=== PATIENT | female | born 1980 | race Caucasian/White ===

== ENCOUNTER 2024-10-01 11:25 | Emergency (ER) | payer OTHER, SELFPAY ==
[2024-10-01 11:25] VITALS: BP 123/85; PULSE 94; RESP 18; TEMP 37; O2SAT 99; BMI 23.3
--- NOTE | 2024-10-01 11:55 | CT_ITS ---
PROCEDURE: ABDOMEN/PELVIS W IV CONT ONLY 10/01/2024 REASON FOR EXAM: 43-year-old female, abdominal pain, history of Crohn's disease. TECHNIQUE: Abdomen CT without and with intravenous contrast. Coronal and Sagittal reconstruction series were provided. PATIENT PREPARATION: Per protocol ORAL CONTRAST TYPE: None. CONTRAST: Isovue-300 VOLUME: 100mL One or more dose reduction techniques were used (e.g., Automated exposure control, adjustment of the mA and/or kV according to patient size, use of iterative reconstruction technique. RADIATION DOSE SUMMARY: CTDlvol: 19 mGy DLP: 323 mGycm COMPARISON: None. FINDINGS: Lung bases: The heart is normal in size. Lung bases are clear. Liver: The liver is normal in size without focal hepatic mass. The major portal veins are patent. No biliary ductal dilation. Gallbladder: No radiopaque stones within the gallbladder. Spleen: Unremarkable. Pancreas: Unremarkable. Adrenals: Unremarkable. Kidneys: No hydronephrosis or nephrolithiasis. Bladder: Decompressed. Reproductive Organs: Normal uterine size and contour. Ovaries are unremarkable. Physiologic left corpus luteum. Bowel: Prior bowel resection and anastomosis in the right lower quadrant. The bowel loops are normal in caliber. Moderate diffuse mural thickening and enhancement of the distal colon, compatible with reported history of Crohn's disease. Mild mesenteric edema. No ascites or pneumoperitoneum. Probable prior appendectomy. Lymph nodes: Prominent mesenteric and lower abdominopelvic nodes, likely inflammatory. No suspicious lymphadenopathy. Vasculature: Unremarkable. Bones: No aggressive osseous lesions. CT/Abdomen/Pelvis W IV Cont ONLY IMPRESSION: Findings compatible with Crohn's disease. No bowel obstruction or abdominopelv ic abscess identified. Reading Location: [facility]
--- NOTE | 2024-10-01 11:56 | ED.VIS.GI ---
HPI HPI - GI History of Present Illness Chief Complaint: Abd Pain Narrative Narrative: 43-year-old female past medical history of Crohn disease, sees gastroenterology at the [facility] presents with concerns for bowel obstruction which she has had in the past. She has had ileostomy with small bowel resection in the past. She has had reversal of her ileostomy. She states she was seen by her roastmaster in July, approximately 2 months ago, and had colonoscopy where there was partial narrowing from her Crohn disease. She states that today while she was at work, she began feeling nauseated but no vomiting. She also had black stool mixed with bright red blood. She states that she is concerned for bowel obstruction. She is having increasing pain from her Crohn disease. She states that the Entyvio is not working and she supposed to be changed to a drug trial soon. [facility] Medical History Stomach ulcer GERD (gastroesophageal reflux disease) PCOS (polycystic ovarian syndrome) IBS (irritable bowel syndrome) History of frequent headaches Gastrointestinal problem Anemia Home Medications ?Medication ?Instructions ?Recorded ?Last Taken ?Type calcium carbonate-vitamin D3 600 tab PO 09/08/24 Unknown History mg calcium-200 unit chewable tablet ergocalciferol (vitamin D2) 1,250 1,250 mcg PO QWEEK 09/08/24 Unknown History mcg (50,000 unit) capsule ferrous sulfate 325 mg (65 mg 325 mg PO QDAY 09/08/24 Unknown History iron) tablet (Feosol) multivitamin 1 tab PO QDAY 09/08/24 Unknown History sertraline 25 mg tablet (Zoloft) 25 mg PO QDAY 09/08/24 Unknown History upadacitinib 30 mg tablet,extended 30 mg PO QDAY 09/08/24 Unknown History release 24 hr (Rinvoq) Allergy/AdvReac Type Severity Reaction Status Date / Time gluten Allergy Severe bloating Verified 10/01/24 11:25 meperidine (From Demerol) Allergy Severe Vomiting Verified 10/01/24 11:25 ciprofloxacin Allergy Intermediate Swelling Verified 10/01/24 11:25 Family History Mother Alcoholism Anxiety Arthritis Depression Hypertension Father Anxiety Psoriasis Hypertension Grandmother Depression Breast cancer Diabetes Osteoporosis Grandfather Myocardial infarction Aunt Breast cancer Parkinsons Depression Surgical History History of removal of ovarian cyst H/O colostomy Social History Smoking Status: Former smoker alcohol intake: current details: once a week substance use type: does not use and marijuana what type of physical activity do you participate in: walking, yoga and weight training frequency: 3-4 times per week ROS ROS ED ROS Narrative Constitutional: No fever, no chills. Cardiovascular: No chest pain. No palpitations. No pedal edema. Abdominal: Positive abdominal pain. Positive nausea. No vomiting. Reported black and bright red blood in stool. Musculoskeletal: No myalgias. No arthralgias. Neurologic: No headaches. No dizziness. No lightheadedness. EXAM Physical Exam Narrative Exam Narrative: Afebrile. Vital signs noted. Nontoxic-appearing. Cardiovascular examination reveals a regular rate and rhythm. Lungs clear to auscultation bilaterally. The abdomen is soft with diffuse tenderness to palpation, no guarding or rebound. Positive bowel sounds. Neurological examination nonfocal and nonlateralizing. Const Vital Signs: 10/01/24 11:25 10/01/24 13:25 Temperature 98.6 F Temperature Source Oral Pulse Rate 94 79 Respiratory Rate 18 16 Blood Pressure 123/85 H 130/64 H Blood Pressure Mean 97 86 Pulse Ox 99 98 Oxygen Delivery Method Room Air MDM MDM MDM Narrative Medical decision making narrative: Differential diagnosis includes but not limited to Crohn exacerbation versus bowel obstruction versus partial small bowel obstruction versus colitis. Patient was given analgesia in the form of morphine and ondansetron. She will be bolused normal saline [address] will be obtained to rule out obstruction. I will check her basic laboratory work as well for any dehydration or other electrolyte abnormality. I reviewed her laboratory work and she has normal white count of 7.4 with hemoglobin stable at 11.2, hematocrit 33.3, platelet count normal at 372. CMP is significant for an AST of 34 which I think is nonspecific, ALT normal at 27 and alk phos 96. BUN is normal at 6 with creatinine 0.81, no evidence of dehydration. Normal sodium and potassium. Urinalysis is negative for infection. While there are 5-10 WBCs, she is not having dysuria, I do not feel antibiotics are indicated. Her serum test is negative. I reviewed the radiology report of the CT of the abdomen and pelvis and it is consistent with Crohn disease but there is no acute process, no obstruction, no evidence of abscess. At this point in time, repeat examination shows her to feel the same. I do feel that she can be discharged to follow-up with her roastmaster. I discussed with her steroid burst, but as she is awaiting a new drug trial, she will continue her current medications and follow-up with her roastmaster. Return instructions were reviewed. Disposition is discharged home in stable condition. History & Record Review Discussion w/independent historian: Patient Lab Data Attestation: I reviewed the patient's lab results. Labs: Laboratory Results - last 24 hr 10/01/24 10/01/24 12:01 12:07 WBC 7.4 RBC 3.84 L Hgb 11.2 L Hct 33.3 L MCV 86.7 MCH 29.2 MCHC 33.6 RDW Std Deviation 41.2 RDW Coeff of Dominguez 13.2 Plt Count 372 MPV 8.8 Immature Gran % (Auto) 0.400 Neut % (Auto) 68.8 Lymph % (Auto) 20.4 [place] % (Auto) 7.9 Eos % (Auto) 2.2 Baso % (Auto) 0.3 Absolute Neuts (auto) 5.1 Absolute Lymphs (auto) 1.50 Nucleated RBC % 0 Sodium 139 Potassium 3.5 Chloride 104 Carbon Dioxide 23.4 Anion Gap 12 BUN 6 Creatinine 0.81 Estim Creat Clear Calc 68.27 Est GFR (MDRD) Non-Af 92 BUN/Creatinine Ratio 6.8 L Glucose 84 Calcium 8.9 Total Bilirubin 0.31 AST 34 H ALT 27 Alkaline Phosphatase 96 Total Protein 7.0 Albumin 3.6 Globulin 3.4 Albumin/Globulin Ratio 1.1 Lipase 39 Serum , Qual NEGATIVE Urine Color Yellow Urine Clarity Clear Urine pH 7.0 Ur Specific [place] 1.005 Urine Protein 15 H Urine Glucose (UA) Normal Urine Ketones Negative Urine Occult Blood 10 H Urine Nitrite Negative Urine Bilirubin Negative Urine Urobilinogen Normal Ur Leukocyte Esterase 500 H Urine RBC 0-5 SEEN Urine WBC 5-10 SEEN Ur Squamous Epith Cells 0-5 SEEN Urine Bacteria 1+ Urine Mucus 0 SEEN Radiography Diagnostic Testing: Clinical Impression(s) from Imaging Studies Abdomen/Pelvis CT 10/01/24 11:55 IMPRESSION: Findings compatible with Crohn's disease. No bowel obstruction or abdominopelvic abscess identified. Reading Location: [id number] Discharge Plan Triage Chief Complaint: Abd Pain ED Provider: Anthony West Dx/Rx/DC Orders Clinical Impression: Exacerbation of Crohn's disease, Abdominal pain Instructions: ED Crohn's Disease Prescriptions: No Action Rinvoq 30 mg tablet extended release 24 hr 30 mg PO QDAY sertraline [Zoloft] 25 mg tablet 25 mg PO QDAY ergocalciferol (vitamin D2) 1,250 mcg (50,000 unit) capsule 1,250 mcg PO QWEEK multivitamin Tablet 1 tab PO QDAY calcium carbonate-vitamin D3 600 mg calcium- 200 unit tablet,chewable PO ferrous sulfate [Feosol] 325 mg (65 mg iron) tablet 325 mg PO QDAY Patient Comments: Primary Care Provider: Care Physician,No Primary Referrals: Care Physician,No Primary [Primary Care Provider] - Activity Restrictions/Additional Instructions: Follow-up with your roastmaster at the [facility] as 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 Return with new or worsening symptoms. Print Language: Norwegian Disposition Disposition: Home, Self Care
[2024-10-01] MEDS: Ondansetron 4 MG/2 ML Vial IV (12:02)
[2024-10-01] MEDS: Morphine 4 MG/ML Syringe IV (12:02)
[2024-10-01] MEDS: 0.9% Normal Saline (1000mL) 1,000 ML 999 ML IV (12:04)
[2024-10-01 12:07] LABS: Mucous, Urine 0 SEEN /hpf (<or=2+)
[2024-10-01 12:15] LABS: Color, Urine Yellow (Yellow); Glucose, Dipstick Normal (Normal); Ketone-Dipstick Negative (Negative); Leukocyte Esterase-Dipstick 500 /ul (Negative); Nitrite-Dipstick Negative (Negative); Occult Blood-Urine 10 /ul (Negative); Protein-Dipstick 15 mg/dl (Negative); Specific Gravity, Urine 1.005 (1.002-1.030); Urine Bilirubin Dipstick Negative (Negative); Urine Clarity Clear (Clear); Urine Urobilinogen Normal (Normal)
[2024-10-01 12:33] LABS: Absolute Neutrophil Count 5.1 X10^3/uL (2.0-7.7); Basophil# 0.02 X10^3/uL; Basophil% 0.3 % (0-1); Eosinophil# 0.16 X10^3/uL; Eosinophils% 2.2 % (0-5); Hematocrit 33.3 % (37-47); Hemoglobin 11.2 g/dL (12.0-15.0); Lymphocyte % 20.4 % (19-41); Mean Corp Hgb Conc 33.6 g/dL (32-36); Mean Corpuscular Hgb 29.2 pg (27.0-32.0); Mean Corpuscular Volume 86.7 fL (81-99); Mean Platelet Vol. 8.8 fl (6.2-12.0); Monocyte# 0.58 X10^3/uL; Monocyte% 7.9 % (0-10); NRBC Flagged by Analyzer 0 % (0-5); Neutrophil # 5.06 X10^3/uL (2.7-7.7); Neutrophil % 68.8 % (47-70); Platelet Count 372 K/mm3 (150-450); RBC Distribution Width CV 13.2 % (11.6-14.6); RBC Distribution Width SD 41.2 fl (35.1-43.9); Red Blood Count 3.84 M/mm3 (4.2-5.4); White Blood Count 7.4 K/mm3 (4.4-11.0)
[2024-10-01 12:34] LABS: Bacteria 1+ /hpf (None Seen); Red Blood Cells-Urine 0-5 SEEN /hpf (0-5); Squamous Epithelial Cells - UA 0-5 SEEN /hpf (5-10); White Blood Cells 5-10 SEEN /hpf (0-5)
[2024-10-01 12:47] LABS: Internal QC Validated? YES +Cl - CLEAR BKGD; Pregnancy, Serum, hCG Quali. NEGATIVE Negative
[2024-10-01 12:49] LABS: ALB/GLOB Ratio 1.1 RATIO (0.9-2.4); AST(SGOT) 34 U/L (<=31); Alanine Aminotransfer ALT/SGPT 27 U/L (<=34); Albumin, Serum 3.6 g/dL (3.5-5.0); Alkaline Phosphatase 96 U/L (35-104); Anion Gap 12 (5-15); BUN 6 mg/dL (4-19); BUN/Creat Ratio 6.8 RATIO (10-20); Calcium,Total 8.9 mg/dL (7.6-11.0); Carbon Dioxide 23.4 mmol/L (21.0-32.0); Chloride 104 mmol/L (98-108); Creatinine, Serum 0.81 mg/dL (0.70-1.20); EST Glomerular Filtration Rate 92 (>60); Estimated Creatinine Clearance 68.27 ml/min (50-250); Globulin 3.4 g/dL (2.2-4.2); Glucose 84 mg/dL (70-99); Lipase 39 U/L (13-75); Potassium 3.5 mmol/L (3.3-5.1); Sodium Level 139 mmol/L (133-145); Total Bilirubin 0.31 mg/dL (0.00-1.30)
[2024-10-01 13:25] VITALS: BP 130/64; PULSE 79; RESP 16; O2SAT 98
[2024-10-01 14:20] VITALS: BP 123/78; PULSE 77; RESP 18; TEMP 36.8; O2SAT 95
== END 2024-10-01 14:24 | disposition home or self-care (01) ==
PROVIDERS: Emergency Provider Emergency Medicine; Visit Provider Emergency Medicine
DX: K50.90 Crohn's disease, unspecified, without complications (principal); R10.9 Unspecified abdominal pain; Z87.891 Personal history of nicotine dependence; K21.9 Gastro-esophageal reflux disease without esophagitis
CPT/HCPCS: 74177; 80053; 81001; 83690; 84703; 85025; 96361; 96374; 96375; 99283; Q9967; A4216; J2405

== ENCOUNTER → 2024-12-15 | Outpatient (CLI) | payer OTHER, SELFPAY ==
--- NOTE | 2024-12-15 06:21 | CT_ITS ---
PROCEDURE: SINUS/FACIAL BONE REASON FOR EXAM: SINUSITIS TECHNIQUE: CT of the paranasal sinuses without contrast. Coronal and Sagittal reconstruction series were provided. One or more dose reduction techniques were used (e.g., Automated exposure control, adjustment of the mA and/or kV according to patient size, use of iterative reconstruction technique). Dose: CTDIvol 33.06 mGy. DLP 804.92 mGy-cm. COMPARISON: None. FINDINGS: Frontal: Clear. Ethmoid: Clear. Sphenoid: Clear. Maxillary: Clear Turbinates: Appearance. Nasal Septum: Midline. Mastoids/Middle Ears: Clear mastoid air cells bilaterally. No osseous destructive changes seen CT/Sinus/Facial Bone IMPRESSION: Negative examination Reading Location: [id number]
--- OUTSIDE RECORDS SUMMARY | 2024-12-15 06:24 | XMS RPT_ITS | CCD ---
Author Organization [facility] Care Team Providers Care Claim Review Medical Director Name Role Phone YANNA RODRIGUEZ, DR JAMMIE Bullard Primary Care Physician Jammie Raines Primary Care Provider Jammie Raines Unavailable Omar Casas Unavailable Unavailable YANNA RODRIGUEZ, DR JAMMIE Bullard Primary Care Physician Jammie Raines Primary Care Provider Jammie Raines Unavailable Omar Casas Unavailable Unavailable Jammie Raines Primary Care Provider Jmamie Raines Unavailable Omar Casas Unavailable Unavailable Jammie Raines Primary Care Provider Jammie Raines Unavailable Omar Casas Unavailable Unavailable JAMMIE RAINES Primary Care Unavailable NATACHA KLEIN N Attending Unavailable Michelle Garcia Primary Care Provider Nuno Montgomery Attending Unavailable provider (Unknown), Unlisted Primary Care Kat Jammie Otto MD Primary Care Provider Jammie Raines MD Unavailable [phone] Michelle Garcia MD Primary Care Provider Michelle Garcia MD Primary Care Provider Jose CAMACHO Michelle Chapa Primary Care Provider [phone] MICHELLE GARCIA Attending Unavailable MICHELLE GARCIA Referring Unavailable MICHELLE GARCIA Primary Care Unavailable Michelle Garcia MD Primary Care Provider [phone] Jose CAMACHOMichelle Primary Care Provider [phone] Anthony West MD Emergency Provider Care Physician, No Primary Primary Care Provider Unavailable Care Physician, No Primary Primary Care Unava ilable Apple Tang Attending UnavailApple Jarvis Attending UnavailRose Dougherty Attending Unavailable Care Physician, No Primary Primary Care Unava ilable Anthony West Attending Unavailable Jose Michelle Primary Care Provider [phone] GARCIA, MICHELLE L Primary Care Unavailable RIBAKOW, CHALINO Referring Unavailable RIBAKOW, CHALINO Attending Unavailable GARCIA, MICHELLE L Primary Care Unavailable CALVIN VORA Referring Unavailable DIVYA DIEGO Attending Unavailable GARCIA, MICHELLE L Primary Care Unavailable FLOR MAR Referring Unavailable GARCIA, MICHELLE L Primary Care Unavailable FLOR MAR Referring Unavailable GARCIA, MICHELLE L Primary Care Unavailable CALVIN VORA Referring Unavailable DIVYA DIEGO Attending Unavailable GARCIA, MICHELLE L Primary Care Unavailable GARCIA, MICHELLE L Primary Care Unavailable CALVIN VORA Referring Unavailable GARCIA, MICHELLE L Primary Care Unavailable CALVIN VORA Attending Unavailable GARCIA, MICHELLE L Primary Care Unavailable ELBA, MANDEERoselynK Referring Unavailable CALVIN VORA Attending Unavailable GARCIA, MICHELLE L Primary Care Unavailable CALVIN VORA Attending Unavailable GARCIA, MICHELLE L Primary Care Unavailable GARCIA, MICHELLE L Primary Care Unavailable RIBAKOW, CHALINO Referring Unavailable NELY CHETAN Attending Unavailable FLOR MAR Admitting Unavailable FLOR MAR Attending Unavailable GARCIA, MICHELLE L Primary Care Unavailable GARCIA, MICHELLE L Primary Care Unavailable RIBAKOW, CHALINO Referring Unavailable Allergies Allergy Classification Reported Allergen(s) Allergy Type Date of Onset Reaction(s) Facility [facility] (1 source) ciprofibrate Drug Allergy 8 Anaphylaxis [facility] Grains (1 source) Gluten Food Allergy 9 GI Upset [facility] Opioid Agonists (2 sources) Meperidine Drug Allergy 9 Intolerance, Other: See Comments [facility] Quinolones (antibiotic) (1 source) Ciprofloxacin Drug Allergy 7 Swelling, GI Upset, Anaphylaxis [facility] (20 sources) Ciprofloxacin; Translations: [ciprofloxacin] Drug Allergy 7 Nausea (finding), Swelling, GI Upset, Anaphylaxis [facility] (20 sources) Gluten; Translations: [GLUTEN PROTEIN] Drug Allergy 9 GI Upset [facility] (20 sources) Meperidine; Translations: [MEPERIDINE (PF)] Drug Allergy 9 Intolerance, Other: See Comments [facility] (20 sources) ciprofibrate; Translations: [CIPROFIBRATE] Drug Allergy 8 Anaphylaxis [facility] (20 sources) Meperidine; Translations: [MEPERIDINE] Drug Allergy 9 Intolerance [facility] (1 source) Wheat gluten extract Drug Allergy 5 bloating [facility] (1 source) Ciprofloxacin Drug Allergy 5 [facility] (1 source) Gluten Drug allergy (disorder) 5 [facility] (1 source) Meperidine Drug Allergy 5 [facility] Medications Current Medications Medication Drug Class(es) Dates Sig (Normalized) Sig (Original) acetaminophen 325 mg / HYDROcodone bitartrate 5 mg oral tablet (1 source) Opioid Agonist Start: 05-17-2021 End: 05-20-2021 take 1 tablet by mouth every six hours as needed for pain [place] 325- 5 mg oral tablet Dose = 1 tab(s), Oral, q6h, PRN As needed for severe pain, X 3 day(s), # 12 tab(s), 0 Refill(s), Crohn's disease, acute, 44.6 Start Date: 05/17/21 Stop Date: 05/20/21 Status: Ordered ascorbic acid 250 mg oral tablet (20 sources) Vitamin C ascorbic acid, vitamin C, (VITAMIN C) 250 mg tablet Take 250 mg by mouth. Active Comment on above: Take 250 mg by mouth . Calcium (20 sources) Phosphate Binder, Calcium CALCIUM ORAL Take by mouth. Active CALCIUM ORAL Chris e by mouth. 0 Active Comment on above: Take by mouth. calcium carbonate 1250 mg / cholecalciferol 200 unt oral tablet (20 sources) Vitamin D take 1 tablet by mouth once [id number]-[id number] brunson D3 500 mg-5 mcg (200 unit) per tablet Take 1 tablet by mouth. Active Comment on above: Take 1 tablet by nisreen th. Calcium Carbonate-Vitamin D3 600 mg calcium- 200 unit tablet,chewable (1 source) Start: Calcium Carbonate-Vitamin D3 600 mg calcium- 200 unit tablet,chewable Active {tbl} PO September 08, 2024 1:00am enteric contrast (will be provided with radiology test) (1 source) Start: End: enteric contrast (will be provided with radiology test) For MRI ENTEROGRAPHY WO/W Administer, As Directed One Time Only, via Oral, Rectal, both Oral and Rectal, Enteric Tube, Stoma or Indwelling Catheter, Enteric Contrast as designated per enteric contrast guidelines 1 Each 0 12/27/2021 12/28/2021 Active Comment on above: For MRI ENTEROGRAPHY WO/W Administer, As Directed One Time Only, via Oral, Rectal, both Oral and Rectal, Enteric Tube, Stoma or Indwelling Catheter, Enteric Contrast as designated per enteric contrast guidelines ergocalciferol 1.25 mg oral capsule (20 sources) Provitamin D2 Compound Start: End: take 1 capsule by mouth every week ergocalciferol 50,000 unit capsule (VITAMIN D2, DRISDOL) Indications: Vitamin D insufficiency , 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) , Malabsorption due to intolerance, not elsewhere classified Take 1 capsule by mouth one time a week. 12 capsule 1 05/26/2024 Active Comment on above: TAKE 1 CAPSULE BY MO [facility] ONE TIME A WEEK. famotidine 40 mg oral tablet (2 sources) Histamine-2 Receptor Antagonist Start: famotidine 40 mg oral tablet Dose : 40 mg = 1 tab(s), Oral, Daily, 0 Refill(s) Start Date: 11/05/16 Status: Ordered ferrous sulfate 325 mg oral tablet (20 sources) Start: take 1 tablet by mouth once daily Ferrous Sulfate (Feosol) 325 mg (65 mg iron) tablet Active 325 mg PO daily September 08, 2024 1:00am take 1 tablet by nisreen th once daily at breakfast Ferrous Sulfate 142 mg (45 mg iron) TbER Take 1 tablet by mouth daily with breakfast. Active take 1 capsule by mouth once ronan ly ferrous sulfate (IRON ORAL) Take 1 capsule by mouth once daily. Active take 1 capsule by mouth once ornan ly ferrous sulfate (IRON ORAL) Take 1 capsule by mouth once daily. 0 Active Comment on above: Take 1 capsule by mo uth once daily. Take 1 tablet by nisreen th daily with breakfast. hydrocortisone acetate 25 mg rectal suppository (3 sources) Corticosteroid Start: End: hydrocortisone (ANUSOL-HC) 25 mg suppository Indications: 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) , Anal or rectal pain 1 Suppository by RECTAL route every 12 hours. 60 Each 02/04/2024 03/05/2024 Active hydrocortisone 2.5% lidocaine 3% NIFEdipine 0.5% ointment (CPD) (6 sources) Start: End: apply 30 g rectal route three times daily hydrocortisone 2.5% lidocaine 3% NIFEdipine 0.5% ointment (CPD) Indications: 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) , Anal or rectal pain Apply a pea-sized amount by RECTAL route three times a day. 30 g 0 01/07/2024 02/06/2024 Active hydrOXYzine pamoate 25 mg oral capsule (20 sources) Antihistamine hydrOXYzine pamo ate (VISTARIL) 25 mg capsule Take 25 mg by mouth as needed. Patient not sure of dosage Active Comment on above: Take 25 mg by mouth as needed. Patient not sure of dosage inFLIXimab-abda 100 mg injection (20 sources) Tumor Necrosis Factor Jose Manuel Start: inFLIXimab-abda (RENFLEXIS) 100 mg injection Inject 400 mg intravenously every 8 weeks. NURSE TO INSERT IV FOR ADMINISTRATION 400 mg 05/03/2021 Active Comment on above: Inject 400 mg intrav enously every 8 weeks. NURSE TO INSERT IV FOR ADMINISTRATION iv contrast (will be provided with radiology test) (1 source) Start: End: iv contrast (will be provided with radiology test) MRI Enterography Inject, intravenously, once for 1 dose. No IV access, insert saline lock prior to the beginning of sedation, infusion, injection of imaging exam. Discontinue saline lock post exam. If Pt. has a central line or IVAD, may access for administration according to line specific nursing protocol. Once exam is complete flush line and de-access according to line specific nursing protocol in the MR contrast administration guidelines link. 1 Each 0 12/27/2021 12/28/2021 Active Comment on above: MRI Enterography Inj ect, intravenously, once for 1 dose. No IV access, insert saline lock prior to the beginning of sedation, infusion, injection of imaging exam. Discontinue saline lock post exam. If Pt. has a central line or IVAD, may access for administration according to line specific nursing protocol. Once exam is complete flush line and de-access according to line specific nursing protocol in the MR contrast administration guidelines link. lidocaine hydrochloride 0.02 mg/mg topical gel (17 sources) Antiarrhythmic, Amide Local Anesthetic Start: End: lidocaine urojet (GLYDO) 2 % jelp Indications: 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) , Anal or rectal pain Apply 6 mL to affected area three times a day as needed. 126 mL 4 02/04/2024 03/10/2024 Active Start: 01-22-2022 End: 08-29-2022 lidocaine (XYLOCAINE) 2 % je lly Apply as directed. 30 mL 1 01/22/2022 08/29/2022 Discontinued Comment on above: Apply as directed. methylPREDNISolone (1 source) Corticosteroid Start: 03-04-20 End: 03-10-20 methylPREDNISolone (MEDROL, GRIFFIN,) 4 mg Dose-Pack Take as instructed per package. 21 tablet 03/04/2024 03/10/2024 Active multivitamin tablet (20 sources) take 1 tablet by mouth once daily multivitamin tablet Take 1 tablet by mouth once daily. Active take 1 tablet by mouth once leslie y multivitamin tablet Take 1 tablet by mouth once daily. 0 Active Comment on above: Take 1 tablet by nisreen once daily. Multivitamin tablet (1 source) Start: 5 Multivitamin tablet Active 1 {tbl} PO daily September 08, 2024 1:00am ondansetron 8 mg oral tablet (2 sources) Serotonin-3 Receptor Antagonist Start: 5 End: 5 take 1 tablet by mouth every eight hours as needed for nausea ondansetron (ZOFRAN) 8 mg tablet Indications: 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) Take 1 tablet by mouth every 8 hours as needed for nausea/vomiting. 60 tablet 10/18/2024 11/17/2024 Active predniSONE 10 mg oral tablet (2 sources) Start: 2 predniSONE 10 mg oral tablet See Instructions, 4 tabs for 2 days 3 tabs for 2 days 2 tabs for 2 days 1 tabs for 2 days, # 20 tab(s), 0 Refill(s) Start Date: 01/27/22 Status: Ordered Start: 05-17-2021 End: 05-23-2021 take 1 tablet by mouth once daily prednisone 20mg tab (TAPER) Taper 60-40-20 mg x 2 days each dose, Oral, Daily, X 6 day(s), # 12 tab(s), 0 Refill(s), 05/23/21 17:01:00 EST Start Date: 05/17/21 Stop Date: 05/23/21 Status: Ordered Probiotic Formula oral capsule (2 sources) Start: 11-05-2016 take 1 capsule by mouth once daily Probiotic Formula oral capsule Dose = 1 cap(s), Oral, qDay, 0 Refill(s) Start Date: 11/05/16 Status: Ordered sertraline 25 mg oral tablet (20 sources) Serotonin Reuptake Inhibitor Start: 09-08-2024 take 1 tablet by mouth once daily Sertraline (Zoloft) 25 mg tablet Active 25 mg PO daily September 08, 2024 1:00am take 1 tablet by mouth once leslie y sertraline (ZOLOFT) 100 mg tablet Take 100 mg by mouth once daily. Active Comment on above: Take 100 mg by mouth once daily. Upadacitinib (Rinvoq) 30 mg tablet extended release 24 hr (1 source) Start: 09-08-2024 take 1 tablet by mouth once daily Upadacitinib (Rinvoq) 30 mg tablet extended release 24 hr Active 30 mg PO daily September 08, 2024 1:00am upadacitinib tablet ER 24 hr 30 mg (RINVOQ) (20 sources) Start: 05-11-2024 End: 05-11-2025 take 1 tablet by mouth once daily upadacitinib tablet ER 24 hr 30 mg (RINVOQ) Indications: 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) Take 1 tablet (30 mg) by mouth once daily. Swallow whole; DO NOT crush, chew, or open. 90 tablet 3 05/11/2024 05/11/2025 Active Start: 01-01-2024 End: 05-11-2024 take 1 tablet by mouth once daily upadacitinib tablet ER 24 hr 30 mg (RINVOQ) Indications: 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) Take 1 tablet (30 mg) by mouth once daily. Swallow whole; DO NOT crush, chew, or open. 30 tablet 5 01/01/2024 05/11/2024 Discontinued Start: 01-01-2024 End: 10-16-2023 take 1 tablet by mouth once daily upadacitinib tablet ER 24 hr 30 mg (RINVOQ) Take 1 tablet (30 mg) by mouth once daily. Swallow whole; DO NOT crush, chew, or open. 30 tablet 5 01/01/2024 10/16/2023 Discontinued Start: 01-01-2024 End: 06-29-2024 take 1 tablet by mouth once daily upadacitinib tablet ER 24 hr 30 mg (RINVOQ) Indications: 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) Take 1 tablet (30 mg) by mouth once daily. Swallow whole; DO NOT crush, chew, or open. 30 tablet 5 01/01/2024 06/29/2024 Active Start: 01-01-2024 End: 06-29-2024 take 1 tablet by mouth once daily upadacitinib tablet ER 24 hr 30 mg (RINVOQ) Take 1 tablet (30 mg) by mouth once daily. Swallow whole; DO NOT crush, chew, or open. 30 tablet 5 01/01/2024 06/29/2024 Active Comment on above: Take 1 tablet (30 mg ) by mouth once daily. Swallow whole; DO NOT crush, chew, or open. valACYclovir 1000 mg oral tablet (20 sources) Herpesvirus Nucleoside Analog DNA Polymerase Inhibitor, Herpes Simplex Virus Nucleoside Analog DNA Polymerase Inhibitor, Herpes Zoster Virus Nucleoside Analog DNA Polymerase Inhibitor Start: 022 take 1000 mg by mouth once daily as needed valACYclovir (VALTREX) 1 gram Take 1,000 mg by mouth once daily as needed. 06/03/2022 Active Comment on above: Take 1,000 mg by nisreen once daily as needed. vitamin b12 1 mg/ml injectable solution (20 sources) Vitamin B12 Start: 024 End: 025 inject 1000 ug by intramuscular injection every month cyanocobalamin, vitamin B-12, 1,000 mcg/mL kit Indications: Vitamin B 12 deficiency , 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) , Malabsorption due to intolerance, not elsewhere classified Inject 1,000 mcg intramuscularly once every month. 1 Kit 11 05/26/2024 05/26/2025 Active Start: 05-18-2020 End: 05-25-2024 Cyanocobalamin 1,000 mcg sub l Dissolve 1 tablet under the tongue once daily. 100 tablet 05/18/2020 05/25/2024 Discontinued (Course of therapy completed) Comment on above: Dissolve 1 tablet un reza the tongue once daily. Completed/Discontinued Medications Medication Drug Class(es) Dates Sig (Normalized) Sig (Original) acetaminophen 500 mg oral tablet (20 sources) Start: 03-04-2024 End: 03-04-2024 take 1 dose by mouth once as needed for pain 500-1,000 mg, ORAL, ONCE, 1 dose, On Thu03/04/24 at 1430, If ordered PRN for pain, patient/guardian may elect to receive this medication for higher pain levels INSTEAD of the opioid, if preferred: Yes, Recovery or Phase I (only) take 2 tablets by mo ut every six hours as needed acetaminophen (TYLENOL) 325 mg tablet Ta ke 650 mg by mouth every 6 hours as needed. Active Comment on above: Take 650 mg by mouth every 6 hours as needed. 14 actuat budesonide 2 mg/actuat rectal foam (20 sources) Corticosteroid Start : 09-11 End: 02-03 take 66.8 g rectal route once daily at bedtime budesonide 2 mg/actuation foam by RECTAL route daily at bedtime. 66.8 g 3 09/17/2023 02/04/2024 Discontinued (Course of therapy completed) Comment on above: by RECTAL route leslie y at bedtime. calcium chloride 0.0014 meq/ml / potassium chloride 0.004 meq/ml / sodium chloride 0.103 meq/ml / sodium lactate 0.028 meq/ml injectable solution (2 sources) Start : 03-04 End: 03-05 take 100 mL intravenously every hour 100 mL/hr, INTRAVENOUS, CONTINUOUS, Starting on Thu03/04/24 at 1330, Until 03/05/24 at 0302, Recovery or Phase I (only) cholecalciferol 0.025 mg oral tablet (20 sources) Vitamin D End: 05-25 cholecalciferol (VITAMIN D3) 1,000 unit tab tablet Take 1,000 Units by mouth. 05/25/2024 Discontinued (Course of therapy completed) Comment on above: Take 1,000 Units by mouth. dicyclomine hydrochloride 10 mg oral capsule (2 sources) Anticholinergic Start : 11-05 End: 11-08 Bentyl 10 mg oral capsule Dose : 10 mg = 1 cap(s), Oral, QID, # 12 cap(s), 0 Refill(s) Start Date: 11/05/16 Stop Date: 11/08/16 Status: Ordered 1 ml fentaNYL 0.05 mg/ml injection (1 source) Opioid Agonist Start : 03-04 End: 03-05 25-50 mcg, INTRAVENOUS, EVERY 10 MINUTES NEEDED, Starting on Thu03/04/24 at 1323, Until 03/05/24 at 0302, Mild Pain (1-3) - Parenteral, Moderate Pain (4-6) - Parenteral, Severe Pain (>/=7) - Parenteral, May repeat every 10 minutes (MAX: 250 mcg) If pain score remains greater than 4 after maximal dose achieved, contact PACU residential director/LIP/staff for reassessment. Give 25 mcg for mild pain (1-3) Give 50 mcg for moderate pain (4-6) and severe pain (>/=7), Recovery or Phase I (only) glucagon (rdna) 1 mg injection (14 sources) Antihypoglycemic Agent Start : 12-27 End: 08-29 inject 1 mg intravenously once glucagon (GLUCAGEN) 1 mg/mL injection Inject 1 mg intravenously one time only for 1 dose. For MRI Enterography, Inject 1 mg intravenously, as directed. Slow push at the appropriate time during MRI Scan 1 Each 0 12/27/2021 08/29/2022 Discontinued Comment on above: Inject 1 mg intraven ously one time only for 1 dose. For MRI Enterography, Inject 1 mg intravenously, as directed. Slow push at the appropriate time during MRI Scan lidocaine (PF) 10 mg/mL (1 %) 1-2 mg injection (XYLOCAINE) (1 source) Start : 03-04 End: 03-05 lidocaine (PF) 10 mg/mL (1 %) 1-2 mg injection (XYLOCAINE) 1000 ml sodium chloride 9 mg/ml injection (1 source) Start : 03-04 End: 03-05 20 mL, INTRAVENOUS, NEEDED, Starting on Thu03/04/24 at 0842, Until 03/05/24 at 0302, See admin instructions, If no compatible primary is already running, infuse NaCl 0.9% as primary to flush tubing after non-chemotherapy, non-immunotherapy intermittent infusions. Administer at the same rate as intermittent infusion. Select the Flush Bag file on smart pump., Preprocedure upadacitinib tablet ER 24 hr 45 mg (RINVOQ) (13 sources) Start : 10-17 End: 05-11 take 1 tablet by mouth once daily upadacitinib tablet ER 24 hr 45 mg (RINVOQ) Indications: 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) Take 1 tablet (45 mg) by mouth once daily. Swallow whole; DO NOT crush, chew, or open. 28 tablet 2 10/18/2023 05/11/2024 Discontinued Start: 10-18-2023 take 1 tablet by nisreen th once daily upadacitinib tablet ER 24 hr 45 mg (RINVOQ) Indications: 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) Take 1 tablet (45 mg) by mouth once daily. Swallow whole; DO NOT crush, chew, or open. 28 tablet 2 10/18/2023 Active Start: 10-18-2023 End: 01-10-2024 take 1 tablet by mouth once daily upadacitinib tablet ER 24 hr 45 mg (RINVOQ) Indications: 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) Take 1 tablet (45 mg) by mouth once daily. Swallow whole; DO NOT crush, chew, or open. 28 tablet 2 10/18/2023 01/10/2024 Active Start: 10-08-2023 End: 10-16-2023 take 1 tablet by mouth once daily upadacitinib tablet ER 24 hr 45 mg (RINVOQ) Take 1 tablet (45 mg) by mouth once daily. Swallow whole; DO NOT crush, chew, or open. 28 tablet 2 10/08/2023 10/16/2023 Discontinued Start: 10-08-2023 End: 12-31-2023 take 1 tablet by mouth once daily upadacitinib tablet ER 24 hr 45 mg (RINVOQ) Take 1 tablet (45 mg) by mouth once daily. Swallow whole; DO NOT crush, chew, or open. 28 tablet 2 10/08/2023 12/31/2023 Active Comment on above: Take 1 tablet (45 mg ) by mouth once daily. Swallow whole; DO NOT crush, chew, or open. Vit B Comp and C-Vit E-FA-Sabine-Zn 0.4 mg tab (20 sources) End: 05-25-2024 Vit B Comp and C-Vit E-FA-Sabine-Zn 0.4 mg tab 1 tablet. 05/25/2024 Discontinued (Course of therapy completed) Vit B Comp and C -Vit E-FA-Sabine-Zn 0.4 mg tab 1 tablet. Active Vit B Comp and C -Vit E-FA-Sabine-Zn 0.4 mg tab 1 tablet. 0 Active Comment on above: 1 tablet. Problems Active Problems Problem Classification Problem Date Documented Da te Episodic/Chronic Deficiency and other anemia (2 sources) Iron deficiency anemia; Translations: [Iron deficiency anemia, unspecified] 12-06-2024 Episodic Deficiency and other anemia (1 source) Iron deficiency anemia, unspecified; Translations: [Iron deficiency anemia, unspecified iron deficiency anemia type] Onset: 12-06-2024 Episodic Endometriosis (20 sources) Endometriosis (clinical); Translations: [Endometriosis, unspecified] Onset: 05-02-2020 05-02-2020 Chronic Esophageal disorders (20 sources) Gastric reflux; Translations: [Gastro-esophageal reflux disease without esophagitis] Onset: 02-16-2017 02-16-2017 Chronic Gastroduodenal ulcer (except hemorrhage) (2 sources) Gastric ulcer 10-12-2016 Chronic Nutritional deficiencies (20 sources) Malnutrition (calorie); Translations: [Moderate protein-calorie malnutrition] Onset: 02-06-2017 02-16-2017 Chronic Other aftercare (1 source) Encounter for therapeutic drug level monitoring; Translations: [Encounter for therapeutic drug level monitoring] Onset: 12-06-2024 Episodic Other connective tissue disease (1 source) Pain in right foot; Translations: [Pain in right foot] Onset: 01-03-2023 Episodic Other connective tissue disease (1 source) Pain in right toe(s); Translations: [Pain in right toe(s)] Onset: 01-03-2023 Episodic Other gastrointestinal disorders (20 sources) Ileostomy present; Translations: [Encounter for attention to ileostomy] Onset: 05-14-2017 05-27-2017 Chronic Other gastrointestinal disorders (1 source) Malabsorption syndrome; Translations: [Malabsorption due to intolerance, not elsewhere classified] 05-25-2024 Chronic Other screening for suspected conditions (not mental disorders or infectious disease) (9 sources) Patient encounter status; Translations: [Encounter for screening mammogram for malignant neoplasm of breast] Onset: 11-26-2023 Episodic Other skin disorders (1 source) Localized swelling, mass and lump, right lower limb; Translations: [Localized swelling, mass and lump, right lower limb] Onset: 01-03-2023 Episodic Other upper respiratory infections (2 sources) Acute pharyngitis; Translations: [Acute pharyngitis, unspecified] Onset: 08-29-2022 Episodic Regional enteritis and ulcerative colitis (20 sources) Crohn's disease; Translations: [Crohn's disease, unspecified, without complications] Onset: 05-14-2017 Chronic Past or Other Problems Problem Classification Problem Date Documented Date Episodic/Chronic Abdominal pain (20 sources) Abdominal pain; Translations: [Unspecified abdominal pain] Onset: 7 02-16-2017 Episodic Anal and rectal conditions (6 sources) Anal fissure; Translations: [Anal fissure, unspecified] Onset: 4 Episodic Noninfectious gastroenteritis (20 sources) Colitis; Translations: [Noninfective gastroenteritis and colitis, unspecified] Onset: 7 Resolved: 0 05-14-2017 Episodic Nutritional deficiencies (20 sources) Serum iron low; Translations: [Iron deficiency] Onset: 7 02-16-2017 Episodic Other aftercare (20 sources) Long-term current use of immunosuppressive drug; Translations: [Other fci (current) drug therapy] Onset: 0 05-02-2020 Episodic Other nervous system disorders (20 sources) Postoperative pain ; Translations: [Other acute postprocedural pain] Onset: 7 02-16-2017 Episodic Urinary tract infections (20 sources) Infective urethritis; Translations: [Other urethritis] Onset: 7 11-11-2016 Episodic Results Test Name Value Interpretation Reference Range Facility CBC W Auto Differential pane l (Bld)on 12-06-2024 Basophils (Bld) [#/Vol] [facility] Basophils/100 WBC (Bld) 0.3 % [facility] Differential cell count method Nom (Bld) Auto [facility] Eosinophils (Bld) [#/Vol] 0.12 10*3/uL [facility] Eosinophils/100 WBC (Bld) 1.8 % [facility] Erythrocyte distribution width (RBC) [Ratio] 15.1 % High 11.5 - 15.0 % [facility] Hematocrit (d) [Volume fraction] 33.8 % Low 36.0 - 46.0 % [facility] Hemoglobin (Bld) [Mass/Vol] 11 g/dL Low 11.5 - 15.5 g/dL [facility] Immature granulocytes (Bld) [#/Vol] 0.03 10*3/uL [facility] Immature granulocytes/100 WBC (Bld) 0.4 % [facility] Interpretation and review of laboratory results Abnormal [facility] Lymphocytes (Bld) [#/Vol] 1.37 10*3/uL [facility] Lymphocytes/100 WBC (Bld) 20 % [facility] MCH (RBC) [Entitic mass] 28.6 pg 26.0 - 34.0 pg [facility] MCHC (RBC) [Mass/Vol] 32.5 g/dL 30.5 - 36.0 g/dL [facility] MCV (RBC) [Entitic vol] 88 fL 80.0 - 100.0 fL [facility] Monocytes (Bld) [#/Vol] 0.57 10*3/uL [facility] Monocytes/100 WBC (Bld) 8.3 % C [facility] Neutrophils (Bld) [#/Vol] 4.73 10*3/uL [facility] Neutrophils/100 WBC (Bld) 69.2 % [facility] Nucleated RBC (Bld) [#/Vol] NINF [facility] Nucleated RBC/100 WBC (Bld) [Ratio] 0 % /100 WBC [facility] Platelet mean volume (Bld) [Entitic vol] 9.1 fL 9.0 - 12.7 fL [facility] Platelets (Bld) [#/Vol] 362 10*3/uL [facility] RBC (Bld) [#/Vol] 3.84 10*6/uL Low 3.90 - 5.2 0 m/uL [facility] WBC (Bld) [#/Vol] 6.84 10*3/uL [facility] Basophils (Bld) [#/Vol] 10*3/uL Normal <0.11 [facility] Comment on above: Order Comment: Speci men Type: BLOOD SPECIMEN Ordering Facility: [facility] Address: [address] [place] [address] Performed By: #### 5 7021-8 #### [facility] CLIA [id number] [address] [place] [address] [place] [facility] Basophils/100 WBC (Bld) 0.3 % Normal [facility] Comment on above: Order Comment: Speci men Type: BLOOD SPECIMEN Ordering Facility: [facility] Address: [address] [place] [address] Performed By: #### 5 7021-8 #### [facility] CLIA [id number] [address] [place] [address] [place] Differential cell count method Nom (Bld) Auto Normal [facility] Comment on above: Order Comment: Speci men Type: BLOOD SPECIMEN Ordering Facility: [facility] Address: [address] [place] [address] Performed By: #### 5 7021-8 #### [facility] CLIA [id number] [address] [place] [address] [place] Eosinophils (Bld) [#/Vol] 0.12 10*3/uL Normal <0.46 [facility] Comment on above: Order Comment: Speci men Type: BLOOD SPECIMEN Ordering Facility: [facility] Address: [address] [place] [address] Performed By: #### 5 7021-8 #### [facility] CLIA [id number] [address] [place] [address] [place] Eosinophils/100 WBC (Bld) 1.8 % Normal [facility] Comment on above: Order Comment: Speci men Type: BLOOD SPECIMEN Ordering Facility: [facility] Address: [address] [place] [address] Performed By: #### 5 7021-8 #### [facility] CLIA [id number] [address] [place] [address] [place] Erythrocyte distribution width (RBC) [Ratio] 15.1 % High 11.5-15.0 [facility] Comment on above: Order Comment: Speci men Type: BLOOD SPECIMEN Ordering Facility: [facility] Address: [address] [place] [address] Performed By: #### 5 7021-8 #### [facility] CLIA [id number] [address] [place] [address] [place] Hematocrit (Bld) [Volume fraction] 33.8 % Low 36.0-46.0 [facility] Comment on above: Order Comment: Speci men Type: BLOOD SPECIMEN Ordering Facility: [facility] Address: [address] [place] [address] Performed By: #### 5 7021-8 #### [facility] CLIA [id number] [address] [place] [address] [place] Hemoglobin (Bld) [Mass/Vol] 11.0 g/dL Low 11.5-15.5 [facility] Comment on above: Order Comment: Speci men Type: BLOOD SPECIMEN Ordering Facility: [facility] Address: [address] [place] [address] Performed By: #### 5 7021-8 #### [facility] CLIA [id number] [address] [place] [address] [place] Immature granulocytes (Bld) [#/Vol] 0.03 10*3/uL Normal <0.10 [facility] Comment on above: Order Comment: Speci men Type: BLOOD SPECIMEN Ordering Facility: [facility] Address: [address] [place] [address] Performed By: #### 5 7021-8 #### [facility] CLIA [id number] [address] [place] [address] [place] Immature granulocytes/100 WBC (Bld) 0.4 % Normal [facility] Comment on above: Order Comment: Speci men Type: BLOOD SPECIMEN Ordering Facility: [facility] Address: [address] [place] [address] Performed By: #### 5 7021-8 #### [facility] CLIA [id number] [address] [place] [address] [place] Lymphocytes (Bld) [#/Vol] 1.37 10*3/uL Normal 1.00-4.00 [facility] Comment on above: Order Comment: Speci men Type: BLOOD SPECIMEN Ordering Facility: [facility] Address: [address] [place], [place] [address] Performed By: #### 5 7021-8 #### [facility] CLIA [id number] [address] [place] [address] [place] Lymphocytes/100 WBC (Bld) 20.0 % Normal [facility] Comment on above: Order Comment: Speci men Type: BLOOD SPECIMEN Ordering Facility: [facility] Address: [address] [place] [address] Performed By: #### 5 7021-8 #### [facility] CLIA [id number] [address] [place] [address] [place] MCH (RBC) [Entitic mass] 28.6 pg Normal 26.0-34.0 [facility] Comment on above: Order Comment: Speci men Type: BLOOD SPECIMEN Ordering Facility: [facility] Address: [address] [place] [address] Performed By: #### 5 7021-8 #### [facility] CLIA [id number] [address] [place] [address] [place] MCHC (RBC) [Mass/Vol] 32.5 g/dL Normal 30.5-36.0 [facility] Comment on above: Order Comment: Speci men Type: BLOOD SPECIMEN Ordering Facility: [facility] Address: [address] [place] [address] Performed By: #### 5 7021-8 #### [facility] CLIA [id number] [address] [place] [address] [place] MCV (RBC) [Entitic vol] 88.0 fL Normal 80.0-100.0 [facility] Comment on above: Order Comment: Speci men Type: BLOOD SPECIMEN Ordering Facility: [facility] Address: [address] [place] [address] Performed By: #### 5 7021-8 #### [facility] CLIA [id number] [address] [place] [address] [place] Monocytes (Bld) [#/Vol] 0.57 10*3/uL Normal <0.87 [facility] Comment on above: Order Comment: Speci men Type: BLOOD SPECIMEN Ordering Facility: [facility] Address: [address] [place] [address] Performed By: #### 5 7021-8 #### [facility] CLIA [id number] [address] [place] [address] [place] Monocytes/100 WBC (Bld) 8.3 % Normal [facility] Comment on above: Order Comment: Speci men Type: BLOOD SPECIMEN Ordering Facility: [facility] Address: [address] [place] [address] Performed By: #### 5 7021-8 #### [facility] CLIA [id number] [address] [place] [address] [place] Neutrophils (Bld) [#/Vol] 4.73 10*3/uL Normal 1.45-7.50 [facility] Comment on above: Order Comment: Speci men Type: BLOOD SPECIMEN Ordering Facility: [facility] Address: [address] [place] [address] Performed By: #### 5 7021-8 #### [facility] CLIA [id number] [address] [place] [address] [place] Neutrophils/100 WBC (Bld) 69.2 % Normal [facility] Comment on above: Order Comment: Speci men Type: BLOOD SPECIMEN Ordering Facility: [facility] Address: [address] [place] [address] Performed By: #### 5 7021-8 #### [facility] CLIA [id number] [address] [place] [address] [place] Nucleated RBC (Bld) [#/Vol] 10*3/uL Normal <0.01 [facility] Comment on above: Order Comment: Speci men Type: BLOOD SPECIMEN Ordering Facility: [facility] Address: [address] [place] [address] Performed By: #### 5 7021-8 #### [facility] CLIA [id number] [address] [place] [address] [place] Nucleated RBC/100 WBC (Bld) [Ratio] 0.0 /100 WBC Normal [facility] Comment on above: Order Comment: Speci men Type: BLOOD SPECIMEN Ordering Facility: [facility] Address: [address] [place] [address] Performed By: #### 5 7021-8 #### [facility] CLIA [id number] [address] [place] [address] [place] Platelet mean volume (Bld) [Entitic vol] 9.1 fL Normal 9.0-12.7 [facility] Comment on above: Order Comment: Speci men Type: BLOOD SPECIMEN Ordering Facility: [facility] Address: [address] [place] [address] Performed By: #### 5 7021-8 #### [facility] CLIA [id number] [address] [place] [address] [place] Platelets (Bld) [#/Vol] 362 10*3/uL Normal 150-400 [facility] Comment on above: Order Comment: Speci men Type: BLOOD SPECIMEN Ordering Facility: [facility] Address: [address] [place] [address] Performed By: #### 5 7021-8 #### [facility] CLIA [id number] [address] [place] [address] [place] RBC (Bld) [#/Vol] 3.84 10*6/uL Low 3.90-5.20 [facility] Comment on above: Order Comment: Speci men Type: BLOOD SPECIMEN Ordering Facility: [facility] Address: [address] [place] [address] Performed By: #### 5 7021-8 #### [facility] CLIA [id number] [address] [place] [address] [place] WBC (Bld) [#/Vol] 6.84 10*3/uL Normal 3.70-11.00 [facility] Comment on above: Order Comment: Speci men Type: BLOOD SPECIMEN Ordering Facility: [facility] Address: [address] [place] [address] Performed By: #### 5 7021-8 #### [facility] CLIA [id number] [address] [place] [address] [place] Ferritin SerPl-ncon 2024 Ferritin [Mass/Vol] 52.1 ng/mL Normal 14.7-205.1 [facility] Comment on above: Order Comment: Speci men Type: BLOOD SPECIMENOrdering Facility: [facility] Address: [address] [place] [address] Performed By: #### 2 276-4, 37693-8 ####[facility] [id number] [place] [address] [place] Ferritin [Mass/Vol]on 2024 Interpretation and review of laboratory results Normal [facility] Iron and Iron binding capaci ty panelon 12-06-2024 Interpretation and review of laboratory results Normal [facility] Iron [Mass/Vol] 60 ug/dL 41 - 186 ug/dL [facility] Iron binding capacity [Mass/Vol] 376 ug/dL 232 - 386 ug/dL [facility] Iron/TIBC [Molar ratio] 16 % 15.0 - 57.0 % [facility] Iron [Mass/Vol] 60 ug/dL Normal 41-186 [facility] Comment on above: Order Comment: Speci men Type: BLOOD SPECIMENOrdering Facility: [facility] Address: [address] [place] [address] Performed By: #### 2 276-4, 66936-5 ####[facility] [id number] [place] [id number] [place] Iron binding capacity [Mass/Vol] 376 ug/dL Normal 232-386 [facility] Comment on above: Order Comment: Speci men Type: BLOOD SPECIMENOrdering Facility: [facility] Address: [address] [place] [address] Performed By: #### 2 276-4, 48607-3 ####[facility] [id number] [address] [place] Iron/TIBC [Molar ratio] 16.0 % Normal 15.0-57.0 [facility] Comment on above: Order Comment: Speci men Type: BLOOD SPECIMENOrdering Facility: [facility] Address: [address] [place] [address] Performed By: #### 2 276-4, 53726-1 ####[facility] [id number] [address] STATES OF [facility] - Chemistry and C hemistry - challengeon 12-06-2024 Ferritin [Mass/Vol] 52.1 ng/mL 14.7 - 205.1 ng/mL [facility] 25(OH)D3 SerPl-ncon 2024 25-hydroxyvitamin D3 [Mass/Vol] 59.0 ng/mL Normal 31.0-80.0 [facility] Comment on above: Order Comment: Speci men Type: BLOOD SPECIMENOrdering Facility: [facility] Address: [address] [place] [address] Result Comment: Clas sification of 25 OH Vitamin D status: Deficiency/Insufficiency: < or = 30 ng/ml. Sufficiency/Optimal Levels: 31-80 ng/mL Toxicity: > 100 ng/mL. Test performed by chemiluminescent immunoassay. Performed By: #### 1 989-3 ####[facility] [id number] [place] [address] [place] CBC W Auto Differential pane l (Bld)on 11-02-2024 Basophils (Bld) [#/Vol] 0.03 10*3/uL Normal <0.11 [facility] Comment on above: Order Comment: Speci men Type: BLOOD SPECIMEN Ordering Facility: [facility] Address: [address] [place] [address] Performed By: #### 5 7021-8 #### [facility] CLIA [id number] [address] [place] [address] [place] Basophils/100 WBC (Bld) 0.3 % Normal [facility] Comment on above: Order Comment: Speci men Type: BLOOD SPECIMEN Ordering Facility: [facility] Address: [address] [place] [address] Performed By: #### 5 7021-8 #### [facility] CLIA [id number] [address] [place] [address] [place] Differential cell count method Nom (Bld) Auto Normal [facility] Comment on above: Order Comment: Speci men Type: BLOOD SPECIMEN Ordering Facility: [facility] Address: [address] [place] [address] Performed By: #### 5 7021-8 #### [facility] CLIA [id number] [address] [place] [address] [place] Eosinophils (Bld) [#/Vol] 0.26 10*3/uL Normal <0.46 [facility] Comment on above: Order Comment: Speci men Type: BLOOD SPECIMEN Ordering Facility: [facility] Address: [address] [place] [address] Performed By: #### 5 7021-8 #### [facility] CLIA [id number] [address] [place] [address] [place] Eosinophils/100 WBC (Bld) 2.6 % Normal [facility] Comment on above: Order Comment: Speci men Type: BLOOD SPECIMEN Ordering Facility: [facility] Address: [address] [place] [address] Performed By: #### 5 7021-8 #### [facility] CLIA [id number] [address] [place] [address] [place] Erythrocyte distribution width (RBC) [Ratio] 13.6 % Normal 11.5-15.0 [facility] Comment on above: Order Comment: Speci men Type: BLOOD SPECIMEN Ordering Facility: [facility] Address: [address] [place] [address] Performed By: #### 5 7021-8 #### [facility] CLIA [id number] [address] [place] [address] [place] Hematocrit (Bld) [Volume fraction] 34.7 % Low 36.0-46.0 [facility] Comment on above: Order Comment: Speci men Type: BLOOD SPECIMEN Ordering Facility: [facility] Address: [address] [place] [address] Performed By: #### 5 7021-8 #### [facility] CLIA [id number] [address] [place] [address] [place] Hemoglobin (Bld) [Mass/Vol] 11.3 g/dL Low 11.5-15.5 [facility] Comment on above: Order Comment: Speci men Type: BLOOD SPECIMEN Ordering Facility: [facility] Address: [address] [place] [address] Performed By: #### 5 7021-8 #### [facility] CLIA [id number] [address] [place] [address] [place] Immature granulocytes (Bld) [#/Vol] 0.07 10*3/uL Normal <0.10 [facility] Comment on above: Order Comment: Speci men Type: BLOOD SPECIMEN Ordering Facility: [facility] Address: [address] [place] [address] Performed By: #### 5 7021-8 #### [facility] CLIA [id number] [address] [place] [address] [place] Immature granulocytes/100 WBC (Bld) 0.7 % Normal [facility] Comment on above: Order Comment: Speci men Type: BLOOD SPECIMEN Ordering Facility: [facility] Address: [address] [place] [address] Performed By: #### 5 7021-8 #### [facility] CLIA [id number] [address] [place] [address] [place] Lymphocytes (Bld) [#/Vol] 1.48 10*3/uL Normal 1.00-4.00 [facility] Comment on above: Order Comment: Speci men Type: BLOOD SPECIMEN Ordering Facility: [facility] Address: [address] [place] [address] Performed By: #### 5 7021-8 #### [facility] CLIA [id number] [address] [place] [address] [place] Lymphocytes/100 WBC (Bld) 14.9 % Normal [facility] Comment on above: Order Comment: Speci men Type: BLOOD SPECIMEN Ordering Facility: [facility] Address: [address] [place] [address] Performed By: #### 5 7021-8 #### [facility] CLIA [id number] [address] [place] [address] [place] MCH (RBC) [Entitic mass] 28.2 pg Normal 26.0-34.0 [facility] Comment on above: Order Comment: Speci men Type: BLOOD SPECIMEN Ordering Facility: [facility] Address: [address] [place] [address] Performed By: #### 5 7021-8 #### [facility] CLIA [id number] [address] [place] [address] [place] MCHC (RBC) [Mass/Vol] 32.6 g/dL Normal 30.5-36.0 [facility] Comment on above: Order Comment: Speci men Type: BLOOD SPECIMEN Ordering Facility: [facility] Address: [address] [place] [address] Performed By: #### 5 7021-8 #### [facility] CLIA [id number] [address] [place] [address] [place] MCV (RBC) [Entitic vol] 86.5 fL Normal 80.0-100.0 [facility] Comment on above: Order Comment: Speci men Type: BLOOD SPECIMEN Ordering Facility: [facility] Address: [address] [place] [address] Performed By: #### 5 7021-8 #### [facility] CLIA [id number] [address] [place] [address] [place] Monocytes (Bld) [#/Vol] 0.59 10*3/uL Normal <0.87 [facility] Comment on above: Order Comment: Speci men Type: BLOOD SPECIMEN Ordering Facility: [facility] Address: [address] [place] [address] Performed By: #### 5 7021-8 #### [facility] CLIA [id number] [address] [place] [address] [place] Monocytes/100 WBC (Bld) 6.0 % Normal [facility] Comment on above: Order Comment: Speci men Type: BLOOD SPECIMEN Ordering Facility: [facility] Address: [address] [place] [address] Performed By: #### 5 7021-8 #### [facility] CLIA [id number] [address] [place] [address] [place] Neutrophils (Bld) [#/Vol] 7.48 10*3/uL Normal 1.45-7.50 [facility] Comment on above: Order Comment: Speci men Type: BLOOD SPECIMEN Ordering Facility: [facility] Address: [address] [place] [address] Performed By: #### 5 7021-8 #### [facility] CLIA [id number] [address] [place] [address] [place] Neutrophils/100 WBC (Bld) 75.5 % Normal [facility] Comment on above: Order Comment: Speci men Type: BLOOD SPECIMEN Ordering Facility: [facility] Address: [address] [place] [address] Performed By: #### 5 7021-8 #### [facility] CLIA [id number] [address] [place] [address] [place] Nucleated RBC (Bld) [#/Vol] 10*3/uL Normal <0.01 [facility] Comment on above: Order Comment: Speci men Type: BLOOD SPECIMEN Ordering Facility: [facility] Address: [address] [place] [address] Performed By: #### 5 7021-8 #### [facility] CLIA [id number] [address] [place] [address] [place] Nucleated RBC/100 WBC (Bld) [Ratio] 0.0 /100 WBC Normal [facility] Comment on above: Order Comment: Speci men Type: BLOOD SPECIMEN Ordering Facility: [facility] Address: [address] [place] [address] Performed By: #### 5 7021-8 #### [facility] CLIA [id number] [address] [place] [address] [place] Platelet mean volume (Bld) [Entitic vol] 8.9 fL Low 9.0-12.7 [facility] Comment on above: Order Comment: Speci men Type: BLOOD SPECIMEN Ordering Facility: [facility] Address: [address] [place] [address] Performed By: #### 5 7021-8 #### [facility] CLIA [id number] [address] [place] [address] [place] Platelets (Bld) [#/Vol] 521 10*3/uL High 150-400 [facility] Comment on above: Order Comment: Speci men Type: BLOOD SPECIMEN Ordering Facility: [facility] Address: [address] [place] [address] Performed By: #### 5 7021-8 #### [facility] CLIA [id number] [address] [place] [address] [place] RBC (Bld) [#/Vol] 4.01 10*6/uL Normal 3.90-5.20 [facility] Comment on above: Order Comment: Speci men Type: BLOOD SPECIMEN Ordering Facility: [facility] Address: [address] [place] [address] Performed By: #### 5 7021-8 #### [facility] CLIA [id number] [address] [place] [address] [place] WBC (Bld) [#/Vol] 9.91 10*3/uL Normal 3.70-11.00 [facility] Comment on above: Order Comment: Speci men Type: BLOOD SPECIMEN Ordering Facility: [facility] Address: [address] [place] [address] Performed By: #### 5 7021-8 #### [facility] CLIA [id number] [address] [place] [address] [place] CRP SerPl-mCncon 11-02-2024 CRP [Mass/Vol] 0.8 mg/dL Normal <0.9 [facility] Comment on above: Order Comment: Speci men Type: BLOOD SPECIMENOrdering Facility: [facility] Address: [address] [place] [address] Performed By: #### 2 132-9, 72923-1, 1987-5, 14553-8 ####[facility] [id number] [place] [address] [place] Calprotectin (Stl) [Mass/Mas s]on 11-02-2024 CALPROTECTIN, FECAL INTERP Elevated Abnormal Normal [facility] Comment on above: Order Comment: Speci men Type: STOOL SPECIMENOrdering Facility: [facility] Address: [address] [place] [address] Result Comment: Inte rpretation: <50.0 ug/g: Normal 50.0 ug/g - 120.0 ug/g: Borderline elevated. Re-evaluation in 4-6 weeks is recommended if clinically indicated. >120.0 ug/g: Elevated Performed By: #### 3 8445-3 ####[facility] [id number] [address] [place] [address] [place] CALPROTECTIN, FECAL QUANTITATIVE 154 ug/g High <50 [facility] Comment on above: Order Comment: Speci men Type: STOOL SPECIMENOrdering Facility: [facility] Address: [address] [place] [address] Performed By: #### 3 8445-3 ####[facility] [id number] [address] [place] [address] [place] Comprehensive metabolic 2000 panelon 11-02-2024 Albumin [Mass/Vol] 3.6 g/dL Low 3.9-4.9 [facility] Comment on above: Order Comment: Speci men Type: BLOOD SPECIMENOrdering Facility: [facility] Address: [address] [place] [address] Performed By: #### 2 132-9, 98763-0, 1987-11, ####[facility] [id number] [address] [address] [place] ALP [Catalytic activity/Vol] 73 U/L Normal 34-123 [facility] Comment on above: Order Comment: Speci men Type: BLOOD SPECIMENOrdering Facility: [facility] Address: [address] [place] [address] Performed By: #### 2 132-9, 26100-3, 1987-11, ####[facility] [id number] [address] [address] [place] ALT [Catalytic activity/Vol] 15 U/L Normal 7-38 [facility] Comment on above: Order Comment: Speci men Type: BLOOD SPECIMENOrdering Facility: [facility] Address: [address] [place], [place] [address] Performed By: #### 2 132-9, 89204-7, 1987-11, ####[facility] [id number] [place] [id number] [place] Anion gap [Moles/Vol] 12 mmol/L Normal 8-15 [facility] Comment on above: Order Comment: Speci men Type: BLOOD SPECIMENOrdering Facility: [facility] Address: [address] [place] [address] Performed By: #### 2 132-9, 31584-6, 1987-11, ####[facility] [id number] [place] [address] [place] AST [Catalytic activity/Vol] 28 U/L Normal 13-35 [facility] Comment on above: Order Comment: Speci men Type: BLOOD SPECIMENOrdering Facility: [facility] Address: [address] [place] [address] Performed By: #### 2 132-9, 07647-7, 1987-11, ####[facility] [id number] [place] [address] [place] Bilirubin [Mass/Vol] 0.3 mg/dL Normal 0.2-1.3 [facility] Comment on above: Order Comment: Speci men Type: BLOOD SPECIMENOrdering Facility: [facility] Address: [address] [place], [place] [address] Performed By: #### 2 132-9, 91987-7, 1987-11, ####[facility] [id number] [place] [id number] [place] Calcium [Mass/Vol] 8.7 mg/dL Normal 8.5-10.2 [facility] Comment on above: Order Comment: Speci men Type: BLOOD SPECIMENOrdering Facility: [facility] Address: [address] [place] [address] Performed By: #### 2 132-9, 56794-1, 1987-11, ####[facility] [id number] [place] [address] [place] Chloride [Moles/Vol] 105 mmol/L Normal 98-107 [facility] Comment on above: Order Comment: Speci men Type: BLOOD SPECIMENOrdering Facility: [facility] Address: [address] [place] [address] Performed By: #### 2 132-9, 04726-1, 1987-11, ####[facility]IA [id number] [place] [address] [place] CO2 [Moles/Vol] 23 mmol/L Normal 22-30 [facility] Comment on above: Order Comment: Speci men Type: BLOOD SPECIMENOrdering Facility: [facility] Address: [address] [place] [address] Performed By: #### 2 132-9, 50909-8, 1987-11, ####[facility] [id number] [place] [address] [place] Creatinine [Mass/Vol] 0.75 mg/dL Normal 0.58-0.96 [facility] Comment on above: Order Comment: Speci men Type: BLOOD SPECIMENOrdering Facility: [facility] Address: [address] [place] [address] Performed By: #### 2 132-9, 03465-3, 1987-11, ####[facility] [id number] [place] [address] [place] Creatinine and Glomerular filtration rate.predicted panel (S/P/Bld) 102 mL/min/1.73m??? Normal >=60 [facility] Comment on above: Order Comment: Speci men Type: BLOOD SPECIMENOrdering Facility: [facility] Address: [address] [place] [address] Result Comment: Lillian mated Glomerular Filtration Rate (eGFR) is calculated using the 2020 CKD-EPI creatinine equation. This equation utilizes serum creatinine, sex, and age as parameters. The creatinine assay has traceable calibration to isotope dilution-mass spectrometry. Refer to KDIGO guidelines for clinical interpretation. In patients with unstable renal function, e.g. those with acute kidney injury, the eGFR may not accurately reflect actual GFR. Performed By: #### 2 132-9, , ####[facility] [id number] [address] [address] [place] Glucose [Mass/Vol] 80 mg/dL Normal 74-99 [facility] Comment on above: Order Comment: [place] tran Type: BLOOD SPECIMENOrdering Facility: [facility] Address: [address] [place] [address] Result Comment: The [place] Diabetes Association (ADA) provides guidance for cutoff values for fasting glucose and random glucose. The ADA defines fasting as no caloric intake for at least 8 hours. Fasting plasma glucose results between 100 to 125 mg/dL indicate increased risk for diabetes (prediabetes). Fasting plasma glucose results greater than or equal to 126 mg/dL meet the criteria for diagnosis of diabetes. In the absence of unequivocal hyperglycemia, results should be confirmed by repeat testing. In a patient with classic symptoms of hyperglycemia or hyperglycemic crisis, random plasma glucose results greater than or equal to 200 mg/dL meet the criteria for diagnosis of diabetes. Reference: Standards of Medical Care in Diabetes 2016, [place] Diabetes Association. Diabetes Care. 2016.39(Suppl 1). Performed By: #### 2 132-9, 05657-2, ####[facility] [id number] [address] [address] [place] Potassium [Moles/Vol] 3.6 mmol/L Low 3.7-5.1 [facility] Comment on above: Order Comment: Los men Type: BLOOD SPECIMENOrdering Facility: [facility] Address: [address] [place] [id number] Performed By: #### 2 132-9, 40332-2, 1987-11, ####[facility] [id number] [address] [address] [place] Protein [Mass/Vol] 6.9 g/dL Normal 6.3-8.0 [facility] Comment on above: Order Comment: Speci men Type: BLOOD SPECIMENOrdering Facility: [facility] Address: [address] [place] [address] Performed By: #### 2 132-9, 91805-1, 1987-11, ####[facility] [id number] [place] [id number] [place] Sodium [Moles/Vol] 140 mmol/L Normal 136-144 [facility] Comment on above: Order Comment: Speci men Type: BLOOD SPECIMENOrdering Facility: [facility] Address: [address] [place] [address] Performed By: #### 2 132-9, 68271-3, 1987-11, ####[facility] [id number] [place] [id number] [place] Urea nitrogen [Mass/Vol] 5 mg/dL Low 7-21 [facility] Comment on above: Order Comment: Speci men Type: BLOOD SPECIMENOrdering Facility: [facility] Address: [address] [place], [place] [address] Performed By: #### 2 132-9, 74005-9, 1987-11, ####[facility]IA [id number] [address] [address] [place] Lipid 1996 panelon 5 Cholesterol [Mass/Vol] 140 mg/dL Normal <200 [facility] Comment on above: Order Comment: Speci men Type: BLOOD SPECIMENOrdering Facility: [facility] Address: [address] [place] [address] Result Comment: <200 mg/dL, Desirable 200-239 mg/dL, Borderline high >239 mg/dL, High Performed By: #### 2 132-9, , 1987-11, ####[facility] [id number] [address] [address] [place] Cholesterol in HDL [Mass/Vol] 62 mg/dL Normal >39 [facility] Comment on above: Order Comment: Speci men Type: BLOOD SPECIMENOrdering Facility: [facility] Address: [address] [place] [address] Result Comment: 40-5 9 mg/dL, Acceptable >59 mg/dL, High: Negative risk factor for coronary heart disease <40 mg/dL, Low: Positive risk factor for coronary heart disease Performed By: #### 2 132-9, , 1987-11, ####[facility] [id number] [address] [place] [address] [place] Cholesterol in LDL [Mass/Vol] 63 mg/dL Normal <100 [facility] Comment on above: Order Comment: Speci men Type: BLOOD SPECIMENOrdering Facility: [facility] Address: [address] [place] [address] Result Comment: <100 mg/dL, Optimal 100-129 mg/dL, Near optimal/above optimal 130-159 mg/dL, Borderline high 160-189 mg/dL, High >189 mg/dL, Very high Secondary prevention optimal LDL Cholesterol levels are recommended to be <70 mg/dL LDL cholesterol is calculated using the Chandra-NIH equation. Performed By: #### 2 132-9, , 1987-11, ####[facility] [id number] [address] [address] [place] Cholesterol in LDL/Cholesterol in HDL [Mass ratio] 1.02 {ratio} Normal <2.54 [facility] Comment on above: Order Comment: Speci men Type: BLOOD SPECIMENOrdering Facility: [facility] Address: [address] [place], [place] [address] Result Comment: [place] lewis: 1. National Cholesterol Education Program ATP III Guideline At-A-Glance Quick Desk Reference: National Heart, Lung, and Blood [place]. National Institutes of Health. 2001: NIH Publication No. 01-3305. 2. An International Atherosclerosis Society position paper: global recommendations for the management of dyslipidemia: executive summary, Atherosclerosis. 2014: 232(2):410-413. Performed By: #### 2 132-9, , ####[facility] [id number] [place] [address] [place] Cholesterol in VLDL [Mass/Vol] 11 mg/dL Normal <30 [facility] Comment on above: Order Comment: Speci men Type: BLOOD SPECIMENOrdering Facility: [facility] Address: [address] [place] [address] Performed By: #### 2 132-9, , ####[facility] [id number] [place] [address] [place] Cholesterol non HDL [Mass/Vol] 78 mg/dL Normal <130 [facility] Comment on above: Order Comment: Speci men Type: BLOOD SPECIMENOrdering Facility: [facility] Address: [address] [place] [address] Result Comment: <130 mg/dL, Optimal 130-159 mg/dL, Near optimal/above optimal 160-189 mg/dL, Borderline high 190-219 mg/dL, High >219 mg/dL, Very high Secondary prevention optimal non HDL Cholesterol levels are recommended to be <100 mg/dL Performed By: #### 2 132-9, , ####[facility] [id number] [address] [address] [place] Cholesterol.total/Leigha sterol in HDL [Mass ratio] 2.26 {ratio} Normal <5.10 [facility] Comment on above: Order Comment: Speci men Type: BLOOD SPECIMENOrdering Facility: [facility] Address: [address] [place] [address] Performed By: #### 2 132-9, , 1987-11, ####[facility] [id number] [address] [address] [place] FASTING TIME 12 hrs Normal [facility] Comment on above: Order Comment: Speci men Type: BLOOD SPECIMENOrdering Facility: [facility] Address: [address] [place] [address] Performed By: #### 2 132-9, , 1987-11, ####[facility] [id number] [address] [address] [place] Triglyceride [Mass/Vol] 78 mg/dL Normal <150 [facility] Comment on above: Order Comment: Speci men Type: BLOOD SPECIMENOrdering Facility: [facility] Address: [address] [place], [place] [address] Result Comment: <150 mg/dL, Normal 150-199 mg/dL, Borderline high 200-499 mg/dL, High >499 mg/dL, Very high Performed By: #### 2 132-9, , 1987-11, ####[facility] [id number] [address] [address] [place] [facility] Cobal[facility] (Vitamin B12) [Mass/Vol] 407 pg/mL Normal 232-1245 [facility] Comment on above: Order Comment: Speci men Type: BLOOD SPECIMENOrdering Facility: [facility] Address: [address] [place], [place] [address] Performed By: #### 2 132-9, , 1987-11, ####[facility] [id number] [address] [address] [place] CNOVon 10-18-2024 CNOV Office Visit (GASTMN ) WALTER KELLER ([id number]) 1980 F Date Time Provider Department 10/18/24 1:30 PM [facility] During your visit today, we recorded the following information about you: Weight Height 54 kg 1.549 m Calvin Vora MD 10/18/2024 3:18 PM Addendum .Follow Up Visit SUBJECTIVE 43 year old female with Crohn's disease here for follow-up. Last seen 08/2024 Changes and test results since last visit: Patient presents today for a follow up. States that since the last visit, she has lost 10 lbs. Has been having more abdominal pain, nausea, rectal bleeding. Went to the ED in [place]. Reports undergoing CT which was normal. Currently states symptoms are still present but not as severe. Still having intermittent lower abdominal pain and 4-6 soft/loose BM daily with minimal rectal bleeding.Takes imodium as needed. 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 - Patent zian-hi-[id number] ileo-colonic anastomosis, characterized by erythema, inflammation and ulceration. - Crohn's disease with ileitis and colitis. Inflammation was found. This was graded as Rutgeerts Score i3 (diffuse aphthous ileitis). Biopsied. - Active ileocolonic crohn's in the ileum and rectum. Simple Endoscopic Score for Crohn's Disease: 13, mucosal inflammatory changes secondary to Crohn's disease, with ileitis and colitis. Biopsied. Pathology: FINAL DIAGNOSIS A. Ileum, biopsy: - Chronic severely active ileitis with erosion with pyloric gland metaplasia. - Negative for granulomas or dysplasia. B. Right colon, biopsy: - Colonic mucosa with no significant diagnostic alteration. - No evidence of colitis, granulomas or dysplasia. C. Transverse colon, biopsy: - Focal moderately active colitis. - Negative for chronic mucosal injury, granulomas or dysplasia. D. Left colon, biopsy: - Focal mildly active colitis. - Negative for chronic mucosal injury, granulomas or dysplasia. E. Rectum, biopsy: - Chronic severely active colitis with ulceration. - Negative for granulomas or dysplasia. - A CMV immunostain will be performed and reported separately. CBC: WBC (k/uL) Date Value 05/23/2024 8.19 Hematocrit (%) Date Value 05/23/2024 38.9 MCV (fL) Date Value 05/23/2024 94.9 Platelet Count (k/uL) Date Value 05/23/2024 358 Lymphocytes % (%) Date Value 05/23/2024 23.9 Hepatic Function Panel: Albumin (g/dL) Date Value 01/11/2024 3.5 (L) Bilirubin, Total (mg/dL) Date Value 01/11/2024 0.3 Bilirubin, Conjug (mg/dL) Date Value 08/22/2021 <0.2 Alkaline Phosphatase (U/L) Date Value 01/11/2024 91 AST (U/L) Date Value 01/11/2024 26 ALT (U/L) Date Value 01/11/2024 24 Protein, Total (g/dL) Date Value 01/11/2024 6.9 Current Outpatient Medications Medication Sig Dispense Refill ergocalciferol 50,000 unit capsule (VITAMIN D2, DRISDOL) Take 1 capsule by mouth one time a week. 12 capsule 1 cyanocobalamin, vitamin B-12, 1,000 mcg/mL kit Inject 1,000 mcg intramuscularly once every month. 1 Kit 11 upadacitinib tablet ER 24 hr 30 mg (RINVOQ) Take 1 tablet (30 mg) by mouth once daily. Swallow whole; DO NOT crush, chew, or open. 90 tablet 3 ascorbic acid, vitamin C, (VITAMIN C) 250 mg tablet Take 250 mg by mouth. lyhighd-nvfoyshvq-hhbu min D3 500 mg-5 mcg (200 unit) per tablet Take 1 tablet by mouth. Ferrous Sulfate 142 mg (45 mg iron) TbER Take 1 tablet by mouth daily with breakfast. valACYclovir (VALTREX) 1 gram Take 1,000 mg by mouth once daily as needed. CALCIUM ORAL Take by mouth. hydrOXYzine pamoate (VISTARIL) 25 mg capsule Take 25 mg by mouth as needed. Patient not sure of dosage multivitamin tablet Take 1 tablet by mouth once daily. ferrous sulfate (IRON ORAL) Take 1 capsule by mouth once daily. acetaminophen (TYLENOL) 325 mg tablet Take 650 mg by mouth every 6 hours as needed. ondansetron (ZOFRAN) 8 mg tablet Take 1 tablet by mouth every 8 hours as needed for nausea/vomiting. 60 tablet 0 sertraline (ZOLOFT) 100 mg tablet Take 100 mg by mouth once daily. inFLIXimab-abda (RENFLEXIS) 100 mg injection Inject 400 mg intravenously every 8 weeks. NURSE TO INSERT IV FOR ADMINISTRATION (Patient not taking: Reported on 02/04/2024) 400 mg No current facility-administered m (more content not included)... Normal [facility] Abdomen/Pelvis W IV Cont ONL Yon 10-01-2024 Abdomen/Pelvis W IV Cont ONLY [facility] Imaging Services [facility] [place] [address] Abdomen/Pelvis W IV Cont ONLY MR#: [id number] Acct: [id number] Name: WALTER KELLER Rep #: [id number] : 1980 F 43 From: Rosanne Pimentel nd, MD PCP: Care Physician,No Primary Status: REG ER Study: Abdomen/Pelvis W IV Cont ONLY Date of Exam: Exam# [id number] Ordering Dr: Anthony West MD PROCEDURE: ABDOMEN/PELVIS W IV CONT ONLY 10/01/2024 REASON FOR EXAM: 43-year-old female, abdominal pain, history of Crohn's disease. TECHNIQUE: Abdomen CT without and with intravenous contrast. Coronal and Sagittal reconstruction series were provided. PATIENT PREPARATION: Per protocol ORAL CONTRAST TYPE: None. CONTRAST: Isovue-300 VOLUME: 100mL One or more dose reduction techniques were used (e.g., Automated exposure control, adjustment of the mA and/or kV according to patient size, use of iterative reconstruction technique. RADIATION DOSE SUMMARY: CTDlvol: 19 mGy DLP: 323 mGycm COMPARISON: None. FINDINGS: Lung bases: The heart is normal in size. Lung bases are clear. Liver: The liver is normal in size without focal hepatic mass. The major portal veins are patent. No biliary ductal dilation. Gallbladder: No radiopaque stones within the gallbladder. Spleen: Unremarkable. Pancreas: Unremarkable. Adrenals: Unremarkable. Kidneys: No hydronephrosis or nephrolithiasis. Bladder: Decompressed. Reproductive Organs: Normal uterine size and contour. Ovaries are unremarkable. Physiologic left corpus luteum. Bowel: Prior bowel resection and anastomosis in the right lower quadrant. The bowel loops are normal in caliber. Moderate diffuse mural thickening and enhancement of the distal colon, compatible with reported history of Crohn's disease. Mild mesenteric edema. No ascites or pneumoperitoneum. Probable prior appendectomy. Lymph nodes: Prominent mesenteric and lower abdominopelvic nodes, likely inflammatory. No suspicious lymphadenopathy. Vasculature: Unremarkable. Bones: No aggressive osseous lesions. CT/Abdomen/Pelvis W IV Cont ONLY IMPRESSION: Findings compatible with Crohn's disease. No bowel obstruction or abdominopelvic abscess identified. Reading Location: [facility] CC: Dr. 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 Normal [facility] Absolute neutrophil countOrd ered By: Anthony West on 10-01-2024 Neutrophils (Bld) [#/Vol] 5.1 10*3/uL 2.0-7.7 [facility] Anion gap in Serum or Plasma Ordered By: Anthony West on 10-01-2024 Anion gap [Moles/Vol] 12 mmol/L 5-15 [facility] BUN/creatinine ratioOrdered By: Anthony West on 10-01-2024 Urea nitrogen/Creatinine [Mass ratio] 6.8 mg/mg Low 10-20 [facility] Basophil percentageOrdered B y: Anthony West on 10-01-2024 Basophils/100 WBC (Bld) 0.3 % 0-1 [facility] Beta HCG ( test) Ql Ordered By: Anthony West on 10-01-2024 Serum Test, Qualitative Negative [facility] Bilirubin Test strip Ql (U)O rdered By: Anthony West on 10-01-2024 Bilirubin Ql (U) Negative Negative [facility] Bilirubin, totalOrdered By: Anthony West on 10-01-2024 Bilirubin [Mass/Vol] 0.31 mg/dL 0.00-1.30 [facility] CBC W/Diff, Automatedon 09-11 Absolute Lymph 1.50 X10 3/uL Normal 0.83-4.51 [facility] Comment on above: Performed By: #### L 100.0100, L501.2450, L500.4050, L700.6800 #### [facility] [address] [place], [address] Absolute Neut 5.1 X10 3/uL Normal 2.0-7.7 [facility] Comment on above: Performed By: #### L 100.0100, L501.2450, L500.4050, L700.6800 #### [facility] [address] [place], [address] Basophils/100 WBC (Bld) 0.3 % Normal 0-1 [facility] Comment on above: Performed By: #### L 100.0100, L501.2450, L500.4050, L700.6800 #### [facility] [address] [place], [address] Eosinophils/100 WBC (Bld) 2.2 % Normal 0-5 [facility] Comment on above: Performed By: #### L 100.0100, L501.2450, L500.4050, L700.6800 #### [facility] [address] [place], [address] Erythrocyte distribution width (RBC) [Ratio] 13.2 % Normal 11.6-14.6 [facility] Comment on above: Performed By: #### L 100.0100, L501.2450, L500.4050, L700.6800 #### [facility] [address] [place], [address] Hematocrit (Bld) [Volume fraction] 33.3 % Low 37-47 [facility] Comment on above: Performed By: #### L 100.0100, L501.2450, L500.4050, L700.6800 #### [facility] [address] [place], [address] Hemoglobin (Bld) [Mass/Vol] 11.2 g/dL Low 12.0-15.0 [facility] Comment on above: Performed By: #### L 100.0100, L501.2450, L500.4050, L700.6800 #### [facility] [address] [place], [address] IG% 0.400 Normal 0.0-0.9 [facility] Comment on above: Result Comment: IG% - Immature Granulocytes (promyelocytes, myelocytes and metamyelocytes) > 1% indicates that a LEFT SHIFT is Present. Performed By: #### L 100.0100, L501.2450, L500.4050, L700.6800 #### [facility] [address] [place], [address] Lymphocytes/100 WBC (Bld) 20.4 % Normal 19-41 [facility] Comment on above: Performed By: #### L 100.0100, L501.2450, L500.4050, L700.6800 #### [facility] [address] [place], [address] MCH (RBC) [Entitic mass] 29.2 pg Normal 27.0-32.0 [facility] Comment on above: Performed By: #### L 100.0100, L501.2450, L500.4050, L700.6800 #### [facility] [address] [place], [address] MCHC (RBC) [Mass/Vol] 33.6 g/dL Normal 32-36 [facility] Comment on above: Performed By: #### L 100.0100, L501.2450, L500.4050, L700.6800 #### [facility] [address] [place], [address] MCV (RBC) [Entitic vol] 86.7 fL Normal 81-99 [facility] Comment on above: Performed By: #### L 100.0100, L501.2450, L500.4050, L700.6800 #### [facility] [address] [place], [address] Monocytes/100 WBC (Bld) 7.9 % Normal 0-10 [facility] Comment on above: Performed By: #### L 100.0100, L501.2450, L500.4050, L700.6800 #### [facility] [address] [place], [address] Neutrophils/100 WBC (Bld) 68.8 % Normal 47-70 [facility] Comment on above: Performed By: #### L 100.0100, L501.2450, L500.4050, L700.6800 #### [facility] [address] [place], [address] Nucleated RBC (Bld) [#/Vol] 0 10*3/uL Normal 0-5 [facility] Comment on above: Performed By: #### L 100.0100, L501.2450, L500.4050, L700.6800 #### [facility] [address] [place], [address] Platelet mean volume (Bld) [Entitic vol] 8.8 fL Normal 6.2-12.0 [facility] Comment on above: Performed By: #### L 100.0100, L501.2450, L500.4050, L700.6800 #### [facility] [address] [place], [address] Platelets (Bld) [#/Vol] 372 10*3/uL Normal 150-450 [facility] Comment on above: Performed By: #### L 100.0100, L501.2450, L500.4050, L700.6800 #### [facility] [address] [place], [address] RBC (Bld) [#/Vol] 3.84 10*6/uL Low 4.2-5.4 [facility] Comment on above: Performed By: #### L 100.0100, L501.2450, L500.4050, L700.6800 #### [facility] [address] [place], [address] RDW SD 41.2 fl Normal 35.1-43.9 [facility] Comment on above: Performed By: #### L 100.0100, L501.2450, L500.4050, L700.6800 #### [facility] [address] [place], [address] WBC (Bld) [#/Vol] 7.4 10*3/uL Normal 4.4-11.0 [facility] Comment on above: Performed By: #### L 100.0100, L501.2450, L500.4050, L700.6800 #### [facility] [address] [place], [address] Carbon dioxide, total [Moles /volume] in Central venous bloodOrdered By: Anthony West on 10-01-2024 CO2 [Moles/Vol] 23.4 mmol/L 21.0-32.0 [facility] Chloride assayOrdered By: Shyam West on 10-01-2024 Chloride [Moles/Vol] 104 mmol/L 98-108 [facility] Comprehensive Metabolic Prof ilon 10-01-2024 Albumin [Mass/Vol] 3.6 g/dL Normal 3.5-5.0 [facility] Comment on above: Performed By: #### L 100.0100, L501.2450, L500.4050, L700.6800 #### [facility] [address] [place], [address] Albumin/Globulin [Mass ratio] 1.1 {ratio} Normal 0.9-2.4 [facility] Comment on above: Performed By: #### L 100.0100, L501.2450, L500.4050, L700.6800 #### [facility] [address] [place], [address] ALK PHOS 96 U/L Normal 35-104 [facility] Comment on above: Performed By: #### L 100.0100, L501.2450, L500.4050, L700.6800 #### [facility] [address] [place], [address] ALT [Catalytic activity/Vol] 27 U/L Normal <=34 [facility] Comment on above: Performed By: #### L 100.0100, L501.2450, L500.4050, L700.6800 #### [facility] [address] [place], [address] AST [Catalytic activity/Vol] 34 U/L High <=31 [facility] Comment on above: Performed By: #### L 100.0100, L501.2450, L500.4050, L700.6800 #### [facility] [address] [place], [address] Bilirubin [Mass/Vol] 0.31 mg/dL Normal 0.00-1.30 [facility] Comment on above: Performed By: #### L 100.0100, L501.2450, L500.4050, L700.6800 #### [facility] [address] [place], [address] BUN/CRE 6.8 RATIO Low 10-20 [facility] Comment on above: Performed By: #### L 100.0100, L501.2450, L500.4050, L700.6800 #### [facility] [address] [place], [address] Calcium [Mass/Vol] 8.9 mg/dL Normal 7.6-11.0 [facility] Comment on above: Performed By: #### L 100.0100, L501.2450, L500.4050, L700.6800 #### [facility] [address] [place], [address] Chloride [Moles/Vol] 104 mmol/L Normal 98-108 [facility] Comment on above: Performed By: #### L 100.0100, L501.2450, L500.4050, L700.6800 #### [facility] [address] [place], [address] CO2 [Moles/Vol] 23.4 mmol/L Normal 21.0-32.0 [facility] Comment on above: Performed By: #### L 100.0100, L501.2450, L500.4050, L700.6800 #### [facility] [address] [place], [address] Creatinine [Mass/Vol] 0.81 mg/dL Normal 0.70-1.20 [facility] Comment on above: Performed By: #### L 100.0100, L501.2450, L500.4050, L700.6800 #### [facility] [address] [place], [address] ECRCL 68.27 ml/min Normal 50-250 [facility] Comment on above: Performed By: #### L 100.0100, L501.2450, L500.4050, L700.6800 #### [facility] [address] [place], [address] GAP 12 Normal 5-15 [facility] Comment on above: Performed By: #### L 100.0100, L501.2450, L500.4050, L700.6800 #### [facility] [address] [place], [address] GFR/1.73 sq M.predicted among non-blacks MDRD (S/P/Bld) [Vol rate/Area] 92 mL/min/{1.73_m2} Normal >60 [facility] Comment on above: Result Comment: mL/m in/1.73m2 CKD-EPI Creatinine Equation (2020) Performed By: #### L 100.0100, L501.2450, L500.4050, L700.6800 #### [facility] [address] [place], [address] Globulin (S) [Mass/Vol] 3.4 g/dL Normal 2.2-4.2 [facility] Comment on above: Performed By: #### L 100.0100, L501.2450, L500.4050, L700.6800 #### [facility] [address] [place], [address] Glucose [Mass/Vol] 84 mg/dL Normal 70-99 [facility] Comment on above: Performed By: #### L 100.0100, L501.2450, L500.4050, L700.6800 #### [facility] [address] [place], [address] Potassium [Moles/Vol] 3.5 mmol/L Normal 3.3-5.1 [facility] Comment on above: Performed By: #### L 100.0100, L501.2450, L500.4050, L700.6800 #### [facility] [address] [place], [address] Sodium [Moles/Vol] 139 mmol/L Normal 133-145 [facility] Comment on above: Performed By: #### L 100.0100, L501.2450, L500.4050, L700.6800 #### [facility] [address] [place], [address] T PROT 7.0 g/dL Normal 5.9-8.4 [facility] Comment on above: Performed By: #### L 100.0100, L501.2450, L500.4050, L700.6800 #### [facility] [address] [place], [address] Urea nitrogen [Mass/Vol] 6 mg/dL Normal 4-19 [facility] Comment on above: Performed By: #### L 100.0100, L501.2450, L500.4050, L700.6800 #### [facility] [address] [place], [address] Emergency Department Summary on 10-01-2024 Emergency Department Summary [facility] Medical Records Department [address] [place] [address] Emergency Department Summary 10/01/24 MR#: [id number] Acct: [id number] Name: WALTER KELLER Rep #: [id number] : 1980 43 From: Anthony West MD PCP: Care Physician,No Primary Status:REG ER Location: ED HPI HPI - GI History of Present Illness Chief Complaint: Abd Pain Narrative Narrative: 43-year-old female past medical history of Crohn disease, sees gastroenterology at the [facility] presents with concerns for bowel obstruction which she has had in the past. She has had ileostomy with small bowel resection in the past. She has had reversal of her ileostomy. 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 She states that today while she was at work, she began feeling nauseated but no vomiting. She also had black stool mixed with bright red blood. She states that she is concerned for bowel obstruction. She is having increasing pain from her Crohn disease. She states that the Entyvio is not working and she supposed to be changed to a drug trial soon. [facility] Medical History Stomach ulcer GERD (gastroesophageal reflux disease) PCOS (polycystic ovarian syndrome) IBS (irritable bowel syndrome) History of frequent headaches Gastrointestinal problem Anemia Home Medications ???Medication ???Instructions ???Recorded ???Last Taken ???Type calcium carbonate-vitamin D3 600 tab PO 09/08/24 Unknown History mg calcium-200 unit chewable tablet ergocalciferol (vitamin D2) 1,250 1,250 mcg PO QWEEK 09/08/24 Unkno wn History mcg (50,000 unit) capsule ferrous sulfate 325 mg (65 mg 325 mg PO QDAY 09/08/24 Unknown Hi story iron) tablet (Feosol) multivitamin 1 tab PO QDAY 09/08/24 Unknown His tory sertraline 25 mg tablet (Zoloft) 25 mg PO QDAY 09/08/24 Unknown His tory upadacitinib 30 mg tablet,extended 30 mg PO QDAY 09/08/24 Unknown H istory release 24 hr (Rinvoq) Allergy/AdvReac Type Severity Reaction Status Date / Time gluten Allergy Severe bloating Verified 10/01/24 11:25 meperidine (From Demerol) Allergy Severe Vomiting Verified 10/01/24 11:25 ciprofloxacin Allergy Intermediate Swelling Verified 10/01/24 11:25 Family History Mother Alcoholism Anxiety Arthritis Depression Hypertension Father Anxiety Psoriasis Hypertension Grandmother Depression Breast cancer Diabetes Osteoporosis Grandfather Myocardial infarction Aunt Breast cancer Parkinsons Depression Surgical History History of removal of ovarian cyst H/O colostomy Social History Smoking Status: Former smoker alcohol intake: current details: once a week substance use type: does not use and marijuana what type of physical activity do you participate in: walking, yoga and weight training frequency: 3-4 times per week ROS ROS ED ROS Narrative Constitutional: No fever, no chills. Cardiovascular: No chest pain. No palpitations. No pedal edema. Abdominal: Positive abdominal pain. Positive nausea. No vomiting. Reported black and bright red blood in stool. Musculoskeletal: No myalgias. No arthralgias. Neurologic: No headaches. No dizziness. No lightheadedness. EXAM Physical Exam Narrative Exam Narrative: Afebrile. Vital signs noted. Nontoxic-appearing. Cardiovascular examination reveals a regular rate and rhythm. Lungs clear to auscultation bilaterally. The abdomen is soft with diffuse tenderness to palpation, no guarding or rebound. Positive bowel sounds. Neurological examination nonfocal and nonlateralizing. Const Vital Signs: 10/01/24 11:25 10/01/24 13:25 Temperature 98.6 F Temperature Source Oral Pulse Rate 94 79 Respiratory Rate 18 16 Blood Pressure 123/85 H 130/64 H Blood Pressure Mean 97 86 Pulse Ox 99 98 Oxygen Delivery Method Room Air MDM MDM MDM Narrative Medical decision making narrative: Differential diagnosis includes but not limited to Crohn exacerbation versus bowel obstruction versus partial small bowel obstruction versus colitis. Patient was given analgesia in the form of m orphine and ondansetron. She will be bolused normal saline [address] will be obtained to rule out obstruction. I will check her basic laboratory work as well for any dehydration or other electrolyte abnormality. I reviewed her laboratory work and she has normal white count of 7.4 with hemoglobin stable at 11.2, hematocrit 33.3, platelet count normal at 372. CMP is signific (more content not included)... Normal [facility] Eosinophil percentageOrdered By: Anthony West on 10-01-2024 Eosinophils/100 WBC (Bld) 2.2 % 0-5 [facility] Epithelial cells.squamous LM Ql (Urine sed)Ordered By: Atnhony West on 10-01-2024 Epithelial cells.squamous LM.HPF (Urine sed) [#/Area] 0 /[HPF] 5-10 [facility] Erythrocyte distribution wid th ratioOrdered By: Anthony West on 10-01-2024 Erythrocyte distribution width (RBC) [Ratio] 13.2 % 11.6-14.6 [facility] Erythrocyte distribution wid th standard deviationOrdered By: Anthony West on 10-01-2024 Erythrocyte distribution width (RBC) [Entitic vol] 41.2 fL 35.1-43.9 [facility] Estimation of creatinine adeel aranceOrdered By: Anthony West on 10-01-2024 Estimated Creatinine Clearance Calc 68.27 ml/min 50-250 [facility] GFR/1.73 sq M.predicted anthony g non-blacks MDRD (S/P/Bld) [Vol rate/Area]Ordered By: Anthony West on 10-01-2024 Estimated GFR (MDRD) Non-Af Amer 92 >60 [facility] Comment on above: mL/min/1.73m2 CKD-EP I Creatinine Equation (2020) Glucose Ql (U)Ordered By: Shyam West on 10-01-2024 Urine Glucose (UA) Normal mg/dl Normal [facility] Hematocrit Auto (Bld) [Volum e fraction]Ordered By: Anthony West on 10-01-2024 Hematocrit (Bld) [Volume fraction] 33.3 % Low 37-47 [facility] Hemoglobin measurementOrdere d By: Anthony West on 10-01-2024 Hemoglobin (Bld) [Mass/Vol] 11.2 g/dL Low 12.0-15.0 [facility] Immature granulocytes/100 WB C Auto (Bld)Ordered By: Anthony West on 10-01-2024 Immature granulocytes/100 WBC (Bld) 0.400 % 0.0-0.9 [facility] Comment on above: IG% - Immature Granu locytes (promyelocytes, myelocytes and metamyelocytes) > 1% indicates that a LEFT SHIFT is Present. Ketones Test strip Ql (U)Ord ered By: Anthony West on 10-01-2024 Ketones Ql (U) Negative Negative [facility] - Chemistry and C hemistry - challengeOrdered By: Anthony West on 10-01-2024 AST [Catalytic activity/Vol] 34 U/L High <32 [facility] Lipaseon 10-01-2024 Lipase [Catalytic activity/Vol] 39 U/L Normal 13-75 [facility] Comment on above: Result Comment: Kaylee monroe note: LIPASE revised reference range effective 22. New Lipase methodology. Expected to produce lower values than the previous assay method. NEW Reference Range: 13 - 75 U/L Performed By: #### L 100.0100, L501.2450, L500.4050, L700.6800 #### [facility] [address] [place], [address] Lipase measurementOrdered By : Anthony West on 10-01-2024 Lipase [Catalytic activity/Vol] 39 U/L 13-75 [facility] Comment on above: Please note:LIPASE r evised reference range effective 22. New Lipase methodology. Expected to produce lower values than the previous assay method. NEW Reference Range: 13 - 75 U/L Lymphocytes Auto (Unsp spec) [#/Vol]Ordered By: Anthony West on 10-01-2024 Lymphocytes (Bld) [#/Vol] 1.50 10*3/uL 0.83-4.51 [facility] Lymphocytes/100 WBC Auto (Un sp spec)Ordered By: Anthony West on 10-01-2024 Lymphocytes/100 WBC (Bld) 20.4 % 19-41 [facility] MCV (mean corpuscular volume ) determinationOrdered By: Anthony West on 10-01-2024 MCV (RBC) [Entitic vol] 86.7 fL 81-99 [facility] Mean corpuscular hemoglobin (MCH) determinationOrdered By: Anthony West on 10-01-2024 MCH (RBC) [Entitic mass] 29.2 pg 27.0-32.0 [facility] Mean corpuscular hemoglobin concentration (MCHC) determinationOrdered By: Anthony West on 10-01-2024 MCHC (RBC) [Mass/Vol] 33.6 g/dL 32-36 [facility] Mean platelet volume determi nationOrdered By: Anthony West on 10-01-2024 Platelet mean volume (Bld) [Entitic vol] 8.8 fL 6.2-12.0 [facility] Microscopic analysis of urin e for red blood cells (RBC)Ordered By: Anthony West on 10-01-2024 Urine RBC 0-5 SEEN /hpf 0-5 [facility] Monocyte percentageOrdered B y: Anthony West on 10-01-2024 Monocytes/100 WBC (Bld) 7.9 % 0-10 [facility] Mucus LM Ql (Urine sed)Order ed By: Anthony West on 10-01-2024 Mucus Ql (Urine sed) 0 SEEN /hpf [facility] Neutrophil percentageOrdered By: Anthony West on 10-01-2024 Neutrophils/100 WBC (Bld) 68.8 % 47-70 [facility] Nitrite Test strip Ql (U)Ord ered By: Anthony West on 10-01-2024 Nitrite Ql (U) Negative Negative [facility] Nucleated red blood cell per centageOrdered By: Anthony West on 10-01-2024 Nucleated RBC/100 WBC (Bld) [Ratio] 0 % 0-5 [facility] Platelet countOrdered By: Shyam West on 10-01-2024 Platelets (Bld) [#/Vol] 372 10*3/uL 150-450 [facility] Potassium (Unsp spec) [Mass/ Vol]Ordered By: Anthony West on 10-01-2024 Potassium [Moles/Vol] 3.5 mmol/L 3.3-5.1 [facility] ,Serum,hCG Quali.on 10-01-2024 HCG, SERUM QUAL Negative Normal [facility] Comment on above: Performed By: #### L 100.0100, L501.2450, L500.4050, L700.6800 #### [facility] [address] [place] [address], [address] Protein Test strip Ql (U)Ord ered By: Anthony West on 10-01-2024 Protein Ql (U) 15 mg/dl High Negative [facility] RBC Auto (Bld) [#/Vol]Ordere d By: Anthony West on 10-01-2024 RBC (Bld) [#/Vol] 3.84 10*6/uL Low 4.2-5.4 [facility] Serum creatinine measurement (mass/volume)Ordered By: Anthony West on 10-01-2024 Creatinine [Mass/Vol] 0.81 mg/dL 0.70-1.20 [facility] Serum globulin measurementOr dered By: Anthony West on 10-01-2024 Globulin (S) [Mass/Vol] 3.4 g/dL 2.2-4.2 [facility] Serum glucose measurement (m ass/volume)Ordered By: Anthony West on 10-01-2024 Glucose [Mass/Vol] 84 mg/dL 70-99 [facility] Serum or plasma alanine brunson otransferase (ALT) measurementOrdered By: Anthony West on 10-01-2024 ALT [Catalytic activity/Vol] 27 U/L <35 [facility] Serum or plasma albumin dallas urement (mass/volume)Ordered By: Anthony West on 10-01-2024 Albumin [Mass/Vol] 3.6 g/dL 3.5-5.0 [facility] Serum or plasma albumin/glob ulin mass ratioOrdered By: Anthony West on 10-01-2024 Albumin/Globulin [Mass ratio] 1.1 {ratio} 0.9-2.4 [facility] Serum or plasma alkaline russell sphatase measurementOrdered By: Anthony West on 10-01-2024 ALP [Catalytic activity/Vol] 96 U/L 35-104 [facility] Serum or plasma calcium dallas urement (mass/volume)Ordered By: Anthony West on 10-01-2024 Calcium [Mass/Vol] 8.9 mg/dL 7.6-11.0 [facility] Serum or plasma urea nitroge n measurement (mass/volume)Ordered By: Anthony West on 10-01-2024 Urea nitrogen [Mass/Vol] 6 mg/dL 4-19 [facility] Sodium levelOrdered By: Anthony West on 10-01-2024 Sodium [Moles/Vol] 139 mmol/L 133-145 [facility] Total proteinOrdered By: Stormy West on 10-01-2024 Protein [Mass/Vol] 7.0 g/dL 5.9-8.4 [facility] Urinalysis, Completeon 10-01 BACTERIA 1+ /hpf Normal None Seen [facility] Comment on above: Order Comment: CLEAN CATCH Performed By: #### L 400.0001 #### [facility] [address] [place], [address] EPI,SQUAMOUS 0-5 SEEN Normal 5-10 [facility] Comment on above: Order Comment: CLEAN CATCH Performed By: #### L 400.0001 #### [facility] [address] [place], [address] RBC 0-5 SEEN Normal 0-5 [facility] Comment on above: Order Comment: CLEAN CATCH Performed By: #### L 400.0001 #### [facility] [address] [place], [address] WBC 5-10 SEEN Normal 0-5 [facility] Comment on above: Order Comment: CLEAN CATCH Performed By: #### L 400.0001 #### [facility] [address] [place], [address] Mucus Ql (Urine sed) 0 SEEN Normal [facility] Comment on above: Order Comment: CLEAN CATCH Performed By: #### L 400.0001 #### [facility] [address] [place], [address] Urine blood detectionOrdered By: Anthony West on 10-01-2024 Urine Occult Blood 10 /ul High Negative [facility] Urine clarityOrdered By: Stormy West on 10-01-2024 Clarity (U) Clear Clear [facility] Urine color determinationOrd ered By: Anthony West on 10-01-2024 Color (U) Yellow Yellow [facility] Urine leukocyte esterase det ection by dipstickOrdered By: Anthony West on 10-01-2024 Leukocyte esterase Test strip Ql (U) 500 /ul High Negative [facility] Urine pHOrdered By: Anthony castorena on 10-01-2024 pH (U) 7.0 [pH] 5.0 - 8.0 [facility] Urine sediment bacteria coun t by microscopy (number/high power field)Ordered By: Anthony West on 10-01-2024 Bacteria LM.HPF (Urine sed) [#/Area] 1 /[HPF] None Seen [facility] Urine specific gravity measu rementOrdered By: Anthony West on 10-01-2024 Specific gravity (U) [Rel density] 1.005 1.002-1.030 [facility] Urobilinogen Ql (U)Ordered B y: Anthony West on 10-01-2024 Urine Urobilinogen Normal mg/dl Normal [facility] White blood cell (WBC) count Ordered By: Anthony Wendieira on 10-01-2024 WBC (Bld) [#/Vol] 7.4 10*3/uL 4.4-11.0 [facility] White blood cell countOrdere d By: Anthony Wendieira on 10-01-2024 Urine WBC 5-10 SEEN /hpf 0-5 [facility] ANES POSTPROC EVALon 025 ANES POSTPROC EVAL HNO ID: [id number] Author: CHETAN MCKAY MD Service: ? 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 Post Anesthesia Patient Status Patient Evaluation: PACU. PACU/ICU Patient Condition: stable. Neurological Status: aware and responsive. Pulmonary Status: breathing comfortably on room air Airway Control: returned to baseline unsupported. Cardiovascular Status: stable. Pain Management: clinically adequate Postoperative Hydration: acceptable. Intraoperative Events: no significant anesthesia events Post Operative Nausea/Vomiting Status: no significant post operative nausea or vomiting Recommendation: continue current plan of care and further care per PACU/ICU/floor team. Anesthesia Observations No Documentation SIGNATURE: Chetan Mckay MD PATIENT NAME: Walter Keller DATE: August 04, 2024 TIME: 1:30 PM CSN: [id number] Normal [facility] ANES PRE-OPon 08-04-2024 ANES PRE-OP HNO ID: [id number] Author: CHETAN MCKAY MD Service: ? Author Type: Anesthesiologist Type: Anesthesia Preprocedure Evaluation Filed: 08/04/2024 12:37 Note Text: ANESTHESIOLOGY DAY OF SURGERY NOTE : 1980 Procedure Information Date/Time: 08/04/24 1330 Scheduled providers: Calvin Vora MD; Dinora Ott APRN.PULPER OPERATOR; Chetan Mckay MD Procedure: COLONOSCOPY DIAGNOSTIC Location: Gastroenterology Estimated body mass index is 24 kg/m? as calculated from the following: Height as of 05/23/24: 154.9 cm (5' 1). Weight as of 05/23/24: 57.6 kg (127 lb). Most recent hematocrit and potassium results: Hematocrit 38.9 05/23/2024 Potassium 3.7 01/11/2024 Relevant Problems No relevant active problems I - PHYSICAL EVALUATION AIRWAY Patient intubated: No. Tracheostomy tube not present Mallampati: II. TM distance: >3 FB. Neck ROM: full ROM without neurological symptoms. Mouth opening: adequate. Short neck: no. Thick neck: no DENTAL Dental findings: teeth intact. II - ANESTHESIA PLAN ASA Score: 2 Anesthetic Plan: MAC NPO Status: adequate Beta Jose Manuel Monitoring Plan Monitoring plan: standard ASA. Post Procedure Analgesic Plan Postoperative analgesic plan: parenteral or oral opioids. Informed Consent Anesthetic risks, benefits, alternatives, personnel and consent discussed: yes. Patient / Responsible Green Party agrees to proceed: yes Patient / Surrogate agrees to blood products: blood products not planned Significant changes in the patient condition since the History and Physical, not otherwise documented in primary service progress note: no. Potential Anesthesia issues that may suggest increased risk of complications or contraindication to planned procedure: none. Vitals Value Taken Time BP 105/60 08/04/24 1231 Pulse 93 08/04/24 1231 Resp 18 08/04/24 1231 Temp 36.5 ?C (97.7 ?F) 08/04/24 1231 SpO2 98 % 08/04/24 1231 Outpatient Medications as of 08/04/2024 Medication Sig ergocalciferol 50,000 unit capsule (VITAMIN D2, DRISDOL) Take 1 capsule by mouth one time a week. cyanocobalamin, vitamin B-12, 1,000 mcg/mL kit Inject 1,000 mcg intramuscularly once every month. upadacitinib tablet ER 24 hr 30 mg (RINVOQ) Take 1 tablet (30 mg) by mouth once daily. Swallow whole; DO NOT crush, chew, or open. ascorbic acid, vitamin C, (VITAMIN C) 250 mg tablet Take 250 mg by mouth. oxvjoxp-kqqmqrmur-intl min D3 500 mg-5 mcg (200 unit) per tablet Take 1 tablet by mouth. Ferrous Sulfate 142 mg (45 mg iron) TbER Take 1 tablet by mouth daily with breakfast. valACYclovir (VALTREX) 1 gram Take 1,000 mg by mouth once daily as needed. CALCIUM ORAL Take by mouth. sertraline (ZOLOFT) 100 mg tablet Take 100 mg by mouth once daily. hydrOXYzine pamoate (VISTARIL) 25 mg capsule Take 25 mg by mouth as needed. Patient not sure of dosage inFLIXimab-abda (RENFLEXIS) 100 mg injection Inject 400 mg intravenously every 8 weeks. NURSE TO INSERT IV FOR ADMINISTRATION (Patient not taking: Reported on 02/04/2024) multivitamin tablet Take 1 tablet by mouth once daily. ferrous sulfate (IRON ORAL) Take 1 capsule by mouth once daily. acetaminophen (TYLENOL) 325 mg tablet Take 650 mg by mouth every 6 hours as needed. Facility-Administered Medications as of 08/04/2024 Medication Dose Route Frequency lidocaine (PF) 10 mg/mL (1 %) 1-2 mg injection (XYLOCAINE) 0.1-0.2 mL INTRADERMAL PRN NaCl 0.9% iv infusion 30 mL/hr INTRAVENOUS CONTINUOUS I have interviewed and examined the patient. I have reviewed the medical record and/or the pre-anesthesia evaluation, pertinent labs, and test results. This contains updated information obtained within 48 hours of Surgery/Procedure. 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 Refer to note in patient chart for documentation of history and physical. Last Colonoscopy: within the past 3 years. This patient has ileocolonic Crohn's disease with perianal involvement and is taking upadacitinib. Referring Physician: Chalino Zuñiga (pa) (Referring MD) Medicines: Monitored Anesthesia Care Complications: No immediate complications. Requesting Provider: Procedure: Pre-Anesthesia Assessment: - Prior to the procedure, a History and Physical was performed, and patient medications and allergies were reviewed. The patient is competent. The risks and benefits of the procedure and the sedation options and risks were discussed with the patient. All questions were answered and informed consent was obtained. Patient identification and proposed procedure were verified by the physician, the nurse and the anesthesiologist in the pre-procedure area in the procedure room in the endoscopy suite. Mental Status Examination: alert and oriented. Airway Examination: normal oropharyngeal airway and neck mobility. Respiratory Examination: clear to auscultation. CV Examination: normal. Prophylactic Antibiotics: The patient does not require prophylactic antibiotics. Prior Anticoagulants: The patient has taken no anticoagulant or antiplatelet agents. ASA Grade Assessment: II - A patient with mild systemic disease. After reviewing the risks and benefits, the patient was deemed in satisfactory condition to undergo the procedure. The anesthesia plan was to use monitored anesthesia care (MAC). Immediately prior to administration of medications, the patient was re-assessed for adequacy to receive sedatives. The heart rate, respiratory rate, oxygen saturations, blood pressure, adequacy of pulmonary ventilation, and response to care were monitored throughout the procedure. The physical status of the patient was re-assessed after the procedure. After I obtained informed consent, the scope was passed under direct vision. Throughout the procedure, the patient's blood pressure, pulse, and oxygen saturations were monitored continuously. The Colonoscope was introduced through the anus and advanced to the terminal ileum. [facility] Postop Crohn's Colonoscopy. The colonoscopy was performed without difficulty. The patient tolerated the procedure well. The quality of the bowel preparation was good. The ileocolonic anastomosis, the kris-terminal ileum and the rectum were photographed. Moderate Sedation: MAC anesthesia was administered by the anesthesia team. Findings: The digital rectal exam findings include anal stricture. There was evidence of a prior yqbi-ph-hlfh ileo-colonic anastomosis in the ascending colon. This was patent and was characterized by erythema, inflammation and ulceration. The anastomosis was traversed. Diffuse inflammation characterized by congestion (edema), erosions, erythema, serpentine ulcerations and shallow ulcerations was found in the kris-terminal Ileum. The inflammation was graded as Rutgeerts Score i3 (diffuse aphthous ileitis). Biopsies were taken with a cold forceps for histology. Ulceration at the ileocolonic anastomosis with one large ulcer extending into the ileum and many small and medium sized superficial ulcers in the distal ileum with surrounding erythema. There was no narrowing. Colon was normal with the exception of the rectum where there were large superficial ulcerations in the distal rectum and small ulcers with erythema in the proximal rectum. The mid rectum appeared normal.The Simple Endoscopic Score for Crohn's Disease was determined based on the endoscopic appearance of the mucosa in the following segments: - Ileum: Findings include large ulcers 0.5-2 cm in size, 10-30% ulcerated surfaces, greater than 75% of surfaces affected and no narrowings. Segment score: 7. - Right Colon: Findings include no ulcers present, no ulcerated surfaces, no affected surfaces and no narrowings. Segment score: 0. - Transverse Colon: Findings include no ulcers present, no ulcerated surfaces, no affected surfaces and no narrowings. Segment score: 0. - Left Colon: Findings include no ulcers present, no ulcerated surfaces, no affected surfaces and no narrowings. Segment score: 0. - Rectum: Findings include large ulcers 0.5-2 cm in size, 10-30% ulcerated surfaces, 50-75% of surfaces affected and no narrowings. Segment score: 6. (more content not included)... Normal [facility] Flexible sigmoidoscopy study on 08-04-2024 [facility] Radiology Study observation (narrative) [facility] HISTORY PHYSICALon HISTORY PHYSICAL HNO ID: [id number] Author: CALVIN VORA MD Service: Gastroenterology Author Type: Physician Type: H&P Filed: 08/04/2024 12:38 Note Text: PROCEDURAL SEDATION HISTORY AND PHYSICAL EXAM SERVICE DATE: 08/04/2024 SERVICE TIME: 1238 Subjective HPI: This is a 43 year old female who presents with crohn's disease PAST ANESTHESIA HISTORY:No history of adverse event PAST MEDICAL HISTORY Diagnosis Date Adenomyosis Anxiety Crohn's disease (HCC) Distal ileal to upper rectal fistula 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) 05/14/2017 Endometriosis Fistula History of recurrent UTIs HPV in female retirement current use of immunosuppressive drug 05/02/2020 Vitamin D insufficiency 05/02/2020 PAST SURGICAL HISTORY Procedure Laterality Date PAST SURGICAL HISTORY OF 02/10/2017 Exploratory laparotomy. 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 Incision and drainage of interloop small bowel abscess. Takedown of ileorectal fistula. Ileocecectomy. Primary debridement and repair of rectal fistula. Creation of end ileostomy. Placement of seprafilm. Creation of omental pedicle flap. PAST SURGICAL HISTORY OF 05/27/2017 Ex lap, extensive KAREN, ileostomy reversal, right ovarian cystectomy PAST SURGICAL HISTORY OF colposcopy PICC LINE INSERT/CONSULT 06/03/2017 Prior to Admission medications as of 08/04/24 1222 Medication Sig Last Dose Taking ergocalciferol 50,000 unit capsule (VITAMIN D2, DRISDOL) Take 1 capsule by mouth one time a week. cyanocobalamin, vitamin B-12, 1,000 mcg/mL kit Inject 1,000 mcg intramuscularly once every month. upadacitinib tablet ER 24 hr 30 mg (RINVOQ) Take 1 tablet (30 mg) by mouth once daily. Swallow whole; DO NOT crush, chew, or open. ascorbic acid, vitamin C, (VITAMIN C) 250 mg tablet Take 250 mg by mouth. gdxusyv-cwasckzhm-oiih min D3 500 mg-5 mcg (200 unit) per tablet Take 1 tablet by mouth. Ferrous Sulfate 142 mg (45 mg iron) TbER Take 1 tablet by mouth daily with breakfast. valACYclovir (VALTREX) 1 gram Take 1,000 mg by mouth once daily as needed. CALCIUM ORAL Take by mouth. sertraline (ZOLOFT) 100 mg tablet Take 100 mg by mouth once daily. hydrOXYzine pamoate (VISTARIL) 25 mg capsule Take 25 mg by mouth as needed. Patient not sure of dosage inFLIXimab-abda (RENFLEXIS) 100 mg injection Inject 400 mg intravenously every 8 weeks. NURSE TO INSERT IV FOR ADMINISTRATION Patient not taking: Reported on 02/04/2024 multivitamin tablet Take 1 tablet by mouth once daily. ferrous sulfate (IRON ORAL) Take 1 capsule by mouth once daily. acetaminophen (TYLENOL) 325 mg tablet Take 650 mg by mouth every 6 hours as needed. ALLERGIES Allergen Reactions Ciprofibrate Anaphylaxis Ciprofloxacin Swelling, GI Upset, Anaphylaxis swelling at IV site and nausea Other reaction(s): stomach upset Demerol [Meperidine* Intolerance, Other: See Comments Patient reports Vomiting Gluten Protein GI Upset Meperidine Intolerance CARDIOVASCULAR:No chest pain, leg swelling and palpitations PULMONARY:No cough,wheezing and shortness of breath Objective PHYSICAL EXAM:The remainder of the physical exam is noncontributory AIRWAY: Airway Visualization of Uvula: Yes Mouth opening greater than 2 fingerbreadths: Yes Neck Full Range of Motion: Yes LUNGS: Lungs clear to auscultation CARDIAC: Regular rhythm,Regular rate Assessment/Plan ASA Class: II Patient OK for Sedation: Yes Sedation Goal: Deep Provisional Diagnosis/Treatment Plan: crohn's disease/ colonoscopy Sedation Goal: Deep SIGNATURE: Calvin Voar MD PATIENT NAME: Walter Keller DATE: August 04, 2024 TIME: 12:38 PM Created 2023 Normal [facility] NURSING PROGon 08-04-2024 NURSING PROG HNO ID: [id number] Author: EVETTE OLIVARES RN Service: Nursing Author Type: Registered Nurse Type: Nursing Progress Note Filed: 08/04/2024 13:21 Note Text: AMBULATORY PATIENT EDUCATION NOTE TOPIC: GI PROCEDURES: Colonoscopy with or without biopsies based on clinical findings READINESS TO LEARN INSTRUCTION PROVIDED TO: Patient and family member COGNITIVE ABILITY: Alert and oriented PTED MOTIVATION TO LEARN: Eager FAMILY SUPPORT: High - Very involved in pt care IPATIENT LEARNS BEST BY: Individual Instruction Written Instruction - Hand-outs Verbal Instruction FACTORS AFFECTING LEARNING: None PHYSICAL LIMITATIONS AFFECTING LEARNING: None LEARNING RESPONSE METHOD OF INSTRUCTION: Individual instruction PATIENT / FAMILY RESPONSE: Verbalizes understanding of: WORSENING CONDITION-Signs and symptoms of a worsening condition that warrant a call to the physician FOLLOW-UP PLAN: Recommend - Recommend continued instruction and follow up as directed SUPPLEMENTAL MATERIAL: Procedure Discharge Instructions REFERRAL (RECOMMENDATION): None Electronically Signed By: Evette Olivares RN Normal [facility] NURSING PROG HNO ID: [id number] Author: SURY WATSON RN Service: Nursing Author Type: Registered Nurse Type: Nursing Progress Note Filed: 08/04/2024 12:23 Note Text: PRE OP LEARNING ASSESSMENT PROCEDURE/SURGERY: GI PROCEDURES: Colonoscopy READINESS TO LEARN COGNITIVE ABILITY: Alert and oriented MOTIVATION TO LEARN: Eager Interested FAMILY SUPPORT: High - Very involved in pt care PATIENT LEARNS BEST BY: Individual Instruction FACTORS AFFECTING LEARNING: None PHYSICAL LIMITATIONS AFFECTING LEARNING: None Electronically Signed By: Sury Watson RN In Department: GASTROENTEROLOGY Normal [facility] SURGICAL PATHOLOGYon 025 ADDENDUM 1: Normal [facility] Comment on above: Order Comment: Speci men Type: BLOOD SPECIMEN Ordering Facility: [facility] Address: [address] [place] [address] Result Comment: Due to the presence of ulceration, a CMV immunostain was performed on block E1 and is negative for viral inclusions. Laboratory Developed Test (LDT) Disclaimer: Performance characteristics of immunohistochemical, immunofluorescent and chromogenic in-situ hybridization tests have been determined by the performing laboratory within [facility]???s [facility] Pathology and Laboratory Medicine Department ([facility], [facility], [facility], [facility], [facility], [facility], or [facility]) in a manner consistent with CLIA requirements. One or more of these tests have not been cleared or approved by the FDA. [facility] is regulated under CLIA as qualified to perform high-complexity testing. These tests are used for clinical purposes. They should not be regarded as investigational or for research. Positive and negative controls stain appropriately. Addendum electronically signed by Margy Kent MD on 08/09/2024 at 11:25 AM Performed By: #### 5 7021-8 #### [facility] CLIA [id number] [address] [place] [address] [place] CASE REPORT Normal [facility] Comment on above: Order Comment: Speci men Type: BLOOD SPECIMEN Ordering Facility: [facility] Address: [address] [place] [address] Result Comment: Surg [facility] Pathology Report Case: [id number] Authorizing Provider: Calvin Vora MD Collected: 08/04/2024 12:55 PM Ordering Location: Gastroenterology Received: 08/04/2024 04:20 PM Pathologist: Margy Kent MD Specimens: A) - Small Bowel, Ileum, Biopsy, h/x crohn's, r/o active disease B) - Colon, Right, Biopsy, h/x crohn's, r/o active disease C) - Colon, Transverse, Biopsy, h/x crohn's, r/o active disease D) - Colon, Left, Biopsy, h/x crohn's, r/o active disease E) - Rectum, Biopsy, h/x crohn's, r/o active disease Performed By: #### 5 7021-8 #### [facility] CLIA [id number] [address] [place] [address] [place] FINAL DIAGNOSIS Normal [facility] Comment on above: Order Comment: Los tran Type: BLOOD SPECIMEN Ordering Facility: [facility] Address: [address] [place] [address] Result Comment: A. 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 - Negative for granulomas or dysplasia. B. Right colon, biopsy: - Colonic mucosa with no significant diagnostic alteration. - No evidence of colitis, granulomas or dysplasia. C. Transverse colon, biopsy: - Focal moderately active colitis. - Negative for chronic mucosal injury, granulomas or dysplasia. D. Left colon, biopsy: - Focal mildly active colitis. - Negative for chronic mucosal injury, granulomas or dysplasia. E. Rectum, biopsy: - Chronic severely active colitis with ulceration. - Negative for granulomas or dysplasia. - A CMV immunostain will be performed and reported separately. Performed By: #### 5 7021-8 #### [facility] CLIA [id number] [address] [place] [address] [place] FINAL PERFORMING LAB Normal [facility] Comment on above: Order Comment: Speci men Type: BLOOD SPECIMEN Ordering Facility: [facility] Address: [address] [place] [address] Result Comment: Diag nostic interpretation performed at: [facility], [address] [place] [address] CLIA# [id number] Hot Iron Worker: Cole Kirkland MD Performed By: #### 5 7021-8 #### [facility] CLIA [id number] [address] [place] [address] STATES [facility] GROSS DESCRIPTION Normal [facility] Comment on above: Order Comment: Speci men Type: BLOOD SPECIMEN Ordering Facility: [facility] Address: [address] [place] [address] Result Comment: A. S mall Bowel, Ileum, Biopsy Received in formalin are multiple pieces of hodge, soft tissue aggregating to 0.7 x 0.4 x 0.2 cm. Totally submitted in one cassette. B. Colon, Right, Biopsy Received in formalin are multiple pieces of hodge, soft tissue aggregating to 0.6 x 0.4 x 0.1 cm. Totally submitted in one cassette. C. Colon, Transverse, Biopsy Received in formalin are multiple pieces of hodge, soft tissue aggregating to 0.7 x 0.4 x 0.1 cm. Totally submitted in one cassette. D. Colon, Left, Biopsy Received in formalin are multiple pieces of hodge, soft tissue aggregating to 1.0 x 0.7 x 0.1 cm. Totally submitted in one cassette. E. Rectum, Biopsy Received in formalin are multiple pieces of hodge, soft tissue aggregating to 0.6 x 0.5 x 0.1 cm. Totally submitted in one cassette. JCDM August 04, 2024 5:58 PM Gross examination performed at [facility], [address] [place] [address] Performed By: #### 5 7021-8 #### [facility] CLIA [id number] [address] [place] [address] [id number] Zhen 05-27-2024 CNPN Telephone (GASTMN) WALTER KELLER ([id number]) 1980 F Date Time Provider Department 05/27/24 CALVIN VORAKY During your visit today, we recorded the following information about you: Yuni Edmonds 05/27/2024 11:27 AM Signed Received request from Dr. Vora's rn transitional care to initiate a new prior authorization for patients Rinvoq 30 mg ER tablets. Initially attempted to initiate the request via [employer] however the patients insurance card was not scanned clearly. A call was placed to [employer] . Spoke to customer success representative Guillermo who provided the RX BIN: [id number] RX PCN: [id number] as well as the RxGroup: [id number]. Returned to [employer] portal and initiated an electronic request STRANGE:[id number]. Answered the required clinical questions and submitted the most recent OV note dated 05/23/2024 as well as labs dated 05/23/2024. Received immediate response that the request was approved. CM Approval Date: 05/27/2024-05/27/2025. Routing outcome to rn transitional care. Kenzie Edmonds [employer] Navigator Allergies As of Date: 05/27/2024 Noted Allergy Reaction CIPROFIBRATE 02/20/2018 10 - Anaphylaxis CIPROFLOXACIN 03/30/2017 7 - Swelling 8 - GI Upset 10 - Anaphylaxis Comments: swelling at IV site and nausea Other reaction(s): stomach upset DEMEROL (MEPERIDINE (PF)) 07/20/2018 5 - Intolerance 14 - Other: See Comments Comments: Patient reports Vomiting GLUTEN PROTEIN 07/20/2018 8 - GI Upset MEPERIDINE 07/20/2018 5 - Intolerance Date Reviewed: 05/23/2024 Reviewed by: Davey Carvajal MA - Fully Assessed Reason for Visit: Medication Authorization [[id number]] Prescriptions as of 05/27/2024 - ergocalciferol 50,000 unit capsule (VITAMIN D2, DRISDOL) Take 1 capsule by mouth one time a week. - cyanocobalamin, vitamin B-12, 1,000 mcg/mL kit Inject 1,000 mcg intramuscularly once every month. - upadacitinib tablet ER 24 hr 30 mg (RINVOQ) Take 1 tablet (30 mg) by mouth once daily. Swallow whole; DO NOT crush, chew, or open. - ascorbic acid, vitamin C, (VITAMIN C) 250 mg tablet Take 250 mg by mouth. - gdvyqmz-ksriheptj-jboe min D3 500 mg-5 mcg (200 unit) per tablet Take 1 tablet by mouth. - Ferrous Sulfate 142 mg (45 mg iron) TbER Take 1 tablet by mouth daily with breakfast. - valACYclovir (VALTREX) 1 gram Take 1,000 mg by mouth once daily as needed. - CALCIUM ORAL Take by mouth. - sertraline (ZOLOFT) 100 mg tablet Take 100 mg by mouth once daily. - hydrOXYzine pamoate (VISTARIL) 25 mg capsule Take 25 mg by mouth as needed. Patient not sure of dosage - inFLIXimab-abda (RENFLEXIS) 100 mg injection Inject 400 mg intravenously every 8 weeks. NURSE TO INSERT IV FOR ADMINISTRATION - multivitamin tablet Take 1 tablet by mouth once daily. - ferrous sulfate (IRON ORAL) Take 1 capsule by mouth once daily. - acetaminophen (TYLENOL) 325 mg tablet Take 650 mg by mouth every 6 hours as needed. 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 drug*05/02/2020 Vitamin D insufficiency [E55.9] 05/02/2020 Encounter Status:Closed by YUNI EDMONDS on 05/27/24 Normal [facility] Lipid 1996 panelon 4 Cholesterol [Mass/Vol] 214 mg/dL High <200 [facility] Comment on above: Order Comment: Los tran Type: BLOOD SPECIMEN Ordering Facility: [facility] Address: [address] [place] [address] Result Comment: <200 mg/dL, Desirable 200-239 mg/dL, Borderline high >239 mg/dL, High Performed By: #### 5 7021-8 #### [facility] CLIA [id number] [address] [place] [address] [place] Cholesterol in HDL [Mass/Vol] 84 mg/dL Normal >39 [facility] Comment on above: Order Comment: Los tran Type: BLOOD SPECIMEN Ordering Facility: [facility] Address: [address] [place] [address] Result Comment: 40-5 9 mg/dL, Acceptable >59 mg/dL, High: Negative risk factor for coronary heart disease <40 mg/dL, Low: Positive risk factor for coronary heart disease Performed By: #### 5 7021-8 #### [facility] CLIA [id number] [address] [place] [address] [place] Cholesterol in LDL [Mass/Vol] 76 mg/dL Normal <100 [facility] Comment on above: Order Comment: Speci men Type: BLOOD SPECIMEN Ordering Facility: [facility] Address: [address] [place] [address] Result Comment: <100 mg/dL, Optimal 100-129 mg/dL, Near optimal/above optimal 130-159 mg/dL, Borderline high 160-189 mg/dL, High >189 mg/dL, Very high Secondary prevention optimal LDL Cholesterol levels are recommended to be < 70 mg/dL Performed By: #### 5 7021-8 #### [facility] CLIA [id number] [address] [place], [place] [address] [address] [place] Cholesterol in LDL/Cholesterol in HDL [Mass ratio] 0.90 {ratio} Normal <2.54 [facility] Comment on above: Order Comment: [place] tran Type: BLOOD SPECIMEN Ordering Facility: [facility] Address: [address] [place] [address] Result Comment: Refe rence: 1. National Cholesterol Education Program ATP III Guideline At-A-Glance Quick Desk Reference: National Heart, Lung, and Blood [place]. National Institutes of Health. 2001: NIH Publication No. 01-3305. 2. An International Atherosclerosis Society position paper: global recommendations for the management of dyslipidemia: executive summary, Atherosclerosis. 2014: 232(2):410-413. Performed By: #### 5 7021-8 #### [facility] CLIA [id number] [address] [place] [address] [place] Cholesterol in VLDL [Mass/Vol] 54 mg/dL High <30 [facility] Comment on above: Order Comment: Los tran Type: BLOOD SPECIMEN Ordering Facility: [facility] Address: [address] [place] [address] Performed By: #### 5 7021-8 #### [facility] CLIA [id number] [address] [place] [address] [place] Cholesterol non HDL [Mass/Vol] 130 mg/dL High <130 [facility] Comment on above: Order Comment: [place] tran Type: BLOOD SPECIMEN Ordering Facility: [facility] Address: [address] [place] [address] Result Comment: <130 mg/dL, Optimal 130-159 mg/dL, Near optimal/above optimal 160-189 mg/dL, Borderline high 190-219 mg/dL, High >219 mg/dL, Very high Secondary prevention optimal non HDL Cholesterol levels are recommended to be <100 mg/dL Performed By: #### 5 7021-8 #### [facility] CLIA [id number] [address] [place] [address] [place] Cholesterol.total/Leigha sterol in HDL [Mass ratio] 2.55 {ratio} Normal <5.10 [facility] Comment on above: Order Comment: Speci men Type: BLOOD SPECIMEN Ordering Facility: [facility] Address: [address] [place] [address] Performed By: #### 5 7021-8 #### [facility] CLIA [id number] [address] [place] [address] [place] FASTING TIME 12 hrs Normal [facility] Comment on above: Order Comment: Speci men Type: BLOOD SPECIMEN Ordering Facility: [facility] Address: [address] [place] [address] Performed By: #### 5 7021-8 #### [facility] CLIA [id number] [address] [place] [address] [place] Triglyceride [Mass/Vol] 268 mg/dL High <150 [facility] Comment on above: Order Comment: Speci men Type: BLOOD SPECIMEN Ordering Facility: [facility] Address: [address] [place] [address] Result Comment: <150 mg/dL, Normal 150-199 mg/dL, Borderline high 200-499 mg/dL, High >499 mg/dL, Very high Performed By: #### 5 7021-8 #### [facility] CLIA [id number] [address] [place] [address] [place] [facility] 25-hydroxyvitamin D3 [Mass/Vol] 21.2 ng/mL Low 31.0-80.0 [facility] Comment on above: Order Comment: Los tran Type: BLOOD SPECIMEN Ordering Facility: [facility] Address: [address] [place] [address] Result Comment: Clas sification of 25 [place] Vitamin D status: Deficiency/Insufficiency: < or = 30 ng/ml. Sufficiency/Optimal Levels: 31-80 ng/mL Toxicity: > 100 ng/mL. Test performed by chemiluminescent immunoassay. Performed By: #### 5 7021-8 #### [facility] CLIA [id number] [address] [place] [address] OF [facility] 25-hydroxyvitamin D3 [Mass/V ol]on 05-23-2024 Interpretation and review of laboratory results Abnormal [facility] The reference range interval was based on an analysis of samples from healthy adults and may not pertain to children from 0-18 years old. [facility] BLOOD TB SCREENon 05-23-2024 M. tuberculosis tuberculin stim IFN-g Ql (Bld) Negative Normal [facility] Comment on above: Order Comment: Los tran Type: BLOOD SPECIMENOrdering Facility: [facility] Address: [address] [place] [address] Performed By: #### I NFTBP ####[facility] [id number] [place] [address] [place] MITOGEN MINUS NIL >9.94 Normal >=0.50 [facility] Comment on above: Order Comment: Los tran Type: BLOOD SPECIMENOrdering Facility: [facility] Address: [address] [place] [address] Performed By: #### I NFTBP ####[facility] [id number] [place] [address] [place] TB GAMMA INTERPRETATION Infection with M . tuberculosis complex is unlikely. If latent tuberculosis infection is highly suspected, a negative result does not rule out the infection. Specimens from immunocompromised patients and those <5 years of age may show false negative results. In case of a contact investigation, please repeat 8-12 weeks after a known exposure. Normal [facility] Comment on above: Order Comment: Speci men Type: BLOOD SPECIMENOrdering Facility: [facility] Address: [address] [place] [address] Performed By: #### I NFTBP ####[facility] [id number] [place] [address] [place] TB NIL 0.06 IU/mL Normal <=8.00 [facility] Comment on above: Order Comment: Speci men Type: BLOOD SPECIMENOrdering Facility: [facility] Address: [address] [place] [address] Performed By: #### I NFTBP ####[facility] [id number] [place] [address] [place] TB1 AG MINUS NIL 0.00 IU/mL Normal <0.35 [facility] Comment on above: Order Comment: Speci men Type: BLOOD SPECIMENOrdering Facility: [facility] Address: [address] [place] [address] Performed By: #### I NFTBP ####[facility] [id number] [place] [address] [place] TB2 AG MINUS NIL 0.00 IU/mL Normal <0.35 [facility] Comment on above: Order Comment: Speci men Type: BLOOD SPECIMENOrdering Facility: [facility] Address: [address] [place] [address] Performed By: #### I NFTBP ####[facility] [id number] [place] [address] [place] CBC W Auto Differential pane l (Bld)on 05-23-2024 Basophils (Bld) [#/Vol] 0.03 10*3/uL [facility] Basophils/100 WBC (Bld) 0.4 % C [facility] Differential cell count method Nom (Bld) Auto [facility] Eosinophils (Bld) [#/Vol] 0.04 10*3/uL [facility] Eosinophils/100 WBC (Bld) 0.5 % [facility] Erythrocyte distribution width (RBC) [Ratio] 14.7 % 11.5 - 15.0 % [facility] Hematocrit (Bld) [Volume fraction] 38.9 % 36.0 - 46.0 % [facility] Hemoglobin (Bld) [Mass/Vol] 12.6 g/dL 11.5 - 15.5 g/dL [facility] Immature granulocytes (Bld) [#/Vol] 0.06 10*3/uL [facility] Immature granulocytes/100 WBC (Bld) 0.7 % [facility] Interpretation and review of laboratory results Abnormal [facility] Lymphocytes (Bld) [#/Vol] 1.96 10*3/uL [facility] Lymphocytes/100 WBC (Bld) 23.9 % [facility] MCH (RBC) [Entitic mass] 30.7 pg 26.0 - 34.0 pg [facility] MCHC (RBC) [Mass/Vol] 32.4 g/dL 30.5 - 36.0 g/dL [facility] MCV (RBC) [Entitic vol] 94.9 fL 80.0 - 100.0 fL [facility] Monocytes (Bld) [#/Vol] 0.64 10*3/uL [facility] Monocytes/100 WBC (Bld) 7.8 % [facility] Neutrophils (Bld) [#/Vol] 5.46 10*3/uL [facility] Neutrophils/100 WBC (Bld) 66.7 % [facility] Nucleated RBC (Bld) [#/Vol] [facility] Nucleated RBC/100 WBC (Bld) [Ratio] 0.0 % /100 WBC [facility] Platelet mean volume (Bld) [Entitic vol] 8.8 fL Low 9.0 - 12.7 fL [facility] Platelets (Bld) [#/Vol] 358 10*3/uL [facility] RBC (Bld) [#/Vol] 4.10 10*6/uL 3.90 - 5.2 0 m/uL [facility] WBC (Bld) [#/Vol] 8.19 10*3/uL [facility] Basophils (Bld) [#/Vol] 0.03 10*3/uL Normal <0.11 [facility] Comment on above: Order Comment: Speci men Type: BLOOD SPECIMEN Ordering Facility: [facility] Address: [address] [place] [address] Performed By: #### 5 7021-8 #### [facility] CLIA [id number] [address] [place] [address] [place] Basophils/100 WBC (Bld) 0.4 % Normal [facility] Comment on above: Order Comment: Speci men Type: BLOOD SPECIMEN Ordering Facility: [facility] Address: [address] [place] [address] Performed By: #### 5 7021-8 #### [facility] CLIA [id number] [address] [place] [address] [place] Differential cell count method Nom (Bld) Auto Normal [facility] Comment on above: Order Comment: Speci men Type: BLOOD SPECIMEN Ordering Facility: [facility] Address: [address] [place] [address] Performed By: #### 5 7021-8 #### [facility] CLIA [id number] [address] [place] [address] [place] Eosinophils (Bld) [#/Vol] 0.04 10*3/uL Normal <0.46 [facility] Comment on above: Order Comment: Speci men Type: BLOOD SPECIMEN Ordering Facility: [facility] Address: [address] [place] [address] Performed By: #### 5 7021-8 #### [facility] CLIA [id number] [address] [place] [address] [place] Eosinophils/100 WBC (Bld) 0.5 % Normal [facility] Comment on above: Order Comment: Speci men Type: BLOOD SPECIMEN Ordering Facility: [facility] Address: [address] [place] [address] Performed By: #### 5 7021-8 #### [facility] CLIA [id number] [address] [place] [address] [place] Erythrocyte distribution width (RBC) [Ratio] 14.7 % Normal 11.5-15.0 [facility] Comment on above: Order Comment: Speci men Type: BLOOD SPECIMEN Ordering Facility: [facility] Address: [address] [place] [address] Performed By: #### 5 7021-8 #### [facility] CLIA [id number] [address] [place] [address] [place] Hematocrit (Bld) [Volume fraction] 38.9 % Normal 36.0-46.0 [facility] Comment on above: Order Comment: Speci men Type: BLOOD SPECIMEN Ordering Facility: [facility] Address: [address] [place] [address] Performed By: #### 5 7021-8 #### [facility] CLIA [id number] [address] [place] [address] [place] Hemoglobin (Bld) [Mass/Vol] 12.6 g/dL Normal 11.5-15.5 [facility] Comment on above: Order Comment: Speci men Type: BLOOD SPECIMEN Ordering Facility: [facility] Address: [address] [place] [address] Performed By: #### 5 7021-8 #### [facility] CLIA [id number] [address] [place] [address] [place] Immature granulocytes (Bld) [#/Vol] 0.06 10*3/uL Normal <0.10 [facility] Comment on above: Order Comment: Speci men Type: BLOOD SPECIMEN Ordering Facility: [facility] Address: [address] [place] [address] Performed By: #### 5 7021-8 #### [facility] CLIA [id number] [address] [place] [address] [place] Immature granulocytes/100 WBC (Bld) 0.7 % Normal [facility] Comment on above: Order Comment: Speci men Type: BLOOD SPECIMEN Ordering Facility: [facility] Address: [address] [place] [address] Performed By: #### 5 7021-8 #### [facility] CLIA [id number] [address] [place] [address] [place] Lymphocytes (Bld) [#/Vol] 1.96 10*3/uL Normal 1.00-4.00 [facility] Comment on above: Order Comment: Speci men Type: BLOOD SPECIMEN Ordering Facility: [facility] Address: [address] [place] [address] Performed By: #### 5 7021-8 #### [facility] CLIA [id number] [address] [place] [address] [place] Lymphocytes/100 WBC (Bld) 23.9 % Normal [facility] Comment on above: Order Comment: Speci men Type: BLOOD SPECIMEN Ordering Facility: [facility] Address: [address] [place] [address] Performed By: #### 5 7021-8 #### [facility] CLIA [id number] [address] [place] [address] [place] MCH (RBC) [Entitic mass] 30.7 pg Normal 26.0-34.0 [facility] Comment on above: Order Comment: Speci men Type: BLOOD SPECIMEN Ordering Facility: [facility] Address: [address] [place] [address] Performed By: #### 5 7021-8 #### [facility] CLIA [id number] [address] [place] [address] [place] MCHC (RBC) [Mass/Vol] 32.4 g/dL Normal 30.5-36.0 [facility] Comment on above: Order Comment: Speci men Type: BLOOD SPECIMEN Ordering Facility: [facility] Address: [address] [place] [address] Performed By: #### 5 7021-8 #### [facility] CLIA [id number] [address] [place] [address] [place] MCV (RBC) [Entitic vol] 94.9 fL Normal 80.0-100.0 [facility] Comment on above: Order Comment: Speci men Type: BLOOD SPECIMEN Ordering Facility: [facility] Address: [address] [place] [address] Performed By: #### 5 7021-8 #### [facility] CLIA [id number] [address] [place] [address] [place] Monocytes (Bld) [#/Vol] 0.64 10*3/uL Normal <0.87 [facility] Comment on above: Order Comment: Speci men Type: BLOOD SPECIMEN Ordering Facility: [facility] Address: [address] [place] [address] Performed By: #### 5 7021-8 #### [facility] CLIA [id number] [address] [place] [address] [place] Monocytes/100 WBC (Bld) 7.8 % Normal [facility] Comment on above: Order Comment: Speci men Type: BLOOD SPECIMEN Ordering Facility: [facility] Address: [address] [place] [address] Performed By: #### 5 7021-8 #### [facility] CLIA [id number] [address] [place] [address] [place] Neutrophils (Bld) [#/Vol] 5.46 10*3/uL Normal 1.45-7.50 [facility] Comment on above: Order Comment: Speci men Type: BLOOD SPECIMEN Ordering Facility: [facility] Address: [address] [place] [address] Performed By: #### 5 7021-8 #### [facility] CLIA [id number] [address] [id number] [address] [place] Neutrophils/100 WBC (Bld) 66.7 % Normal [facility] Comment on above: Order Comment: Speci men Type: BLOOD SPECIMEN Ordering Facility: [facility] Address: [address] [place] [address] Performed By: #### 5 7021-8 #### [facility] CLIA [id number] [address] [place] [address] [place] Nucleated RBC (Bld) [#/Vol] 10*3/uL Normal <0.01 [facility] Comment on above: Order Comment: Speci men Type: BLOOD SPECIMEN Ordering Facility: [facility] Address: [address] [place] [address] Performed By: #### 5 7021-8 #### [facility] CLIA [id number] [address] [place] [address] [place] Nucleated RBC/100 WBC (Bld) [Ratio] 0.0 /100 WBC Normal [facility] Comment on above: Order Comment: Speci men Type: BLOOD SPECIMEN Ordering Facility: [facility] Address: [address] [place] [address] Performed By: #### 5 7021-8 #### [facility] CLIA [id number] [address] [place] [address] [place] Platelet mean volume (Bld) [Entitic vol] 8.8 fL Low 9.0-12.7 [facility] Comment on above: Order Comment: Speci men Type: BLOOD SPECIMEN Ordering Facility: [facility] Address: [address] [place] [address] Performed By: #### 5 7021-8 #### [facility] CLIA [id number] [address] [place] [address] [place] Platelets (Bld) [#/Vol] 358 10*3/uL Normal 150-400 [facility] Comment on above: Order Comment: Speci men Type: BLOOD SPECIMEN Ordering Facility: [facility] Address: [address] [place] [address] Performed By: #### 5 7021-8 #### [facility] CLIA [id number] [address] [place] [address] [place] RBC (Bld) [#/Vol] 4.10 10*6/uL Normal 3.90-5.20 [facility] Comment on above: Order Comment: Speci men Type: BLOOD SPECIMEN Ordering Facility: [facility] Address: [address] [place] [address] Performed By: #### 5 7021-8 #### [facility] CLIA [id number] [address] [place] [address] [place] WBC (Bld) [#/Vol] 8.19 10*3/uL Normal 3.70-11.00 [facility] Comment on above: Order Comment: Speci men Type: BLOOD SPECIMEN Ordering Facility: [facility] Address: [address] [place] [address] Performed By: #### 5 7021-8 #### [facility] CLIA [id number] [address] [place] [address] [place] CRP SerPl-mCncon 05-23-2024 CRP [Mass/Vol] mg/L Normal <0.9 [facility] Comment on above: Order Comment: Speci men Type: BLOOD SPECIMEN Ordering Facility: [facility] Address: [address] [place] [address] Performed By: #### 5 7021-8 #### [facility] CLIA [id number] [address] [place] [address] [place] Cobalamin (Vitamin B12) [Mas s/Vol]on 05-23-2024 Interpretation and review of laboratory results Abnormal [facility] - Chemistry and C hemistry - challengeon 05-23-2024 25-hydroxyvitamin D3 [Mass/Vol] 21.2 ng/mL Low 31.0 - 80.0 ng/mL [facility] Comment on above: Classification of 25 [place] Vitamin D status: Deficiency/Insufficiency: < or = 30 ng/ml. Sufficiency/Optimal Levels: 31-80 ng/mL Toxicity: > 100 ng/mL. Test performed by chemiluminescent immunoassay. Cobalamin (Vitamin B12) [Mass/Vol] 175 pg/mL Low 232 - 1245 pg/mL [facility] Vit B12 SerPl-mCncon 11- 024 Cobalamin (Vitamin B12) [Mass/Vol] 175 pg/mL Low 232-1245 [facility] Comment on above: Order Comment: Speci men Type: BLOOD SPECIMEN Ordering Facility: [facility] Address: [address] [place] [address] Performed By: #### 5 7021-8 #### [facility] CLIA [id number] [address] [place] [address] [place] [address] [place] ANES POSTPROC EVALon 024 ANES POSTPROC EVAL HNO ID: [id number] Author: COLE VÁZQUEZ MD Service: ? Author Type: Anesthesiologist Type: Anesthesia Postprocedure Evaluation Filed: 03/04/2024 13:24 Note Text: POST ANESTHESIA EVALUATION NOTE : 1980 Procedure Summary Date: 03/04/24 [address] Start: 1218 Anesthesia Stop: 1322 Procedure: EXAM UNDER ANESTHESIA RECTAL (Anus) Diagnosis: Anal fissure (Anal fissure [K60.2]) Surgeons: Flor Mar MD Responsible Provider: Cole Vázquez MD Anesthesia Type: general ASA Status: 3 Anesthesia Type: general Airway Type: LMA Last Vitals Vitals Value Taken Time BP 95/55 03/04/24 1322 Temp 03/04/24 1322 Pulse 70 03/04/24 1321 Resp 12 03/04/24 1321 SpO2 100 % 03/04/24 1321 Vitals shown include unfiled device data. Post Anesthesia Patient Status Patient Evaluation: PACU. PACU/ICU Patient Condition: stable. Anticipated Disposition: phase 2 then home. Neurological Status: aware and responsive. Pulmonary Status: breathing comfortably on room air Airway Control: returned to baseline unsupported. Cardiovascular Status: stable. Pain Management: clinically adequate Postoperative Hydration: acceptable. Intraoperative Events: no significant anesthesia events Post Operative Nausea/Vomiting Status: no significant post operative nausea or vomiting Recommendation: continue current plan of care. Anesthesia Observations No Documentation SIGNATURE: Cole Vázquez MD PATIENT NAME: Walter Keller DATE: March 04, 2024 TIME: 1:22 PM CSN: [id number] Normal [facility] ANES PRE-OPon 03-04-2024 ANES PRE-OP HNO ID: [id number] Author: COLE VÁZQUEZ MD Service: ? Author Type: Anesthesiologist Type: Anesthesia Preprocedure Evaluation Filed: 03/04/2024 11:29 Note Text: ANESTHESIOLOGY DAY OF SURGERY NOTE : 1980 Procedure Information Date/Time: 03/04/24 1056 Procedure: EXAM UNDER ANESTHESIA RECTAL (Anus) Location: [place] [address] [facility] Surgeons: Flor Mar MD Estimated body mass index is 23.62 kg/m? as calculated from the following: Height as of this encounter: 154.9 cm (5' 1). Weight as of this encounter: 56.7 kg (125 lb). Most recent hematocrit and potassium results: Hematocrit 37.2 01/11/2024 Potassium 3.7 01/11/2024 Relevant Problems No relevant active problems I - PHYSICAL EVALUATION AIRWAY Patient intubated: No. Tracheostomy tube not present Mallampati: III. TM distance: >3 FB. Neck ROM: full ROM without neurological symptoms. Mouth opening: adequate. Short neck: no. Thick neck: no Luevano present: no Lip Bite Test: II Microretrognathia/Micr onagthia/Recessed Chin: No DENTAL Normal dental observations. Additional exam findings: no II - ANESTHESIA PLAN ASA Score: 3 Anesthetic Plan: general Airway type: LMA The patient is not a current smoker. NPO Status: adequate Beta Jose Manuel Administration of chronic beta jose manuel medication not planned. Reasons for not administering beta jose manuel perioperatively: other Monitoring Plan Monitoring plan: standard ASA. Post Procedure Analgesic Plan Postoperative analgesic plan: parenteral or oral opioids. Informed Consent Anesthetic risks, benefits, alternatives, personnel and consent discussed: yes. Patient / Responsible [employer] agrees to proceed: yes Patient / Surrogate agrees to blood products: Yes DNR status not reviewed with patient and/or family prior to surgery. Significant changes in the patient condition since the History and Physical, not otherwise documented in primary service progress note: no. Potential Anesthesia issues that may suggest increased risk of complications or contraindication to planned procedure: none. Vitals Value Taken Time BP 106/68 03/04/24899 Pulse 87 03/04/24 0900 Resp 16 03/04/24899 Temp 36.1 ?C (97 ?F) 03/04/24899 SpO2 100 % 03/04/24899 Facility-Administered Medications as of 03/04/2024 Medication Dose Route Frequency lidocaine (PF) 10 mg/mL (1 %) 1-2 mg injection (XYLOCAINE) 0.1-0.2 mL INTRADERMAL PRN Or lidocaine 1% 0.25 mL subcutaneous j-tip syringe (XYLOCAINE) 0.25 mL SUBCUTANEOUS PRN lactated ringers iv infusion 5-30 mL/hr INTRAVENOUS CONTINUOUS NaCl 0.9% iv flush bag 20 mL INTRAVENOUS PRN Outpatient Medications as of 03/04/2024 Medication Sig upadacitinib tablet ER 24 hr 30 mg (RINVOQ) Take 1 tablet (30 mg) by mouth once daily. Swallow whole; DO NOT crush, chew, or open. ergocalciferol 50,000 unit capsule (VITAMIN D2, DRISDOL) Take 1 capsule by mouth one time a week. ascorbic acid, vitamin C, (VITAMIN C) 250 mg tablet Take 250 mg by mouth. fcatfpp-rfdyunipk-odic min D3 500 mg-5 mcg (200 unit) per tablet Take 1 tablet by mouth. cholecalciferol (VITAMIN D3) 1,000 unit tab tablet Take 1,000 Units by mouth. Ferrous Sulfate 142 mg (45 mg iron) TbER Take 1 tablet by mouth daily with breakfast. Vit B Comp and C-Vit E-FA-Sabine-Zn 0.4 mg tab 1 tablet. CALCIUM ORAL Take by mouth. sertraline (ZOLOFT) 100 mg tablet Take 100 mg by mouth once daily. Cyanocobalamin 1,000 mcg subl Dissolve 1 tablet under the tongue once daily. multivitamin tablet Take 1 tablet by mouth once daily. ferrous sulfate (IRON ORAL) Take 1 capsule by mouth once daily. upadacitinib tablet ER 24 hr 45 mg (RINVOQ) Take 1 tablet (45 mg) by mouth once daily. Swallow whole; DO NOT crush, chew, or open. (Patient not taking: Reported on 02/04/2024) valACYclovir (VALTREX) 1 gram Take 1,000 mg by mouth once daily as needed. hydrOXYzine pamoate (VISTARIL) 25 mg capsule Take 25 mg by mouth as needed. Patient not sure of dosage inFLIXimab-abda (RENFLEXIS) 100 mg injection Inject 400 mg intravenously every 8 weeks. NURSE TO INSERT IV FOR ADMINISTRATION (Patient not taking: Reported on 02/04/2024) acetaminophen (TYLENOL) 325 mg tablet Take 650 mg by mouth every 6 hours as needed. I have interviewed and examined the patient. I have reviewed the medical record and/or the pre-anesthesia evaluation, pertinent labs, and test results. This contains updated information obtained within 48 hours of Surgery/Procedure. SIGNATURE: Cole Vázquez MD PATIENT NAME: Walter Keller DATE: March 04, 2024 TIME: 11:28 AM CSN: [id number] Normal [facility] BRIEF OP NOTon 03-04-2024 BRIEF OP NOT HNO ID: [id number] Author: HANH HOUSTON MD Service: Colorectal Author Type: Fellow Type: Brief Op Note Filed: 03/04/2024 12:53 Note Text: COLORECTAL SURGERY BRIEF OP NOTE LOG ID: [id number] Surgery/Procedure Date: 03/04/2024 Incision/Procedure Start Time: 12:35 PM Incision Close/Procedure End Time: 12:50 PM Surgeon(s) and Roper Operator(s): Surgeons and Role: * Flor Mar MD - Primary * Eri Sneed MD - Resident - Assisting * Hanh Houston MD - Resident - Assisting No Additional Staff Procedure(s): Procedure(s): EXAM UNDER ANESTHESIA RECTAL, kenalog injection Anesthesia: General Findings: Stenotic, inflamed anal canal. Superficial fistula posterior. Anterior fissure Tubes/Drains: None Estimated Blood Loss: 5 mls Specimens: None Wound Classification: N/A Pre-Op/Pre-Procedure Diagnosis: Pre-Op Diagnosis Codes: * Anal fissure [K60.2] Post-Op/Post-Procedure Diagnosis: Same SIGNATURE: Hanh Houston MD PATIENT NAME: Walter Keller DATE: March 04, 2024 TIME: 12:52 PM PAGER/CONTACT #: [phone] Normal [facility] HISTORY PHYSICALon HISTORY PHYSICAL HNO ID: [id number] Author: FLOR MAR MD Service: Colorectal Author Type: Fellow Type: H&P Filed: 03/04/2024 12:13 Note Text: Attestation signed by Flor Mar MD at 03/04/2024 12:13 PM Flor Mar MD, MS, FACS, FASCRS Inflammatory Bowel Disease Surgery Section Director of Research, Department of Colorectal Surgery Digestive Disease [facility] [address] [place] [address] COLORECTAL SURGERY CONSULT SERVICE DATE: March 04, 2024 SERVICE TIME: 11:38 AM Chief complaint: Anal pain ASSESSMENT AND PLAN: 43 year old female with history of Crohns disease now with anal pain and possible fissure. Nifedipine/hydrocortis one/lidocaine ointment has not provided relief. Plan for OR today for EUA, possible Botox injection, possible Kenalog injection. _ HPI: Walter Keller is a 43 year old woman with history of Crohns disease and now with anal pain. From most recent clinic visit on 02/03: Walter Keller is a 43 year old female with a history of Crohn's disease. I last saw her on 01/07/24 for anal pain and potentially an anal fissure. On exam there were 2 small ulcerated areas that could potentially be anal fissures. With that I discussed a treatment plan with Dr. Vora and Dr. Mar. We advised to stop Budesonide enemas, start nifedipine/hydrocortis one/lidocaine ointment and to follow up in 4 weeks. If not improved then she would go with the already scheduled EUA for 03/04/24. No changes in her health since her last visit. Continues to have anal pain. No recent illnesses. Recent Labs 01/11/24 1553 06/25/17 1116 06/04/17 0418 ALB 3.5* < > 2.5* PREALB -- -- 13* < > = values in this interval not displayed. 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 Incision and drainage of interloop small bowel abscess. Takedown of ileorectal fistula. Ileocecectomy. Primary debridement and repair of rectal fistula. Creation of end ileostomy. Placement of seprafilm. Creation of omental pedicle flap. 05/27/2017: PAST SURGICAL HISTORY OF Comment: Ex lap, extensive KAREN, ileostomy reversal, right ovarian cystectomy No date: PAST SURGICAL HISTORY OF Comment: colposcopy 06/03/2017: PICC LINE INSERT/CONSULT Comment: FHx: FAMILY HISTORY Problem Relation Age of Onset other (diverticulitis) Paternal Grandmother SocHx: Social History Tobacco Use Smoking status: Former Smokeless tobacco: Never Tobacco comments: 1/2 pack for 4 years 10+ yrs ago Vaping Use Vaping status: Never Used Substance Use Topics Alcohol use: Yes Comment: occ Drug use: No Home Meds: upadacitinib tablet ER 24 hr 30 mg (RINVOQ)Take 1 tablet (30 mg) by mouth once daily. Swallow whole; DO NOT crush, chew, or open.Disp: 30 tabletRfl: 5 ergocalciferol 50,000 unit capsule (VITAMIN D2, DRISDOL)Take 1 capsule by mouth one time a week.Disp: 12 capsuleRfl: 0 ascorbic acid, vitamin C, (VITAMIN C) 250 mg tabletTake 250 mg by mouth.Disp: Rfl: qvycgtr-ttxffwucq-jlsl min D3 500 mg-5 mcg (200 unit) per tabletTake 1 tablet by mouth.Disp: Rfl: cholecalciferol (VITAMIN D3) 1,000 unit tab tabletTake 1,000 Units by mouth.Disp: Rfl: Ferrous Sulfate 142 mg (45 mg iron) TbERTake 1 tablet by mouth daily with breakfast.Disp: Rfl: Vit B Comp and C-Vit E-FA-Sabine-Zn 0.4 mg tab1 tablet.Disp: Rfl: CALCIUM ORALTake by mouth.Disp: Rfl: sertraline (ZOLOFT) 100 mg tabletTake 100 mg by mouth once daily.Disp: Rfl: Cyanocobalamin 1,000 mcg sublDissolve 1 tablet under the tongue once daily.Disp: 100 tabletRfl: 0 multivitamin tabletTake 1 tablet by mouth once daily.Disp: Rfl: ferrous sulfate (IRON ORAL)Take 1 capsule by mouth once daily.Disp: Rfl: hydrocortisone (ANUSOL-HC) 25 mg suppository1 Suppository by RECTAL route every 12 hours.Disp: 60 EachRfl: 0 lidocaine urojet (GLYDO) 2 % jelpApply 6 mL to affected area three times a day as needed.Disp: 126 mLRfl: 4 upadacitinib tablet ER 24 hr 45 mg (RINVOQ)Take 1 tablet (45 mg) by mouth once daily. Swallow whole; DO NOT crush, chew, or open.Disp: 28 tabletRfl: 2 (Patient not taking: Reported on 02/04/2024) valACYclovir (VALTREX) 1 gramTake 1,000 mg by (more content not included)... Normal [facility] OPERATIVE NOon 03-04-2024 OPERATIVE NO HNO ID: [id number] Author: FLOR MAR MD Service: Colorectal Author Type: Physician Type: Operative Report Filed: 03/29/2024 13:17 Note Text: [facility]ED[facility] LOG ID: [id number] Surgery/Procedure Date: 03/04/2024 Incision/Procedure Start Time: 12:35 PM Incision Close/Procedure End Time: 12:50 PM Surgeon(s)/Procedurali st(s) and Roper Operator(s): Surgeons and Role: * Flor Mar MD - Primary * Eri Sneed MD - Resident - Assisting * Hanh Houston MD - Resident - Assisting No Additional Staff Anesthesia: General Procedure(s): EUA, anal canal kenalog injection, pudendal block Indication: 43F with pCD Findings: circumferential anal inflammation, worst anteriorly and posteriorly; right posterior [id number]-zxr Procedure Details: After informed consent was obtained, the patient was transferred to the OR and from the stretcher to the OR table in supine position and general anesthesia administered by Anesthesiology. The patient was then placed in the dorsal lithotomy position with YelloFin stirrups; all pressure point were padded. The patient was prepped and draped in the usual sterile fashion. A time out was performed prior to beginning the incision confirming the patient, planned procedure, and allergies. We first performed perianal pasquale-shaped skin block and a bilateral pudendal nerve block using a mixture of Exparel and 0.5% Marcaine. We then performed an examination under anesthesia of the anorectum first by visual inspection and then using Hill-Michaels retractors. DAMON revealed anal canal inflammation and there was a right posterior close to midline short 5 mm mature/epithelized fistula in ano which was left un-disturbed. We then injected 80 mg of kenalog in 10 cc of saline circumferentially submucosally in the anal canal to decrease inflammation. The operative field was noted to be hemostatic and fluffy 4 x 4's and mesh panties were placed. Prior to and after closing, all needle, instrument, lap and sponge counts were noted to be correct. There were no complications. I was present for the entire procedure. This note was partially generated using Dragon voice recognition system and there may be some incorrect words, spellings, and punctuation. Pre-Op/Pre-Procedure Diagnosis: perianal Crohn's Post-Op/Post-Procedure Diagnosis: * No post-op diagnosis entered * same Estimated Blood Loss: minimal Specimens: None Implantable Devices: None Drains: None Complications: None I/primary surgeon/proceduralist performed the procedure with assistance. SIGNATURE: Flor Mar MD PATIENT NAME: Walter Keller DATE: March 04, 2024 TIME: 1:12 PM PAGER/CONTACT #: [phone] [facility] 02-29-2024 [facility] Telephone (KENDRAChristopher) WALTER KELLER ([id number]) 1980 F Date Time Provider Department 02/29/24 KEEGAN ARRIETA During your visit today, we recorded the following information about you: Milad Girard 02/29/2024 4:19 PM Signed Walter Keller is wondering about her preops. They are scheduled after the procedure. [phone] Allergies As of Date: 02/29/2024 Noted Allergy Reaction CIPROFIBRATE 02/20/2018 10 - Anaphylaxis CIPROFLOXACIN 03/30/2017 7 - Swelling 8 - GI Upset 10 - Anaphylaxis Comments: swelling at IV site and nausea Other reaction(s): stomach upset DEMEROL (MEPERIDINE (PF)) 07/20/2018 5 - Intolerance 14 - Other: See Comments Comments: Patient reports Vomiting GLUTEN PROTEIN 07/20/2018 8 - GI Upset MEPERIDINE 07/20/2018 5 - Intolerance Date Reviewed: 02/04/2024 Reviewed by: Chayo Booker MA - Fully Assessed Reason for Visit: Patient Question [2237] Prescriptions as of 02/29/2024 - hydrocortisone (ANUSOL-HC) 25 mg suppository 1 Suppository by RECTAL route every 12 hours. - lidocaine urojet (GLYDO) 2 % jelp Apply 6 mL to affected area three times a day as needed. - upadacitinib tablet ER 24 hr 30 mg (RINVOQ) Take 1 tablet (30 mg) by mouth once daily. Swallow whole; DO NOT crush, chew, or open. - upadacitinib tablet ER 24 hr 45 mg (RINVOQ) Take 1 tablet (45 mg) by mouth once daily. Swallow whole; DO NOT crush, chew, or open. - ergocalciferol 50,000 unit capsule (VITAMIN D2, DRISDOL) Take 1 capsule by mouth one time a week. - ascorbic acid, vitamin C, (VITAMIN C) 250 mg tablet Take 250 mg by mouth. - wzvectb-cgkoymwjw-cvgi min D3 500 mg-5 mcg (200 unit) per tablet Take 1 tablet by mouth. - cholecalciferol (VITAMIN D3) 1,000 unit tab tablet Take 1,000 Units by mouth. - Ferrous Sulfate 142 mg (45 mg iron) TbER Take 1 tablet by mouth daily with breakfast. - Vit B Comp and C-Vit E-FA-Sabine-Zn 0.4 mg tab 1 tablet. - valACYclovir (VALTREX) 1 gram Take 1,000 mg by mouth once daily as needed. - CALCIUM ORAL Take by mouth. - sertraline (ZOLOFT) 100 mg tablet Take 100 mg by mouth once daily. - hydrOXYzine pamoate (VISTARIL) 25 mg capsule Take 25 mg by mouth as needed. Patient not sure of dosage - inFLIXimab-abda (RENFLEXIS) 100 mg injection Inject 400 mg intravenously every 8 weeks. NURSE TO INSERT IV FOR ADMINISTRATION - Cyanocobalamin 1,000 mcg subl Dissolve 1 tablet under the tongue once daily. - multivitamin tablet Take 1 tablet by mouth once daily. - ferrous sulfate (IRON ORAL) Take 1 capsule by mouth once daily. - acetaminophen (TYLENOL) 325 mg tablet Take 650 mg by mouth every 6 hours as needed. Problem List As Of Date 02/29/2024 Noted Resolved Idiopathic colitis [K52.9] 11/11/2016 05/02/2020 Infective urethritis [N34.2] 11/11/2016 Low iron [E61.1] 01/02/2017 Abdominal pain [R10.9] 02/04/2017 Malnutrition of moderate degree (HCC) [E44.0] 02/06/2017 Post-operative pain [G89.18] 02/16/2017 Gastric reflux [K21.9] 02/16/2017 Crohn'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 intesti*05/14/2017 Attention to ileostomy (HCC) [Z43.2] 05/14/2017 Colitis [K52.9] 05/14/2017 Endometriosis [N80.9] 05/02/2020 retirement current use of immunosuppressive drug*05/02/2020 Vitamin D insufficiency [E55.9] 05/02/2020 Encounter Status:Closed by MILAD GIRARD on 02/29/24 [facility] CNOVon 02-04-2024 CNOV Office Visit (STEPHEN ) WALTER KELLER ([id number]) 1980 F Date Time Provider Department 02/04/24 10:30 AM DIVYA DIEGO During your visit today, we recorded the following information about you: Divya Diego PA-C 02/04/2024 11:21 AM Signed COLORECTAL SURGERY Follow-up February 04, 2024 Chief complaint: follow up anal pain HPI: Waltershayan Keller is a 43 year old female with a history of Crohn's disease. I last saw her on 01/07/24 for anal pain and potentially an anal fissure. On exam there were 2 small ulcerated areas that could potentially be anal fissures. With that I discussed a treatment plan with Dr. Vora and Dr. Mar. We advised to stop Budesonide enemas, start nifedipine/hydrocortis one/lidocaine ointment and to follow up in 4 weeks. If not improved then she would go with the already scheduled EUA for 03/04/24. Today She reports: Overall: -getting worse - stopping the budesonide enema did not have any effect - having a hard time with going to work due to this Bowel movements: -4-6 bms a day -from soft to formed Pain: -pain at a 7 - with bowel movements will last for a couple of hours afterwards Bleeding/Drainage: -some mucus and blood every bm Txs: - nifedipine/hydrocortis one/ lidocaine ointment TID - taking Tylenol daily - feels like her Sonyavoq is not working Surgeries/ Procedures: 02/10/2017 Dr. Casas OPERATION: 1. Exploratory laparotomy. 2. 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 3. Incision and drainage of interloop small bowel abscess. 4. Takedown of ileorectal fistula. 5. Ileocecectomy. 6. Primary debridement and repair of rectal fistula. 7. Creation of end ileostomy. 8. Placement of Seprafilm. 9. Creation of omental pedicle flap. 05/27/2017 Dr. Mar: Procedure(s): Ex lap, extensive KAREN, ileostomy reversal, right ovarian cystectomy 02/18/2022 MRE: IMPRESSION: Active inflammatory bowel disease in the the ileum and mid rectum without luminal narrowing. Neoterminal ileum is patent. No penetrating disease. No acute extra gastrointestinal findings. 03/21/2022 Dr. Mar: Procedure(s): EUA anorectum, bilateral pudendal nerve block, kenalog injection Findings: Anal ulcers - anterior and posterior Kenalog injection - 80 mg 09/17/2023 Colonoscopy: Impression: - Preparation of the colon was fair. - Patent eoae-fo-taup ileo-colonic anastomosis, characterized by ulceration. - Crohn's disease with ileitis and colitis. Inflammation was found. This was graded as Rutgeerts Score i2b (more than five aphthous lesions with normal intervening mucosa or skip areas of larger lesions or lesions confined to the ileocolonic anastomosis). Biopsied. - Simple Endoscopic Score for Crohn's Disease: 8, mucosal inflammatory changes secondary to Crohn's disease, with ileitis and colitis. Biopsied. FINAL DIAGNOSIS A. Terminal ileum, biopsy: -Chronic active ileitis -Negative for granulomas or dysplasia B, C, D. Colon, right, transverse, and left, biopsy: -Colonic mucosa with no significant histologic abnormality -Negative for granulomas or dysplasia E. Rectum, biopsy: -Chronic moderately active colitis -Negative for granulomas or dysplasia Physical Exam: [facility] 12/19/2023 (Approximate) General - awake, alert, no acute distress Anorectal: -Perianal skin is intact. - moist/ mildly macerated skin tissue - small ulcerated area right anterior externally - limited exam Digital Rectal Exam: Deferred due to wanting to avoid trauma to potential ulcerations internally Extrusion Supervisor present: Yes, Chayo Booker Assessment Medical Decision Making: Assessment AND Diagnosis: Walter Keller is a 43 year old female with a history of Crohn's disease. I last saw her on 01/07/24 for anal pain and potentially an anal fissure. On exam there were 2 small ulcerated areas that could potentially be anal fissures. With that I discussed a treatment plan with Dr. Vora and Dr. Mar. We advised to stop Budesonide enemas, start nifedipine/hydrocortis one/lidocaine ointment and to follow up in 4 weeks. She notes things are worse since last visit. She does not think her Rinvoq is working and feels like her Crohn's may be getting worse.Her external exam is improved but I am concerned for ulcerations internally. I avoided DAMON and anoscopy ( per Dr. Mar's recommendations) due to wanting to avoid trauma to her anal canal. We will start HC suppositories as they are stronger than the ointment prescribed and more targets to the anal canal. She was told to stop if she entails discomfort or trouble inserting. I am unsure if any other IBD workup is needed at this time like an MRE as it would not detect an ulceration. Will send message to GI to see thoughts. Patient will most likely be getting EUA as scheduled in February. Data Reviewed: Mel (more content not included)... Normal [facility] TYPE AND SCREEN,30 DAYon ABO A Normal [facility] Comment on above: Order Comment: Speci men Type: BLOOD SPECIMEN Ordering Facility: [facility] Address: [address] [place] [address] Performed By: #### 5 7021-8 #### [facility] CLIA [id number] [address] [place] [address] [place] HISTORICAL AB SCR STATUS Negative Normal [facility] Comment on above: Order Comment: Speci men Type: BLOOD SPECIMEN Ordering Facility: [facility] Address: [address] [place] [address] Performed By: #### 5 7021-8 #### [facility] CLIA [id number] [address] [place] [address] [place] Rh Nom (Bld) Positive Normal [facility] Comment on above: Order Comment: Speci men Type: BLOOD SPECIMEN Ordering Facility: [facility] Address: [address] [place] [address] Performed By: #### 5 7021-8 #### [facility] CLIA [id number] [address] [place] [address] [place] CBC panel Auto (Bld)on 01-10 Erythrocyte distribution width (RBC) [Ratio] 13.3 % Normal 11.5-15.0 [facility] Comment on above: Order Comment: Speci men Type: BLOOD SPECIMEN Ordering Facility: [facility] Address: [address] [place] [address] Performed By: #### 5 8410-2 #### [facility] CLIA [id number] [address] [place] [address] [place] Hematocrit (Bld) [Volume fraction] 37.2 % Normal 36.0-46.0 [facility] Comment on above: Order Comment: Speci men Type: BLOOD SPECIMEN Ordering Facility: [facility] Address: [address] [place] [address] Performed By: #### 5 8410-2 #### [facility] CLIA [id number] [address] [place] [address] [place] Hemoglobin (Bld) [Mass/Vol] 12.3 g/dL Normal 11.5-15.5 [facility] Comment on above: Order Comment: Speci men Type: BLOOD SPECIMEN Ordering Facility: [facility] Address: [address] [place] [address] Performed By: #### 5 8410-2 #### [facility] CLIA [id number] [address] [place] [address] [place] MCH (RBC) [Entitic mass] 30.6 pg Normal 26.0-34.0 [facility] Comment on above: Order Comment: Speci men Type: BLOOD SPECIMEN Ordering Facility: [facility] Address: [address] [place] [address] Performed By: #### 5 8410-2 #### [facility] CLIA [id number] [address] [place] [address] [place] MCHC (RBC) [Mass/Vol] 33.1 g/dL Normal 30.5-36.0 [facility] Comment on above: Order Comment: Speci men Type: BLOOD SPECIMEN Ordering Facility: [facility] Address: [address] [place] [address] Performed By: #### 5 8410-2 #### [facility] CLIA [id number] [address] [place] [address] [place] MCV (RBC) [Entitic vol] 92.5 fL Normal 80.0-100.0 [facility] Comment on above: Order Comment: Speci men Type: BLOOD SPECIMEN Ordering Facility: [facility] Address: [address] [place] [address] Performed By: #### 5 8410-2 #### [facility] CLIA [id number] [address] [place] [address] [place] Nucleated RBC (Bld) [#/Vol] 10*3/uL Normal <0.01 [facility] Comment on above: Order Comment: Speci men Type: BLOOD SPECIMEN Ordering Facility: [facility] Address: [address] [place] [address] Performed By: #### 5 8410-2 #### [facility] CLIA [id number] [address] [place] [address] [place] Platelet mean volume (Bld) [Entitic vol] 9.2 fL Normal 9.0-12.7 [facility] Comment on above: Order Comment: Speci men Type: BLOOD SPECIMEN Ordering Facility: [facility] Address: [address] [place] [address] Performed By: #### 5 8410-2 #### [facility] CLIA [id number] [address] [place] [address] [place] Platelets (Bld) [#/Vol] 327 10*3/uL Normal 150-400 [facility] Comment on above: Order Comment: Speci men Type: BLOOD SPECIMEN Ordering Facility: [facility] Address: [address] [place] [address] Performed By: #### 5 8410-2 #### [facility] CLIA [id number] [address] [place] [address] [place] RBC (Bld) [#/Vol] 4.02 10*6/uL Normal 3.90-5.20 [facility] Comment on above: Order Comment: Speci men Type: BLOOD SPECIMEN Ordering Facility: [facility] Address: [address] [place] [address] Performed By: #### 5 8410-2 #### [facility] CLIA [id number] [address] [place] [address] [place] WBC (Bld) [#/Vol] 6.66 10*3/uL Normal 3.70-11.00 [facility] Comment on above: Order Comment: Speci men Type: BLOOD SPECIMEN [facility] [facility] Address: [address] [place] [address] Performed By: #### 5 8410-2 #### [facility] CLIA [id number] [address] [place] [address] [place] Comprehensive metabolic 2000 panelon 07-01-2024 Albumin [Mass/Vol] 3.5 g/dL Low 3.9-4.9 [facility] Comment on above: Order Comment: Speci men Type: BLOOD SPECIMENOrdering Facility: [facility] Address: [address] [place] [address] Performed By: #### 2 4323-8 ####[facility] [id number] [place] [address] [place] ALP [Catalytic activity/Vol] 91 U/L Normal 34-123 [facility] Comment on above: Order Comment: Speci men Type: BLOOD SPECIMENOrdering Facility: [facility] Address: [address] [place] [address] Performed By: #### 2 4323-8 ####[facility] [id number] [place] [address] [place] ALT [Catalytic activity/Vol] 24 U/L Normal 7-38 [facility] Comment on above: Order Comment: Speci men Type: BLOOD SPECIMENOrdering Facility: [facility] Address: [address] [place] [address] Performed By: #### 2 4323-8 ####[facility] [id number] [place] [address] [place] Anion gap [Moles/Vol] 10 mmol/L Normal 8-15 [facility] Comment on above: Order Comment: Speci men Type: BLOOD SPECIMENOrdering Facility: [facility] Address: [address] [place] [address] Performed By: #### 2 4323-8 ####[facility] [id number] [place] [address] [place] AST [Catalytic activity/Vol] 26 U/L Normal 13-35 [facility] Comment on above: Order Comment: Speci men Type: BLOOD SPECIMENOrdering Facility: [facility] Address: [address] [place] [address] Performed By: #### 2 4323-8 ####[facility] [id number] [facility] [place] [address] [place] Bilirubin [Mass/Vol] 0.3 mg/dL Normal 0.2-1.3 [facility] Comment on above: Order Comment: Speci men Type: BLOOD SPECIMENOrdering Facility: [facility] Address: [address] [place] [address] Performed By: #### 2 4323-8 ####[facility] [id number] [facility] [place] [place] [address] [place] Calcium [Mass/Vol] 8.6 mg/dL Normal 8.5-10.2 [facility] Comment on above: Order Comment: Speci men Type: BLOOD SPECIMENOrdering Facility: [facility] Address: [address] [place] [address] Performed By: #### 2 4323-8 ####[facility] [id number] [place] [address] [place] Chloride [Moles/Vol] 102 mmol/L Normal 98-107 [facility] Comment on above: Order Comment: Speci men Type: BLOOD SPECIMENOrdering Facility: [facility] Address: [address] [place] [address] Performed By: #### 2 4323-8 ####[facility] [id number] [place] [address] [place] CO2 [Moles/Vol] 23 mmol/L Normal 22-30 [facility] Comment on above: Order Comment: Speci men Type: BLOOD SPECIMENOrdering Facility: [facility] Address: [address] [place] [address] Performed By: #### 2 4323-8 ####[facility] [id number] [place] [id number] [place] Creatinine [Mass/Vol] 0.83 mg/dL Normal 0.58-0.96 [facility] Comment on above: Order Comment: [place] Type: BLOOD SPECIMENOrdering Facility: [facility] Address: [address] [place] [address] Performed By: #### 2 4323-8 ####[facility] [id number] [place] [address] [place] Creatinine and Glomerular filtration rate.predicted panel (S/P/Bld) 90 mL/min/1.73m??? Normal >=60 [facility] Comment on above: Order Comment: [place] Type: BLOOD SPECIMENOrdering Facility: [facility] Address: [address] [place] [address] Result Comment: Lillian mated Glomerular Filtration Rate (eGFR) is calculated using the 2020 CKD-EPI creatinine equation. This equation utilizes serum creatinine, sex, and age as parameters. The creatinine assay has traceable calibration to isotope dilution-mass spectrometry. Refer to KDIGO guidelines for clinical interpretation. In patients with unstable renal function, e.g. those with acute kidney injury, the eGFR may not accurately reflect actual GFR. Performed By: #### 2 4323-8 ####[facility] [id number] [place] [address] [place] Glucose [Mass/Vol] 84 mg/dL Normal 74-99 [facility] Comment on above: Order Comment: [place] Type: BLOOD SPECIMENOrdering Facility: [facility] Address: [address] [place] [address] Result Comment: The [place] Diabetes Association (ADA) provides guidance for cutoff values for fasting glucose and random glucose. The ADA defines fasting as no caloric intake for at least 8 hours. Fasting plasma glucose results between 100 to 125 mg/dL indicate increased risk for diabetes (prediabetes). Fasting plasma glucose results greater than or equal to 126 mg/dL meet the criteria for diagnosis of diabetes. In the absence of unequivocal hyperglycemia, results should be confirmed by repeat testing. In a patient with classic symptoms of hyperglycemia or hyperglycemic crisis, random plasma glucose results greater than or equal to 200 mg/dL meet the criteria for diagnosis of diabetes. Reference: Standards of Medical Care in Diabetes 2016, [place] Diabetes Association. Diabetes Care. 2016.39(Suppl 1). Performed By: #### 2 4323-8 ####[facility] [id number] [place] [address] [place] Potassium [Moles/Vol] 3.7 mmol/L Normal 3.7-5.1 [facility] Comment on above: Order Comment: Speci men Type: BLOOD SPECIMENOrdering Facility: [facility] Address: [address] [place] [address] Performed By: #### 2 4323-8 ####[facility] [id number] [place] [address] [place] Protein [Mass/Vol] 6.9 g/dL Normal 6.3-8.0 [facility] Comment on above: Order Comment: Speci men Type: BLOOD SPECIMENOrdering Facility: [facility] Address: [address] [place] [address] Performed By: #### 2 4323-8 ####[facility] [id number] [place] [address] [place] Sodium [Moles/Vol] 135 mmol/L Low 136-144 [facility] Comment on above: Order Comment: Speci men Type: BLOOD SPECIMENOrdering Facility: [facility] Address: [address] [place] [address] Performed By: #### 2 4323-8 ####[facility] [id number] [place] [address] [place] Urea nitrogen [Mass/Vol] 11 mg/dL Normal 7-21 [facility] Comment on above: Order Comment: Speci men Type: BLOOD SPECIMENOrdering Facility: [facility] Address: [address] [place] [address] Performed By: #### 2 4323-8 ####[facility] [id number] [place] [address] [facility] CNOVon 01-07-2024 CNOV Office Visit (STEPHEN ) WALTER KELLER ([id number]) 1980 F Date Time Provider Department 01/07/24 8:00 AM DIVYA DIEGO During your visit today, we recorded the following information about you: Weight Height Last Period 59.4 kg 1.549 m 12/19/23 Divya Diego PA-C 01/07/2024 9:00 AM Signed [facility] Follow-up January 07, 2024 Chief complaint: anal pain HPI: Walter Keller is a 43 year old female with a history of Crohn's disease. She is s/p surgeries below. Patient contacted Dr. Vora on 12/21/23 in regards to a possible fissure. It was recommended she follow up with [facility] for evaluation. Today She reports: Overall: - about a month and a half ago - started up after weaning off of the budesonide foam and is in a flar - interfering with work, sleep Bowel movements: - at least 5 times a day - sometimes can be jama, sometimes can be water, can sometimes be sand - no straining Pain: - Abdominal pain: -sometimes - comes and goes - Anorectal pain: - tenesmus from time to time - pulsating - always there - currently 09/19 - 11/15 radiating up after a BM and lasts for hours Prolapsing tissue:unsure Bleeding/drainage: - every time - sometimes blood in the toilet - can sometimes be interwoven - can sometimes be mucous Lumps/lesions:unsure Txs: - sitz baths - started Rinvoq 2 months ago N/V/F/C: just nausea Crohn's: -Getting sores in her mouth due to her crohn's flare -Just starting to do the rectal budesonide again but hurts to put it in and take it out Surgeries/ Procedures: 02/10/2017 Dr. Casas OPERATION: 1. Exploratory laparotomy. 2. 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 3. Incision and drainage of interloop small bowel abscess. 4. Takedown of ileorectal fistula. 5. Ileocecectomy. 6. Primary debridement and repair of rectal fistula. 7. Creation of end ileostomy. 8. Placement of Seprafilm. 9. Creation of omental pedicle flap. 05/27/2017 Dr. Mar: Procedure(s): Ex lap, extensive KAREN, ileostomy reversal, right ovarian cystectomy 02/18/2022 MRE: IMPRESSION: Active inflammatory bowel disease in the the ileum and mid rectum without luminal narrowing. Neoterminal ileum is patent. No penetrating disease. No acute extra gastrointestinal findings. 03/21/2022 Dr. Mar: Procedure(s): EUA anorectum, bilateral pudendal nerve block, kenalog injection Findings: Anal ulcers - anterior and posterior Kenalog injection - 80 mg 09/17/2023 Colonoscopy: Impression: - Preparation of the colon was fair. - Patent mile-ru-hkkn ileo-colonic anastomosis, characterized by ulceration. - Crohn's disease with ileitis and colitis. Inflammation was found. This was graded as Rutgeerts Score i2b (more than five aphthous lesions with normal intervening mucosa or skip areas of larger lesions or lesions confined to the ileocolonic anastomosis). Biopsied. - Simple Endoscopic Score for Crohn's Disease: 8, mucosal inflammatory changes secondary to Crohn's disease, with ileitis and colitis. Biopsied. FINAL DIAGNOSIS A. Terminal ileum, biopsy: -Chronic active ileitis -Negative for granulomas or dysplasia B, C, D. Colon, right, transverse, and left, biopsy: -Colonic mucosa with no significant histologic abnormality -Negative for granulomas or dysplasia E. Rectum, biopsy: -Chronic moderately active colitis -Negative for granulomas or dysplasia Physical Exam: Ht 154.9 cm (5' 1) Wt 59.4 kg (131 lb) LMP 12/19/2023 (Approximate) BMI 24.75 kg/m? General - awake, alert, no acute distress Anorectal: - perianal skin is intact - perianal skin tag anterior midline - tender to q-tip palpation midline posterior, midline anterior, right lateral - small ulcerated area just left of posterior midline more external - ulcerated/ fissure area posterior midline Digital Rectal Exam: deferred due to pain Extrusion Supervisor present: Yes, Terrie Hoffmann Assessment Medical Decision Making: Assessment AND Diagnosis: Walter Keller is a 43 year old female with a history of Crohn's disease. She is s/p surgeries above. Patient notes about a month and a half ago she started to notice rectal pain and bleeding as she was trying to wean herself off of rectal budesonide. She then started it back up again. She currently notes she is in a Crohn's flare. On exam there is a small ulcerated area as well as another area that could potentially be an ulcer vs fissure. I discussed with Dr. Vora talking about discontinuing the budesonide foam given the trauma with each insertion. He agrees we can stop and can try more topical ointment of HC to see if it helps. Will also treat with nifedipine to help relax things. If things do not improve at follow up she may need kenalog injection to the area again like previously. Data Reviewed: Mel (more content not included)... Normal [facility] CNPNon 01-07-2024 CNPN Telephone (STEPHEN) WALTER KELLER ([id number]) 1980 F Date Time Provider Department 01/07/24 FLOR MAR During your visit today, we recorded the following information about you: Ab MuscogeeShruthi 01/07/2024 12:29 PM Signed Walter Keller [phone], returned nurse call. Allergies As of Date: 01/07/2024 Noted Allergy Reaction CIPROFIBRATE 02/20/2018 10 - Anaphylaxis CIPROFLOXACIN 03/30/2017 7 - Swelling 8 - GI Upset 10 - Anaphylaxis Comments: swelling at IV site and nausea Other reaction(s): stomach upset DEMEROL (MEPERIDINE (PF)) 07/20/2018 5 - Intolerance 14 - Other: See Comments Comments: Patient reports Vomiting GLUTEN PROTEIN 07/20/2018 8 - GI Upset MEPERIDINE 07/20/2018 5 - Intolerance Date Reviewed: 01/07/2024 Reviewed by: Terrie Almendarez LPN - Fully Assessed Reason for Visit: Return Provider Call [[id number]] Prescriptions as of 01/07/2024 - hydrocortisone 2.5% lidocaine 3% NIFEdipine 0.5% ointment (CPD) Apply a pea-sized amount by RECTAL route three times a day. - upadacitinib tablet ER 24 hr 30 mg (RINVOQ) Take 1 tablet (30 mg) by mouth once daily. Swallow whole; DO NOT crush, chew, or open. - upadacitinib tablet ER 24 hr 45 mg (RINVOQ) Take 1 tablet (45 mg) by mouth once daily. Swallow whole; DO NOT crush, chew, or open. - ergocalciferol 50,000 unit capsule (VITAMIN D2, DRISDOL) Take 1 capsule by mouth one time a week. - budesonide 2 mg/actuation foam by RECTAL route daily at bedtime. - budesonide (UCERIS) 2 mg/actuation foam by RECTAL route daily at bedtime. - ascorbic acid, vitamin C, (VITAMIN C) 250 mg tablet Take 250 mg by mouth. - hdboveq-eemorfcsn-kllp min D3 500 mg-5 mcg (200 unit) per tablet Take 1 tablet by mouth. - cholecalciferol (VITAMIN D3) 1,000 unit tab tablet Take 1,000 Units by mouth. - Ferrous Sulfate 142 mg (45 mg iron) TbER Take 1 tablet by mouth daily with breakfast. - Vit B Comp and C-Vit E-FA-Sabine-Zn 0.4 mg tab 1 tablet. - valACYclovir (VALTREX) 1 gram Take 1,000 mg by mouth once daily as needed. - CALCIUM ORAL Take by mouth. - sertraline (ZOLOFT) 100 mg tablet Take 100 mg by mouth once daily. - hydrOXYzine pamoate (VISTARIL) 25 mg capsule Take 25 mg by mouth as needed. Patient not sure of dosage - inFLIXimab-abda (RENFLEXIS) 100 mg injection Inject 400 mg intravenously every 8 weeks. NURSE TO INSERT IV FOR ADMINISTRATION - Cyanocobalamin 1,000 mcg subl Dissolve 1 tablet under the tongue once daily. - multivitamin tablet Take 1 tablet by mouth once daily. - ferrous sulfate (IRON ORAL) Take 1 capsule by mouth once daily. - acetaminophen (TYLENOL) 325 mg tablet Take 650 mg by mouth every 6 hours as needed. 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 Telephone (STEPHEN) WALTER KELLER ([id number]) 1980 F Date Time Provider Department 01/07/24 PRABHU MASTERSON During your visit today, we recorded the following information about you: Prabhu Masterson RN 01/07/2024 12:16 PM Signed SPECIALTY CARE COORDINATION FOLLOW-UP NOTE Called patient. Left detailed vm to call office back to discuss surgery scheduling options. Dr. Mar would like to see her in office on and proceed with surgery on Thursday. Offered surgery date of 03/04 or 03/11. Office number provided for call back Prabhu Masterson RN January 07, 2024 Prabhu Masterson RN 01/07/2024 12:39 PM Signed SPECIALTY CARE COORDINATION FOLLOW-UP NOTE Patient returned call. Patient agreeable to office visit 03/03 and surgery 03/04. Pt education to be sent via [employer]. Prabhu Masterson RN January 07, 2024 Allergies As of Date: 01/07/2024 Noted Allergy Reaction CIPROFIBRATE 02/20/2018 10 - Anaphylaxis CIPROFLOXACIN 03/30/2017 7 - Swelling 8 - GI Upset 10 - Anaphylaxis Comments: swelling at IV site and nausea Other reaction(s): stomach upset DEMEROL (MEPERIDINE (PF)) 07/20/2018 5 - Intolerance 14 - Other: See Comments Comments: Patient reports Vomiting GLUTEN PROTEIN 07/20/2018 8 - GI Upset MEPERIDINE 07/20/2018 5 - Intolerance Date Reviewed: 01/07/2024 Reviewed by: Terrie Almendarez LPN - Fully Assessed Reason for Visit: Care Coordination [3491] Prescriptions as of 01/07/2024 - hydrocortisone 2.5% lidocaine 3% NIFEdipine 0.5% ointment (CPD) Apply a pea-sized amount by RECTAL route three times a day. - upadacitinib tablet ER 24 hr 30 mg (RINVOQ) Take 1 tablet (30 mg) by mouth once daily. Swallow whole; DO NOT crush, chew, or open. - upadacitinib tablet ER 24 hr 45 mg (RINVOQ) Take 1 tablet (45 mg) by mouth once daily. Swallow whole; DO NOT crush, chew, or open. - ergocalciferol 50,000 unit capsule (VITAMIN D2, DRISDOL) Take 1 capsule by mouth one time a week. - budesonide 2 mg/actuation foam by RECTAL route daily at bedtime. - budesonide (UCERIS) 2 mg/actuation foam by RECTAL route daily at bedtime. - ascorbic acid, vitamin C, (VITAMIN C) 250 mg tablet Take 250 mg by mouth. - qhyqttv-jsbsolypx-jdif min D3 500 mg-5 mcg (200 unit) per tablet Take 1 tablet by mouth. - cholecalciferol (VITAMIN D3) 1,000 unit tab tablet Take 1,000 Units by mouth. - Ferrous Sulfate 142 mg (45 mg iron) TbER Take 1 tablet by mouth daily with breakfast. - Vit B Comp and C-Vit E-FA-Sabine-Zn 0.4 mg tab 1 tablet. - valACYclovir (VALTREX) 1 gram Take 1,000 mg by mouth once daily as needed. - CALCIUM ORAL Take by mouth. - sertraline (ZOLOFT) 100 mg tablet Take 100 mg by mouth once daily. - hydrOXYzine pamoate (VISTARIL) 25 mg capsule Take 25 mg by mouth as needed. Patient not sure of dosage - inFLIXimab-abda (RENFLEXIS) 100 mg injection Inject 400 mg intravenously every 8 weeks. NURSE TO INSERT IV FOR ADMINISTRATION - Cyanocobalamin 1,000 mcg subl Dissolve 1 tablet under the tongue once daily. - multivitamin tablet Take 1 tablet by mouth once daily. - ferrous sulfate (IRON ORAL) Take 1 capsule by mouth once daily. - acetaminophen (TYLENOL) 325 mg tablet Take 650 mg by mouth every 6 hours as needed. 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 ASSESSMENT: Category 1 Negative RECOMMENDATION: Routine screening mammogram in 1 year. Bilateral CANCER RISK ASSESSMENT: This risk assessment is based on patient provided information collected in a risk survey taken at the time of this examination. LIFETIME BREAST CANCER RISK: Josephine: 12.11% - If greater than or equal to 20%, consider annual mammogram and annual screening Breast MRI or follow up in high risk clinic. Is the patient at elevated risk based on the HBOC criteria? No (Hereditary Breast and Ovarian Cancer) - If Yes, consider genetic counseling and testing with high risk follow up. Is the patient at elevated risk based on the Jeffery Syndrome criteria? No - If Yes, consider genetic counseling and testing with high risk follow up. Report Dictated on Electronically Signed By: Jolynn Zhang MD Electronically Signed Date/Time: 11/26/2023 11:27 AM EDT [facility] Patient Name: WALTER KELLER : 1980 Exam Date/Time: 11/26/2023 10:53 Procedure: BI MAMMOGRAM SCREENING TOMOSYNTHESIS BILATERAL Ordering Provider: GARCIA SARAH Reason For Exam: Z12.31 Image views: 2D Bilateral CC and MLO views were acquired. 3D Bilateral CC and MLO views were acquired. Images were reviewed with CAD. Markings on images: BB's = Nipples; skin lesions Open [place] = Palpable Line = Scar COMPARISON: 09/18/2022 TISSUE DENSITY: BIRADS B - There are scattered fibroglandular densities. FINDINGS: No suspicious masses, architectural distortions or suspiciously clustered microcalcifications are identified. There is no evidence of skin thickening or nipple retraction. There are no significant changes when compared with prior studies. [facility] Jolynn Zhang MD - 11/26/2023 Patient Name: WALTER KELLER : 1980 Exam Date/Time: 11/26/2023 10:53 Procedure: BI MAMMOGRAM SCREENING TOMOSYNTHESIS BILATERAL Ordering Provider: GARCIA SARAH Reason For Exam: Z12.31 Image views: 2D Bilateral CC and MLO views were acquired. 3D Bilateral CC and MLO views were acquired. Images were reviewed with CAD. Markings on images: BB's = Nipples; skin lesions Open [place] = Palpable Line = Scar COMPARISON: 09/18/2022 TISSUE DENSITY: BIRADS B - There are scattered fibroglandular densities. FINDINGS: No suspicious masses, architectural distortions or suspiciously clustered microcalcifications are identified. There is no evidence of skin thickening or nipple retraction. There are no significant changes when compared with prior studies. IMPRESSION: No mammographic evidence of malignancy. ASSESSMENT: Category 1 Negative RECOMMENDATION: Routine screening mammogram in 1 year. Bilateral CANCER RISK ASSESSMENT: This risk assessment is based on patient provided information collected in a risk survey taken at the time of this examination. LIFETIME BREAST CANCER RISK: Ljer-Carloszick: 12.11% - If greater than or equal to 20%, consider annual mammogram and annual screening Breast MRI or follow up in high risk clinic. Is the patient at elevated risk based on the HBOC criteria? No (Hereditary Breast and Ovarian Cancer) - If Yes, consider genetic counseling and testing with high risk follow up. Is the patient at elevated risk based on the Jeffery Syndrome criteria? No - If Yes, consider genetic counseling and testing with high risk follow up. Report Dictated on Electronically Signed By: Jolynn Zhang MD Electronically Signed Date/Time: 11/26/2023 11:[address] [facility] Radiology Study observation (narrative) [facility]th DBT Breast - bilateral scree ningOrdered By: Jolynn Zhang on 11-26-2023 [facility] Work Phone: Flexible sigmoidoscopy study on 09-17-2023 [facility] ED.PDOCon 01-03-2023 ED.PDOC WALTER KELLER [id number] Attending provider: [facility] ER [id number] Nuno Montgomery 1980 42 DOS: 01/02/23 Hx/Exam - History of Present Illness Chief Complaint: FOOT PAIN Additional Comments: 42-year-old female presents with right foot pain. The patient dropped a pallet on her right foot but specifically on the right first toe. She has pain around the metatarsal joint. The pain is constant and worsens with weightbearing. She took ibuprofen with minimal improvement. She has mild swelling. She denies any ankle pain or toe pain. She denies any numbness or tingling sensation. - Review of Systems All Other Systems: Pertinent Positives in HPI, All Other Systems Negative - Past Medical History ED PMH: Yes Anxiety, Yes Colitis - Past Surgical History Surgical History: Yes Other (12 SMALL BOWEL REMOVED) - Social History Smoking Status: Never Smoker Living Conditions: Family - Physical Exam General Appearance: awake, alert, no apparent distress Eyes: PERRL, EOMI Head, Ears, Nose, and Throat: atraumatic Extremity Location: Right foot Extremity: no pedal edema, no calf tenderness, normal capillary refill, tenderness (Appointment patient at the proximal MTP area.) Neurologic: speech clear/fluent Psychiatric: oriented x3, calm Skin Exam: warm/dry, normal color - Source of History Source of History: Nursing Notes/Vital Signs/Triage Reviewed and Agree Note(s) - Physician Notes Additional Notes, See Orders for Details: 01/03/23 00:32 MEDICAL DECISION MAKING Number and Complexity of Problems Differential Diagnosis but not limited to: Toe contusion, toe fracture, toe sprain MDM Data Radiologist X-ray Interpretation: FINDINGS: No acute fracture or dislocation. No radiopaque foreign body. No joint effusion. No significant soft tissue swelling. IMPRESSION: No acute findings. Treatment and Disposition ED Course: Placed on postop shoe, no acute fracture, pain control and follow-up with PCP and orthopod Shared decision making: Patient This note is completed with assistance of the [employer] dictation program. While every attempt has been made to dictate accurately, the system does make errors in transcribing the precise spoken word intended. 01/03/23 01:31 01/04/23 06:48 EKG - EKG EKG Interpretation: Not Applicable Discharge Screen - Discharge Discharge Problem: Foot contusion Disposition: HOME/SELF CARE Condition: Stable Instructions: DI for Contusion Forms: Out of Work Slip Prescriptions: TraMADol [Ultram] 50 mg PO Q6H PRN PRN 3 Days #10 tab PRN Reason: Transmission Status: [id number] Referrals: provider (Unknown),Unlisted [Primary Care Provider] - Diana Santizo [NON STAFF] - Dictated By: Nuno Montgomery MD Dictated Date/Time:01/03/2331 Electronically Signed Date/Time: 01/04/[address] [facility] FOOT-RIGHT MIN 3 VIEWSon FOOT-RIGHT MIN 3 VIEWS WALTER KELLER [id number] Ordering physician: Nuno Montgomery LOC:ER [id number] Attending physician: 1980 42 DO S: 01/03/23 Acc#: [id number] Exam/Proc: FOOT-RIGHT MIN 3 VIEWS Dept: RADIOLOGY EXAMINATION: THREE XRAY VIEWS OF THE RIGHT FOOT 01/03/2023 1:07 am COMPARISON: None. HISTORY: ORDERING SYSTEM PROVIDED HISTORY: TECHNOLOGIST PROVIDED HISTORY: Reason for Exam: PAIN FINDINGS: No acute fracture or dislocation. No radiopaque foreign body. No joint effusion. No significant soft tissue swelling. IMPRESSION: No acute findings. Electronically signed By Oswaldo Samuel MD 01/03/2023 1:27:27 AM EST Workstation ID : [id number] REPORT SIGNATURE ON FILE Electronically Signed Date/Time: 01/03/23 0127 Dictated Date/time: 01/03/23 0114 CC: [facility] DBT Breast - bilateral cipriano mayberry 09-18-2022 No mammographic evidence of malignancy. ASSESSMENT: Category 1 Negative RECOMMENDATION: Routine screening mammogram in 1 year. Bilateral Report Dictated on Electronically Signed By: Jolynn Zhang Electronically Signed Date/Time: 09/18/2022 2:07 PM [employer] RADIOLOGY SYSTEM Patient Name: WALTER KELLER : 1980 Exam Date/Time: 09/18/2022 12:29 Procedure: BI MAMMOGRAM SCREENING TOMOSYNTHESIS BILATERAL Ordering Provider: GARCIA SARAH Reason For Exam: z12.31 Image views: 2D Bilateral CC and MLO views were acquired. 3D Bilateral CC and MLO views were acquired. Images were reviewed with CAD. Markings on images: BB's = Nipples; skin lesions Open [place] = Palpable Line = Scar COMPARISON: There were no priors available for comparison. TISSUE DENSITY: BIRADS B - There are scattered fibroglandular densities. FINDINGS: No suspicious masses, architectural distortions or suspiciously clustered microcalcifications are identified. There is no evidence of skin thickening or nipple retraction. [facility] Jolynn Zhang MD - 09/18/2022 Patient Name: WALTER KELLER : 1980 Exam Date/Time: 09/18/2022 12:29 Procedure: BI MAMMOGRAM SCREENING TOMOSYNTHESIS BILATERAL Ordering Provider: GARCIA SARAH Reason For Exam: z12.31 Image views: 2D Bilateral CC and MLO views were acquired. 3D Bilateral CC and MLO views were acquired. Images were reviewed with CAD. Markings on images: BB's = Nipples; skin lesions Open [place] = Palpable Line = Scar COMPARISON: There were no priors available for comparison. TISSUE DENSITY: BIRADS B - There are scattered fibroglandular densities. FINDINGS: No suspicious masses, architectural distortions or suspiciously clustered microcalcifications are identified. There is no evidence of skin thickening or nipple retraction. IMPRESSION: No mammographic evidence of malignancy. ASSESSMENT: Category 1 Negative RECOMMENDATION: Routine screening mammogram in 1 year. Bilateral Report Dictated on Electronically Signed By: Jolynn Zhang Electronically Signed Date/Time: 09/18/2022 2:[address] [facility] Radiology Study observation (narrative) [facility] alth DBT Breast - bilateral scree ningOrdered By: Jolynn Zhang on 09-18-2022 [facility] Work Phone: CNOVon 08-29-2022 CNOV Office Visit ([facility] ) WALTER KELLER ([id number]) 1980 F Date Time Provider Department 08/29/22 5:45 PM ERNIE, NATACHA White UCMJAC During your visit today, we recorded the following information about you: Temperature Pulse Respiration Blood pressure 98.8 degrees 92/minute 20/minute 134/85 Weight 54.9 kg Son Christopher Klein MD 08/29/2022 7:22 PM Signed Walter Keller is a 41 year old female who presents with Sore throat, cough, body aches HPI patient is a 41-year-old female who presented to the [facility] this evening with a complaint of sore throat, dry cough and body aches the symptoms started 2 days ago and the patient exposed to's coworker who had strep infection therefore the patient concerning coming for further evaluation treatment. 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) 05/14/2017 Endometriosis Fistula History of recurrent UTIs HPV in female retirement current use of immunosuppressive drug 05/02/2020 Vitamin D insufficiency 05/02/2020 ACTIVE PROBLEM LIST Infective Urethritis Low Iron Abdominal Pain Malnutrition of Moderate Degree (Hcc) Post-Operative Pain Gastric Reflux Crohn's Disease of Both Small and Large Intestine With Fistula (Hcc) Attention to Ileostomy (Hcc) Colitis 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 vserlqf-nyibwnyju-tjht min D3 500 mg-5 mcg (200 unit) per tablet Take 1 tablet by mouth. cholecalciferol (VITAMIN D3) 1,000 unit tab tablet Take 1,000 Units by mouth. Ferrous Sulfate 142 mg (45 mg iron) TbER Take 1 tablet by mouth daily with breakfast. Vit B Comp and C-Vit E-FA-Sabine-Zn 0.4 mg tab 1 tablet. valACYclovir (VALTREX) 1 gram Take 1,000 mg by mouth once daily as needed. CALCIUM ORAL Take by mouth. sertraline (ZOLOFT) 100 mg tablet Take 100 mg by mouth once daily. hydrOXYzine pamoate (VISTARIL) 25 mg capsule Take 25 mg by mouth as needed. Patient not sure of dosage inFLIXimab-abda (RENFLEXIS) 100 mg injection Inject 400 mg intravenously every 8 weeks. NURSE TO INSERT IV FOR ADMINISTRATION 400 mg ergocalciferol 50,000 unit capsule (VITAMIN D2, DRISDOL) TAKE 1 CAPSULE BY MOUTH ONE TIME A WEEK. 12 capsule 0 Cyanocobalamin 1,000 mcg subl Dissolve 1 tablet under the tongue once daily. 100 tablet 0 multivitamin tablet Take 1 tablet by mouth once daily. ferrous sulfate (IRON ORAL) Take 1 capsule by mouth once daily. acetaminophen (TYLENOL) 325 mg tablet Take 650 mg by mouth every 6 hours as needed. No current facility-administered medications for this visit. Social History Tobacco Use Smoking status: Former Smokeless tobacco: Never Tobacco comments: 1/2 pack for 4 years 10+ yrs ago Vaping Use Vaping Use: Never used Substance Use Topics Alcohol use: No Drug use: No Alcohol Use: No Tobacco Use: Quit FAMILY HISTORY Problem Relation Age of Onset other (diverticulitis) Paternal Grandmother Review of Systems Constitutional: Negative for chills, fever and malaise/fatigue. HENT: Positive for sore throat. Negative for congestion, ear pain, nosebleeds and sinus pain. Eyes: Negative for blurred vision and pain. Respiratory: Positive for cough. Negative for shortness of breath and wheezing. Cardiovascular: Negative for chest pain and palpitations. Gastrointestinal: Negative for abdominal pain, diarrhea, nausea and vomiting. Musculoskeletal: Positive for myalgias. Skin: Negative for rash. Neurological: Negative for dizziness and headaches. BP 134/85 Pulse 92 Temp 98.8 Resp 20 Wt 121 lb (54.9kg) SpO2 97% LMP 02/21/2022 Physical Exam Vitals and nursing note reviewed. Constitutional: Appearance: Normal appearance. She is not ill-appearing. HENT: Right Ear: Tympanic membrane and ear canal normal. Left Ear: Tympanic membrane normal. Nose: Nose normal. No congestion or rhinorrhea. Mouth/Throat: Mouth: Mucous membranes are moist. Pharynx: Posterior oropharyngeal erythema present. No oropharyngeal exudate. Eyes: Extraocular Movements: Extraocular movements intact. Conjunctiva/sclera: Conjunctivae normal. Pupils: Pupils are equal, round, and reactive to light. Cardiovascular: Rate and Rhythm: Regular rhythm. Heart sounds: Normal heart sounds. Pulmonary: Breath sounds: Normal breath sounds. Abdominal: Palpations: Abdomen is soft. Tenderness: There is no abdominal tenderness. Musculoskeletal: Cervical back: Normal range of motion and neck supple. Lymphadenopathy: Cervical: No cervical (more content not included)... Normal [facility] GROUP A STREPTOCOCCUS BY PCR on 08-29-2022 S. pyogenes DNA ROBEL+probe Ql (Throat) Not detected Not detected [facility] S. pyogenes DNA ROBEL+probe Ql (Throat) Not detected Normal Not detected [facility] Comment on above: Order Comment: Speci men Type: SPECIMEN FROM THROAT Ordering Facility: [facility] Address: [address] [place] [address] Performed By: #### S TAPCR #### [facility] CLIA [id number] [address] [place] [address] [place] #### GASPCR #### [facility] CLIA [id number] [address] [place] [address] [place] RAPID GROUP A STREP RFLX TO PCRon 08-29-2022 S. pyogenes Ag Ql (Throat) Negative Normal Negative Group A Strep Screen [facility] Comment on above: Order Comment: Speci men Type: SPECIMEN FROM THROAT Ordering Facility: [facility] Address: [address] [place] [address] Performed By: #### S TAPCR #### [facility] CLIA [id number] [address] [place] [address] [place] #### GASPCR #### [facility] CLIA [id number] [address] [place] [address] [place] S. pyogenes Ag Ql (Throat) Negative Negative Group A Strep Screen [facility] MRI ABD ENTEROG WO/W IVCONon 02-18-2022 MRI ABD ENTEROG WO/W IVCON * * *Final Report* * * DATE OF EXAM: Feb 18 2022 10:17AM [place] 0684 - MRI ABD ENTEROG WO/W IVCON / PROCEDURE REASON: Crohn's disease of small intestine with complication (HCC) * * * * Physician Interpretation * * * * MRI OF THE ABDOMEN AND PELVIS WITHOUT AND WITH CONTRAST (ENTEROGRAPHY): CLINICAL HISTORY:Crohn's disease of small intestine with complication (HCC) COMPARISON: CT enterography 06/06/2019 and prior TECHNIQUE: Study was performed on scanner using an extended body phased array coil. Axial and coronal HASTE images were obtained through the abdomen and pelvis. Subsequently, pre-contrast coronal and axial T1-weighted and 3-D GRE (Vibe) sequences were performed. Then, post contrast coronal images were repeated at multiple time points, during and after intravenous contrast administration. A single post contrast axial Vibe was also obtained. Contrast: IV: 10 ml of Dotarem Oral: 1000mLml of Breeza RESULT: Stomach and duodenum: Unremarkable Small Bowel: Proximal small bowel is unremarkable. Mildly decreased wall thickening and enhancement of the small bowel in the pelvis but no segmental wall thickening with enhancement and under distention in the mid abdomen slightly more proximal. The neoterminal ileum is maintained. Colon: Ileocecostomy with intact anastomosis. Proximal colon is unremarkable. Mild segmental wall thickening in the superior-mid rectum, possibly accentuated due to underdistention, unchanged. Strictures: None. Fistulae/Sinus Tracts: None. Abscess: None. Mesentery: Prominence of the vasa recta predominantly in the mid abdomen. Lymph nodes: No lymphadenopathy. Liver: Normal background parenchymal signal and smooth capsular contours. No focal lesions. Biliary: No ductal dilation or filling defect. Normal gallbladder. Spleen: No splenomegaly. No focal splenic masses. Pancreas: Normal parenchymal signal and enhancement. No cystic or solid mass. No ductal dilatation. Adrenals: No nodules. Kidneys: Symmetric enhancement. No hydronephrosis. No mass. Peritoneum/ Retroperitoneum: No ascites or mass. Lymph nodes: No enlarged lymph node. Aorta: No aortic or iliac artery aneurysm. Reproductive organs: Normal uterus. No adnexal masses. Urinary bladder: Normal. Abdominal wall and bones: Sacroiliac joints are patent. No suspicious lytic or sclerotic osseous lesions. Ventral laparotomy scar without evidence of acute complication. Visualized lower thorax: Normal [employer] (topogram) images: No additional findings. IMPRESSION: Active inflammatory bowel disease in the the ileum and mid rectum without luminal narrowing. Neoterminal ileum is patent. No penetrating disease. No acute extra gastrointestinal findings. Interior Plant Caretaker: MERNA Transcribe Date/Time: Feb 20 2022 11:48A Dictated by : EVAN ANTONIO MD This examination was interpreted and the report reviewed and electronically signed by: EVAN ANTONIO MD on Feb 20 2022 12:15PM EST [id number] Normal [facility] MRI PEL ENTEROG WO/W IVCONon 02-18-2022 MRI PEL ENTEROG WO/W IVCON * * *Final Report* * * DATE OF EXAM: Feb 18 2022 10:17AM [facility] 0736 - MRI PEL ENTEROG WO/W IVCON / PROCEDURE REASON: Crohn's disease of small intestine with complication (HCC) * * * * Physician Interpretation * * * * MRI OF THE ABDOMEN AND PELVIS WITHOUT AND WITH CONTRAST (ENTEROGRAPHY): CLINICAL HISTORY:Crohn's disease of small intestine with complication (HCC) COMPARISON: CT enterography 06/06/2019 and prior TECHNIQUE: Study was performed on scanner using an extended body phased array coil. Axial and coronal HASTE images were obtained through the abdomen and pelvis. Subsequently, pre-contrast coronal and axial T1-weighted and 3-D GRE (Vibe) sequences were performed. Then, post contrast coronal images were repeated at multiple time points, during and after intravenous contrast administration. A single post contrast axial Vibe was also obtained. Contrast: IV: 10 ml of Dotarem Oral: 1000mLml of Breeza RESULT: Stomach and duodenum: Unremarkable Small Bowel: Proximal small bowel is unremarkable. Mildly decreased wall thickening and enhancement of the small bowel in the pelvis but no segmental wall thickening with enhancement and under distention in the mid abdomen slightly more proximal. The neoterminal ileum is maintained. Colon: Ileocecostomy with intact anastomosis. Proximal colon is unremarkable. Mild segmental wall thickening in the superior-mid rectum, possibly accentuated due to underdistention, unchanged. Strictures: None. Fistulae/Sinus Tracts: None. Abscess: None. Mesentery: Prominence of the vasa recta predominantly in the mid abdomen. Lymph nodes: No lymphadenopathy. Liver: Normal background parenchymal signal and smooth capsular contours. No focal lesions. Biliary: No ductal dilation or filling defect. Normal gallbladder. Spleen: No splenomegaly. No focal splenic masses. Pancreas: Normal parenchymal signal and enhancement. No cystic or solid mass. No ductal dilatation. Adrenals: No nodules. Kidneys: Symmetric enhancement. No hydronephrosis. No mass. Peritoneum/ Retroperitoneum: No ascites or mass. Lymph nodes: No enlarged lymph node. Aorta: No aortic or iliac artery aneurysm. Reproductive organs: Normal uterus. No adnexal masses. Urinary bladder: Normal. Abdominal wall and bones: Sacroiliac joints are patent. No suspicious lytic or sclerotic osseous lesions. Ventral laparotomy scar without evidence of acute complication. Visualized lower thorax: Normal [employer] (topogram) images: No additional findings. IMPRESSION: Active inflammatory bowel disease in the the ileum and mid rectum without luminal narrowing. Neoterminal ileum is patent. No penetrating disease. No acute extra gastrointestinal findings. Interior Plant Caretaker: PSCB Transcribe Date/Time: Feb 20 2022 11:48A Dictated by : EVAN ANTONIO MD This examination was interpreted and the report reviewed and electronically signed by: EVAN ANTONIO MD on Feb 20 2022 12:15PM EST [id number] Normal [facility] .Auto Diffon 01-27-2022 Basophil, Absolute 0.0 10 3/mcL Normal 0.0-0.2 [facility] ([place]) Comment on above: Performed By: #### G FR, CMP, LIP ####[address] [place], [place] [address] Basophils/100 WBC (Bld) 0.3 % Normal 0.0-2.5 [facility] ([place]) Comment on above: Performed By: #### G FR, CMP, LIP ####[address] [place], [place] [address] Eosinophil, Absolute 0.1 10 3/mcL Normal 0.0-0.4 [facility] ([place]) Comment on above: Performed By: #### G FR, CMP, LIP ####[address] [place], [place] [address] Eosinophils/100 WBC (Bld) 1.0 % Normal 0.0-7.0 [facility] ([place]) Comment on above: Performed By: #### G FR, CMP, LIP ####[address] [place], [place] [address] Lymphocyte, Absolute 2.0 10 3/mcL Normal 0.8-3.9 [facility] ([place]) Comment on above: Performed By: #### G FR, CMP, LIP ####[address] [place], [place] [address] Lymphocytes/100 WBC (Bld) 24.8 % Normal 10.0-50.0 [facility] ([place]) Comment on above: Performed By: #### G FR, CMP, LIP ####[address] [place], [place] [address] Monocyte, Absolute 0.5 10 3/mcL Normal 0.2-1.0 [facility] ([place]) Comment on above: Performed By: #### G FR, CMP, LIP ####[address] [place], [place] [address] Monocytes/100 WBC (Bld) 6.6 % Normal 1.7-13.0 [facility] ([place]) Comment on above: Performed By: #### G , CMP, LIP ####[address] [place], [place] [address] Neutrophils/100 WBC (Bld) 67.3 % Normal 37.0-80.0 [facility] ([place]) Comment on above: Performed By: #### G FR CMP, LIP ####[address] [place], [place] [address] .GFRon 01-27-2022 GFR 67 ml/min/1.73sqm Normal [facility] ([place]) Comment on above: Result Comment: GFR Population mean for , Non- Americans Ages 20-29 = 116 mL/min/1.73 sq.m. Ages 30-39 = 107 mL/min/1.73 sq.m. Ages 40-49 = 99 mL/min/1.73 sq.m. Ages 50-59 = 93 mL/min/1.73 sq.m. Ages 60-69 = 85 mL/min/1.73 sq.m. Ages 70+ = 75 mL/min/1.73 sq.m. Chronic Kidney Disease: Less than 60 mL/min/1.73 square meters End Stage Renal Disease: Less than 15 mL/min/1.73 square meters Performed By: #### G FR, CMP, LIP ####[address] [place], [place] [address] GFR Non- 55 ml/min/1.73sqm Normal [facility] ([place]) Comment on above: Result Comment: GFR Population mean for , Non- Americans Ages 20-29 = 116 mL/min/1.73 sq.m. Ages 30-39 = 107 mL/min/1.73 sq.m. Ages 40-49 = 99 mL/min/1.73 sq.m. Ages 50-59 = 93 mL/min/1.73 sq.m. Ages 60-69 = 85 mL/min/1.73 sq.m. Ages 70+ = 75 mL/min/1.73 sq.m. Chronic Kidney Disease: Less than 60 mL/min/1.73 square meters End Stage Renal Disease: Less than 15 mL/min/1.73 square meters Performed By: #### G FR, CMP, LIP ####[address] [place], [place] [address] .MDWon 01-27-2022 Monocyte Distribution Width 16.81 Normal 0.00-20.00 [facility] ([place]) Comment on above: Result Comment: For ED adult patients suspected of sepsis, MDW<=20.0 does not rule out sepsis or risk of sepsis Performed By: #### G FR, CMP, LIP ####[address] [place], [place] [address] .NEUABSon 01-27-2022 Neutrophil, Absolute 5.4 10 3/mcL Normal 2.9-6.2 [facility] ([place]) Comment on above: Performed By: #### G FR, CMP, LIP ####[address] [place], [place] [address] CBCon 01-27-2022 Erythrocyte distribution width (RBC) [Ratio] 12.8 % Normal 11.5-14.5 [facility] ([place] Comment on above: Performed By: #### G FR, CMP, LIP ####[address] [place], [place] [address] Hematocrit (Bld) [Volume fraction] 36.9 % Low 37.0-47.0 [facility] ([place] Comment on above: Performed By: #### G FR, CMP, LIP ####[address] [place], [place] [address] Hgb 12.7 G/dL Normal 12.0-16.0 [facility] ([place] Comment on above: Performed By: #### G FR, CMP, LIP ####[address] [place], [place] [address] MCH (RBC) [Entitic mass] 30.4 pg Normal 27.0-31.2 [facility] ([place] Comment on above: Performed By: #### G FR, CMP, LIP ####[address] [place], [place] [address] MCHC 34.4 G/dL Normal 33.0-37.0 [facility] ([place] Comment on above: Performed By: #### G FR, CMP, LIP ####[address] [place], [place] [address] MCV (RBC) [Entitic vol] 88.5 fL Normal 80.0-94.0 [facility] ([place]) Comment on above: Performed By: #### Moses FR, CMP, LIP ####[address] [place], [place] [address] Platelet 222 10 3/mcL Normal 130-400 [facility] ([place]) Comment on above: Performed By: #### G FR, CMP, LIP ####[address] [place], [place] [address] Platelet mean volume (Bld) [Entitic vol] 7.2 fL Low 7.4-10.4 [facility] ([place] Comment on above: Performed By: #### G FR, CMP, LIP ####[address] [place], [place] [address] RBC 4.17 10 6/mcL Low 4.20-5.40 [facility] ([place] Comment on above: Performed By: #### G FR, CMP, LIP ####[address] [place], [place] [address] WBC 8.1 10 3/mcL Normal 4.6-10.8 [facility] ([place] Comment on above: Performed By: #### Moses STACY, CMP, LIP ####[address] [place], [place] [address] CMPon 01-27-2022 Albumin Level 3.5 G/dL Normal 3.5-5.0 [facility] ([place] Comment on above: Performed By: #### Moses STACY, CMP, LIP ####[address] [place], [place] [address] Albumin/Globulin [Mass ratio] 1.0 {ratio} Low 1.1-2.5 [facility] ([place] Comment on above: Performed By: #### Moses STACY, CMP, LIP ####[address] [place], [place] [address] ALP [Catalytic activity/Vol] 62 U/L Normal 40-135 [facility] ([place]) Comment on above: Performed By: #### G , CMP, LIP ####[address] [place], [place] [address] ALT [Catalytic activity/Vol] 25 U/L Normal 14-59 [facility] ([place] Comment on above: Performed By: #### G , CMP, LIP ####[address] [place], [place] [address] AST [Catalytic activity/Vol] 26 U/L Normal 10-40 [facility] ([place] Comment on above: Performed By: #### Moses STACY, CMP, LIP ####[address] [place], [place] [address] Bili Total 0.3 mg/dL Normal 0.2-1.0 [facility] ([place] Comment on above: Result Comment: Use of this assay is not recommended for patients undergoing treatment with eltrombopag due to the potential for falsely elevated results. Performed By: #### Moses FR, CMP, LIP ####[address] [place], [place] [address] BUN/Creatinine Ratio 12 ratio Normal 7-27 [facility] ([place]) Comment on above: Performed By: #### G FR, CMP, LIP ####[address] [place], [place] [address] Calcium [Mass/Vol] 8.9 mg/dL Normal 8.4-10.2 [facility] ([place]) Comment on above: Performed By: #### G FR, CMP, LIP ####[address] [place], [place] [address] Chloride [Moles/Vol] 105 mmol/L Normal 98-107 [facility] ([place]) Comment on above: Performed By: #### G FR, CMP, LIP ####[address] [place], [place] [address] CO2 [Moles/Vol] 28 mmol/L Normal 22-29 [facility] ([place]) Comment on above: Performed By: #### G FR, CMP, LIP ####[address] [place], [place] [address] Creatinine [Mass/Vol] 1.10 mg/dL High 0.55-1.02 [facility] ([place]) Comment on above: Performed By: #### G FR, CMP, LIP ####[address] [place], [place] [address] Electrolyte Balance 7.0 mEq/L Normal 4.0-15.0 [facility] ([place]) Comment on above: Performed By: #### G FR, CMP, LIP ####[address] [place], [place] [address] Globulin 3.4 G/dL Normal [facility] ([place]) Comment on above: Performed By: #### G FR, CMP, LIP ####[address] [place], [place] [address] Glucose [Mass/Vol] 87 mg/dL Normal 70-105 [facility] ([place]) Comment on above: Performed By: #### G FR, CMP, LIP ####[address] [place], [place] [address] Potassium [Moles/Vol] 3.8 mmol/L Normal 3.5-5.1 [facility] ([place]) Comment on above: Performed By: #### G FR, CMP, LIP ####[address] [place], [place] [address] Sodium [Moles/Vol] 140 mmol/L Normal 136-145 [facility] ([place]) Comment on above: Performed By: #### G FR, CMP, LIP ####[address] [place], [place] [address] Total Protein 6.9 G/dL Normal 6.4-8.2 [facility] ([place]) Comment on above: Performed By: #### G FR, CMP, LIP ####Jenn[address] [place], [place] [address] Urea nitrogen [Mass/Vol] 13 mg/dL Normal 7-18 [facility] ([place]) Comment on above: Performed By: #### G FR, CMP, LIP ####[address] [place], [place] [address] CT ABDOMEN/PELVIS W/CONTRAST on 01-27-2022 CT ABDOMEN/PELVIS W/CONTRAST ORIGINAL EXAMINATION: CT OF THE ABDOMEN AND PELVIS WITH CONTRAST01/27/2022 1:31 pm TECHNIQUE: CT of the abdomen and pelvis was performed with the administration of intravenous contrast. Multiplanar reformatted images are provided for review. Automated exposure control, iterative reconstruction, and/or weight based adjustment of the mA/kV was utilized to reduce the radiation dose to as low as reasonably achievable. COMPARISON: CT abdomen/pelvis May 17, 2021 HISTORY: ORDERING SYSTEM PROVIDED HISTORY: Reason for Exam: Nausea and diarrhea for 2 weeks. Rectal and upper abdominal pain with history of Crohn's. FINDINGS: Lower Thorax: The included lung bases are clear. There is no visible pleural or pericardial effusion. The heart is normal in size. GI Tract: The stomach and small bowel are normal. Evidence of prior ileocecal anastomosis. The colon is unremarkable. The appendix is not visualized and likely surgically absent. Solid Organs: The liver, gallbladder, pancreas, spleen, and adrenal glands are normal. Collecting System: The kidneys enhance symmetrically without evidence of obstructive uropathy. Tiny left nonobstructing nephrolithiasis. Pelvis: The solid pelvic organs demonstrate no acute osseous process. There are bilateral dominant ovarian follicles. Vasculature: The abdominal aorta is nonaneurysmal. Lymph Nodes, Mesentery, and Peritoneum: No lymphadenopathy is identified. No free intraperitoneal fluid or gas is identified. Bones: No acute osseous abnormality. Superficial Soft Tissues: Normal abdominal wall. IMPRESSION: No acute process within abdomen/pelvis. Specifically, there is no areas of bowel wall mucosal enhancement suggestive of active Crohn's disease. Left punctate nonobstructing nephrolithiasis. I have personally reviewed the images of this examination and agree with the resident's findings and interpretations. Interpreted by: Bharat Gandhi MD Preliminary Report By: Danisha Tucker Electronically signed By Bharat Gandhi MD Dictated Date: 01/27/2022 1:33:41 PM Prelim Date: 01/27/2022 1:53:37 PM Sign Date: 01/27/2022 2:03:04 PM Ordering Provider: MEGHA OLGUIN [facility] ([place]) LABORATORYOrdered By: Marie Rodriguez on 01-27-2022 Albumin BCP dye [Mass/Vol] 3.5 G/dL Invalid Interpretation Code 3.5 - 5.0 G/dL AO ADM SS Albumin/Globulin [Mass ratio] 1.0 {ratio} Invalid Interpretation Code 1.1 - 2.5 ratio AO ADM SS ALP [Catalytic activity/Vol] 62 U/L Invalid Interpretation Code 40 - 135 U/L AO ADM SS ALT With P-5'-P [Catalytic activity/Vol] 25 U/L Invalid Interpretation Code 14 - 59 U/L AO ADM SS Appearance (U) Clear (01/27/22 11:13 AM) Invalid Interpretation Code Clear AO Auto Urine SS AST With P-5'-P [Catalytic activity/Vol] 26 U/L Invalid Interpretation Code 10 - 40 U/L AO ADM SS Bilirubin [Mass/Vol] 0.3 mg/dL Invalid Interpretation Code 0.2 - 1.0 mg/dL AO ADM SS Bilirubin Ql (U) Negative (01/27/22 11:13 AM) Invalid Interpretation Code Negative AO Auto Urine SS Calcium [Mass/Vol] 8.9 mg/dL Invalid Interpretation Code 8.4 - 10.2 mg/dL AO ADM SS Chloride [Moles/Vol] 105 mmol/L Invalid Interpretation Code 98 - 107 mmol/L AO ADM SS CO2 [Moles/Vol] 28 mmol/L Invalid Interpretation Code 22 - 29 mmol/L AO ADM SS Color (U) Yellow (01/27/22 11:13 AM) Invalid Interpretation Code AO Auto Urine SS Creatinine [Mass/Vol] 1.10 mg/dL Invalid Interpretation Code 0.55 - 1.02 mg/dL AO ADM SS Electrolyte Balance 7.0 mEq/L Invalid Interpretation Code 4.0 - 15.0 mEq/L AO ADM SS Globulin 3.4 G/dL Invalid Interpretation Code AO ADM SS Glucose [Mass/Vol] 87 mg/dL Invalid Interpretation Code 70 - 105 mg/dL AO ADM SS Glucose Test strip (U) [Mass/Vol] Negative Invalid Interpretation Code Negativemg/ dL AO Auto Urine SS HCG ( test) Ql Negative (01/27/22 11:13 AM) Invalid Interpretation Code AO Manual Urine SS Hemoglobin Auto test strip (U) [Mass/Vol] Negative (01/27/22 11:13 AM) Invalid Interpretation Code Negative AO Auto Urine SS Ketones Ql (U) Negative Invalid Interpretation Code Negativemg/ dL AO Auto Urine SS Lipase [Catalytic activity/Vol] 197 U/L Invalid Interpretation Code 73 - 393 U/L AO ADM SS Potassium [Moles/Vol] 3.8 mmol/L Invalid Interpretation Code 3.5 - 5.1 mmol/L AO ADM SS test (u) int Not detected Invalid Interpretation Code AO Manual Urine SS Protein [Mass/Vol] 6.9 G/dL Invalid Interpretation Code 6.4 - 8.2 G/dL AO ADM SS Sodium [Moles/Vol] 140 mmol/L Invalid Interpretation Code 136 - 145 mmol/L AO ADM SS UA Leuk Est Negative (01/27/22 11:13 AM) Invalid Interpretation Code Negative AO Auto Urine SS UA Nitrite Negative (01/27/22 11:13 AM) Invalid Interpretation Code Negative AO Auto Urine SS UA pH 5.5 (01/27/22 11:13 AM) Invalid Interpretation Code 5.0 - 8.0 AO Auto Urine SS UA Protein Negative Invalid Interpretation Code Negativemg/ dL AO Auto Urine SS UA Spec Grav 1.010 *ABN* (01/27/22 11:13 AM) Invalid Interpretation Code 1.015-1.025 AO Auto Urine SS UA Specimen Type Clean Catch (01/27/22 11:13 AM) Invalid Interpretation Code AO Auto Urine SS UA Urobilinogen 0.2 E.U./dL Invalid Interpretation Code 0.2-1.0E.U. /dL AO Auto Urine SS Urea nitrogen [Mass/Vol] 13 mg/dL Invalid Interpretation Code 7 - 18 mg/dL AO ADM SS Urea nitrogen/Creatinine [Mass ratio] 12 ratio Invalid Interpretation Code 7 - 27 ratio AO ADM SS LABORATORYOrdered By: Imer Alva on 01-27-2022 Basophil, Absolute 0.0 103/mcL Invalid Interpretation Code 0.0 - 0.2 10^3/mcL AO Workflow SS Basophils/100 WBC (Bld) 0.3 % Invalid Interpretation Code 0.0 - 2.5 % AO Workflow SS Eosinophil, Absolute 0.1 103/mcL Invalid Interpretation Code 0.0 - 0.4 10^3/mcL AO Workflow SS Eosinophils/100 WBC (Bld) 1.0 % Invalid Interpretation Code 0.0 - 7.0 % AO Workflow SS Erythrocyte distribution width (RBC) [Ratio] 12.8 % Invalid Interpretation Code 11.5 - 14.5 % AO Workflow SS Hematocrit (Bld) [Volume fraction] 36.9 % Invalid Interpretation Code 37.0 - 47.0 % AO Workflow SS Hemoglobin (Bld) [Mass/Vol] 12.7 G/dL Invalid Interpretation Code 12.0 - 16.0 G/dL AO Workflow SS Lymphocyte, Absolute 2.0 103/mcL Invalid Interpretation Code 0.8 - 3.9 10^3/mcL AO Workflow SS Lymphocytes/100 WBC (Bld) 24.8 % Invalid Interpretation Code 10.0 - 50.0 % AO Workflow SS MCH (RBC) [Entitic mass] 30.4 pg Invalid Interpretation Code 27.0 - 31.2 pg AO Workflow SS MCHC 34.4 G/dL Invalid Interpretation Code 33.0 - 37.0 G/dL AO Workflow SS MCV (RBC) [Entitic vol] 88.5 fL Invalid Interpretation Code 80.0 - 94.0 fL AO Workflow SS Monocyte distribution width Auto (Bld) [Entitic vol] 16.81 Invalid Interpretation Code 0.00 - 20.00 AO Workflow SS Comment on above: Result Comment: For ED adult patients suspected of sepsis, MDW<=20.0 does not rule out sepsis or risk of sepsis Monocyte, Absolute 0.5 103/mcL Invalid Interpretation Code 0.2 - 1.0 10^3/mcL AO Workflow SS Monocytes/100 WBC (Bld) 6.6 % Invalid Interpretation Code 1.7 - 13.0 % AO Workflow SS Neutrophil, Absolute 5.4 103/mcL Invalid Interpretation Code 2.9 - 6.2 10^3/mcL AO Workflow SS Neutrophils/100 WBC (Bld) 67.3 % Invalid Interpretation Code 37.0 - 80.0 % AO Workflow SS Platelet mean volume (Bld) [Entitic vol] 7.2 fL Invalid Interpretation Code 7.4 - 10.4 fL AO Workflow SS Platelets (Bld) [#/Vol] 222 103/mcL Invalid Interpretation Code 130 - 400 10^3/mcL AO Workflow SS RBC (Bld) [#/Vol] 4.17 106/mcL Invalid Interpretation Code 4.20 - 5.40 10^6/mcL AO Workflow SS WBC 8.1 103/mcL Invalid Interpretation Code 4.6 - 10.8 10^3/mcL AO Workflow SS LABORATORYOrdered By: SYSTEM SYSTEM on 01-27-2022 GFR 67 ml/min/1.73sqm Invalid Interpretation Code AO Chemistry S GFR Non- 55 ml/min/1.73sqm Invalid Interpretation Code AO Chemistry S LIPon 01-27-2022 Lipase Level 197 U/L Normal 73-393 [facility] ([place]) Comment on above: Performed By: #### G FR, CMP, LIP ####[id number] [address] PREGUon 01-27-2022 HCG ( test) Ql (U) Negative Normal [facility] ([place]) Comment on above: Performed By: #### U A, PREGU #### Jennie [address] [address] test (u) int Not detected Invalid Interpretation Code [facility] ([place]) Comment on above: Performed By: #### U A, PREGU #### Jennie [address] [address] UAon 01-27-2022 Color (U) Yellow Normal [facility] ([place]) Comment on above: Performed By: #### U A, PREGU #### [id number] [place], [place] [address] Glucose (U) [Mass/Vol] Negative Normal Negative [facility] ([place]) Comment on above: Performed By: #### U A, PREGU #### [address] [address] Ketones Ql (U) Negative Normal Negative [facility] ([place]) Comment on above: Performed By: #### U A, PREGU #### [address] [address] UA Appear Clear Normal Clear [facility] ([place]) Comment on above: Performed By: #### U A, PREGU #### [place] [id number] UA Blood Negative Normal Negative [facility] ([place]) Comment on above: Performed By: #### U A, PREGU #### [place] [address] UA Leuk Est Negative Normal Negative [facility] ([place] Comment on above: Performed By: #### U A, PREGU #### [place] [address] UA Nitrite Negative Normal Negative [facility] ([place] Comment on above: Performed By: #### U A, PREGU #### [place] [address] UA pH 5.5 Normal 5.0 - 8.0 [facility] ([place] Comment on above: Performed By: #### U A, PREGU #### [place] [address] UA Protein Negative Normal Negative [facility] ([place]) Comment on above: Performed By: #### U A, PREGU #### [address] [address] UA Spec Grav 1.010 Abnormal 1.015-1.025 [facility] ([place]) Comment on above: Performed By: #### U A, PREGU #### [place] [address] UA Specimen Type Clean Catch Normal [facility] ([place]) Comment on above: Performed By: #### U A, PREGU #### [address] [address] UA Urobilinogen 0.2 E.U./dL Normal 0.2-1.0 [facility] ([place]) Comment on above: Performed By: #### U A, PREGU #### [address] [place], [place] [address] Urobilinogen (U) [Mass/Vol] Negative Normal Negative [facility] ([place]) Comment on above: Performed By: #### U A, PREGU #### [address] [address] CNOVon 05-30-2021 CNOV Office Visit (CAITLIN N) WALTER KELLER ([id number]) 1980 F Date Time Provider Department 05/30/21 9:30 AM HORTENSIA FERMIN During your visit today, we recorded the following information about you: Blood pressure Weight Height Last Period 111/66 53.5 kg 1.549 m 05/17/21 Hortensia Fermin MD 05/30/2021 9:49 AM Signed Walter Keller is an 40 year old woman who presents for annual exam. LMP: Patient's last menstrual period was 05/17/2021 (approximate). Periods are regular q 28-30 days, lasting 5 days. Dysmenorrhea:severe Cyclic symptoms include none. Sexually active? 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 Incision and drainage of interloop small bowel abscess. Takedown of ileorectal fistula. Ileocecectomy. Primary debridement and repair of rectal fistula. Creation of end ileostomy. Placement of seprafilm. Creation of omental pedicle flap. - PAST SURGICAL HISTORY OF 05/27/2017 Ex lap, extensive KAREN, ileostomy reversal, right ovarian cystectomy - PAST SURGICAL HISTORY OF colposcopy - PICC LINE INSERT/CONSULT 06/03/2017 FAMILY HISTORY Problem Relation Age of Onset - other (diverticulitis) Paternal Grandmother Social History Tobacco Use - Smoking status: Former Smoker - Smokeless tobacco: Never Used - Tobacco comment: 1/2 pack for 4 years 10+ yrs ago Vaping Use - Vaping Use: Never used Substance Use Topics - Alcohol use: No - Drug use: No MEDICATIONS: sertraline (ZOLOFT) 100 mg tablet Take 100 mg by mouth once daily. hydrOXYzine pamoate (VISTARIL) 25 mg capsule Take 25 mg by mouth as needed. Patient not sure of dosage hydrocortisone 2.5 % cream Apply to affected area twice daily. inFLIXimab-abda (RENFLEXIS) 100 mg injection Inject 400 mg intravenously every 8 weeks. NURSE TO INSERT IV FOR ADMINISTRATION ergocalciferol 50,000 unit capsule (VITAMIN D2, DRISDOL) TAKE 1 CAPSULE BY MOUTH ONE TIME A WEEK. multivitamin tablet Take 1 tablet by mouth once daily. ferrous sulfate (IRON ORAL) Take 1 capsule by mouth once daily. acetaminophen (TYLENOL) 325 mg tablet Take 650 mg by mouth every 6 hours as needed. Cyanocobalamin 1,000 mcg subl Dissolve 1 tablet under the tongue once daily. ALLERGIES:Ciprofloxaci n, Demerol [Meperidine (Pf)], and Gluten Protein Hx of abnormal pap? No Regular self-breast exam? Yes History of abnormal mammogram? Not Applicable REVIEW OF SYSTEMS: GENERAL:Denies fever, chills, night sweats, or changes in weight. DERMATOLOGIC: Denies any new skin conditions, rashes or changing moles. EYES: Denies recent visual changes. ENT: Denies hearing loss or tinnitus. RESPIRATORY: Denies any cough, dyspnea, or wheezing. CARDIOVASCULAR:Denies any chest pain with exertion or at rest, palpitations, syncope, shortness of breath or edema. BREASTS: Denies any breast lumps, tenderness, dimpling, skin changes, or nipple discharge. GASTROINTESTINAL: Denies any nausea, vomiting, or abdominal pain. , Denies heartburn., Denies any change in bowel habits. GENITOURINARY:Denies urinary frequency, dysuria, hematuria, nocturia, incontinence. and Reports menstrual problem FLUX MIXER: Denies any abnormal vaginal discharge, irregular bleeding, vaginal dryness, dypareunia, or change in libido MUSCULOSKELETAL: Denies any joint swelling, crepitus, or loss of range of motion., Denies back pain., Denies joint pain. NEURO:Denies any headaches, tremors, dizziness, vertigo, memory loss, confusion., Denies weakness, numbness or tingling. PSYCHIATRIC: Denies any anxiety or depression. HEMATOLOGIC/LYMPHATIC/ IMMUNOLOGIC: Denies anemia, bruising, bleeding abnormalities. ENDOCRINE: Denies any heat or cold intolerance, polyuria, polyphasia or polydipsia. OBJECTIVE: GENERAL APPEARANCE: cooperative, in no acute distress, alert. SKIN:Color normal, Vascularity normal, No evidence of bleeding or bruising, No lesions noted, No edema, Temperature normal, Texture normal, Mobility and turgor normal, Nails normal without clubbing NECK: Supple, no adenopathy; thyroid symmetric, normal size, no bruits BREASTS: breasts symmetric, no dominant or suspicious mass, no skin or nipple changes, no axillary adenopathy HEART:Normal PMI, Regular rate and rhythm, Normal heart sounds, S1 and S2 and No murm (more content not included)... Normal [facility] .Auto Diffon 05-17-2021 Basophil, Absolute 0.00 10 3/mcL Normal 0.00-0.19 [facility] ([place]) Comment on above: Performed By: #### L IP, ADIFF, CMP, GFR, ANEU, CBC #### Jennie [address] [address] Basophils/100 WBC (Bld) 0.5 % Normal 0.0-2.5 [facility] ([place]) Comment on above: Performed By: #### L IP, ADIFF, CMP, GFR, ANEU, CBC #### [address] [address] Eosinophil, Absolute 0.10 10 3/mcL Normal 0.00-0.40 [facility] ([place]) Comment on above: Performed By: #### L IP, ADIFF, CMP, GFR, ANEU, CBC #### [address] [address] Eosinophils/100 WBC (Bld) 1.2 % Normal 0.0-7.0 [facility] ([place]) Comment on above: Performed By: #### L IP, ADIFF, CMP, GFR, ANEU, CBC #### [address] [address] Lymphocyte, Absolute 1.80 10 3/mcL Normal 0.77-3.85 [facility] ([place]) Comment on above: Performed By: #### L IP, ADIFF, CMP, GFR, ANEU, CBC #### [address] [address] Lymphocytes/100 WBC (Bld) 25.0 % Normal 10.0-50.0 [facility] ([place]) Comment on above: Performed By: #### L IP, ADIFF, CMP, GFR, ANEU, CBC #### [address] [address] Monocyte, Absolute 0.60 10 3/mcL Normal 0.15-1.00 [facility] ([place]) Comment on above: Performed By: #### L IP, ADIFF, CMP, GFR, ANEU, CBC #### [address] [address] Monocytes/100 WBC (Bld) 8.9 % Normal 1.7-13.0 [facility] ([place]) Comment on above: Performed By: #### L IP, ADIFF, CMP, GFR, ANEU, CBC #### [address] [address] Neutrophils/100 WBC (Bld) 64.4 % Normal 37.0-80.0 [facility] ([place]) Comment on above: Performed By: #### L IP, ADIFF, CMP, GFR, ANEU, CBC #### [address] [address] .GFRon 05-17-2021 GFR Non- 61 ml/min/1.73sqm Normal [facility] ([place]) Comment on above: Result Comment: GFR Population mean for , Non- Americans Ages 20-29 = 116 mL/min/1.73 sq.m. Ages 30-39 = 107 mL/min/1.73 sq.m. Ages 40-49 = 99 mL/min/1.73 sq.m. Ages 50-59 = 93 mL/min/1.73 sq.m. Ages 60-69 = 85 mL/min/1.73 sq.m. Ages 70+ = 75 mL/min/1.73 sq.m. Chronic Kidney Disease: Less than 60 mL/min/1.73 square meters End Stage Renal Disease: Less than 15 mL/min/1.73 square meters Performed By: #### L IP, ADIFF, CMP, GFR, ANEU, CBC #### [address] [address] GFR 74 ml/min/1.73sqm Normal [facility] ([place]) Comment on above: Result Comment: GFR Population mean for , Non- Americans Ages 20-29 = 116 mL/min/1.73 sq.m. Ages 30-39 = 107 mL/min/1.73 sq.m. Ages 40-49 = 99 mL/min/1.73 sq.m. Ages 50-59 = 93 mL/min/1.73 sq.m. Ages 60-69 = 85 mL/min/1.73 sq.m. Ages 70+ = 75 mL/min/1.73 sq.m. Chronic Kidney Disease: Less than 60 mL/min/1.73 square meters End Stage Renal Disease: Less than 15 mL/min/1.73 square meters Performed By: #### L IP, ADIFF, CMP, GFR, ANEU, CBC #### [address] [address] .NEUABSon 05-17-2021 Neutrophil, Absolute 4.50 10 3/mcL Normal 2.85-6.16 [facility] ([place]) Comment on above: Performed By: #### L IP, ADIFF, CMP, GFR, ANEU, CBC #### [address]ie [place] [address] .Urinalysis Microscopic (AO) on 05-17-2021 UA Bacteria 2+ /hpf Abnormal [facility] ([place]) Comment on above: Performed By: #### P REGU, UAMICAO, UA ####Jennie [id number] [address] UA RBC 0-5 Abnormal None Seen [facility] ([place]) Comment on above: Performed By: #### P REGU, UAMICAO, UA ####Jennie [id number] [address] UA Squam Epithelial 0-5 Abnormal None Seen [facility] ([place]) Comment on above: Performed By: #### P REGU, UAMICAO, UA ####Jennie [id number] [address] UA WBC 0-5 Abnormal None Seen [facility] ([place] Comment on above: Performed By: #### P REGU, UAMICAO, UA ####Jennie [place] [address] CBCon 05-17-2021 Erythrocyte distribution width (RBC) [Ratio] 13.9 % Normal 11.5-14.5 [facility] ([place]) Comment on above: Performed By: #### L IP, ADIFF, CMP, GFR, ANEU, CBC #### [place] [address] Hematocrit (Bld) [Volume fraction] 35.9 % Low 37.0-47.0 [facility] ([place] Comment on above: Performed By: #### L IP, ADIFF, CMP, GFR, ANEU, CBC #### [place] [address] Hgb 12.2 G/dL Normal 12.0-16.0 [facility] ([place]) Comment on above: Performed By: #### L IP, ADIFF, CMP, GFR, ANEU, CBC #### [address] [address] MCH (RBC) [Entitic mass] 29.6 pg Normal 27.0-31.2 [facility] ([place] Comment on above: Performed By: #### L IP, ADIFF, CMP, GFR, ANEU, CBC #### [address] [address] MCHC 33.9 G/dL Normal 33.0-37.0 [facility] ([place] Comment on above: Performed By: #### L IP, ADIFF, CMP, GFR, ANEU, CBC #### [address] [address] MCV (RBC) [Entitic vol] 87.2 fL Normal 80.0-94.0 [facility] ([place] Comment on above: Performed By: #### L IP, ADIFF, CMP, GFR, ANEU, CBC #### [address] [address] Platelet 234 10 3/mcL Normal 130-400 [facility] ([place]) Comment on above: Performed By: #### L IP, ADIFF, CMP, GFR, ANEU, CBC #### [address] [address] Platelet mean volume (Bld) [Entitic vol] 7.4 fL Normal 7.4-10.4 [facility] ([place] Comment on above: Performed By: #### L IP, ADIFF, CMP, GFR, ANEU, CBC #### [address] [address] RBC 4.11 10 6/mcL Low 4.20-5.40 [facility] ([place] Comment on above: Performed By: #### L IP, ADIFF, CMP, GFR, ANEU, CBC #### [address] [address] WBC 7.00 10 3/mcL Normal 4.60-10.80 [facility] ([place] Comment on above: Performed By: #### L IP, ADIFF, CMP, GFR, ANEU, CBC #### [address] [address] CMPon 05-17-2021 Albumin Level 3.3 G/dL Low 3.5-5.0 [facility] ([place] Comment on above: Performed By: #### L IP, ADIFF, CMP, GFR, ANEU, CBC #### [address] [address] Albumin/Globulin [Mass ratio] 1.0 {ratio} Low 1.1-2.5 [facility] ([place] Comment on above: Performed By: #### L IP, ADIFF, CMP, GFR, ANEU, CBC #### [address] [address] ALP [Catalytic activity/Vol] 58 U/L Normal 40-135 [facility] ([place] Comment on above: Performed By: #### L IP, ADIFF, CMP, GFR, ANEU, CBC #### [place] [id number] ALT [Catalytic activity/Vol] 34 U/L Normal 14-59 [facility] ([place] Comment on above: Performed By: #### L IP, ADIFF, CMP, GFR, ANEU, CBC #### [address] [address] AST [Catalytic activity/Vol] 24 U/L Normal 10-40 [facility] ([place] Comment on above: Performed By: #### L IP, ADIFF, CMP, GFR, ANEU, CBC #### [address] [address] Bili Total 0.3 mg/dL Normal 0.2-1.0 [facility] ([place]) Comment on above: Result Comment: Use of this assay is not recommended for patients undergoing treatment with eltrombopag due to the potential for falsely elevated results. Performed By: #### L IP, ADIFF, CMP, GFR, ANEU, CBC #### [address] [address] BUN/Creatinine Ratio 13 ratio Normal 7-27 [facility] ([place]) Comment on above: Performed By: #### L IP, ADIFF, CMP, GFR, ANEU, CBC #### [address] [address] Calcium [Mass/Vol] 8.4 mg/dL Normal 8.4-10.2 [facility] ([place]) Comment on above: Performed By: #### L IP, ADIFF, CMP, GFR, ANEU, CBC #### [place] [address] Chloride [Moles/Vol] 105 mmol/L Normal 98-107 [facility] [facility] ([place]) Comment on above: Performed By: #### L IP, ADIFF, CMP, GFR, ANEU, CBC #### [place] [address] CO2 [Moles/Vol] 28 mmol/L Normal 22-29 [facility] ([place]) Comment on above: Performed By: #### L IP, ADIFF, CMP, GFR, ANEU, CBC #### [place] [address] Creatinine [Mass/Vol] 1.01 mg/dL Normal 0.55-1.02 [facility] ([place]) Comment on above: Performed By: #### L IP, ADIFF, CMP, GFR, ANEU, CBC #### [address] [address] Electrolyte Balance 7.0 mEq/L Normal [facility] ([place]) Comment on above: Performed By: #### L IP, ADIFF, CMP, GFR, ANEU, CBC #### [address] [address] Globulin 3.3 G/dL Normal [facility] ([place]) Comment on above: Performed By: #### L IP, ADIFF, CMP, GFR, ANEU, CBC #### [place] [address] Glucose [Mass/Vol] 82 mg/dL Normal 70-105 [facility] ([place]) Comment on above: Performed By: #### L IP, ADIFF, CMP, GFR, ANEU, CBC #### [address] [address] Potassium [Moles/Vol] 3.6 mmol/L Normal 3.5-5.1 [facility] ([place]) Comment on above: Performed By: #### L IP, ADIFF, CMP, GFR, ANEU, CBC #### [place] [id number] [place], [place] [address] Sodium [Moles/Vol] 140 mmol/L Normal 136-145 [facility] ([place]) Comment on above: Performed By: #### L IP, ADIFF, CMP, GFR, ANEU, CBC #### [place] [address] [place], [place] [address] Total Protein 6.6 G/dL Normal 6.4-8.2 [facility] ([place] Comment on above: Performed By: #### L IP, ADIFF, CMP, GFR, ANEU, CBC #### [address] [address] Urea nitrogen [Mass/Vol] 13 mg/dL Normal 7-18 [facility] ([place] Comment on above: Performed By: #### L IP, ADIFF, CMP, GFR, ANEU, CBC #### [address] [address] [address] ABD/PELVIS W/ IV CONTRAST ONLYon 05-17-2021 CT ABD/PELVIS W/ IV CONTRAST ONLY ORIGINAL EXAMINATION: CT OF THE ABDOMEN AND PELVIS WITH CONTRAST 05/17/2021 4:19 pm TECHNIQUE: CT of the abdomen and pelvis was performed with the administration of intravenous contrast. Multiplanar reformatted images are provided for review. Dose modulation, iterative reconstruction, and/or weight based adjustment of the mA/kV was utilized to reduce the radiation dose to as low as reasonably achievable. COMPARISON: CT abdomen pelvis 02/03/2017 HISTORY: ORDERING SYSTEM PROVIDED HISTORY: Reason for Exam: pain; h/o Crohn's with SBO s/p partial small bowel resection FINDINGS: The included lung bases are clear. The included heart chambers are normal in size. There is no pleural or pericardial fluid. The liver, spleen, gallbladder, adrenal glands, and pancreas are normal in appearance. The kidneys enhance symmetrically. There is no pelvocaliectasis. The urinary bladder demonstrates no filling defects. The uterus and adnexa are age appropriate in appearance. Follicles and collapsing cyst are noted in the left ovary. Follicles also noted in the right ovary. No adnexal masses are evident. There is a trace physiologic amount of free pelvic fluid. Postsurgical changes are noted at the ileocecal junction. There is some prominent mucosal enhancement at this location. Otherwise the large and small bowel are within normal limits in appearance. There are no dilated loops of bowel, intra-abdominal free air or fluid. Abdominal aorta is normal in caliber. No adenopathy. No acute osseous abnormality. IMPRESSION: There is some prominent mucosal enhancement surrounding the postsurgical changes at the ileocecal anastomosis. Could be related to active inflammatory disease given the patient's history of Crohn's. No dilated or abnormally thickened loops of bowel are evident. I have personally reviewed the images of this examination and agree with the resident's findings and interpretation. Interpreted by: Gerber Jones DO Preliminary Report By: Manoj Kelly Electronically signed By Gerber Jones DO Dictated Date: 05/17/2021 4:28:17 PM Prelim Date: 05/17/2021 4:36:12 PM Sign Date: 05/17/2021 5:10:39 PM Ordering Provider: SCOTT CARDENAS [facility] ([place]) LABORATORYOrdered By: Anny Phelan on 05-17-2021 Albumin BCP dye [Mass/Vol] 3.3 G/dL Invalid Interpretation Code 3.5 - 5.0 G/dL AO ADM SS Albumin/Globulin [Mass ratio] 1.0 {ratio} Invalid Interpretation Code 1.1 - 2.5 ratio AO ADM SS ALP [Catalytic activity/Vol] 58 U/L Invalid Interpretation Code 40 - 135 U/L AO ADM SS ALT With P-5'-P [Catalytic activity/Vol] 34 U/L Invalid Interpretation Code 14 - 59 U/L AO ADM SS AST With P-5'-P [Catalytic activity/Vol] 24 U/L Invalid Interpretation Code 10 - 40 U/L AO ADM SS Bilirubin [Mass/Vol] 0.3 mg/dL Invalid Interpretation Code 0.2 - 1.0 mg/dL AO ADM SS Calcium [Mass/Vol] 8.4 mg/dL Invalid Interpretation Code 8.4 - 10.2 mg/dL AO ADM SS Chloride [Moles/Vol] 105 mmol/L Invalid Interpretation Code 98 - 107 mmol/L AO ADM SS CO2 [Moles/Vol] 28 mmol/L Invalid Interpretation Code 22 - 29 mmol/L AO ADM SS Creatinine [Mass/Vol] 1.01 mg/dL Invalid Interpretation Code 0.55 - 1.02 mg/dL AO ADM SS Electrolyte Balance 7.0 mEq/L Invalid Interpretation Code AO ADM SS Globulin 3.3 G/dL Invalid Interpretation Code AO ADM SS Glucose [Mass/Vol] 82 mg/dL Invalid Interpretation Code 70 - 105 mg/dL AO ADM SS Lipase [Catalytic activity/Vol] 235 U/L Invalid Interpretation Code 73 - 393 U/L AO ADM SS Potassium [Moles/Vol] 3.6 mmol/L Invalid Interpretation Code 3.5 - 5.1 mmol/L AO ADM SS Protein [Mass/Vol] 6.6 G/dL Invalid Interpretation Code 6.4 - 8.2 G/dL AO ADM SS Sodium [Moles/Vol] 140 mmol/L Invalid Interpretation Code 136 - 145 mmol/L AO ADM SS Urea nitrogen [Mass/Vol] 13 mg/dL Invalid Interpretation Code 7 - 18 mg/dL AO ADM SS Urea nitrogen/Creatinine [Mass ratio] 13 ratio Invalid Interpretation Code 7 - 27 ratio AO ADM SS LABORATORYOrdered By: Marie Rodriguez on 05-17-2021 Appearance (U) Slightly Cloudy *ABN* (05/17/21 3:07 PM) Invalid Interpretation Code Clear AO Auto Urine SS Bacteria LM.HPF (Urine sed) [#/Area] 2 /[HPF] Invalid Interpretation Code AO Auto Urine SS Basophil, Absolute 0.00 103/mcL Invalid Interpretation Code 0.00 - 0.19 10^3/mcL AO Auto Heme SS Basophils/100 WBC (Bld) 0.5 % Invalid Interpretation Code 0.0 - 2.5 % AO Auto Heme SS Bilirubin Ql (U) Negative (05/17/21 3:07 PM) Invalid Interpretation Code Negative AO Auto Urine SS Color (U) Yellow (05/17/21 3:07 PM) Invalid Interpretation Code AO Auto Urine SS Eosinophil, Absolute 0.10 103/mcL Invalid Interpretation Code 0.00 - 0.40 10^3/mcL AO Auto Heme SS Eosinophils/100 WBC (Bld) 1.2 % Invalid Interpretation Code 0.0 - 7.0 % AO Auto Heme SS Erythrocyte distribution width (RBC) [Ratio] 13.9 % Invalid Interpretation Code 11.5 - 14.5 % AO Auto Heme SS Glucose Test strip (U) [Mass/Vol] Negative Invalid Interpretation Code Negativemg/ dL AO Auto Urine SS HCG ( test) Ql Negative (05/17/21 3:07 PM) Invalid Interpretation Code AO Manual Urine SS Hematocrit (Bld) [Volume fraction] 35.9 % Invalid Interpretation Code 37.0 - 47.0 % AO Auto Heme SS Hemoglobin (Bld) [Mass/Vol] 12.2 G/dL Invalid Interpretation Code 12.0 - 16.0 G/dL AO Auto Heme SS Hemoglobin Auto test strip (U) [Mass/Vol] Moderate *ABN* (05/17/21 3:07 PM) Invalid Interpretation Code Negative AO Auto Urine SS Ketones Ql (U) Negative Invalid Interpretation Code Negativemg/ dL AO Auto Urine SS Lymphocyte, Absolute 1.80 103/mcL Invalid Interpretation Code 0.77 - 3.85 10^3/mcL AO Auto Heme SS Lymphocytes/100 WBC (Bld) 25.0 % Invalid Interpretation Code 10.0 - 50.0 % AO Auto Heme SS MCH (RBC) [Entitic mass] 29.6 pg Invalid Interpretation Code 27.0 - 31.2 pg AO Auto Heme SS MCHC (RBC) [Mass/Vol] 33.9 G/dL Invalid Interpretation Code 33.0 - 37.0 G/dL AO Auto Heme SS MCV (RBC) [Entitic vol] 87.2 fL Invalid Interpretation Code 80.0 - 94.0 fL AO Auto Heme SS Monocyte, Absolute 0.60 103/mcL Invalid Interpretation Code 0.15 - 1.00 10^3/mcL AO Auto Heme SS Monocytes/100 WBC (Bld) 8.9 % Invalid Interpretation Code 1.7 - 13.0 % AO Auto Heme SS Neutrophil, Absolute 4.50 103/mcL Invalid Interpretation Code 2.85 - 6.16 10^3/mcL AO Auto Heme SS Neutrophils/100 WBC (Bld) 64.4 % Invalid Interpretation Code 37.0 - 80.0 % AO Auto Heme SS Platelet mean volume (Bld) [Entitic vol] 7.4 fL Invalid Interpretation Code 7.4 - 10.4 fL AO Auto Heme SS Platelets (Bld) [#/Vol] 234 103/mcL Invalid Interpretation Code 130 - 400 10^3/mcL AO Auto Heme SS test (u) int Not detected Invalid Interpretation Code AO Manual Urine SS RBC (Bld) [#/Vol] 4.11 106/mcL Invalid Interpretation Code 4.20 - 5.40 10^6/mcL AO Auto Heme SS UA Leuk Est Negative (05/17/21 3:07 PM) Invalid Interpretation Code Negative AO Auto Urine SS UA Nitrite Negative (05/17/21 3:07 PM) Invalid Interpretation Code Negative AO Auto Urine SS UA pH 5.5 (05/17/21 3:07 PM) Invalid Interpretation Code 5.0 - 8.0 AO Auto Urine SS UA Protein Negative Invalid Interpretation Code Negativemg/ dL AO Auto Urine SS UA RBC 0-5 /HPF Invalid Interpretation Code None Seen/HPF AO Auto Urine SS UA Spec Grav >=1.030 *ABN* (05/17/21 3:07 PM) Invalid Interpretation Code 1.015-1.025 AO Auto Urine SS UA Specimen Type Void (05/17/21 3:07 PM) Invalid Interpretation Code AO Auto Urine SS UA Squam Epithelial 0-5 /HPF Invalid Interpretation Code None Seen/HPF AO Auto Urine SS UA Urobilinogen 0.2 E.U./dL Invalid Interpretation Code 0.2-1.0E.U. /dL AO Auto Urine SS WBC (Bld) [#/Vol] 7.00 103/mcL Invalid Interpretation Code 4.60 - 10.80 10^3/mcL AO Auto Heme SS WBC LM.HPF (Urine sed) [#/Area] 0-5 /HPF Invalid Interpretation Code None Seen/HPF AO Auto Urine SS LABORATORYOrdered By: SYSTEM SYSTEM on 05-17-2021 GFR 74 ml/min/1.73sqm Invalid Interpretation Code AO Chemistry S GFR Non- 61 ml/min/1.73sqm Invalid Interpretation Code AO Chemistry S LIPon 05-17-2021 Lipase Level 235 U/L Normal 73-393 [facility] ([place]) Comment on above: Performed By: #### L IP, ADIFF, CMP, GFR, ANEU, CBC #### [address] [address] PREGUon 05-17-2021 HCG ( test) Ql (U) Negative Normal [facility] ([place]) Comment on above: Performed By: #### P REGU, UAMICAO, UA ####[address] [place], [place] [address] test (u) int Not detected Invalid Interpretation Code [facility] ([place]) Comment on above: Performed By: #### P REGU, UAMICAO, UA ####[address] [place], [place] [address] UAon 05-17-2021 Color (U) Yellow Normal [facility] ([place]) Comment on above: Performed By: #### P REGU, UAMICAO, UA ####[address] [place] [id number] Glucose (U) [Mass/Vol] Negative Normal Negative [facility] ([place]) Comment on above: Performed By: #### P REGU, UAMICAO, UA ####[address] [place] [id number] Ketones Ql (U) Negative Normal Negative [facility] ([place]) Comment on above: Performed By: #### P REGU, UAMICAO, UA ####[address] [place], [place] [address] UA Appear Slightly Cloudy Abnormal Clear [facility] ([place] Comment on above: Performed By: #### P REGU, UAMICAO, UA ####[address] [place], [place] [address] UA Blood Moderate Abnormal Negative [facility] ([place] Comment on above: Performed By: #### P REGU, UAMICAO, UA ####[address] [place], [place] [address] UA Leuk Est Negative Normal Negative [facility] ([place] Comment on above: Performed By: #### P REGU, UAMICAO, UA ####[address] [place] [id number] UA Nitrite Negative Normal Negative [facility] ([place] Comment on above: Performed By: #### P REGU, UAMICAO, UA ####[address] [place] [id number] UA pH 5.5 Normal 5.0 - 8.0 [facility]) Comment on above: Performed By: #### P REGU, UAMICAO, UA ####[address] [place], [place] [address] UA Protein Negative Normal Negative [facility]) Comment on above: Performed By: #### P REGU, UAMICAO, UA ####[address] [place], [place] [address] UA Spec Grav >=1.030 Abnormal 1.015-1.025 [facility] ([place] Comment on above: Performed By: #### P REGU, UAMICAO, UA ####[address] [place], [place] [address] UA Specimen Type Void Normal [facility]) Comment on above: Performed By: #### P REGU, UAMICAO, UA ####[address] [place], [place] [address] UA Urobilinogen 0.2 E.U./dL Normal 0.2-1.0 [facility] ([place] Comment on above: Performed By: #### P REGU, UAMICAO, UA ####[address] [place], [place] [address] Urobilinogen (U) [Mass/Vol] Negative Normal Negative [facility]) Comment on above: Performed By: #### P REGU, UAMICAO, UA ####[address] [place], [place] [address] Vital Signs Date Time Vital Sign Value Performing Clinician [facility] 12-06-2024 10:36-0400 Body height 154.9 cm Calvin Vora MD Work Phone: [facility] 12-06-2024 10:36-0400 Body mass index (BMI) [Ratio] 22.86 kg/m2 Calvin Vora MD Work Phone: [facility] 12-06-2024 10:36-0400 Body temperature 97.9 [degF] Calvin Vora MD Work Phone: [facility] 12-06-2024 10:36-0400 Body weight 54.88 kg Calvin Vora MD Work Phone: [facility] 12-06-2024 10:36-0400 Diastolic blood pressure 76 mm[Hg] Calvin Vora MD Work Phone: [facility] 12-06-2024 10:36-0400 Heart rate 75 /min Calvin Vora MD Work Phone: [facility] 12-06-2024 10:36-0400 SaO2% (BldA) [Mass fraction] 98 % Calvin Vora MD Work Phone: [facility] 12-06-2024 10:36-0400 Systolic blood pressure 118 mm[Hg] Calvin Vora MD Work Phone: [facility] 10-18-2024 13:51-0400 Body height 154.9 cm Calvin Vora MD Work Phone: [facility] 10-18-2024 13:51-0400 Body mass index (BMI) [Ratio] 22.48 kg/m2 Calvin Vora MD Work Phone: [facility] 10-18-2024 13:51-0400 Body weight 53.98 kg Calvin Vora MD Work Phone: [facility] 10-01-2024 14:20-0400 Body temperature 98.3 [degF] Anthony West MD Work Phone: [facility] 10-01-2024 14:20-0400 Diastolic blood pressure 78 mm[Hg] Anthony West MD Work Phone: [facility] 10-01-2024 14:20-0400 Heart rate 77 /min Anthony West MD Work Phone: [facility] 10-01-2024 14:20-0400 Respiratory rate 18 /min Anthony West MD Work Phone: [facility] 10-01-2024 14:20-0400 SaO2% (BldA) [Mass fraction] 95 % Anthony West MD Work Phone: [facility] 10-01-2024 14:20-0400 Systolic blood pressure 123 mm[Hg] Anthony West MD Work Phone: [facility] 10-01-2024 11:25-0400 Body height 154.94 cm Anthony West MD Work Phone: [facility] 10-01-2024 11:25-0400 Body mass index (BMI) [Ratio] 23.3 kg/m2 Anthony West MD Work Phone: [facility] 10-01-2024 11:25-0400 Body weight 55.97 kg Anthony West MD Work Phone: [facility] 08-23-2024 10:31-0500 Body height 154.9 cm Calvin Vora MD Work Phone: [facility] 08-23-2024 10:31-0500 Body mass index (BMI) [Ratio] 24.19 kg/m2 Calvin Vora MD Work Phone: [facility] 08-23-2024 10:31-0500 Body temperature 97.3 [degF] Calvin Vora MD Work Phone: [facility] 08-23-2024 10:31-0500 Body weight 58.06 kg Calvin Vora MD Work Phone: [facility] 08-23-2024 10:31-0500 Diastolic blood pressure 70 mm[Hg] Calvin Vora MD Work Phone: [facility] 08-23-2024 10:31-0500 Heart rate 83 /min Calvin Vora MD Work Phone: [facility] 08-23-2024 10:31-0500 SaO2% (BldA) [Mass fraction] 99 % Calvin Vora MD Work Phone: [facility] 08-23-2024 10:31-0500 Systolic blood pressure 104 mm[Hg] Calvin Vora MD Work Phone: [facility] 08-04-2024 13:40-0500 Diastolic blood pressure 50 mm[Hg] Calvin Vora MD Work Phone: [facility] 08-04-2024 13:40-0500 Heart rate 79 /min Calvin Vora MD Work Phone: [facility] 08-04-2024 13:40-0500 Respiratory rate 18 /min Calvin Vora MD Work Phone: [facility] 08-04-2024 13:40-0500 SaO2% (BldA) [Mass fraction] 99 % Calvin Vora MD Work Phone: [facility] 08-04-2024 13:40-0500 Systolic blood pressure 88 mm[Hg] Calvin Vora MD Work Phone: [facility] 08-04-2024 13:12-0500 Body temperature 97.2 [degF] Calvin Vora MD Work Phone: [facility] 05-23-2024 09:31-0500 Body height 154.9 cm Chalino Ribakow PA-C Work Phone: [facility] 05-23-2024 09:31-0500 Body mass index (BMI) [Ratio] 24 kg/m2 Chalino Ribakow PA-C Work Phone: [facility] 05-23-2024 09:31-0500 Body weight 57.61 kg Chalino Ribakow PA-C Work Phone: [facility] 05-23-2024 09:31-0500 Diastolic blood pressure 80 mm[Hg] Chalino Ribakow PA-C Work Phone: [facility] 05-23-2024 09:31-0500 Heart rate 71 /min Chalino Ribakow PA-C Work Phone: [facility] 05-23-2024 09:31-0500 SaO2% (BldA) [Mass fraction] 98 % Chalino Ribakow PA-C Work Phone: [facility] 05-23-2024 09:31-0500 Systolic blood pressure 125 mm[Hg] Chalino Ribakow PA-C Work Phone: [facility] 03-04-2024 14:58-0400 Body temperature 97.5 [degF] Flor Mar MD Work Phone: [facility] 03-04-2024 14:58-0400 Diastolic blood pressure 66 mm[Hg] Flor Mar MD Work Phone: [facility] 03-04-2024 14:58-0400 Heart rate 70 /min Flor Mar MD Work Phone: [facility] 03-04-2024 14:58-0400 Respiratory rate 14 /min Flor Mar MD Work Phone: [facility] 03-04-2024 14:58-0400 SaO2% (BldA) [Mass fraction] 100 % Flor Mar MD Work Phone: [facility] 03-04-2024 14:58-0400 Systolic blood pressure 99 mm[Hg] Flor Mar MD Work Phone: [facility] 03-04-2024 09:00-0400 Body height 154.9 cm Flor Mar MD Work Phone: [facility] 03-04-2024 09:00-0400 Body mass index (BMI) [Ratio] 23.62 kg/m2 Flor Mar MD Work Phone: [facility] 03-04-2024 09:00-0400 Body weight 56.7 kg Flor Mar MD Work Phone: [facility] 01-07-2024 08:14-0400 Body height 154.9 cm Divya Diego PA-C Work Phone: [facility] 01-07-2024 08:14-0400 Body mass index (BMI) [Ratio] 24.75 kg/m2 Divya Diego PA-C Work Phone: [facility] 01-07-2024 08:14-0400 Body weight 59.42 kg Divya Diego PA-C Work Phone: [facility] 11-26-2023 10:38-0400 Body height 154.9 cm Michelle Garcia DO Work Phone: [facility] 11-26-2023 10:38-0400 Body mass index (BMI) [Ratio] 24.19 kg/m2 Michelle Garcia DO Work Phone: [facility] 11-26-2023 10:38-0400 Body weight 58.06 kg Michelle Garcia DO Work Phone: [facility] 09-17-2023 14:10-0500 Diastolic blood pressure 58 mm[Hg] Calvin Vora MD Work Phone: [facility] 09-17-2023 14:10-0500 Heart rate 80 /min Calvin Vora MD Work Phone: [facility] 09-17-2023 14:10-0500 SaO2% (BldA) [Mass fraction] 100 % Calvin Vora MD Work Phone: [facility] 09-17-2023 14:10-0500 Systolic blood pressure 94 mm[Hg] Calvin Vora MD Work Phone: [facility] 09-17-2023 13:46-0500 Body temperature 97.9 [degF] Calvin Vora MD Work Phone: [facility] 09-17-2023 13:46-0500 Respiratory rate 16 /min Calvin Vora MD Work Phone: [facility] 09-17-2023 12:53-0500 Body height 152.4 cm Calvin Vora MD Work Phone: [facility] 09-17-2023 12:53-0500 Body weight 56.7 kg Calvin Vora MD Work Phone: [facility] 09-10-2023 14:40-0500 Diastolic blood pressure 56 mm[Hg] Nurse 3 Work Phone: [facility] 09-10-2023 14:40-0500 Heart rate 84 /min Nurse 3 Work Phone: [facility] 09-10-2023 14:40-0500 Respiratory rate 16 /min Nurse 3 Work Phone: [facility] 09-10-2023 14:40-0500 SaO2% (BldA) [Mass fraction] 98 % Nurse 3 Work Phone: [facility] 09-10-2023 14:40-0500 Systolic blood pressure 96 mm[Hg] Nurse 3 Work Phone: [facility] 09-10-2023 12:48-0500 Body temperature 97.3 [degF] Nurse 3 Work Phone: [facility] 09-10-2023 12:48-0500 Body weight 56.7 kg Nurse 3 Work Phone: [facility] 05-07-2023 14:10-0400 Diastolic blood pressure 63 mm[Hg] Nurse 3 Work Phone: [facility] 05-07-2023 14:10-0400 Heart rate 86 /min Nurse 3 Work Phone: [facility] 05-07-2023 14:10-0400 Respiratory rate 16 /min Nurse 3 Work Phone: [facility] 05-07-2023 14:10-0400 SaO2% (BldA) [Mass fraction] 98 % Nurse 3 Work Phone: [facility] 05-07-2023 14:10-0400 Systolic blood pressure 113 mm[Hg] Nurse 3 Work Phone: [facility] 05-07-2023 12:45-0400 Body temperature 97.5 [degF] Nurse 3 Work Phone: [facility] 02-26-2023 14:40-0400 Diastolic blood pressure 62 mm[Hg] Nurse 4 Work Phone: [facility] 02-26-2023 14:40-0400 Heart rate 76 /min Nurse 4 Work Phone: [facility] 02-26-2023 14:40-0400 Respiratory rate 18 /min Nurse 4 Work Phone: [facility] 02-26-2023 14:40-0400 SaO2% (BldA) [Mass fraction] 97 % Nurse 4 Work Phone: [facility] 02-26-2023 14:40-0400 Systolic blood pressure 88 mm[Hg] Nurse 4 Work Phone: [facility] 02-26-2023 12:50-0400 Body temperature 97.5 [degF] Nurse 4 Work Phone: [facility] 01-01-2023 14:45-0400 Heart rate 87 /min Nurse 2 Work Phone: [facility] 01-01-2023 14:45-0400 SaO2% (BldA) [Mass fraction] 98 % Nurse 2 Work Phone: [facility] 01-01-2023 14:30-0400 Diastolic blood pressure 57 mm[Hg] Nurse 2 Work Phone: [facility] 01-01-2023 14:30-0400 Respiratory rate 18 /min Nurse 2 Work Phone: [facility] 01-01-2023 14:30-0400 Systolic blood pressure 94 mm[Hg] Nurse 2 Work Phone: [facility] 01-01-2023 12:45-0400 Body temperature 97.3 [degF] Nurse 2 Work Phone: [facility] 09-18-2022 12:13-0500 Body height 154.9 cm Michelle Weldonham Work Phone: [facility] 09-18-2022 12:13-0500 Body mass index (BMI) [Ratio] 22.67 kg/m2 Michelle CartagenaGarcia Work Phone: [facility] 09-18-2022 12:13-0500 Body weight 54.43 kg Michelle CartageanGarcia Work Phone: [facility] 08-29-2022 17:54-0500 Body temperature 98.8 [degF] Natacha Klein MD Work Phone: [facility] 08-29-2022 17:54-0500 Body weight 54.88 kg Natacha Klein MD Work Phone: [facility] 08-29-2022 17:54-0500 Diastolic blood pressure 85 mm[Hg] Natacha Klein MD Work Phone: [facility] 08-29-2022 17:54-0500 Heart rate 92 /min Natacha Klein MD Work Phone: [facility] 08-29-2022 17:54-0500 Respiratory rate 20 /min Natacha Klein MD Work Phone: [facility] 08-29-2022 17:54-0500 SaO2% (BldA) [Mass fraction] 97 % Natacha Klein MD Work Phone: [facility] 08-29-2022 17:54-0500 Systolic blood pressure 134 mm[Hg] Natacha Klein MD Work Phone: [facility] 08-14-2022 10:50-0500 Diastolic blood pressure 55 mm[Hg] Nurse 2 Work Phone: [facility] 08-14-2022 10:50-0500 Heart rate 79 /min Nurse 2 Work Phone: [facility] 08-14-2022 10:50-0500 Respiratory rate 16 /min Nurse 2 Work Phone: [facility] 08-14-2022 10:50-0500 SaO2% (BldA) [Mass fraction] 98 % Nurse 2 Work Phone: [facility] 08-14-2022 10:50-0500 Systolic blood pressure 85 mm[Hg] Nurse 2 Work Phone: [facility] 08-14-2022 09:10-0500 Body temperature 98.1 [degF] Nurse 2 Work Phone: [facility] 06-02-2022 09:00-0500 Heart rate 80 /min Nurse 2 Work Phone: [facility] 06-02-2022 09:00-0500 SaO2% (BldA) [Mass fraction] 97 % Nurse 2 Work Phone: [facility] 06-02-2022 08:50-0500 Diastolic blood pressure 59 mm[Hg] Nurse 2 Work Phone: [facility] 06-02-2022 08:50-0500 Respiratory rate 16 /min Nurse 2 Work Phone: [facility] 06-02-2022 08:50-0500 Systolic blood pressure 99 mm[Hg] Nurse 2 Work Phone: [facility] 06-02-2022 07:10-0500 Body temperature 97.9 [degF] Nurse 2 Work Phone: [facility] 03-20-2022 13:03-0400 Body height 154.9 cm Flor Mar MD Work Phone: [facility] 03-20-2022 13:03-0400 Body weight 54.88 kg Flor Mar MD Work Phone: [facility] 03-20-2022 09:50-0400 Diastolic blood pressure 63 mm[Hg] Nurse 2 Work Phone: [facility] 03-20-2022 09:50-0400 Heart rate 87 /min Nurse 2 Work Phone: [facility] 03-20-2022 09:50-0400 Respiratory rate 18 /min Nurse 2 Work Phone: [facility] 03-20-2022 09:50-0400 SaO2% (BldA) [Mass fraction] 97 % Nurse 2 Work Phone: [facility] 03-20-2022 09:50-0400 Systolic blood pressure 99 mm[Hg] Nurse 2 Work Phone: [facility] 03-20-2022 08:30-0400 Body temperature 97.9 [degF] Nurse 2 Work Phone: [facility] 01-27-2022 14:27-0400 Diastolic blood pressure 64 mm[Hg] DR ZACH KILGORE MD [facility] 01-27-2022 14:27-0400 Heart rate 70 /min DR ZACH KILGORE MD [facility] 01-27-2022 14:27-0400 Mean blood pressure 82 mm[Hg] DR ZACH KILGORE MD [facility] 01-27-2022 14:27-0400 Respiratory rate 18 /min DR ZACH KILGORE MD [facility] 01-27-2022 14:27-0400 Systolic blood pressure 118 mm[Hg] DR ZACH KILGORE MD [facility] 01-27-2022 12:29-0400 Diastolic blood pressure 74 mm[Hg] DR ZACH KILGORE MD [facility] 01-27-2022 12:29-0400 Heart rate 76 /min DR ZACH KILGORE MD [facility] 01-27-2022 12:29-0400 Mean blood pressure 89 mm[Hg] DR ZACH KILGORE MD [facility] 01-27-2022 12:29-0400 Respiratory rate 18 /min DR ZACH KILGORE MD [facility] 01-27-2022 12:29-0400 Systolic blood pressure 120 mm[Hg] DR ZACH KILGORE MD [facility] 01-27-2022 10:47-0400 Body temperature 98.6 [degF] DR ZACH KILGORE MD [facility] 01-27-2022 10:47-0400 Body weight 55.[address] ZACH KILGORE MD [facility] 01-27-2022 10:47-0400 Diastolic blood pressure 76 mm[Hg] DR ZACH KILGORE MD [facility] 01-27-2022 10:47-0400 Heart rate 80 /min DR ZACH KILGORE MD [facility] 01-27-2022 10:47-0400 Respiratory rate 18 /min DR ZACH KILGORE MD [facility] 01-27-2022 10:47-0400 Systolic blood pressure 114 mm[Hg] DR ZACH KILGORE MD [facility] 12-23-2021 09:45-0400 Diastolic blood pressure 61 mm[Hg] Nurse 3 Work Phone: [facility] 12-23-2021 09:45-0400 Heart rate 77 /min Nurse 3 Work Phone: [facility] 12-23-2021 09:45-0400 Respiratory rate 16 /min Nurse 3 Work Phone: [facility] 12-23-2021 09:45-0400 SaO2% (BldA) [Mass fraction] 96 % Nurse 3 Work Phone: [facility] 12-23-2021 09:45-0400 Systolic blood pressure 100 mm[Hg] Nurse 3 Work Phone: [facility] 05-17-2021 17:24-0400 Diastolic blood pressure 68 mm[Hg] SCOTT CARDENAS MD [facility] 05-17-2021 17:24-0400 Heart rate 84 /min SCOTT CARDENAS MD [facility] 05-17-2021 17:24-0400 Respiratory rate 18 /min SCOTT CARDENAS MD [facility] 05-17-2021 17:24-0400 Systolic blood pressure 108 mm[Hg] SCOTT CARDENAS MD [facility] 05-17-2021 16:31-0400 Diastolic blood pressure 61 mm[Hg] SCOTT CARDENAS MD [facility] 05-17-2021 16:31-0400 Heart rate 88 /min SCOTT CARDENAS MD [facility] 05-17-2021 16:31-0400 Respiratory rate 18 /min SCOTT CARDENAS MD [facility] 05-17-2021 16:31-0400 Systolic blood pressure 112 mm[Hg] SCOTT CARDENAS MD [facility] 05-17-2021 14:37-0400 Body temperature 98.6 [degF] SCOTT CARDENAS MD [facility] 05-17-2021 14:37-0400 Diastolic blood pressure 71 mm[Hg] SCOTT CARDENAS MD [facility] 05-17-2021 14:37-0400 Heart rate 100 /min SCOTT CARDENAS MD [facility] 05-17-2021 14:37-0400 Respiratory rate 18 /min SCOTT CARDENAS MD [facility] 05-17-2021 14:37-0400 Systolic blood pressure 107 mm[Hg] SCOTT CARDENAS MD [facility] Encounters Encounter Date Encounter Type Care Provider Facility Start: 04-03-2025 ambulatory No Primary Car e Physician Facility:[facility] Start: 12-06-2024 End: 12-06-2024 ambulatory [facility] Facility:[facility] Start: 12-06-2024 End: 12-06-2024 Patient encounter procedure Calvin Vora MD Work Phone: Gastroenterology Comment on above: Iron deficiency anem ia, unspecified iron deficiency anemia type (Primary Dx); Crohn's disease, unspecified, with other complication (HCC); Encounter for therapeutic drug level monitoring Start: 12-06-2024 End: 12-06-2024 ambulatory [facility] Facility:[facility] Start: 11-02-2024 End: 11-02-2024 ambulatory [facility] Facility:[facility] Start: 10-18-2024 End: 10-18-2024 Patient encounter procedure Calvin Vora MD Work Phone: Gastroenterology Comment on above: Crohn's disease of b oth small and large intestine with fistula (HCC) (Primary Dx) Start: 10-18-2024 End: 10-18-2024 ambulatory CALVIN VORA Facility:[facility] Start: 10-01-2024 End: 10-01-2024 Emergency department patient visit Anthony West MD Work Phone: -Emergency Department Work Phone: Start: 09-15-2024 ambulatory Apple Padilla cility:[facility] Start: 08-23-2024 End: 08-23-2024 Patient encounter procedure Calvin Vora MD Work Phone: Gastroenterology Comment on above: Crohn's disease of b oth small and large intestine with fistula (HCC) (Primary Dx) Start: 08-23-2024 End: 08-23-2024 ambulatory CALVIN VORA Facility:[facility] Start: 08-04-2024 End: 08-04-2024 ambulatory MICHELLE Eduard GARCIA Facility:[facility] Start: 08-04-2024 End: 08-04-2024 Subsequent hospital visit by physician Calvin Vora MD Work Phone: Gastroenterology Comment on above: Crohn's disease of b oth small and large intestine with fistula (HCC) [K50.813] Start: 06-02-2024 End: 06-02-2024 Orders Only Chalino Ribakow PA-C Work Phone: Gastroenterology Comment on above: Crohn's disease of b oth small and large intestine with fistula (HCC) (Primary Dx) Start: 05-27-2024 End: 05-27-2024 Telephone encounter Calvin Vora MD Work Phone: Gastroenterology Comment on above: Medication Authoriza tion Start: 05-27-2024 End: 05-27-2024 ambulatory MICHELLE GARCIA Facility:[facility] Start: 05-24-2024 End: 05-26-2024 ambulatory Chalino Ribakow PA-C Work Phone: Gastroenterology Comment on above: Vit D and B12 Start: 05-23-2024 End: 05-23-2024 Chart abstracting Dimitry Cody [facility] Comment on above: Research (NICOLAS REDDY) Start: 05-23-2024 End: 05-23-2024 ambulatory BROOKLYN Eduard GARCIA Facility:[facility] Start: 05-23-2024 End: 05-23-2024 ambulatory CHALINO RIBAKOW Facility:[facility] Start: 05-23-2024 End: 05-23-2024 Patient encounter procedure Chalino Ribakow PA-C Work Phone: Gastroenterology Comment on above: Crohn's disease of b oth small and large intestine with fistula (HCC) (Primary Dx) Start: 05-11-2024 End: 05-11-2024 ambulatory Calvin Vora MD Work Phone: Gastroenterology Comment on above: change in insurance, need prior auth for Rinvoq Start: 03-04-2024 ambulatory [facility] Facility :[facility] Start: 03-04-2024 End: 03-04-2024 Subsequent hospital visit by physician Flor Mar MD Work Phone: Admitting Comment on above: Anal fissure [K60.2] Start: 02-29-2024 End: 02-29-2024 Telephone encounter Keegan Arrieta MD Work Phone: Colorectal Surgery Comment on above: Patient Question Start: 02-10-2024 Admission to [facility] Divya Diego PA-C Work Phone: Colorectal Surgery Comment on above: Pain increasing Start: 02-10-2024 ambulatory Divya burroughs PA-C Work Phone: Colorectal Surgery Start: 02-04-2024 End: 02-04-2024 ambulatory CALVIN VORA Facility:[facility] Start: 02-04-2024 End: 02-04-2024 Patient encounter procedure Divya Diego PA-C Work Phone: Colorectal Surgery Comment on above: Anal or rectal pain (Primary Dx); 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) Start: 01-22-2024 End: 01-22-2024 ambulatory [facility] Facility:[facility] Start: 01-11-2024 End: 01-11-2024 [facility] Facility:[facility] Start: 01-07-2024 Admission to [facility] Flor Mar MD Work Phone: Colorectal Surgery Start: 01-07-2024 End: 01-07-2024 ambulatory Flor Mar MD Work Phone: Colorectal Surgery Start: 01-07-2024 E-mail encounter fro m caregiver Divya Diego PA-C Work Phone: Colorectal Surgery Start: 01-07-2024 Follow-up encounter Divya jane PA-C Work Phone: Colorectal Surgery Comment on above: Follow up from visit 01/07/24 Start: 01-07-2024 Telephone encounter Prabhu Masterson RN C olorectal Surgery Comment on above: Care Coordination Return Provider Call Start: 01-07-2024 End: 01-07-2024 Patient encounter procedure Divya PABON-C Work Phone: Colorectal Surgery Comment on above: Crohn's disease of b oth small and large intestine with fistula (HCC) (Primary Dx); Anal or rectal pain Start: 11-26-2023 End: 11-27-2023 ambulatory MICHELLE JOSE [facility] Start: 11-26-2023 End: 11-26-2023 Subsequent hospital visit by physician Michelle Garcia DO Work Phone: Leann Shankar [facility] Comment on above: Encounter for screen ing mammogram for malignant neoplasm of breast Start: 10-16-2023 ambulatory Tano Moctezumaignacio [facility] Comment on above: Rinvoq Approved - Ac tion Required! Refill Request Start: 10-16-2023 E-mail encounter fro m caregiver Tano Moctezumaignacio [facility] Start: 10-15-2023 End: 01-14-2024 Transcribe Orders Michelle Chapa Jose CAMACHO Work Phone: [facility] Clinical Communication Comment on above: Encounter for screen ing mammogram for malignant neoplasm of breast (Primary Dx) Start: 10-02-2023 ambulatory Chalino Ribakow PA-C Work Phone: Gastroenterology Comment on above: Vitamin D Start: 09-23-2023 End: 09-23-2023 ambulatory Chalino Ribakow PA-C Work Phone: Gastroenterology Comment on above: Crohn's disease of b oth small and large intestine with fistula (HCC) (Primary Dx) Start: 09-23-2023 End: 09-23-2023 Telemedicine consultation with patient Chalino Ribakow PA-C Work Phone: [facility] Start: 09-17-2023 Telephone encounter Calvin ramirez MD Work Phone: Gastroenterology Comment on above: 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 Start: 09-17-2023 End: 09-17-2023 Subsequent hospital visit by physician Calvin Vora MD Work Phone: Gastroenterology Comment on above: Crohn's disease of b oth small and large intestine with fistula (HCC) [K50.813] Start: 09-10-2023 Telephone encounter Debbie White Gastroenterology Comment on above: Appointment Start: 09-10-2023 End: 09-10-2023 Subsequent hospital visit by physician Nurse Gi Proc 3 Work Phone: Gastroenterology Start: 05-07-2023 End: 05-07-2023 Subsequent hospital visit by physician Nurse Gi Proc 3 Work Phone: Gastroenterology Start: 04-23-2023 End: 04-23-2023 ambulatory Chalino Ribakow PA-C Work Phone: Gastroenterology Comment on above: Crohn's disease of b oth small and large intestine with fistula (HCC) (Primary Dx) Start: 04-23-2023 End: 04-23-2023 Telemedicine consultation with patient Chalino Ribakow PA-C Work Phone: [facility] Start: 04-20-2023 ambulatory Calvin Vora MD Work Phone: Gastroenterology Comment on above: scheduling infusions Start: 04-03-2023 ambulatory Calvin Vora MD Work Phone: Gastroenterology Comment on above: Prior Auth for Renfl exis Start: 02-26-2023 End: 02-26-2023 Subsequent hospital visit by physician Nurse Gi Proc 4 Work Phone: Gastroenterology Start: 01-03-2023 End: 01-03-2023 Emergency department patient visit [facility] Facility:[facility] Start: 01-01-2023 End: 01-01-2023 Subsequent hospital visit by physician Nurse Gi Proc 2 Work Phone: Gastroenterology Start: 10-30-2022 End: 10-30-2022 Subsequent hospital visit by physician Nurse Gi Proc 4 Work Phone: Gastroenterology Start: 09-18-2022 End: 09-18-2022 Subsequent hospital visit by physician Michelle Garcia Work Phone: [facility] Comment on above: Encounter for screen ing mammogram for malignant neoplasm of breast Start: 09-11-2022 Telephone encounter Calvin ramirez MD Work Phone: Gastroenterology Comment on above: Results Start: 09-04-2022 Telephone encounter Eva Lynn RN G astroenterology Comment on above: Appointment Confirma tion Start: 08-29-2022 End: 08-29-2022 ambulatory JAMMIE RAINES Facility:[id number] Start: 08-29-2022 End: 08-29-2022 Patient encounter procedure Natacha Klein MD Work Phone: [facility] Comment on above: Acute pharyngitis, u nspecified etiology (Primary Dx) Start: 08-14-2022 End: 08-14-2022 Subsequent hospital visit by physician Nurse Gi Proc 2 Work Phone: Gastroenterology Start: 06-02-2022 End: 06-02-2022 Subsequent hospital visit by physician Nurse Gi Proc 2 Work Phone: Gastroenterology Start: 05-23-2022 Telephone encounter Calvin ramirez MD Work Phone: Gastroenterology Comment on above: Medication Assistanc e Program Start: 05-22-2022 Telephone encounter Haley Broussard RN Gastroenterology Comment on above: Orders (IFX increase 10mg/kg (600 mg) New Therapy plan) Start: 03-20-2022 ambulatory Flor Mar MD Work Phone: Colorectal Surgery Start: 03-20-2022 End: 03-20-2022 Patient encounter procedure Flor Mar MD Work Phone: Colorectal Surgery Comment on above: Fissure in ano (Prim teresa Dx) Start: 03-20-2022 End: 03-20-2022 Subsequent hospital visit by physician Nurse Gi Proc 2 Work Phone: Gastroenterology Start: 03-19-2022 Chart abstracting Brittany Nixon RN Colorectal Surgery Start: 03-13-2022 Orders Only Chalino Zuñiga PA-C Work Phone: Gastroenterology Start: 02-18-2022 End: 02-18-2022 Subsequent hospital visit by physician Mri [facility] (I-Stat/1.5t) [facility] Comment on above: Crohn's disease of s mall intestine with complication (HCC) [K50.019] Start: 01-27-2022 Telephone encounter Calvin ramirez MD Work Phone: Gastroenterology Comment on above: Medication Problem ( backordered medication) Start: 01-27-2022 End: 01-27-2022 Emergency department patient visit DR ZACH KILGORE MD [facility] Start: 12-27-2021 ambulatory Calvin Vora MD Work Phone: Gastroenterology Comment on above: renflexis levels Start: 12-27-2021 E-mail encounter fro m caregiver Calvin Vora MD Work Phone: [facility] Start: 12-23-2021 Telephone encounter Elena Griffin RN G astroenterology Comment on above: Appointment Start: 12-23-2021 End: 12-23-2021 Subsequent hospital visit by physician Nurse Gi Proc 3 Work Phone: Gastroenterology Start: 11-18-2021 Telephone encounter Haley Broussard RN Gastroenterology Comment on above: Lab Orders (Sent via my chart) Start: 11-14-2021 End: 11-14-2021 ambulatory Calvin Vora MD Work Phone: Gastroenterology Comment on above: Crohn's disease of b oth small and large intestine with fistula (HCC) (Primary Dx) Start: 11-14-2021 End: 11-14-2021 Telemedicine consultation with patient Calvin Vora MD Work Phone: [facility] Start: 05-17-2021 End: 05-17-2021 Emergency department patient visit SCOTT CARDENAS MD [facility] Procedures Date Procedure Procedure Detail Performing Clinician Start: 10-01-2024 Computed tomography of abdomen and pelvis with intravenous contrast Anthony West MD Work Phone: Start: 08-04-2024 Colonoscopy flx dx w /collj spec when pfrmd Chalino Ribakow PA-C Work Phone: Start: 01-22-2024 Antibody screen MICHELLE C DIETER Comment on above: Order Comment: Speci men Type: BLOOD SPECIMEN Ordering Facility: [facility] Address: [address] [place] [address] Performed By: #### 5 [id number] #### [facility] CLIA [id number] [address] [place] [address] [place] Start: 11-26-2023 End: 11-26-2023 Screening digital breast tomosynthesis bi Michelle Garcia DO Work Phone: Start: 09-17-2023 Colonoscopy flx dx w /collj spec when pfrmd Chalino Ribakow PA-C Work Phone: Start: 09-18-2022 End: 09-18-2022 Screening digital breast tomosynthesis bi Michelle Eduard Garcia Work Phone: Start: 08-29-2022 Iadna streptococcus group a amplified probe tq Son N Ernie RODRIGUEZ Work Phone: Benign lipomatous tu mor (disorder) SCOTT CARDENAS MD Simple extraction of tooth A LUIS CARDENAS MD Plan of Treatment Date Care Activity Detail Author Start: 2041 RSV Immunization aged 60 or older (1 - 1-dose 60+ series) RSV Immunization aged 60 or older (1 - 1-dose 60+ series) [facility] Start: 11-05-2031 Zoster Vaccines (1 of 2) Zoster Vaccines (1 of 2) [facility] Start: 10-15-2028 DTaP/Tdap/Td Vaccines (3 - Td or Tdap) DTaP/Tdap/Td Vaccines (3 - Td or Tdap) [facility] Start: 10-15-2028 Urine microalbumin profile DTaP,Tdap,Td Vaccine (3 - Td or Tdap) [facility] Start: 10-11-2028 Urine microalbumin profile [facility] Start: 05-30-2026 PAP TESTING PAP TESTING [facility] Start: 05-30-2026 Screening for malignant neoplasm of cervix Pap Testing [facility] Start: 01-03-2025 End: 01-03-2025 Patient encounter procedure 01/03/2025 10:30 AM EDT Office Visit Gastroenterology [address] [place], [place] [id number] Calvin Vora MD [address] [place] [address] f/u Gastroenterology Comment on above: f/u Start: 12-06-2024 End: 12-06-2024 Patient encounter procedure 12/06/2024 10:30 AM EDT Office Visit Gastroenterology [address] [place] [id number] Calvin Vora MD [address] [place], [place] [id number] f/u Gastroenterology Comment on above: f/u Start: 11-25-2024 Screening for malignant neoplasm of breast [facility] Start: 10-18-2024 End: 01-17-2025 25-hydroxyvitamin D3 [Mass/volume] in Serum or Plasma VITAMIN D 25 HYDROXY Lab Routine 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) Expected: 10/18/2024, Expires: 01/17/2025 [facility] Comment on above: Expected: 10/18/2024, Expires: Start: 10-18-2024 End: 01-17-2025 C reactive protein [Mass/volume] in Serum or Plasma C-REACTIVE PROTEIN Lab Routine 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) Expected: 10/18/2024, Expires: 01/17/2025 [facility] Comment on above: Expected: 10/18/2024, Expires: Start: 10-18-2024 End: 01-17-2025 CBC W Auto Differential panel - Blood COMPLETE BLOOD COUNT AND DIFFERENTIAL Lab Routine 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) Expected: 10/18/2024, Expires: 01/17/2025 [facility] Comment on above: Expected: 10/18/2024, Expires: Start: 10-18-2024 End: 01-17-2025 Cobalamin (Vitamin B12) [Mass/volume] in Serum or Plasma VITAMIN B12 Lab Routine 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) Expected: 10/18/2024, Expires: 01/17/2025 [facility] Comment on above: Expected: 10/18/2024, Expires: Start: 10-18-2024 End: 01-17-2025 Comprehensive metabolic 2000 panel - Serum or Plasma COMPREHENSIVE METABOLIC PANEL Lab Routine 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) Expected: 10/18/2024, Expires: 01/17/2025 [facility] Work Phone: Comment on above: Expected: 10/18/2024, Expires: Start: 10-18-2024 End: 01-17-2025 Lipid 1996 panel - Serum or Plasma LIPID PANEL, FASTING Lab Routine 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) Expected: 10/18/2024, Expires: 01/17/2025 [facility] Comment on above: Expected: 10/18/2024, Expires: Start: 10-18-2024 End: 10-18-2024 Patient encounter procedure 10/18/2024 1:30 PM EDT Office Visit Gastroenterology [address] [address] Calvin Vora MD [address] [place] [address] 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) [K50.813] Gastroenterology Comment on above: 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) [K50.813] Start: 10-01-2024 [facility] Start: 08-26-2024 End: 08-26-2024 ambulatory 08/26/2024 10:00 AM EST Results Only [facility] [address] [place] [address] [facility] Start: 08-04-2024 End: 08-04-2024 Patient encounter procedure 08/04/2024 1:30 PM EST Appointment Gastroenterology [address] [address] Calvin Vora MD [address] [place] [address] 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) [K50.813] Gastroenterology Comment on above: 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) [K50.813] Start: 06-02-2024 End: 09-01-2024 Lipid 1996 panel - Serum or Plasma LIPID PANEL BASIC Lab Routine 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) Expected: 06/02/2024, Expires: 09/01/2024 [facility] Work Phone: Comment on above: Expected: 06/02/2024, Expires: Start: 05-27-2024 End: 05-27-2024 ambulatory 05/27/2024 10:30 AM EST Results Only [facility] [address] [facility] [place] [address] [facility] Start: 05-23-2024 End: 08-22-2024 BLOOD TB SCREEN [facility] Comment on above: Expected: 05/23/2024, Expires: Start: 05-23-2024 End: 08-22-2024 C reactive protein [Mass/volume] in Serum or Plasma [facility] Work Phone: Comment on above: Expected: 05/23/2024, Expires: Start: 05-23-2024 End: 08-22-2024 Lipid 1996 panel - Serum or Plasma LIPID PANEL BASIC Lab Routine 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) Expected: 05/23/2024, Expires: 08/22/2024 [facility] Comment on above: Expected: 05/23/2024, Expires: Start: 05-23-2024 End: 05-23-2024 Patient encounter procedure 05/23/2024 9:30 AM EST Office Visit Gastroenterology [address] [address] Chalino Zuñiga PA-C [address] [address] Follow up Gastroenterology Comment on above: Follow up Start: 03-13-2024 Covid-19 Vaccine ( season) Covid-19 Vaccine () [facility] Start: 03-13-2024 Influenza vaccination Influenza Vaccine (#1) [facility] Start: 03-07-2024 End: 03-07-2024 Anesthesia consultation 03/07/2024 9:00 AM EDT PAT Pre Anesthesia [address] [address] pre op Pre Anesthesia Comment on above: pre op Start: 03-07-2024 End: 03-07-2024 Patient encounter procedure 03/07/2024 8:00 AM EDT Office Visit Financial Clearance Phone Screening [facility] pre op Financial Clearance Phone Screening Comment on above: pre op Start: 03-04-2024 End: 03-04-2024 Admission to same day surgery center 03/04/2024 1:54 PM EDT - 03/04/2024 3:15 PM EDT Surgery Admitting [address] [place] [address] Flor Mar MD [address] [place] [address] EXAM UNDER ANESTHESIA RECTAL Admitting Comment on above: EXAM UNDER ANESTHESIA RECTAL Start: 03-04-2024 End: 03-04-2024 Anesthesia consultation 03/04/2024 1:54 PM EDT Anesthesia Event Admitting [address] [place] [address] Elizabeth Martin APRN.PULPER OPERATOR [address] [place] [address] Admitting Start: 03-04-2024 End: 03-04-2024 Anrct xm surg req anes general spi/edrl dx EXAM UNDER ANESTHESIA RECTAL Anal fissure 03/04/2024 1:54 PM EDT [facility] Start: 03-04-2024 End: 03-04-2024 Admission to same day surgery center 03/04/2024 7:30 AM EDT - 03/04/2024 8:36 AM EDT Surgery Admitting [address] [place] [address] Flor Mar MD [address] [place] [id number] EXAM UNDER ANESTHESIA RECTAL Admitting Comment on above: EXAM UNDER ANESTHESIA RECTAL Start: 03-04-2024 End: 03-04-2024 Anrct xm surg req anes general spi/edrl dx EXAM UNDER ANESTHESIA RECTAL Anal fissure 03/04/2024 7:30 AM EDT [facility] Start: 03-04-2024 Subsequent hospital visit by physician Admitting Comment on above: Anal fissure [K60.2] Start: 03-03-2024 End: 03-03-2024 Patient encounter procedure 03/03/2024 10:40 AM EDT Office Visit Colorectal Surgery [address] [address] Flor Mar MD [address] [place] [address] pre op Colorectal Surgery Comment on above: pre op Start: 02-12-2024 End: 02-12-2024 Admission to same day surgery center 02/12/2024 12:48 PM EDT - 02/12/2024 1:54 PM EDT Surgery Admitting [address] [place] [address] Flor Mar MD [address] [place] [address] EXAM UNDER ANESTHESIA RECTAL Admitting Comment on above: EXAM UNDER ANESTHESIA RECTAL Start: 02-12-2024 End: 02-12-2024 Anrct xm surg req anes general spi/edrl dx EXAM UNDER ANESTHESIA RECTAL Anal fissure 02/12/2024 12:48 PM EDT [facility] Start: 02-12-2024 Subsequent hospital visit by physician 02/12/2024 12:48 PM EDT Hospital Encounter Admitting [address] [place] [address] Flor Mar MD [address] [place] [address] Anal fissure [K60.2] Admitting Comment on above: Anal fissure [K60.2] Start: 02-04-2024 End: 02-04-2024 Patient encounter procedure 02/04/2024 10:30 AM EDT Office Visit Colorectal Surgery [address] [address] Divya Diego PA-C [address] [place] [address] anal fissures follow up Colorectal Surgery Comment on above: anal fissures follow up Start: 01-07-2024 End: 04-07-2024 CBC panel - Blood by Automated count COMPLETE BLOOD COUNT Lab Routine Anal fissure Expected: 01/07/2024 (Approximate), Expires: 04/07/2024 [facility] Work Phone: Comment on above: Expected: 01/07/2024 (Approximate), Expi res: 04/07/2024 Start: 01-07-2024 End: 04-07-2024 Comprehensive metabolic 2000 panel - Serum or Plasma COMPREHENSIVE METABOLIC PANEL Lab Routine Anal fissure Expected: 01/07/2024 (Approximate), Expires: 04/07/2024 [facility] Comment on above: Expected: 01/07/2024 (Approximate), Expi res: 04/07/2024 Start: 01-07-2024 End: 04-07-2024 TYPE AND SCREEN,30 DAY TYPE AND SCREEN,30 DAY Blood Bank Routine Anal fissure Expected: 01/07/2024 (Approximate), Expires: 04/07/2024 [facility] Comment on above: Expected: 01/07/2024 (Approximate), Expi res: 04/07/2024 Start: 12-16-2023 PNEUMOCOCCAL (3 - PPSV23 if available, else PCV20) PNEUMOCOCCAL (3 - PPSV23 if available, else PCV20) [facility] Start: 12-16-2023 PNEUMOCOCCAL (3 - PPSV23 or PCV20) PNEUMOCOCCAL (3 - PPSV23 or PCV20) [facility] Start: 12-16-2023 Pneumococcal vaccination [facility] Start: 09-23-2023 End: 12-23-2023 25-hydroxyvitamin D3 [Mass/volume] in Serum or Plasma VITAMIN D 25 HYDROXY Lab Routine 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) Expected: 09/23/2023, Expires: 12/23/2023 [facility] Work Phone: Comment on above: Expected: 09/23/2023, Expires: Start: 09-23-2023 End: 12-23-2023 C reactive protein [Mass/volume] in Serum or Plasma C-REACTIVE PROTEIN (CRP) Lab Routine 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) Expected: 09/23/2023, Expires: 12/23/2023 [facility] Work Phone: Comment on above: Expected: 09/23/2023, Expires: Start: 09-23-2023 End: 12-23-2023 CBC W Auto Differential panel - Blood CBC + DIFF Lab Routine 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) Expected: 09/23/2023, Expires: 12/23/2023 [facility] Work Phone: Comment on above: Expected: 09/23/2023, Expires: Start: 09-23-2023 End: 12-23-2023 Cobalamin (Vitamin B12) [Mass/volume] in Serum or Plasma VITAMIN B12 BLOOD Lab Routine 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) Expected: 09/23/2023, Expires: 12/23/2023 [facility] Work Phone: Comment on above: Expected: 09/23/2023, Expires: 4 Start: 09-23-2023 End: 12-23-2023 Comprehensive metabolic 2000 panel - Serum or Plasma COMP METABOLIC PANEL Lab Routine 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) Expected: 09/23/2023, Expires: 12/23/2023 [facility] Work Phone: Comment on above: Expected: 09/23/2023, Expires: 4 Start: 09-23-2023 End: 12-23-2023 INFLIXIMAB, SERUM INFLIXIMAB, SERUM Lab Routine 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) Expected: 09/23/2023, Expires: 12/23/2023 [facility] Work Phone: Comment on above: Expected: 09/23/2023, Expires: 4 Start: 09-23-2023 End: 12-23-2023 Lipid 1996 panel - Serum or Plasma LIPID PANEL BASIC Lab Routine 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) Expected: 09/23/2023, Expires: 12/23/2023 [facility] Work Phone: Comment on above: Expected: 09/23/2023, Expires: 4 Start: 09-19-2023 Mammography [facility] Start: 09-19-2023 Screening for malignant neoplasm of breast [facility] Start: 07-22-2023 Covid-19 Vaccine () Covid-19 Vaccine () [facility] Start: 07-13-2023 Behavioral Health Screening Behavioral Health Screening [facility] Start: 07-13-2023 Depression Assessment Depression Assessment [facility] Start: 04-03-2023 End: 06-03-2023 25-hydroxyvitamin D3 [Mass/volume] in Serum or Plasma VITAMIN D 25 HYDROXY Lab Routine 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) Expected: 04/03/2023, Expires: 06/03/2023 [facility] Work Phone: Comment on above: Expected: 04/03/2023, Expires: 3 Start: 04-03-2023 End: 06-03-2023 BLOOD TB SCREEN BLOOD TB SCREEN Lab Routine 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) Expected: 04/03/2023, Expires: 06/03/2023 [facility] Work Phone: Comment on above: Expected: 04/03/2023, Expires: Start: 04-03-2023 End: 06-03-2023 C reactive protein [Mass/volume] in Serum or Plasma C-REACTIVE PROTEIN (CRP) Lab Routine 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) Expected: 04/03/2023, Expires: 06/03/2023 [facility] Work Phone: Comment on above: Expected: 04/03/2023, Expires: 3 Start: 04-03-2023 End: 06-03-2023 CBC W Auto Differential panel - Blood CBC + DIFF Lab Routine 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) Expected: 04/03/2023, Expires: 06/03/2023 [facility] Work Phone: Comment on above: Expected: 04/03/2023, Expires: Start: 04-03-2023 End: 06-03-2023 Cobalamin (Vitamin B12) [Mass/volume] in Serum or Plasma VITAMIN B12 BLOOD Lab Routine 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) Expected: 04/03/2023, Expires: 06/03/2023 [facility] Work Phone: Comment on above: Expected: 04/03/2023, Expires: 3 Start: 04-03-2023 End: 06-03-2023 Comprehensive metabolic 2000 panel - Serum or Plasma COMP METABOLIC PANEL Lab Routine 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) Expected: 04/03/2023, Expires: 06/03/2023 [facility] Work Phone: Comment on above: Expected: 04/03/2023, Expires: 3 Start: 04-03-2023 End: 06-03-2023 Ferritin [Mass/volume] in Serum or Plasma FERRITIN BLD Lab Routine 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) Expected: 04/03/2023, Expires: 06/03/2023 [facility] Work Phone: Comment on above: Expected: 04/03/2023, Expires: 3 Start: 04-03-2023 End: 06-03-2023 Iron and Iron binding capacity panel - Serum or Plasma IRON + TIBC Lab Routine 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) Expected: 04/03/2023, Expires: 06/03/2023 [facility] Work Phone: Comment on above: Expected: 04/03/2023, Expires: 3 Start: 03-13-2023 Covid-19 Vaccine (2022- season) Covid-19 Vaccine ( season) [facility] Start: 03-13-2023 Influenza vaccination [facility] Start: 08-09-2022 COVID-19 VACCINE (6 - Moderna risk series) COVID-19 VACCINE (6 - Moderna risk series) [facility] Start: 07-13-2022 DEPRESSION ASSESSMENT DEPRESSION ASSESSMENT [facility] Start: 06-02-2022 COVID-19 VACCINE (5 - Booster for Moderna series) COVID-19 VACCINE (5 - Booster for Moderna series) [facility] Start: 05-30-2022 Screening for malignant neoplasm of cervix Cervical Cancer Screening [facility] Start: 03-27-2022 COVID-19 VACCINE (5 - Booster for Moderna series) COVID-19 VACCINE (5 - Booster for Moderna series) [facility] Start: 03-13-2022 Influenza vaccination INFLUENZA (#1) [facility] Start: 11-14-2021 End: 01-14-2022 BLOOD TB SCREEN BLOOD TB SCREEN Lab Routine 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) Expected: 11/14/2021, Expires: 01/14/2022 [facility] Work Phone: Comment on above: Expected: 11/14/2021, Expires: 2 Start: 11-14-2021 End: 01-14-2022 C reactive protein [Mass/volume] in Serum or Plasma C-REACTIVE PROTEIN (CRP) Lab Routine 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) Expected: 11/14/2021, Expires: 01/14/2022 [facility] Work Phone: Comment on above: Expected: 11/14/2021, Expires: 2 Start: 11-14-2021 End: 01-14-2022 CBC panel - Blood by Automated count CBC Lab Routine 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) Expected: 11/14/2021, Expires: 01/14/2022 [facility] Work Phone: Comment on above: Expected: 11/14/2021, Expires: 2 Start: 11-14-2021 End: 01-14-2022 Chronic hepatitis differentiation between hepatitis B and C virus panel - Serum or Plasma HEP REMOTE PANEL BL Lab Routine 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) Expected: 11/14/2021, Expires: 01/14/2022 [facility] Work Phone: Comment on above: Expected: 11/14/2021, Expires: 2 Start: 11-14-2021 End: 01-14-2022 Comprehensive metabolic 2000 panel - Serum or Plasma COMP METABOLIC PANEL Lab Routine 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) Expected: 11/14/2021, Expires: 01/14/2022 [facility] Work Phone: Comment on above: Expected: 11/14/2021, Expires: 2 Start: 11-14-2021 End: 01-14-2022 FERRITIN BLD FERRITIN BLD Lab Routine 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) Expected: 11/14/2021, Expires: 01/14/2022 [facility] Work Phone: Comment on above: Expected: 11/14/2021, Expires: 2 Start: 11-14-2021 End: 01-14-2022 HEPATITIS A ANTIBODY, IGG HEPATITIS A ANTIBODY, IGG Lab Routine 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) Expected: 11/14/2021, Expires: 01/14/2022 [facility] Work Phone: Comment on above: Expected: 11/14/2021, Expires: 2 Start: 11-14-2021 End: 01-14-2022 Hepatitis B virus surface Ab [Units/volume] in Serum HEP B SURF AB QUANT Lab Routine 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) Expected: 11/14/2021, Expires: 01/14/2022 [facility] Work Phone: Comment on above: Expected: 11/14/2021, Expires: 2 Start: 11-14-2021 End: 01-14-2022 INFLIXIMAB ACTIVITY AND NEUTRALIZING AB INFLIXIMAB ACTIVITY AND NEUTRALIZING AB Lab Routine 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) Expected: 11/14/2021, Expires: 01/14/2022 [facility] Work Phone: Comment on above: Expected: 11/14/2021, Expires: 2 Start: 11-14-2021 End: 01-14-2022 IRON + TIBC IRON + TIBC Lab Routine 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) Expected: 11/14/2021, Expires: 01/14/2022 [facility] Work Phone: Comment on above: Expected: 11/14/2021, Expires: 2 Start: 11-14-2021 End: 01-14-2022 VITAMIN B12 BLOOD VITAMIN B12 BLOOD Lab Routine 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) Expected: 11/14/2021, Expires: 01/14/2022 [facility] Work Phone: Comment on above: Expected: 11/14/2021, Expires: 2 Start: 11-14-2021 End: 01-14-2022 VITAMIN D 25 HYDROXY VITAMIN D 25 HYDROXY Lab Routine 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) Expected: 11/14/2021, Expires: 01/14/2022 [facility] Work Phone: Comment on above: Expected: 11/14/2021, Expires: 2 Start: 2021 Mammography MAMMOGRAM [facility] Start: 09-24-2021 COVID-19 VACCINE (4 - Booster for Moderna series) COVID-19 VACCINE (4 - Booster for Moderna series) [facility] Start: 09-18-2021 COVID-19 VACCINE (4 - Booster for Moderna series) COVID-19 VACCINE (4 - Booster for Moderna series) [facility] Start: 07-13-2021 DEPRESSION ASSESSMENT DEPRESSION ASSESSMENT [facility] Start: 08-11-2020 HEPATITIS B (3 of 3 - Risk 3-dose series) HEPATITIS B (3 of 3 - Risk 3-dose series) [facility] Start: 06-06-2020 HEPATITIS B (3 of 3 - Risk 3-dose series) HEPATITIS B (3 of 3 - Risk 3-dose series) [facility] Start: 06-06-2020 Hepatitis B Vaccine (3 of 3 - 19+ 3-dose series) Hepatitis B Vaccine (3 of 3 - 19+ 3-dose series) [facility] Start: 06-06-2020 Hepatitis B Vaccine (3 of 3 - Risk 3-dose series) Hepatitis B Vaccine (3 of 3 - Risk 3-dose series) [facility] Start: 06-06-2020 Hepatitis B Vaccines (3 of 3 - 19+ 3-dose series) Hepatitis B Vaccines (3 of 3 - 19+ 3-dose series) [facility] Start: 06-06-2020 Hepatitis B Vaccines (3 of 3 - 3-dose series) Hepatitis B Vaccines (3 of 3 - 3-dose series) [facility] Start: 11-05-2011 HPV TESTING HPV TESTING [facility] Start: 11-05-2011 Screening for malignant neoplasm of cervix [facility] Start: 2002 Screening for malignant neoplasm of cervix Pap Smear [facility] Start: 2000 SHINGRIX VACCINE (1 of 2) SHINGRIX VACCINE (1 of 2) [facility] Start: 11-05-1999 Anxiety Screening Anxiety Screening [facility] Start: 11-05-1999 Depression Screening Depression Screening [facility] Start: 11-05-1999 Hepatitis C screening Hepatitis C Screening [facility] Start: 11-05-1999 HIV SCREENING HIV SCREENING [facility] Start: 11-05-1999 HIV screening HIV Screening [facility] Start: 11-05-1999 MMR (1 of 2 - Risk 2-dose series) MMR (1 of 2 - Risk 2-dose series) [facility] Start: 11-05-1999 MMR Vaccine (1 of 2 - Risk 2-dose series) MMR Vaccine (1 of 2 - Risk 2-dose series) [facility] Start: 1994 Varicella vaccination Varicella Vaccines (1 of 2 - 13+ 2-dose series) [facility] Start: 1993 Adult depression screening assessment DEPRESSION SCREENING [facility] Start: 11-05-1991 Meningococcal B Vaccine: Consider Based On Risk (1 of 4 - Increased Risk) Meningococcal B Vaccine: Consider Based On Risk (1 of 4 - Increased Risk) [facility] Start: 11-05-1991 MENINGOCOCCAL B: Consider based on risk (1 of 4 - Increased Risk Bexsero 2-dose series) MENINGOCOCCAL B: Consider based on risk (1 of 4 - Increased Risk Bexsero 2-dose series) [facility] Start: 11-05-1991 MENINGOCOCCAL B: Consider based on risk (1 of 4 - Increased Risk) MENINGOCOCCAL B: Consider based on risk (1 of 4 - Increased Risk) [facility] Start: 1982 MMR Vaccines (1 of 1 - Standard series) MMR Vaccines (1 of 1 - Standard series) [facility] Start: 1982 Varicella vaccination Varicella Vaccines (1 of 2 - 2-dose childhood series) [facility] Start: 1981 HIV screening HIV Screening [facility] Anrct xm surg req an es general spi/edrl dx EXAM UNDER ANESTHESIA RECTAL Anal fissure [facility] Anrct xm surg req an es general spi/edrl dx EXAM UNDER ANESTHESIA RECTAL Anal fissure [facility] Calprotectin [Mass/mass] in Stool CALPROTECTIN,FECAL Lab Routine 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) Ordered: 04/03/2023 [facility] Work Phone: Comment on above: Ordered: 04/03/2023 Calprotectin [Mass/mass] in Stool CALPROTECTIN,FECAL Lab Routine 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) Ordered: 09/23/2023 [facility] Work Phone: Comment on above: Ordered: 09/23/2023 Calprotectin [Mass/mass] in Stool CALPROTECTIN,FECAL Lab Routine 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) Ordered: 10/18/2024 [facility] Comment on above: Ordered: 10/18/2024 End: 04-23-2024 COLONOSCOPY DIAGNOSTIC COLONOSCOPY DIAGNOSTIC Endoscopy Routine 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) 1 Occurrences starting 04/23/2023 until 04/23/2024 [facility] Work Phone: Comment on above: 1 Occurrences starting 04/23/2023 until 04/23/2024 End: 05-23-2025 Flexible sigmoidoscopy study COLONOSCOPY DIAGNOSTIC Endoscopy Routine 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) 1 Occurrences starting 05/23/2024 until 05/23/2025 [facility] Comment on above: 1 Occurrences starting 05/23/2024 until 05/23/2025 H&P for surgery H&P FOR SURGERY Procedures Routine Anal fissure Ordered: 01/07/2024 [facility] Comment on above: Ordered: 01/07/2024 End: 01-26-2023 MRI ABD ENTEROG WO/W IVCON MRI ABD ENTEROG WO/W IVCON Radiology Routine Crohn's disease of small intestine with complication (HCC) 1 Occurrences starting 12/27/2021 until 01/26/2023 [facility] Work Phone: Comment on above: 1 Occurrences starting 12/27/2021 until 01/26/2023 End: 02-18-2022 MRI ABD ENTEROG WO/W IVCON [facility] Work Phone: Comment on above: 1 Occurrences starting 02/18/2022 until 02/18/2022 End: 01-26-2023 Mri pelvis w/o & w/contrast material MRI PEL ENTEROG WO/W IVCON Radiology Routine Crohn's disease of small intestine with complication (HCC) 1 Occurrences starting 12/27/2021 until 01/26/2023 [facility] Work Phone: Comment on above: 1 Occurrences starting 12/27/2021 until 01/26/2023 End: 02-18-2022 Mri pelvis w/o & w/contrast material [facility] Work Phone: Comment on above: 1 Occurrences starting 02/18/2022 until 02/18/2022 Patient Education ED Crohn's Disease [facility] Work Phone: Patient referral [facility] Work Phone: REFER FOR ADMIT INTERVIEW REFER FOR ADMIT INTERVIEW Procedures Routine Anal fissure Ordered: 01/07/2024 [facility] Comment on above: Ordered: 01/07/2024 SURGICAL PATHOLOGY [facility] Work Phone: Comment on above: Release Upon Ordering for 1 Occurrences starting 09/17/2023, 1 completed SURGICAL PATHOLOGY [facility] Work Phone: Comment on above: Release Upon Ordering for 1 Occurrences starting 08/04/2024, 1 completed [facility] Immunizations Immunization Date Immunization Notes Care Provider Fa zak 05-27-2023 Influenza, injectabl e, Madin Montgomery Canine Kidney, preservative free, quadrivalent Debbie Clark RN [facility] 05-27-2023 influenza virus vacc ine, unspecified formulation Divya Diego PA-C Work Phone: [facility] 05-25-2022 Influenza, injectabl e, Madin Montgomery Canine Kidney, preservative free, quadrivalent Debbie Clark RN [facility] 05-25-2022 influenza virus vacc ine, unspecified formulation Calvin Vora MD Work Phone: [facility] 06-26-2021 Influenza, injectabl e, Madin Montgomery Canine Kidney, preservative free, quadrivalent Debbie Clark RN [facility] 11-30-2020 COVID-19 vaccine, fu ll dose (MODERNA) Calvin Vora MD Work Phone: [facility] Work Phone: 11-02-2020 COVID-19 vaccine, fu ll dose (MODERNA) Calvin Vora MD Work Phone: [facility] Work Phone: 04-11-2020 hepatitis A vaccine, adult dosage Calvin Vora MD Work Phone: [facility] Work Phone: 04-11-2020 hepatitis B vaccine, adult dosage Calvin Vora MD Work Phone: [facility] Work Phone: 04-11-2020 influenza, injectabl e, quadrivalent, contains preservative Calvin Vora MD Work Phone: [facility] Work Phone: 04-11-2020 influenza, injectabl e, quadrivalent, preservative free Debbie Clark RN [facility] 04-11-2020 hepatitis B vaccine, unspecified formulation Elena Griffin RN [facility] 03-25-2019 hepatitis B vaccine, pediatric or pediatric/adolescent dosage Calvin Vora MD Work Phone: [facility] Work Phone: 03-25-2019 hepatitis B vaccine, unspecified formulation Debbie Clark RN [facility] 03-25-2019 influenza, injectabl e, quadrivalent, contains preservative Calvin Vora MD Work Phone: [facility] Work Phone: 03-25-2019 influenza, injectabl e, quadrivalent, preservative free Debbie Clark RN [facility] 12-15-2018 pneumococcal polysaccharide vaccine, 23 valent Calvin Vora MD Work Phone: [facility] Work Phone: 10-15-2018 hepatitis A vaccine, adult dosage Calvin Vora MD Work Phone: [facility] Work Phone: 10-15-2018 hepatitis B vaccine, adult dosage Debbie Clark RN [facility] 10-15-2018 pneumococcal conjuga te vaccine, 13 valent Calvin Vora MD Work Phone: [facility] Work Phone: 10-15-2018 tetanus toxoid, redu jovan diphtheria toxoid, and acellular pertussis vaccine, adsorbed Debbie Clark RN [facility] 10-11-2018 hepatitis A and hepatitis B vaccine Calvin Vora MD Work Phone: [facility] 10-11-2018 tetanus toxoid, redu jovan diphtheria toxoid, and acellular pertussis vaccine, adsorbed Calvin Vora MD Work Phone: [facility] 05-14-2018 influenza, injectabl e, quadrivalent, preservative free Debbie Clark RN [facility] 05-13-2018 influenza virus vacc ine, unspecified formulation Debbie Clark RN [facility] 06-06-2017 influenza, injectabl e, quadrivalent, contains preservative Calvin Vora MD Work Phone: [facility] Work Phone: 06-06-2017 influenza, injectabl e, quadrivalent, preservative free Calvin Vora MD Work Phone: [facility] 06-14-2010 tetanus toxoid, adsorbed Debbie Opd malcolm CARSON [facility] Payers Date Payer Category Payer Private Health Insurance [id number] 2023 Private Health Insurance [id number] 2023 Private Health Insurance [id number] 2023 Self-pay 2021 Unknown MMO MMO [employer] [id number] 2021-Present [phone] [address] [place] [address] PPO [id number] 2021 Unknown [id number] 2021 Unknown [id number] Unknown [id number] Unknown [id number] Unknown [id number] Unknown [id number] 62 Unknown [id number] Social History Date Type Detail Facility Start: 01-27-2022 End: 09-18-2022 Never smoked tobacco (finding) [facility] Assigned At [facility] Start: 03-30-2017 End: 05-23-2024 Tobacco smoking status NHIS Ex-smoker [facility] Start: 03-30-2017 End: 05-23-2024 Tobacco use and exposure Smokeless tobacco non-user [facility] Start: 09-13-2021 End: 09-11-2022 Alcohol intake Current non-drinker of alcohol (finding) [facility] Start: 03-30-2017 End: 03-20-2022 Tobacco Comment 1/2 pack for 4 years 10+ yrs ago [facility] Start: 1980 Sex Assigned At Female C [facility] Start: 10-15-2021 End: 09-18-2022 Exposure to SARS-CoV-2 (event) Not sure [facility] History of tobacco use Current smoker [facility] Start: 1980 Sex Assigned At Not on file S [facility] Start: 09-11-2022 End: 07-09-2023 History of Social function [facility] Start: 09-11-2022 End: 07-09-2023 Tobacco use panel [facility] Adult Depression Screening Assessment 0 [facility] Start: 04-29-2020 Gender identity Identifies as female gender (finding) [facility] Start: 04-29-2020 Sexual orientation Heterosexual (fin ding) [facility] Start: 09-17-2023 End: 12-06-2024 Alcohol intake Current drinker of alcohol (finding) [facility] Start: 09-17-2023 Alcohol Comment occ [facility] Start: 10-01-2024 Sex Female (finding) [facility] NEGATED: Highlighted rowStart: NINF History of tobacco use Passive smoker [facility] Functional Status Date Assessment Result Facility 01-27-2022 [facility] 01-27-2022 Functional Status ID band on, Call device within reach, Bed in low position, Wheels locked, Upper/Half-Length side-rails up, Phone within reach, personal items within reach, Safety level maintained [facility] 01-27-[address] [facility] Are you deaf, or do you have serious difficulty hearing No 06/06/2017 5:54 PM Jeannette Angel No [facility] 06-06-2017 Are you blind, or do you have serious difficulty seeing, even when wearing glasses No 06/06/2017 5:54 PM Jeannette Angel No [facility] 06-06-2017 Do you have serious difficulty walking or climbing stairs No 06/06/2017 5:54 PM Jeannette Angel [facility] 06-06-2017 Do you have difficul ty dressing or bathing No 06/06/2017 5:54 PM Jeannette Angel [facility] 06-06-2017 Because of a physica l, mental, or emotional condition, do you have difficulty doing errands alone such as visiting a physician's office or shopping No 06/06/2017 5:54 PM Jeannette Angel [facility] Mental Status Date Assessment Result Facility 01-27-2022 Mental Status Orientation Oriented x 4 [facility] 01-27-2022 Mental Status [facility] 01-27-2022 Mental Status [facility] 06-06-2017 Because of a physica l, mental, or emotional condition, do you have serious difficulty concentrating, remembering, or making decisions No 06/06/2017 5:54 PM Jeannette Angel [facility] Clinical Notes 11-11-2016 to 12-06-2024 Patient InstructionsCalvin Vora MD - 12/06/2024 10:36 AM EDTPatient Calvin Patel MD - 10/18/2024 1:30 PM EDT Note Date & Type Note Facility 12-06-2024 Instructions Calvin Vora MD - 12/06/2024 11:09 AM EDT We discussed your Crohn's disease: - You reported going to the bathroom approximately 10 times a day, with formed stools, occasional urgency, and gas. You also noted mild abdominal pain, stabilized weight, and no nausea, vomiting, or joint pain in the past two months. - Your recent lab results showed: - A mildly elevated platelet count, which is a marker of inflammation. - A fecal calprotectin level of 154, which is slightly improved compared to 204 from the previous year. - Albumin at 3.6 (normal is 3.9), which is slightly low and likely related to inflammation. - Mild anemia. Your iron levels have not been checked recently, so we will recheck your blood count and perform an iron panel to assess whether IV iron replacement is needed. - Normal vitamin B12 and vitamin D levels. - Your July colonoscopy showed moderate to severe inflammation with endoscopic scores of Rutgeerts I3 and SES-CD 13. - We discussed stopping Rinvoq to assess its impact on your symptoms. If your symptoms worsen significantly, we can restart it without concern for resistance. We discussed the clinical trial for Crohn's disease: - The clinical trial is expected to be ready by the end of December. Once the study is active, you will need to complete a screening process, including a colonoscopy and blood tests, to confirm eligibility. The colonoscopy will be part of the study and does not need to be done beforehand. - The catering coordinator will contact you once the trial is ready. You can also check with me a few days before your next visit to confirm the trial's status. Next steps: - Stop taking Rinvoq for now. Monitor your symptoms and let us know if they worsen significantly. - Complete your blood count and iron panel today before leaving the office. No fasting is required. - Schedule a follow-up appointment for January 03. You can check in with me a few days before the visit to confirm the trial's status and decide whether to proceed with the appointment based on your symptoms and the study's readiness. Please let us know if you have any questions or concerns. documented in this encounter [facility] 12-06-2024 Note HNO ID: [id number] Author: CALVIN VORA MD Service: ? Author Type: Physician Type: Progress Notes Filed: 12/06/2024 15:44 Note Text: Follow Up Visit Recording using [employer] software for draft documentation of the visit was discussed with the patient/authorized containers sales representative; all questions welcomed and answered. Patient/authorized containers sales representative agreed to proceed SUBJECTIVE 44 year old female with Crohn's disease here for follow-up. Last seen 10/18/24. Changes and test results since last visit: HPI: The patient is a 44-year-old female with Crohn?s disease, presenting for follow-up of her gastrointestinal symptoms. She reports that her symptoms are largely unchanged since her last visit. She notes an increased stool frequency, describing up to 10 bowel movements per day, which she characterizes as ?normal for the most part? and generally formed, though she sometimes experiences softer stools. She endorses occasional urgency and reports episodes of loud, painful, and embarrassing gas, though this typically occurs at home. She describes mild abdominal pain, which she states is less severe than in the past. She denies vomiting and states that her nausea has improved since her last visit. She reports that her weight loss, previously up to 10 pounds, has stabilized with no further loss. She denies current joint pain, swelling, or tenderness, and has not experienced joint symptoms in the past two months. She notes that when her Crohn?s symptoms flare severely, she experiences pain in both knees, but this has not occurred recently. She denies morning stiffness and states that she remains physically active, practicing yoga and working out regularly, which she believes is beneficial. She denies new skin rashes or mouth sores. She references a recent blood test in which her platelet count was elevated, which she found unusual, but she has not received any concerning follow-up from the office. She also notes that her vitamin D, previously low in May, and her vitamin B12 are now normal. She reports mild anemia, and her albumin has consistently been slightly low, with a most recent value of 3.6. She has been taking Rinvoq for almost a year. She underwent a colonoscopy in July, which showed moderate to severe inflammation. (July) Colonoscopy: Moderate to severe inflammation with Rutge?rt?s I3 and SCS CD of 13 (May) Vitamin D: Low Platelet count: Elevated Fecal calprotectin: 154 (previously 204 one year prior) Albumin: 3.6 (mildly decreased) Anemia: Mild Vitamin B12: Normal Vitamin D: Normal Active luminal IBD (physician global impression): Yes Patient report of joint pain: No Patient report of morning stiffness: No # of swollen or tender joints (numeral): 0 Location of tender or swollen joints (select all that apply): L knee and R knee Type of IBD Therapy before / at visit: Upadacitinib Type of IBD Therapy after visit: Unchanged Non-IBD related peripheral arthritis therapy: Other none Current Clinical Symptoms # of bowel movements daily: 10 # of liquid stools daily: 0 Consistency: soft, formed Bloody bowel movements: no Urgency: no Abdominal pain: yes Abdominal distention: no Nausea/vomiting: no Weight loss over last 3 months: no General well-being: slightly below average Patient-Entered Data 04/23/2023 05/22/2024 12/06/2024 SIBDQ Scores Bowel Score 5.67 6 2.67 Emotional Score 5.33 6 5 Systemic Score 5.5 5.5 6 Social Score 6.5 7 5 Total Score 5.7 6.1 4.5 05/22/2024 08/22/2024 12/06/2024 PRO-2 Crohn's Score Crohn's Disease Score 11 110 20 05/22/2024 08/22/2024 12/06/2024 PROMIS Global Health - (T-Scores - the mean of general population = 50. Five points is a clinically meaningful difference.) Physical T-Score 50.8 39.8 47.7 Mental T-Score 56 50.8 48.3 05/22/2024 08/22/2024 12/06/2024 PROMIS Global Health Scale Physical Health Percentile 53 15 41 Mental Health Percentile 73 53 43 Patient-reported Current Outpatient Medications Medication Sig Dispense Refill cyanocobalamin, vitamin B-12, 1,000 mcg/mL kit Inject 1,000 mcg intramuscularly once every month. 1 Kit 11 upadacitinib tablet ER 24 hr 30 mg (RINVOQ) Take 1 tablet (30 mg) by mouth once daily. Swallow whole; DO NOT crush, chew, or open. 90 tablet 3 ascorbic acid, vitamin C, (VITAMIN C) 250 mg tablet Take 250 mg by mouth. iceozxz-pgadobilc-xiivpnl D3 500 mg-5 mcg (200 unit) per tablet Take 1 tablet by mouth. valACYclovir (VALTREX) 1 gram Take 1,000 mg by mouth once daily as needed. CALCIUM ORAL Take by mouth. hydrOXYzine pamoate (VISTARIL) 25 mg capsule Take 25 mg by mouth as needed. Patient not sure of dosage multivitamin tablet Take 1 tablet by mouth once daily. ferrous sulfate (IRON ORAL) Take 1 capsule by mouth once daily. acetaminophen (TYLENOL) 325 mg tablet Take 650 mg by mouth every 6 hours as needed. ergocalciferol 50,000 unit capsule (VIT (more content not included)... [facility] 12-06-2024 History of Present illness Narrative Images from the original note were not included. Follow Up Visit Recording using [employer] software for draft documentation of the visit was discussed with the patient/authorized containers sales representative; all questions welcomed and answered. Patient/authorized containers sales representative agreed to proceed SUBJECTIVE 44 year old female with Crohn's disease here for follow-up. Last seen 10/18/24. Changes and test results since last visit: HPI: The patient is a 44-year-old female with Crohn s disease, presenting for follow-up of her gastrointestinal symptoms. She reports that her symptoms are largely unchanged since her last visit. She notes an increased stool frequency, describing up to 10 bowel movements per day, which she characterizes as normal for the most part and generally formed, though she sometimes experiences softer stools. She endorses occasional urgency and reports episodes of loud, painful, and embarrassing gas, though this typically occurs at home. She describes mild abdominal pain, which she states is less severe than in the past. She denies vomiting and states that her nausea has improved since her last visit. She reports that her weight loss, previously up to 10 pounds, has stabilized with no further loss. She denies current joint pain, swelling, or tenderness, and has not experienced joint symptoms in the past two months. She notes that when her Crohn s symptoms flare severely, she experiences pain in both knees, but this has not occurred recently. She denies morning stiffness and states that she remains physically active, practicing yoga and working out regularly, which she believes is beneficial. She denies new skin rashes or mouth sores. She references a recent blood test in which her platelet count was elevated, which she found unusual, but she has not received any concerning follow-up from the office. She also notes that her vitamin D, previously low in May, and her vitamin B12 are now normal. She reports mild anemia, and her albumin has consistently been slightly low, with a most recent value of 3.6. She has been taking Rinvoq for almost a year. She underwent a colonoscopy in July, which showed moderate to severe inflammation. (July) Colonoscopy: Moderate to severe inflammation with Rutge rt s I3 and SCS CD of 13 (May) Vitamin D: Low Platelet count: Elevated Fecal calprotectin: 154 (previously 204 one year prior) Albumin: 3.6 (mildly decreased) Anemia: Mild Vitamin B12: Normal Vitamin D: Normal Active luminal IBD (physician global impression): Yes Patient report of joint pain: No Patient report of morning stiffness: No # of swollen or tender joints (numeral): 0 Location of tender or swollen joints (select all that apply): L knee and R knee Type of IBD Therapy before / at visit: Upadacitinib Type of IBD Therapy after visit: Unchanged Non-IBD related peripheral arthritis therapy: Other none Current Clinical Symptoms # of bowel movements daily: 10 # of liquid stools daily: 0 Consistency: soft, formed Bloody bowel movements: no Urgency: no Abdominal pain: yes Abdominal distention: no Nausea/vomiting: no Weight loss over last 3 months: no General well-being: slightly below average Patient-Entered Data 04/23/2023 05/22/2024 12/06/2024 SIBDQ Scores Bowel Score 5.67 6 2.67 Emotional Score 5.33 6 5 Systemic Score 5.5 5.5 6 Social Score 6.5 7 5 Total Score 5.7 6.1 4.5 05/22/2024 08/22/2024 12/06/2024 PRO-2 Crohn's Score Crohn's Disease Score 11 110 20 05/22/2024 08/22/2024 12/06/2024 PROMIS Global Health - (T-Scores - the mean of general population = 50. Five points is a clinically meaningful difference.) Physical T-Score 50.8 39.8 47.7 Mental T-Score 56 50.8 48.3 05/22/2024 08/22/2024 12/06/2024 PROMIS Global Health Scale Physical Health Percentile 53 15 41 Mental Health Percentile 73 53 43 Patient-reported Current Outpatient Medications Medication Sig Dispense Refill cyanocobalamin, vitamin B-12, 1,000 mcg/mL kit Inject 1,000 mcg intramuscularly once every month. 1 Kit 11 upadacitinib tablet ER 24 hr 30 mg (RINVOQ) Take 1 tablet (30 mg) by mouth once daily. Swallow whole; DO NOT crush, chew, or open. 90 tablet 3 ascorbic acid, vitamin C, (VITAMIN C) 250 mg tablet Take 250 mg by mouth. pitqrqk-wbwcssjgk-xkuocxo D3 500 mg-5 mcg (200 unit) per tablet Take 1 tablet by mouth. valACYclovir (VALTREX) 1 gram Take 1,000 mg by mouth once daily as needed. CALCIUM ORAL Take by mouth. hydrOXYzine pamoate (VISTARIL) 25 mg capsule Take 25 mg by mouth as needed. Patient not sure of dosage multivitamin tablet Take 1 tablet by mouth once daily. ferrous sulfate (IRON ORAL) Take 1 capsule by mouth once daily. acetaminophen (TYLENOL) 325 mg tablet Take 650 mg by mouth every 6 hours as needed. ergocalciferol 50,000 unit capsule (VITAMIN D2, DRISDOL) Take 1 capsule by mouth one time a week. 12 capsule 1 Ferrous Sulfate 142 mg (45 mg iron) TbER Take 1 tablet by mouth daily with breakfast. sertraline (ZOLOFT) 100 mg tablet Take 100 mg by mouth once daily. inFLIXimab-abda (RENFLEXIS) 100 mg injection Inject 400 mg intravenously every 8 weeks. NURSE TO INSERT IV FOR ADMINISTRATION (Patient not taking: Reported on 02/04/2024) 400 mg No current facility-administered medications for this visit. ALLERGIES Allergen Reactions Ciprofibrate Anaphylaxis Ciprofloxacin Swelling, GI Upset, Anaphylaxis swelling at IV site and nausea Other reaction(s): stomach upset Demerol [Meperidine* Intolerance, Other: See Comments Patient reports Vomiting Gluten Protein GI Upset Meperidine Intolerance PHYSICAL EXAMINATION BP 118/76 Pulse 75 Temp 97.9 Ht 5' 1 (1.55m) Wt 121 lb (54.9kg) SpO2 98% LMP 11/29/2024 BMI 22.87 kg/(m^2). General Appearance: alert, oriented x 3, pleasant and in no acute distress Heart:regular rate and rhythm, no murmurs or gallops Abdomen: Not distended. Normal bowel sounds. Soft and non-tender. No masses or organomegaly. Skin: no rashes or lesions Lymph:No cervical, axillary, supraclavicular, or inguinal adenopathy. REVIEWED ITEMS CBC: WBC (k/uL) Date Value 12/06/2024 6.84 Hematocrit (%) Date Value 12/06/2024 33.8 (L) MCV (fL) Date Value 12/06/2024 88.0 Platelet Count (k/uL) Date Value 12/06/2024 362 Lymphocytes % (%) Date Value 12/06/2024 20.0 Hepatic Function Panel: Albumin (g/dL) Date Value 11/02/2024 3.6 (L) Bilirubin, Total (mg/dL) Date Value 11/02/2024 0.3 Bilirubin, Conjug (mg/dL) Date Value 08/22/2021 <0.2 Alkaline Phosphatase (U/L) Date Value 11/02/2024 73 AST (U/L) Date Value 11/02/2024 28 ALT (U/L) Date Value 11/02/2024 15 Protein, Total (g/dL) Date Value 11/02/2024 6.9 Imaging MRE 02/18/22: Active inflammatory bowel disease in the the ileum and mid rectum without luminal narrowing. Neoterminal ileum is patent. No penetrating disease. No acute extra gastrointestinal findings. Endoscopy Colonoscopy 07/2024: Impression: - Anal stricture found on digital rectal exam. - Patent [id number] ileo-colonic anastomosis, characterized by erythema, inflammation and ulceration. - Crohn's disease with ileitis and colitis. Inflammation was found. This was graded as Rutgeerts Score i3 (diffuse aphthous ileitis). Biopsied. - Active ileocolonic crohn's in the ileum and rectum. Simple Endoscopic Score for Crohn's Disease: 13, mucosal inflammatory changes secondary to Crohn's disease, with ileitis and colitis. Biopsied. Pathology: FINAL DIAGNOSIS A. Ileum, biopsy: - Chronic severely active ileitis with erosion with pyloric gland metaplasia. - Negative for granulomas or dysplasia. B. Right colon, biopsy: - Colonic mucosa with no significant diagnostic alteration. - No evidence of colitis, granulomas or dysplasia. C. Transverse colon, biopsy: - Focal moderately active colitis. - Negative for chronic mucosal injury, granulomas or dysplasia. D. Left colon, biopsy: - Focal mildly active colitis. - Negative for chronic mucosal injury, granulomas or dysplasia. E. Rectum, biopsy: - Chronic severely active colitis with ulceration. - Negative for granulomas or dysplasia. - A CMV immunostain will be performed and reported separately. Assessment IMPRESSION Physician Global Assessment of Disease Activity: severe disease 43 yo woman history of ileocolonic Crohn's disease initially diagnosed as indeterminate colitis. S/p ICR [place] [address] Casas with diverting loop ileostomy at the time. Treated with Vedo x 5 doses in 2018 when stopped for active disease and switched to Renflexis since 2019 to which she has had excellent response. IFX level in May 2020 was 5. She had acneiform rash which was treated with topical meds . Continued dose escalations up to 10 mg/kg q8w, but continued to have active disease and symptoms and switched to upa in 2023. Recent colonoscopy 08/04/24 shows Rutgeerts i3 disease and SES-CD 13 with ongoing active symptoms. Given these findings will need to switch therapy. Discussed switch to IL-23 such as skyrizi or tremfya vs. Clinical trial for TL1A inhibitor which is due to open soon. She actually prefers to do clinical trial. Symptoms remain stable. Plan to hold rinvoq for now in anticipation of therapy switch as patient does not want to do a refill due to cost. Will monitor how she does off therapy and have followup in December. 1. Iron deficiency anemia, unspecified iron deficiency anemia type (D50.9) Mild anemia noted on recent labs. Iron levels have not been checked recently. - Ordered CBC and iron panel to assess current status of anemia and determine need for IV iron replacement. 2. Crohn's disease, unspecified, with other complication (HCC) (K50.918) Symptoms include increased bowel movements (up to 10 times daily), occasional urgency, and mild abdominal pain. No current joint pain, but previous episodes in knees during flares. Recent labs show mildly elevated fecal calprotectin (154), elevated platelet count, and low albumin (3.6). Previous endoscopy in July showed moderate to severe inflammation with Ruchert's I3 and SCS CD of 13. Currently on Rinvoq for almost a year. - Discontinue Rinvoq; can be restarted if symptoms worsen. - Discussed potential enrollment in a clinical trial of TL1A vs start IL-23 inhibitors (Nelyyrkeni, Tremfya, Omvah); trial expected to start end of December. - Scheduled follow-up appointment on January 03 to assess symptoms and trial status. - Coordinator will reach out once the study is IRB approved. 3. Encounter for therapeutic drug level monitoring (Z51.81) Currently on Rinvoq for Crohn's disease management. - Monitor response to discontinuation of Rinvoq. Medical Decision Making: Problems: Low: Stable chronic illness Data: Unique test(s) ordered: 3+ Risk: High: Drug therapy requiring intensive monitoring Medical Decision Making Level: 4 - Moderate PATIENT IS OK TO BE CONTACTED BY IBD GI RESEARCH TEAM TO EXPLORE PARTICIPATION IN RESEARCH STUDIES Calvin Vora MD December 06, 2024 10:36 AM documented in this encounter [facility] 10-18-2024 Instructions Billy Barrera PA-C - 10/18/2024 2:21 PM EDT - check labs. Make sure to fast prior to labs - check stool studies - can take Zofran as needed for nausea - follow up in 8 weeks unless needed sooner documented in this encounter [facility] 10-18-2024 History of Present illness Narrative .Follow Up Visit SUBJECTIVE 43 year old female with Crohn's disease here for follow-up. Last seen 08/2024 Changes and test results since last visit: Patient presents today for a follow up. States that since the last visit, she has lost 10 lbs. Has been having more abdominal pain, nausea, rectal bleeding. Went to the ED in [place]. Reports undergoing CT which was normal. Currently states symptoms are still present but not as severe. Still having intermittent lower abdominal pain and 4-6 soft/loose BM daily with minimal rectal bleeding.Takes imodium as needed. 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 - Patent [id number] ileo-colonic anastomosis, characterized by erythema, inflammation and ulceration. - Crohn's disease with ileitis and colitis. Inflammation was found. This was graded as Rutgeerts Score i3 (diffuse aphthous ileitis). Biopsied. - Active ileocolonic crohn's in the ileum and rectum. Simple Endoscopic Score for Crohn's Disease: 13, mucosal inflammatory changes secondary to Crohn's disease, with ileitis and colitis. Biopsied. Pathology: FINAL DIAGNOSIS A. Ileum, biopsy: - Chronic severely active ileitis with erosion with pyloric gland metaplasia. - Negative for granulomas or dysplasia. B. Right colon, biopsy: - Colonic mucosa with no significant diagnostic alteration. - No evidence of colitis, granulomas or dysplasia. C. Transverse colon, biopsy: - Focal moderately active colitis. - Negative for chronic mucosal injury, granulomas or dysplasia. D. Left colon, biopsy: - Focal mildly active colitis. - Negative for chronic mucosal injury, granulomas or dysplasia. E. Rectum, biopsy: - Chronic severely active colitis with ulceration. - Negative for granulomas or dysplasia. - A CMV immunostain will be performed and reported separately. CBC: WBC (k/uL) Date Value 05/23/2024 8.19 Hematocrit (%) Date Value 05/23/2024 38.9 MCV (fL) Date Value 05/23/2024 94.9 Platelet Count (k/uL) Date Value 05/23/2024 358 Lymphocytes % (%) Date Value 05/23/2024 23.9 Hepatic Function Panel: Albumin (g/dL) Date Value 01/11/2024 3.5 (L) Bilirubin, Total (mg/dL) Date Value 01/11/2024 0.3 Bilirubin, Conjug (mg/dL) Date Value 08/22/2021 <0.2 Alkaline Phosphatase (U/L) Date Value 01/11/2024 91 AST (U/L) Date Value 01/11/2024 26 ALT (U/L) Date Value 01/11/2024 24 Protein, Total (g/dL) Date Value 01/11/2024 6.9 Current Outpatient Medications Medication Sig Dispense Refill ergocalciferol 50,000 unit capsule (VITAMIN D2, DRISDOL) Take 1 capsule by mouth one time a week. 12 capsule 1 cyanocobalamin, vitamin B-12, 1,000 mcg/mL kit Inject 1,000 mcg intramuscularly once every month. 1 Kit 11 upadacitinib tablet ER 24 hr 30 mg (RINVOQ) Take 1 tablet (30 mg) by mouth once daily. Swallow whole; DO NOT crush, chew, or open. 90 tablet 3 ascorbic acid, vitamin C, (VITAMIN C) 250 mg tablet Take 250 mg by mouth. vvovbxr-nanwltvcy-imvinny D3 500 mg-5 mcg (200 unit) per tablet Take 1 tablet by mouth. Ferrous Sulfate 142 mg (45 mg iron) TbER Take 1 tablet by mouth daily with breakfast. valACYclovir (VALTREX) 1 gram Take 1,000 mg by mouth once daily as needed. CALCIUM ORAL Take by mouth. hydrOXYzine pamoate (VISTARIL) 25 mg capsule Take 25 mg by mouth as needed. Patient not sure of dosage multivitamin tablet Take 1 tablet by mouth once daily. ferrous sulfate (IRON ORAL) Take 1 capsule by mouth once daily. acetaminophen (TYLENOL) 325 mg tablet Take 650 mg by mouth every 6 hours as needed. ondansetron (ZOFRAN) 8 mg tablet Take 1 tablet by mouth every 8 hours as needed for nausea/vomiting. 60 tablet 0 sertraline (ZOLOFT) 100 mg tablet Take 100 mg by mouth once daily. inFLIXimab-abda (RENFLEXIS) 100 mg injection Inject 400 mg intravenously every 8 weeks. NURSE TO INSERT IV FOR ADMINISTRATION (Patient not taking: Reported on 02/04/2024) 400 mg No current facility-administered medications for this visit. ALLERGIES Allergen Reactions Ciprofibrate Anaphylaxis Ciprofloxacin Swelling, GI Upset, Anaphylaxis swelling at IV site and nausea Other reaction(s): stomach upset Demerol [Meperidine* Intolerance, Other: See Comments Patient reports Vomiting Gluten Protein GI Upset Meperidine Intolerance PHYSICAL EXAMINATION Ht 5' 1 (1.55m) Wt 119 lb (54.0kg) LMP 07/13/2024 BMI 22.50 kg/(m^2). General appearance: alert, oriented x 3, pleasant and in no acute distress Heart:regular rate and rhythm, no murmurs or gallops Lungs: clear & equal BL Abdomen: Not distended. Normal bowel sounds. Soft and non-tender. No masses or organomegaly. Skin: no rashes or lesions Assessment IMPRESSION (portions of this note have been copied from ... prior note and updated to reflect medical decision making today) Patient is a 43 year old female with PMHx of ileocolic Crohn's disease s/p ileocolonic resection in 2017 w/ diverting loop ileostomy + takedown. Was then treated with Entvyio (five doses) in 2018 but still had active disease. Therefore, was started on Renflexis. Since she has mild reoccurrence of disease (Rutgeerts i2b), she was dose optimized to 7.5 mg/kg every 8 weeks and then dose optimized to 10 mg/kg every 8 weeks in 2021. She had ongoing disease and was started on upadacitinib. Most recent colonoscopy was which showed progression of disease to Rutgeerts i3a and SES-CD 13. Recommended to switch to TL1A clinical trial vs Skyrizi given her current scope findings. After careful consideration, patient chose to proceed with TL1A clinical trial Patient presents today for a follow up. Has been having more abdominal pain, nausea, rectal bleeding. Went to the ED in [place]. Reports undergoing CT which was normal. Currently states symptoms are still present but not as severe. Still having intermittent lower abdominal pain and 4-6 soft/loose BM daily with minimal rectal bleeding. At this time, we will continue with the study that is planned to begin in November. Recommended that we can start her on a course of prednisone in the meantime. Patient is willing to wait for the study but will let us know if symptoms worsen. In the meantime, will check labs and fecal lillian. PLAN - Continue Rinvoq 30 mg - Can take zofran as needed for nausea - Check labs including fasting lipid panel - Check fecal lillian - Study is planned to begin in November 2024 - Follow up in 8 weeks unless needed sooner Billy Barrera PA-C I reviewed and agree with the assessment as documented above. Patient care delivered with direct supervision in accordance with treatment plan. 43 yo woman history of ileocolonic Crohn's disease initially diagnosed as indeterminate colitis. [place]CR [place] [address] Casas with diverting loop ileostomy at the time. Treated with Vedo x 5 doses in 2018 when stopped for active disease and switched to Renflexis since 2019 to which she has had excellent response. IFX level in May 2020 was 5. She had acneiform rash which was treated with topical meds . Continued dose escalations up to 10 mg/kg q8w, but continued to have active disease and symptoms and switched to upa in 2023. Recent colonoscopy 08/04/24 shows Rutgeerts i3 disease and SES-CD 13 with ongoing active symptoms. Given these findings will need to switch therapy. Discussed switch to IL-23 such as skyrizi or tremfya vs. Clinical trial for TL1A inhibitor which is due to open soon. She actually prefers to do clinical trial. Symptoms are stable though has been losing weight. Will continue to monitor and add prednisone if worsens. Plan to follow-up in November. Will have more clarity on response and potential for study at that time. Medical Decision Making: Problems: Low: Stable chronic illness Data: Unique test(s) ordered: 3+ Risk: High: Drug therapy requiring intensive monitoring Medical Decision Making Level: 4 - Moderate Calvin Vora MD, MAS (Signed electronically to expedite mailing) Calvin Vora MD October 18, 2024 10:33 AM documented in this encounter [facility] 10-18-2024 Note HNO ID: [id number] Author: BILLY BARRERA PA-C Service: ? Author Type: Physician Type: Progress Notes Filed: 10/18/2024 15:21 Note Text: .Follow Up Visit SUBJECTIVE 43 year old female with Crohn's disease here for follow-up. Last seen 08/2024 Changes and test results since last visit: Patient presents today for a follow up. States that since the last visit, she has lost 10 lbs. Has been having more abdominal pain, nausea, rectal bleeding. Went to the ED in [place]. Reports undergoing CT which was normal. Currently states symptoms are still present but not as severe. Still having intermittent lower abdominal pain and 4-6 soft/loose BM daily with minimal rectal bleeding.Takes imodium as needed. 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 - Patent [id number] ileo-colonic anastomosis, characterized by erythema, inflammation and ulceration. - Crohn's disease with ileitis and colitis. Inflammation was found. This was graded as Rutgeerts Score i3 (diffuse aphthous ileitis). Biopsied. - Active ileocolonic crohn's in the ileum and rectum. Simple Endoscopic Score for Crohn's Disease: 13, mucosal inflammatory changes secondary to Crohn's disease, with ileitis and colitis. Biopsied. Pathology: FINAL DIAGNOSIS A. Ileum, biopsy: - Chronic severely active ileitis with erosion with pyloric gland metaplasia. - Negative for granulomas or dysplasia. B. Right colon, biopsy: - Colonic mucosa with no significant diagnostic alteration. - No evidence of colitis, granulomas or dysplasia. C. Transverse colon, biopsy: - Focal moderately active colitis. - Negative for chronic mucosal injury, granulomas or dysplasia. D. Left colon, biopsy: - Focal mildly active colitis. - Negative for chronic mucosal injury, granulomas or dysplasia. E. Rectum, biopsy: - Chronic severely active colitis with ulceration. - Negative for granulomas or dysplasia. - A CMV immunostain will be performed and reported separately. CBC: WBC (k/uL) Date Value 05/23/2024 8.19 Hematocrit (%) Date Value 05/23/2024 38.9 MCV (fL) Date Value 05/23/2024 94.9 Platelet Count (k/uL) Date Value 05/23/2024 358 Lymphocytes % (%) Date Value 05/23/2024 23.9 Hepatic Function Panel: Albumin (g/dL) Date Value 01/11/2024 3.5 (L) Bilirubin, Total (mg/dL) Date Value 01/11/2024 0.3 Bilirubin, Conjug (mg/dL) Date Value 08/22/2021 <0.2 Alkaline Phosphatase (U/L) Date Value 01/11/2024 91 AST (U/L) Date Value 01/11/2024 26 ALT (U/L) Date Value 01/11/2024 24 Protein, Total (g/dL) Date Value 01/11/2024 6.9 Current Outpatient Medications Medication Sig Dispense Refill ergocalciferol 50,000 unit capsule (VITAMIN D2, DRISDOL) Take 1 capsule by mouth one time a week. 12 capsule 1 cyanocobalamin, vitamin B-12, 1,000 mcg/mL kit Inject 1,000 mcg intramuscularly once every month. 1 Kit 11 upadacitinib tablet ER 24 hr 30 mg (RINVOQ) Take 1 tablet (30 mg) by mouth once daily. Swallow whole; DO NOT crush, chew, or open. 90 tablet 3 ascorbic acid, vitamin C, (VITAMIN C) 250 mg tablet Take 250 mg by mouth. tblplok-mrxrhakdl-cagzlgm D3 500 mg-5 mcg (200 unit) per tablet Take 1 tablet by mouth. Ferrous Sulfate 142 mg (45 mg iron) TbER Take 1 tablet by mouth daily with breakfast. valACYclovir (VALTREX) 1 gram Take 1,000 mg by mouth once daily as needed. CALCIUM ORAL Take by mouth. hydrOXYzine pamoate (VISTARIL) 25 mg capsule Take 25 mg by mouth as needed. Patient not sure of dosage multivitamin tablet Take 1 tablet by mouth once daily. ferrous sulfate (IRON ORAL) Take 1 capsule by mouth once daily. acetaminophen (TYLENOL) 325 mg tablet Take 650 mg by mouth every 6 hours as needed. ondansetron (ZOFRAN) 8 mg tablet Take 1 tablet by mouth every 8 hours as needed for nausea/vomiting. 60 tablet 0 sertraline (ZOLOFT) 100 mg tablet Take 100 mg by mouth once daily. inFLIXimab-abda (RENFLEXIS) 100 mg injection Inject 400 mg intravenously every 8 weeks. NURSE TO INSERT IV FOR ADMINISTRATION (Patient not taking: Reported on 02/04/2024) 400 mg No current facility-administered medications for this visit. ALLERGIES Allergen Reactions Ciprofibrate Anaphylaxis Ciprofloxacin Swelling, GI Upset, Anaphylaxis swelling at IV site and nausea Other reaction(s): stomach upset Demerol [Meperidin (more content not included)... [facility] 10-01-2024 Discharge summary [facility] 10-01-2024 Radiology Diagnostic study note [facility] Imaging Services [address] [place], [place] [id number] Abdomen/Pelvis W IV Cont ONLY MR#: [id number] Acct: [id number] Name: WALTER KELLER Rep #: [id number] 1 : 1980 F 43 From: Kamryn Sarah MD PCP: Care Physician,No Primary Status: REG ER Study:Abdomen/Pelvis W IV Cont ONLY Date of E xam: 10/01/24 Exam# [id number] Ordering Dr: Anthony West MD PROCEDURE: ABDOMEN/PELVIS W IV CONT ONLY 10/01/2024 REASON FOR EXAM: 43-year-old female, abdominal pain, history of Crohn's disease. TECHNIQUE: Abdomen CT without and with intravenous contrast. Coronal and Sagittal reconstruction series were provided. PATIENT PREPARATION: Per protocol ORAL CONTRAST TYPE: None. CONTRAST: Isovue-300 VOLUME: 100mL One or more dose reduction techniques were used (e.g., Automated exposure control, adjustment of the mA and/or kV according to patient size, use of iterative reconstruction technique. RADIATION DOSE SUMMARY: CTDlvol: 19 mGy DLP: 323 mGycm COMPARISON: None. FINDINGS: Lung bases: The heart is normal in size. Lung bases are clear. Liver: The liver is normal in size without focal hepatic mass. The major portalveins are patent. No biliary ductal dilation. Gallbladder: No radiopaque stones within the gallbladder. Spleen: Unremarkable. Pancreas: Unremarkable. Adrenals: Unremarkable. Kidneys: No hydronephrosis or nephrolithiasis. Bladder: Decompressed. Reproductive Organs: Normal uterine size and contour. Ovaries are unremarkable. Physiologic left corpus luteum. Bowel: Prior bowel resection and anastomosis in the right lower quadrant. The bowel loops are normal in caliber. Moderate diffuse mural thickening and enhancement of the distal colon, compatible with reported history of Crohn's disease. Mild mesenteric edema. No ascites or pneumoperitoneum. Probable prior appendectomy. Lymph nodes: Prominent mesenteric and lower abdominopelvic nodes, likely inflammatory. No suspicious lymphadenopathy. Vasculature: Unremarkable. Bones: No aggressive osseous lesions. CT/Abdomen/Pelvis W IV Cont ONLY IMPRESSION: Findings compatible with Crohn's disease. No bowel obstruction or abdominopelvic abscess identified. Reading Location: [facility] CC: Dr. 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 Medical Records Department [address] [place] [address] Emergency Department Summary 10/01/24 MR#: [id number] Acct: [id number] Name: WALTER KELLER Rep #:[id number] 1 : 1980 43 From: Anthony West MD PCP: Care Physician,No Primary Status :REG ER Location: ED HPI HPI - GI History of Present Illness Chief Complaint: Abd Pain Narrative Narrative: 43-year-old female past medical history of Crohn disease, sees gastroenterology at the [facility] presents with concerns for bowel obstructionwhich she has had in the past. She has had ileostomy with small bowel resectionin the past. She has had reversal of her ileostomy. 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 She states that today while she was at work, she began feeling nauseated but no vomiting. She also had black stool mixed with bright red blood. She states that she is concerned for bowel obstruction. She is having increasing pain fromher Crohn disease. She states that the Entyvio is not working and she supposed to be changed to a drug trial soon. [facility] Medical History Stomach ulcer GERD (gastroesophageal reflux disease) PCOS (polycystic ovarian syndrome) IBS (irritable bowel syndrome) History of frequent headaches Gastrointestinal problem Anemia Home Medications ?Medication ?Instructions ?Recorded ?Last Taken ?Type calcium carbonate-vitamin D3 600 tab PO 09/08/24 Unkno wn History mg calcium-200 unit chewable tablet ergocalciferol (vitamin D2) 1,250 1,250 mcg PO QWEEK 0 09/08/24 Unknown History mcg (50,000 unit) capsule ferrous sulfate 325 mg (65 mg 325 mg PO QDAY 09/08/24 Unknown History iron) tablet (Feosol) multivitamin 1 tab PO QDAY 09/08/24 Unkno wn History sertraline 25 mg tablet (Zoloft) 25 mg PO QDAY 5 Unknown History upadacitinib 30 mg tablet,extended 30 mg PO QDAY 09/08 Unknown History release 24 hr (Rinvoq) Allergy/AdvReac Type Severity Reaction Status Date / Time gluten Allergy Severe bloating Verified 10/01/24 11:25 meperidine (From Demerol) Allergy Severe Vomiting Verified 10/01/24 11:25 ciprofloxacin Allergy Intermediate Swelling Verified 10/01/24 11:25 Family History Mother Alcoholism Anxiety Arthritis Depression Hypertension Father Anxiety Psoriasis Hypertension Grandmother Depression Breast cancer Diabetes Osteoporosis Grandfather Myocardial infarction Aunt Breast cancer Parkinsons Depression Surgical History History of removal of ovarian cyst H/O colostomy Social History Smoking Status: Former smoker alcohol intake: current details: once a week substance use type: does not use and marijuana what type of physical activity do you participate in: walking, yoga and weight training frequency: 3-4 times per week ROS ROS ED ROS Narrative Constitutional: No fever, no chills. Cardiovascular: No chest pain. No palpitations. No pedal edema. Abdominal: Positive abdominal pain. Positive nausea. No vomiting. Reported black and bright red blood in stool. Musculoskeletal: No myalgias. No arthralgias. Neurologic: No headaches. No dizziness. No lightheadedness. EXAM Physical Exam Narrative Exam Narrative: Afebrile. Vital signs noted. Nontoxic-appearing. Cardiovascular examination reveals a regular rate and rhythm. Lungs clear to auscultation bilaterally. The abdomen is soft with diffuse tenderness to palpation, no guarding or rebound. Positive bowel sounds. Neurological examination nonfocal and nonlateralizing. Const Vital Signs: 10/01/24 11:25 10/01/24 13:25 Temperature 98.6 F Temperature Source Oral Pulse Rate 94 79 Respiratory Rate 18 16 Blood Pressure 123/85 H 130/64 H Blood Pressure Mean 97 86 Pulse Ox 99 98 Oxygen Delivery Method Room Air MDM MDM MDM Narrative Medical decision making narrative: Differential diagnosis includes but not limited to Crohn exacerbation versus bowel obstruction versus partial small bowel obstruction versus colitis. Patient was given analgesia in the form of morphine and ondansetron. She will be bolused normal saline [address] will be obtained to rule out obstruction. I will check her basic laboratory work as well for any dehydrationor other electrolyte abnormality. I reviewed her laboratory work and she has normal white count of 7.4 with hemoglobin stable at 11.2, hematocrit 33.3, platelet count normal at 372. CMP is significant for an AST of 34 which I think is nonspecific, ALT normal at 27 and alk phos 96. BUN is normal at 6 with creatinine 0.81, no evidence of dehydration. Normal sodium and potassium. Urinalysis is negative for infection. While there are 5-10 WBCs, she is not having dysuria, I do not feel antibiotics are indicated. Her serum test is negative. I reviewed the radiology report of the CT of the abdomen and pelvis and it is consistent with Crohn disease but there is no acute process, no obstruction, no evidence of abscess. At this point in time, repeat examination shows her to feel the same. 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 Return instructions were reviewed. Disposition is discharged home in stable condition. History & Record Review Discussion w/independent historian: Patient Lab Data Attestation: I reviewed the patient's lab results. Labs: Laboratory Results - last 24 hr 10/01/24 10/01/24 12:01 12:07 WBC 7.4 RBC 3.84 L Hgb 11.2 L Hct 33.3 L MCV 86.7 MCH 29.2 MCHC 33.6 RDW Std Deviation 41.2 RDW Coeff of Dominguez 13.2 Plt Count 372 MPV 8.8 Immature Gran % (Auto) 0.400 Neut % (Auto) 68.8 Lymph % (Auto) 20.4 Lipscomb % (Auto) 7.9 Eos % (Auto) 2.2 Baso % (Auto) 0.3 Absolute Neuts (auto) 5.1 Absolute Lymphs (auto) 1.50 Nucleated RBC % 0 Sodium 139 Potassium 3.5 Chloride 104 Carbon Dioxide 23.4 Anion Gap 12 BUN 6 Creatinine 0.81 Estim Creat Clear Calc 68.27 Est GFR (MDRD) Non-Af 92 BUN/Creatinine Ratio 6.8 L Glucose 84 Calcium 8.9 Total Bilirubin 0.31 AST 34 H ALT 27 Alkaline Phosphatase 96 Total Protein 7.0 Albumin 3.6 Globulin 3.4 Albumin/Globulin Ratio 1.1 Lipase 39 Serum , Qual NEGATIVE Urine Color Yellow Urine Clarity Clear Urine pH 7.0 Ur Specific Baxter 1.005 Urine Protein 15 H Urine Glucose (UA) Normal Urine Ketones Negative Urine Occult Blood 10 H Urine Nitrite Negative Urine Bilirubin Negative Urine Urobilinogen Normal Ur Leukocyte Esterase 500 H Urine RBC 0-5 SEEN Urine WBC 5-10 SEEN Ur Squamous Epith Cells 0-5 SEEN Urine Bacteria 1+ Urine Mucus 0 SEEN Radiography Diagnostic Testing: Clinical Impression(s) from Imaging Studies Abdomen/Pelvis CT 10/01/24 11:55 IMPRESSION: Findings compatible with Crohn's disease. No bowel obstruction or abdominopelvic abscess identified. Reading Location: [facility] Discharge Plan Triage Chief Complaint: Abd Pain ED Provider: Anthony West Dx/Rx/DC Orders Clinical Impression: Exacerbation of Crohn's disease, Abdominal pain Instructions: ED Crohn's Disease Prescriptions: No Action Rinvoq 30 mg tablet extended release 24 hr 30 mg PO QDAY sertraline [Zoloft] 25 mg tablet 25 mg PO QDAY ergocalciferol (vitamin D2) 1,250 mcg (50,000 unit) capsule 1,250 mcg PO QWEEK multivitamin Tablet 1 tab PO QDAY calcium carbonate-vitamin D3 600 mg calcium- 200 unit tablet,chewable PO ferrous sulfate [Feosol] 325 mg (65 mg iron) tablet 325 mg PO QDAY Patient Comments: Primary Care Provider: Care Physician,No Primary Referrals: Care Physician,No Primary [Primary Care Provider] - Activity Restrictions/Additional Instructions: 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 Return with new or worsening symptoms. Print Language: Dominican Disposition Disposition: Home, Self Care What to do if you have Problems For any increased pain, shortness of breath, bleeding, nausea or vomiting, chestpain, or any unexpected problems, contact your Primary Care Provider. Call [facility] ([phone]) or report to the closest Emergency Room. Call 911 if necessary. 10/01/24 [id number] <Electronically signed by Anthony West MD> Cosigner Signature (if applicable): CC: No Primary Care Physician ~ Signed [facility] Work Phone: [phone] 528-944202-11-2025 History of Present illness Narrative* Calvin Vora MD - 08/23/2024 10:30 AM EST Images from the original note were not included. Follow Up Visit SUBJECTIVE 43 year old female with Crohn's disease here for follow-up. Last seen 05/23/2024. Changes and test results since last visit: Decreased appetite. Past couple weeks gets urgency after eating, as well as nausea but no vomiting.Have some cramping abdominal pain unsure if it is related to crohn's or her endometriosis. Bowel movements ranges from watery to formed, occasionally with blood. 3-5 bm/day, no nocturnal urgency, no incontinence. Having oral ulcers but no other EIM. 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 CBC: WBC (k/uL) Date Value 05/23/2024 8.19 Hematocrit (%) Date Value 05/23/2024 38.9 MCV (fL) Date Value 05/23/2024 94.9 Platelet Count (k/uL) Date Value 05/23/2024 358 Lymphocytes % (%) Date Value 05/23/2024 23.9 Hepatic Function Panel: Albumin (g/dL) Date Value 01/11/2024 3.5 (L) Bilirubin, Total (mg/dL) Date Value 01/11/2024 0.3 Bilirubin, Conjug (mg/dL) Date Value 08/22/2021 <0.2 Alkaline Phosphatase (U/L) Date Value 01/11/2024 91 AST (U/L) Date Value 01/11/2024 26 ALT (U/L) Date Value 01/11/2024 24 Protein, Total (g/dL) Date Value 01/11/2024 6.9 Current Clinical Symptoms # of bowel movements daily: 3-5 # of liquid stools daily: 3 Consistency: Any where from watery to formed Bloody bowel movements: yes Urgency: yes Abdominal pain: yes Abdominal distention: no Nausea/vomiting: yes, but no vomiting Weight loss over last 3 months: no General well-being: slightly below average Patient-Entered Data 05/22/2022 04/23/2023 05/22/2024 SIBDQ Scores Bowel Score 5.33 5.67 6 Emotional Score 5 5.33 6 Systemic Score 6 5.5 5.5 Social Score 6.5 6.5 7 Total Score 5.6 5.7 6.1 09/23/2023 05/22/2024 08/22/2024 PRO-2 Crohn's Score Crohn's Disease Score 15 11 110 09/23/2023 05/22/2024 08/22/2024 PROMIS Global Health - (T-Scores - the mean of general population = 50. Five points is a clinicallymeaningful difference.) Physical T-Score 50.8 50.8 39.8 Mental T-Score 48.3 56 50.8 09/23/2023 05/22/2024 08/22/2024 PROMIS Global Health Scale Physical Health Percentile 53 53 15 Mental Health Percentile 43 73 53 Patient-reported Current Outpatient Medications Medication Sig Dispense Refill ergocalciferol 50,000 unit capsule (VITAMIN D2, DRISDOL) Take 1 capsule by mouth one time a week. 12 capsule 1 cyanocobalamin, vitamin B-12, 1,000 mcg/mL kit Inject 1,000 mcg intramuscularly once every month. 1Kit 11 upadacitinib tablet ER 24 hr 30 mg (RINVOQ) Take 1 tablet (30 mg) by mouth once daily. Swallow whole; DO NOT crush, chew, or open. 90 tablet 3 ascorbic acid, vitamin C, (VITAMIN C) 250 mg tablet Take 250 mg by mouth. zbemtkl-kcqpezejs-sacvnhu D3 500 mg-5 mcg (200 unit) per tablet Take 1 tablet by mouth. Ferrous Sulfate 142 mg (45 mg iron) TbER Take 1 tablet by mouth daily with breakfast. valACYclovir (VALTREX) 1 gram Take 1,000 mg by mouth once daily as needed. CALCIUM ORAL Take by mouth. sertraline (ZOLOFT) 100 mg tablet Take 100 mg by mouth once daily. hydrOXYzine pamoate (VISTARIL) 25 mg capsule Take 25 mg by mouth as needed. Patient not sure of dosage inFLIXimab-abda (RENFLEXIS) 100 mg injection Inject 400 mg intravenously every 8 weeks. NURSE TO INSERT IV FOR ADMINISTRATION (Patient not taking: Reported on 02/04/2024) 400 mg multivitamin tablet Take 1 tablet by mouth once daily. ferrous sulfate (IRON ORAL) Take 1 capsule by mouth once daily. acetaminophen (TYLENOL) 325 mg tablet Take 650 mg by mouth every 6 hours as needed. No current facility-administered medications for this visit. ALLERGIES Allergen Reactions Ciprofibrate Anaphylaxis Ciprofloxacin Swelling, GI Upset, Anaphylaxis swelling at IV site and nausea Other reaction(s): stomach upset Demerol [Meperidine* Intolerance, Other: See Comments Patient reports Vomiting Gluten Protein GI Upset Meperidine Intolerance PHYSICAL EXAMINATION LMP 07/13/2024 General Appearance: alert, oriented x 3, pleasant and in no acute distress Heart:regular rate and rhythm, no murmurs or gallops Abdomen: Not distended. Normal bowel sounds. Soft and non-tender. No masses or organomegaly. Skin: no rashes or lesions Lymph:No cervical, axillary, supraclavicular, or inguinal adenopathy. Colonoscopy 08/04/2024: Impression: - Anal stricture found on digital rectal exam. - Patent jrnn-ed-[id number] ileo-colonic anastomosis, characterized by erythema, inflammation and ulceration. - Crohn's disease with ileitis and colitis. Inflammation was found. This was graded as Rutgeerts Score i3 (diffuse aphthous ileitis). Biopsied. - Active ileocolonic crohn's in the ileum and rectum. Simple Endoscopic Score for Crohn's Disease: 13, mucosal inflammatory changes secondary to Crohn's disease, with ileitis and colitis. Biopsied FINAL DIAGNOSIS A. Ileum, biopsy: - Chronic severely active ileitis with erosion with pyloric gland metaplasia. - Negative for granulomas or dysplasia. B. Right colon, biopsy: - Colonic mucosa with no significant diagnostic alteration. - No evidence of colitis, granulomas or dysplasia. C. Transverse colon, biopsy: - Focal moderately active colitis. - Negative for chronic mucosal injury, granulomas or dysplasia. D. Left colon, biopsy: - Focal mildly active colitis. - Negative for chronic mucosal injury, granulomas or dysplasia. E. Rectum, biopsy: - Chronic severely active colitis with ulceration. - Negative for granulomas or dysplasia. - A CMV immunostain will be performed and reported separately. Assessment IMPRESSION Ms. Keller, is a 43-year-old female with history of ileocolic Crohn's disease and underwent an ileocolic resection in 2017 with diverting loop ileostomy and subsequent takedown. Treated with vedolizumab in 2018 and then switched to Renflexis due to active disease. Due to mild recurrence (i2b) she was dose optimized to 7.5 mg/kg every 8 weeks and then in 2021 due to ongoing symptoms dose optimizedto 10 mg/kg every 8 weeks.Despite that she had ongoing disease for which she was switched over to upadacitinib. Colonoscopy 08/04/2024 showing disease progression Rutgeerts 3 and SES-CD=13. She reports decreased appetite. Past couple weeks gets urgency after eating, as well as nausea but no vomiting. Have some cramping abdominal pain unsure if it is related to crohn's or her endometriosis. Bowel movements ranges from watery to formed, occasionally with blood. 3-5 bm/day, no nocturnal urgency, noincontinence. Having oral ulcers but no other EIM. Discussed in depth treatment options including TL1A clinical trial vs Skyrizi. Patient leaning more towards being enrolled in the trial. Physician Global Assessment of Disease Activity: severe disease PLAN Patient wishes to be enrolled in the TL1A clinical trial Continue with rinvoq for now Will need another colonoscopy for the study. She requests NOT using Miralax prep Follow up in 2 month Arnoldo Manzano MD I reviewed and agree with the assessment as documented above. Patient care delivered with direct supervision in accordance with treatment plan. 43 yo woman history of ileocolonic Crohn's disease initially diagnosed as indeterminate colitis. S/p ICR [place] [address] Casas with diverting loop ileostomy at the time. Treated with Vedo x 5 doses in 2018 when stopped for active disease and switched to Renflexis since 2019 to which she has had excellent response. IFX level in May 2020 was 5. She had acneiform rash which was treated with topical meds . Continued dose escalations up to 10 mg/kg q8w, but continued to have active disease and symptoms and switched to upa in 2023. Recent colonoscopy 08/04 shows Rutgeerts i3 disease and SES-CD 13 with ongoing active symptoms. Given these findings will need to switch therapy. Discussed switch to IL-23 such as skyrizi vs. Clinical trial for TL1A inhibitor which is due to open soon. She actually prefers to do clinical trial. Will plan to screen whenstudy active. Continue upa for now until that time. Medical Decision Making: Problems: Moderate: 1+ chronic illnesses with change Risk: High: Drug therapy requiring intensive monitoring Medical Decision Making Level: 4 - Moderate Calvin Vora MD, MAS (Signed electronically to expedite mailing) Calvin Vora MD August 22, 2024 4:18 PM documented in this encounterSum[facility] NoteHNO ID: [id number] Author: CALVIN VORA MD Service: ? Author Type: Physician Type: Progress Notes Filed: 08/23/2024 22:24 Note Text: Follow Up Visit SUBJECTIVE 43 year old female with Crohn's disease here for follow-up. Last seen 05/23/2024. Changes and test results since last visit: Decreased appetite. Past couple weeks gets urgency after eating, as well as nausea but no vomiting. Have some cramping abdominal pain unsure if it is related to crohn's or her endometriosis. Bowel movements ranges from watery to formed, occasionally with blood. 3-5 bm/day, no nocturnal urgency, no incontinence. Having oral ulcers but no other EIM. 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 CBC: WBC (k/uL) Date Value 05/23/2024 8.19 Hematocrit (%) Date Value 05/23/2024 38.9 MCV (fL) Date Value 05/23/2024 94.9 Platelet Count (k/uL) Date Value 05/23/2024 358 Lymphocytes % (%) Date Value 05/23/2024 23.9 Hepatic Function Panel: Albumin (g/dL) Date Value 01/11/2024 3.5 (L) Bilirubin, Total (mg/dL) Date Value 01/11/2024 0.3 Bilirubin, Conjug (mg/dL) Date Value 08/22/2021 <0.2 Alkaline Phosphatase (U/L) Date Value 01/11/2024 91 AST (U/L) Date Value 01/11/2024 26 ALT (U/L) Date Value 01/11/2024 24 Protein, Total (g/dL) Date Value 01/11/2024 6.9 Current Clinical Symptoms # of bowel movements daily: 3-5 # of liquid stools daily: 3 Consistency: Any where from watery to formed Bloody bowel movements: yes Urgency: yes Abdominal pain: yes Abdominal distention: no Nausea/vomiting: yes, but no vomiting Weight loss over last 3 months: no General well-being: slightly below average Patient-Entered Data 05/22/2022 04/23/2023 05/22/2024 SIBDQ Scores Bowel Score 5.33 5.67 6 Emotional Score 5 5.33 6 Systemic Score 6 5.5 5.5 Social Score 6.5 6.5 7 Total Score 5.6 5.7 6.1 09/23/2023 05/22/2024 08/22/2024 PRO-2 Crohn's Score Crohn's Disease Score 15 11 110 09/23/2023 05/22/2024 08/22/2024 PROMIS Global Health - (T-Scores - the mean of general population = 50. Five points is a clinically meaningful difference.) Physical T-Score 50.8 50.8 39.8 Mental T-Score 48.3 56 50.8 09/23/2023 05/22/2024 08/22/2024 PROMIS Global Health Scale Physical Health Percentile 53 53 15 Mental Health Percentile 43 73 53 Patient-reported Current Outpatient Medications Medication Sig Dispense Refill ergocalciferol 50,000 unit capsule (VITAMIN D2, DRISDOL) Take 1 capsule by mouth one time a week. 12 capsule 1 cyanocobalamin, vitamin B-12, 1,000 mcg/mL kit Inject 1,000 mcg intramuscularly once every month. 1 Kit 11 upadacitinib tablet ER 24 hr 30 mg (RINVOQ) Take 1 tablet (30 mg) by mouth once daily. Swallow whole; DO NOT crush, chew, or open. 90 tablet 3 ascorbic acid, vitamin C, (VITAMIN C) 250 mg tablet Take 250 mg by mouth. hwjmmyy-tpprgasaj-spjkfib D3 500 mg-5 mcg (200 unit) per tablet Take 1 tablet by mouth. Ferrous Sulfate 142 mg (45 mg iron) TbER Take 1 tablet by mouth daily with breakfast. valACYclovir (VALTREX) 1 gram Take 1,000 mg by mouth once daily as needed. CALCIUM ORAL Take by mouth. sertraline (ZOLOFT) 100 mg tablet Take 100 mg by mouth once daily. hydrOXYzine pamoate (VISTARIL) 25 mg capsule Take 25 mg by mouth as needed. Patient not sure of dosage inFLIXimab-abda (RENFLEXIS) 100 mg injection Inject 400 mg intravenously every 8 weeks. NURSE TO INSERT IV FOR ADMINISTRATION (Patient not taking: Reported on 02/04/2024) 400 mg multivitamin tablet Take 1 tablet by mouth once daily. ferrous sulfate (IRON ORAL) Take 1 capsule by mouth once daily. acetaminophen (TYLENOL) 325 mg tablet Take 650 mg by mouth every 6 hours as needed. No current facility-administered medications for this visit. ALLERGIES Allergen Reactions Ciprofibrate Anaphylaxis Ciprofloxacin Swelling, GI Upset, Anaphylaxis swelling at IV site and nausea Other reaction(s): stomach upset Demerol [Meperidine* Intolerance, Other: See Comments Patient reports Vomiting Gluten Protein GI Upset Meperidine Intolerance PHYSICAL EXAMINATION [facility] 07/13/2024 General Appearance: alert, oriented x 3, pleasant and in no acute distress Heart:regular rate and rhythm, no murmurs or gallops Abdomen: Not distended. Normal bowel sounds. Soft and non-tender. No masses or organomegaly. Skin: no rashes or lesions Lymph:No cervical, axillary, supraclavicular, or inguinal adenopathy. Colonoscopy 08/04/2024: Impression: - Anal stricture found on digital rectal exam. - Patent ckso-zf-wdib ileo-colonic anastomosis, characterized by erythema, inflammation and ulceration. - Crohn's disease with ileitis and colitis. Inflammation was found. This was graded as Rutgeerts Score i3 (diffuse aphthous ileitis). Biopsied. - Active ileocolonic crohn's in the ileum and rectum. Simple Endoscopic Score for Crohn's Disease: 13, muc (more content not included)...[facility] 08-04-2024 History and physical note* Calvin Vora MD - 08/04/2024 1:30 PM EST PROCEDURAL SEDATION HISTORY AND PHYSICAL EXAM SERVICE DATE: 08/04/2024 SERVICE TIME: 1238 Subjective HPI: This is a 43 year old female who presents with crohn's disease PAST ANESTHESIA HISTORY:No history of adverse event PAST MEDICAL HISTORY Diagnosis Date Adenomyosis Anxiety Crohn's disease (HCC) Distal ileal to upper rectal fistula 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) 05/14/2017 Endometriosis Fistula History of recurrent UTIs HPV in female retirement current use of immunosuppressive drug 05/02/2020 Vitamin D insufficiency 05/02/2020 PAST SURGICAL HISTORY Procedure Laterality Date PAST SURGICAL HISTORY OF 02/10/2017 Exploratory laparotomy. 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 Incision and drainage of interloop small bowel abscess. Takedown of ileorectal fistula. Ileocecectomy. Primary debridement and repair of rectal fistula. Creation of end ileostomy. Placement of seprafilm. Creation of omental pedicle flap. PAST SURGICAL HISTORY OF 05/27/2017 Ex lap, extensive KAREN, ileostomy reversal, right ovarian cystectomy PAST SURGICAL HISTORY OF colposcopy PICC LINE INSERT/CONSULT 06/03/2017 Prior to Admission medications as of 08/04/24 1222 Medication Sig Last Dose Taking ergocalciferol 50,000 unit capsule (VITAMIN D2, DRISDOL) Take 1 capsule by mouth one time a week. cyanocobalamin, vitamin B-12, 1,000 mcg/mL kit Inject 1,000 mcg intramuscularly once every month. upadacitinib tablet ER 24 hr 30 mg (RINVOQ) Take 1 tablet (30 mg) by mouth once daily. Swallow whole; DO NOT crush, chew, or open. ascorbic acid, vitamin C, (VITAMIN C) 250 mg tablet Take 250 mg by mouth. uufoozc-cncztsikw-zvfpxaw D3 500 mg-5 mcg (200 unit) per tablet Take 1 tablet by mouth. Ferrous Sulfate 142 mg (45 mg iron) TbER Take 1 tablet by mouth daily with breakfast. valACYclovir (VALTREX) 1 gram Take 1,000 mg by mouth once daily as needed. CALCIUM ORAL Take by mouth. sertraline (ZOLOFT) 100 mg tablet Take 100 mg by mouth once daily. hydrOXYzine pamoate (VISTARIL) 25 mg capsule Take 25 mg by mouth as needed. Patient not sure of dosage inFLIXimab-abda (RENFLEXIS) 100 mg injection Inject 400 mg intravenously every 8 weeks. NURSE TO INSERT IV FOR ADMINISTRATION Patient not taking: Reported on 02/04/2024 multivitamin tablet Take 1 tablet by mouth once daily. ferrous sulfate (IRON ORAL) Take 1 capsule by mouth once daily. acetaminophen (TYLENOL) 325 mg tablet Take 650 mg by mouth every 6 hours as needed. ALLERGIES Allergen Reactions Ciprofibrate Anaphylaxis Ciprofloxacin Swelling, GI Upset, Anaphylaxis swelling at IV site and nausea Other reaction(s): stomach upset Demerol [Meperidine* Intolerance, Other: See Comments Patient reports Vomiting Gluten Protein GI Upset Meperidine Intolerance CARDIOVASCULAR:No chest pain, leg swelling and palpitations PULMONARY:No cough,wheezing and shortness of breath Objective PHYSICAL EXAM:The remainder of the physical exam is noncontributory AIRWAY: Airway Visualization of Uvula: Yes Mouth opening greater than 2 fingerbreadths: Yes Neck Full Range of Motion: Yes LUNGS: Lungs clear to auscultation CARDIAC: Regular rhythm,Regular rate Assessment/Plan ASA Class: II Patient OK for Sedation: Yes Sedation Goal: Deep Provisional Diagnosis/Treatment Plan: crohn's disease/ colonoscopy Sedation Goal: Deep SIGNATURE: Calvin Vora MD PATIENT NAME: Walter Keller DATE: August 04, 2024 TIME: 12:38 PM Created 2023 [facility] History and physical note* Calvin Vora MD - 08/04/2024 1:30 PM EST PROCEDURAL SEDATION HISTORY AND PHYSICAL EXAM SERVICE DATE: 08/04/2024 SERVICE TIME: 1238 Subjective HPI: This is a 43 year old female who presents with crohn's disease PAST ANESTHESIA HISTORY:No history of adverse event PAST MEDICAL HISTORY Diagnosis Date Adenomyosis Anxiety Crohn's disease (HCC) Distal ileal to upper rectal fistula 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) 05/14/2017 Endometriosis Fistula History of recurrent UTIs HPV in female retirement current use of immunosuppressive drug 05/02/2020 Vitamin D insufficiency 05/02/2020 PAST SURGICAL HISTORY Procedure Laterality Date PAST SURGICAL HISTORY OF 02/10/2017 Exploratory laparotomy. 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 Incision and drainage of interloop small bowel abscess. Takedown of ileorectal fistula. Ileocecectomy. Primary debridement and repair of rectal fistula. Creation of end ileostomy. Placement of seprafilm. Creation of omental pedicle flap. PAST SURGICAL HISTORY OF 05/27/2017 Ex lap, extensive KAREN, ileostomy reversal, right ovarian cystectomy PAST SURGICAL HISTORY OF colposcopy PICC LINE INSERT/CONSULT 06/03/2017 Prior to Admission medications as of 08/04/24 1222 Medication Sig Last Dose Taking ergocalciferol 50,000 unit capsule (VITAMIN D2, DRISDOL) Take 1 capsule by mouth one time a week. cyanocobalamin, vitamin B-12, 1,000 mcg/mL kit Inject 1,000 mcg intramuscularly once every month. upadacitinib tablet ER 24 hr 30 mg (RINVOQ) Take 1 tablet (30 mg) by mouth once daily. Swallow whole; DO NOT crush, chew, or open. ascorbic acid, vitamin C, (VITAMIN C) 250 mg tablet Take 250 mg by mouth. wqaznxf-whdlwalzt-cgrkxez D3 500 mg-5 mcg (200 unit) per tablet Take 1 tablet by mouth. Ferrous Sulfate 142 mg (45 mg iron) TbER Take 1 tablet by mouth daily with breakfast. valACYclovir (VALTREX) 1 gram Take 1,000 mg by mouth once daily as needed. CALCIUM ORAL Take by mouth. sertraline (ZOLOFT) 100 mg tablet Take 100 mg by mouth once daily. hydrOXYzine pamoate (VISTARIL) 25 mg capsule Take 25 mg by mouth as needed. Patient not sure of dosage inFLIXimab-abda (RENFLEXIS) 100 mg injection Inject 400 mg intravenously every 8 weeks. NURSE TO INSERT IV FOR ADMINISTRATION Patient not taking: Reported on 02/04/2024 multivitamin tablet Take 1 tablet by mouth once daily. ferrous sulfate (IRON ORAL) Take 1 capsule by mouth once daily. acetaminophen (TYLENOL) 325 mg tablet Take 650 mg by mouth every 6 hours as needed. ALLERGIES Allergen Reactions Ciprofibrate Anaphylaxis Ciprofloxacin Swelling, GI Upset, Anaphylaxis swelling at IV site and nausea Other reaction(s): stomach upset Demerol [Meperidine* Intolerance, Other: See Comments Patient reports Vomiting Gluten Protein GI Upset Meperidine Intolerance CARDIOVASCULAR:No chest pain, leg swelling and palpitations PULMONARY:No cough,wheezing and shortness of breath Objective PHYSICAL EXAM:The remainder of the physical exam is noncontributory AIRWAY: Airway Visualization of Uvula: Yes Mouth opening greater than 2 fingerbreadths: Yes Neck Full Range of Motion: Yes LUNGS: Lungs clear to auscultation CARDIAC: Regular rhythm,Regular rate Assessment/Plan ASA Class: II Patient OK for Sedation: Yes Sedation Goal: Deep Provisional Diagnosis/Treatment Plan: crohn's disease/ colonoscopy Sedation Goal: Deep SIGNATURE: Calvin Vora MD PATIENT NAME: Walter Keller DATE: August 04, 2024 TIME: 12:38 PM 2023 documented in this encounter[facility] NoteQ3 Patient Name: Walter Keller Procedure Date: 08/04/2024 12:34 PM Date of : 1980 Admit Type: Outpatient Age: 43 Gender: Female Note Status: [employer] Attending MD: Calvin Vora MD, [id number] Procedure: Colonoscopy Indications: Disease activity assessment of Crohn's disease of the small bowel and colon, Assess therapeutic response to therapy of Crohn's disease of the small bowel and colon Providers: Calvin Vora MD Patient Profile: This is a 43 year old female. Refer to note in patient chart for documentation of history and physical. Last Colonoscopy: within the past 3 years. This patient has ileocolonic Crohn's disease with perianal involvement and is taking upadacitinib. Referring Physician: Chalino Zuñiga (pa) (Referring MD) Medicines: Monitored Anesthesia Care Complications: No immediate complications. Requesting Provider: Procedure: Pre-Anesthesia Assessment: - Prior to the procedure, a History and Physical was performed, and patient medications and allergies were reviewed. The patient is competent. The risks and benefits of the procedure and the sedation options and risks were discussed with the patient. All questions were answered and informed consent was obtained. Patient identification and proposed procedure were verified by the physician, the nurse and the anesthesiologist in the pre-procedure area in the procedure room in the endoscopy suite. Mental Status Examination: alert and oriented. Airway Examination: normal oropharyngeal airway and neck mobility. Respiratory Examination: clear to auscultation. CV Examination: normal. Prophylactic Antibiotics: The patient does not require prophylactic antibiotics. Prior Anticoagulants: The patient has taken no anticoagulant or antiplatelet agents. ASA Grade Assessment: II - A patient with mild systemic disease. After reviewing the risks and benefits, the patient was deemed in satisfactory condition to undergo the procedure. The anesthesia plan was to use monitored anesthesia care (MAC). Immediately prior to administration of medications, the patient was re-assessed for adequacy to receive sedatives. The heart rate, respiratory rate, oxygen saturations, blood pressure, adequacy of pulmonary ventilation, and response to care were monitored throughout the procedure. The physical status of the patient was re-assessed after the procedure. After I obtained informed consent, the scope was passed under direct vision. Throughout the procedure, the patient's blood pressure, pulse, and oxygen saturations were monitored continuously. The Colonoscope was introduced through the anus and advanced to the terminal ileum. [facility] Postop Crohn's Colonoscopy. The colonoscopy was performed without difficulty. The patient tolerated the procedure well. The quality of the bowel preparation was good. The ileocolonic anastomosis, the kris-terminal ileum and the rectum were photographed. Moderate Sedation: MAC anesthesia was administered by the anesthesia team. Findings: The digital rectal exam findings include anal stricture. There was evidence of a prior jpml-be-gbew ileo-colonic anastomosis in the ascending colon. This was patent and was characterized by erythema, inflammation and ulceration. The anastomosis was traversed. Diffuse inflammation characterized by congestion (edema), erosions, erythema, serpentine ulcerations and shallow ulcerations was found in the kris-terminal Ileum. The inflammation was graded as Rutgeerts Score i3 (diffuse aphthous ileitis). Biopsies were taken with a cold forceps for histology. Ulceration at the ileocolonic anastomosis with one large ulcer extending into the ileum and many (more content not included)...[facility] 08-04-2024 Nurse Note* Evette Olivares RN - 08/04/2024 1:20 PM EST AMBULATORY PATIENT EDUCATION NOTE TOPIC: GI PROCEDURES: Colonoscopy with or without biopsies based on clinical findings READINESS TO LEARN INSTRUCTION PROVIDED TO: Patient and family member COGNITIVE ABILITY: Alert and oriented PTED MOTIVATION TO LEARN: Eager FAMILY SUPPORT: High - Very involved in pt care IPATIENT LEARNS BEST BY: Individual Instruction Written Instruction - Hand-outs Verbal Instruction FACTORS AFFECTING LEARNING: None PHYSICAL LIMITATIONS AFFECTING LEARNING: None LEARNING RESPONSE METHOD OF INSTRUCTION: Individual instruction PATIENT / FAMILY RESPONSE: Verbalizes understanding of: WORSENING CONDITION- Signs and symptoms of aworsening condition that warrant a call to the physician FOLLOW-UP PLAN: Recommend - Recommend continued instruction and follow up as directed SUPPLEMENTAL MATERIAL: Procedure Discharge Instructions REFERRAL (RECOMMENDATION): None Electronically Signed By: Evette Olivares RN [facility]01-23-2025 Nurse Note* Evette Olivares RN - 08/04/2024 1:20 PM EST AMBULATORY PATIENT EDUCATION NOTE TOPIC: GI PROCEDURES: Colonoscopy with or without biopsies based on clinical findings READINESS TO LEARN INSTRUCTION PROVIDED TO: Patient and family member COGNITIVE ABILITY: Alert and oriented PTED MOTIVATION TO LEARN: Eager FAMILY SUPPORT: High - Very involved in pt care IPATIENT LEARNS BEST BY: Individual Instruction Written Instruction - Hand-outs Verbal Instruction FACTORS AFFECTING LEARNING: None PHYSICAL LIMITATIONS AFFECTING LEARNING: None LEARNING RESPONSE METHOD OF INSTRUCTION: Individual instruction PATIENT / FAMILY RESPONSE: Verbalizes understanding of: WORSENING CONDITION- Signs and symptoms of aworsening condition that warrant a call to the physician FOLLOW-UP PLAN: Recommend - Recommend continued instruction and follow up as directed SUPPLEMENTAL MATERIAL: Procedure Discharge Instructions REFERRAL (RECOMMENDATION): None Electronically Signed By: Evette Olivares RN * Sury Watson RN - 08/04/2024 12:23 PM EST PRE OP LEARNING ASSESSMENT PROCEDURE/SURGERY: GI PROCEDURES: Colonoscopy READINESS TO LEARN COGNITIVE ABILITY: Alert and oriented MOTIVATION TO LEARN: Eager Interested FAMILY SUPPORT: High - Very involved in pt care PATIENT LEARNS BEST BY: Individual Instruction FACTORS AFFECTING LEARNING: None PHYSICAL LIMITATIONS AFFECTING LEARNING: None Electronically Signed By: Sury Watson RN In Department: GASTROENTEROLOGY documented in this encounterSum[facility]01-23-2025 Nurse Note* Sury Watson RN - 08/04/2024 12:23 PM EST PRE OP LEARNING ASSESSMENT PROCEDURE/SURGERY: GI PROCEDURES: Colonoscopy READINESS TO LEARN COGNITIVE ABILITY: Alert and oriented MOTIVATION TO LEARN: Eager Interested FAMILY SUPPORT: High - Very involved in pt care PATIENT LEARNS BEST BY: Individual Instruction FACTORS AFFECTING LEARNING: None PHYSICAL LIMITATIONS AFFECTING LEARNING: None Electronically Signed By: Sury Watson RN In Department: GASTROENTEROLOGY [facility]11-15-2024 Telephone encounter Note* Telephone Encounter - Yuni Edmonds - 05/27/2024 11:19 AM EST Images from the original note were not included. Received request from Dr. Vora's rn transitional care to initiate a new prior authorization for patients Rinvoq 30 mg ER tablets. Initially attempted to initiate the request via covermymeds however the patients insurance card was not scanned clearly. A call was placed to [employer] . Spoke [employer] service professional Guillermo who provided the RX BIN: [id number] RX PCN: [id number] as well as the RxGroup: [id number]. Returned to [employer] portal and initiated an electronic request STRANGE:[id number]. Answered the required clinical questions and submitted the most recent OV note dated 05/23/2024 as well as labs dated 05/23/2024. Received immediate response that the request was approved. CM Approval Date: 05/27/2024-05/27/2025. Routing outcome to rn transitional care. Kenzie Edmonds Biologics Navigator [facility]11-15-2024 Miscellaneous Notes* Telephone Encounter - Yuni Edmonds - 05/27/2024 11:19 AM EST Images from the original note were not included. Received request from Dr. Vora's rn transitional care to initiate a new prior authorization for patients Rinvoq 30 mg ER tablets. Initially attempted to initiate the request via covermymeds however the patients insurance card was not scanned clearly. A call was placed to [employer] . Spoke [employer] automotive service professional Guillermo who provided the RX BIN: [id number] RX PCN: [id number] as well as the RxGroup: [id number]. Returned to [employer] portal and initiated an electronic request STRANGE:[id number]. Answered the required clinical questions and submitted the most recent OV note dated 05/23/2024 as well as labs dated 05/23/2024. Received immediate response that the request was approved. PA Approval Date: 05/27/2024-05/27/2025. Routing outcome to rn transitional care. Kenzie Edmonds Biologics Navigator documented in [facility] encounter[facility] Telephone encounter Note * Telephone Encounter - Haley Broussard RN - 05/25/2024 1:14 PM EST Requested Prescriptions Pending Prescriptions Disp Refills ergocalciferol 50,000 unit capsule (VITAMIN D2, DRISDOL) 12 capsule 1 Sig: Take 1 capsule by mouth one time a week. cyanocobalamin, vitamin B-12, 1,000 mcg/mL kit 1 Kit 11 Sig: Inject 1,000 mcg intramuscularly once every month. Orders pended & routed to Chalino Zuñiga PA-C for review / approval. Haley Broussard RN May 25, 2024 1:19 PM [facility]11-13-2024 Miscellaneous Notes* Telephone Encounter - Haley Broussard RN - 05/25/2024 1:14 PM EST Requested Prescriptions Pending Prescriptions Disp Refills ergocalciferol 50,000 unit capsule (VITAMIN D2, DRISDOL) 12 capsule 1 Sig: Take 1 capsule by mouth one time a week. cyanocobalamin, vitamin B-12, 1,000 mcg/mL kit 1 Kit 11 Sig: Inject 1,000 mcg intramuscularly once every month. Orders pended & routed to Chalino Zuñiga PA-C for review / approval. Haley Broussard RN May 25, 2024 1:19 PM documented in this encounterSumma Health [facility]11-11-2024 Instructions* Patient Instructions* Chalino Zuñiga PA-C - 05/23/2024 10:16 AM EST Labs Colonoscopy with TI intubation and biopsies to evaluate disease and response to treatment Continue Rinvoq Follow up in 6 months unless needed sooner COLONOSCOPY BOWEL PREPARATION INSTRUCTIONS MiraLAX Your doctor has scheduled you for a colonoscopy. To have a successful colonoscopy, you must have a clean colon, that is empty. A clean colon allows your doctor to see the entire colon & diagnose issues like polyps or cancer. For doctors, a clean colon is like driving on a bulmaro day; a dirty colon like driving in a storm. It is very important that you follow these instructions exactly, or your colonoscopy may not be as effective, could be canceled, and you may need to do the bowel prep and colonoscopy again. TRANSPORTATION REQUIREMENTS You are receiving IV sedation. For your safety, a responsible adult escort must accompany you to and from your procedure: Your adult escort MUST be present with you at check-in for your colonoscopy. Your adult escort MUST remain in the endoscopy area until you are discharged. Your adult escort MUST transport you home once you are discharged. You are NOT allowed to operate any form of transportation (i.e. drive a car, bicycle, etc) or leavethe [facility]oscopy Center ALONE. It is not safe to do so. If you cannot meet these requirements, your procedure will be canceled. MEDICATION REQUIREMENTS For your safety, certain medications will need to be stopped or adjusted before you can have your procedure: BLOOD THINNERS: If you take blood thinners, such as Coumadin (warfarin), Plavix (clopidogrel), Ticlid (ticlopidine hydrochloride), Agrylin (anagrelide), Xarelto (Rivaroxaban), Pradaxa (Dabigatran), Eliquis (Apixaban), or Effient (Prasugrel), contact the physician who is prescribing these medications at least 2 weeks prior to your procedure to discuss any necessary adjustments. DIABETES: If you take medications for diabetes, your dosage may need to be adjusted. If you are being treated for diabetes with insulin, diabetic pills, or other injectable medicationsdo not take your REGULAR dose after midnight on the day of your procedure. If you are taking any other types of insulin such as Lantus, Humalog, NPH (long- acting insulin), or70/30 insulin, take half your normal dose the day before your procedure. DIABETES/WEIGHT MANAGEMENT: If you take medications for weight-loss, your dosage may need to be adjusted Contact the doctor who prescribes this medication for further instructions. If you take medications for weight-loss like semaglutide (Ozempic, Wegovy, Rybelsus), dulaglutide (Trulicity), liraglutide (Victoza, Saxenda), exenatide (Byetta, Bydureon), or lixisenatide (Adylyxin), stop your medication 1 week prior to your procedure. If you take medications like canagliflozin (Invokana), dapagliflozin (Farxiga, Forxiga), empagliflozin (Jardiance), stop your medication 3 days prior to your procedure. If you take ertugliflozin (Steglatro) stop your medication 4 days prior to your procedure. IRON: If you take iron pills, STOP them 1 week BEFORE your procedure, may resume after. OTHER MEDS: May take all other medications (including aspirin, antibiotics, water pills / diureticslike Lasix or Metolozone, blood pressure meds, etc.) at their usual scheduled time with water. DIET REQUIREMENTS The day before your colonoscopy, you may have a clear liquid diet (see below). The day of your colonoscopy, you may continue a clear liquid diet until 3 hours before your colonoscopy. Within 3 hours of your colonoscopy, take only any medications (as above) with a sip of water. Clear Liquid Diet Broth (chicken, beef or vegetable broth or bullion. Just the broth, no solids). Water Coffee or Tea (NO milk or creamer), but sugar and sugar substitutes are allowed. Clear liquids including clear, yellow, green, blue (NO red, NO orange, NO purple) Sodas / soft drinks; Gatorade or other sports drinks Fruit juice (strained; no-pulp); Ronnie-Aid or flavored drinks Plain Jell-O or other gelatins Popsicles or hard candy Bowel prep can work differently from person to person. Some people's bowels move slowly and they may need different instructions. Please see your doctor in office or virtually for personalized bowel prep instructions if you have: BOWEL PREPARATION (MIRALAX/GATORADE) Split Dosing Bowel Prep: This means drinking your bowel prep in two doses. Split dosing helps cleanyour colon better and makes it less likely that your procedure will be canceled. You will need to purchase the following (no prescriptions are needed): 64 ounces Gatorade, Propel, Crystal Lite or other noncarbonated clear liquid sports drink (NOT red,orange, or purple). Diabetic patients buy sugar-free, e.g. Gatorade G2 4 Dulcolax laxative tablets containing 5mg bisacodyl each (do not buy the stool softener) 8.3 oz MiraLAX (238g) powder or generic polyethylene glycol 3350 (find in laxative aisle) The day before your colonoscopy mix 64 oz of the sports drink with 8.3 oz MiraLAX (238 g) in a pitcher. Stir or shake until MiraLAX completely dissolved. Chill if desired. On the evening before your colonoscopy: 5 PM take 4 Dulcolax laxative tablets with water by mouth. 6 PM drink the first half of the Gatorade/MiraLAX solution Drink one 8-ounce glass every 15 minutes. Six hours before your colonoscopy, drink the second half of the solution. Drink one 8-ounce glass every 15 minutes. You may continue a clear liquid diet until 3 hours before your colonoscopy. Bowel prep can work differently from person to person. Some people's bowels move slowly and they may need different instructions. Please see your doctor in office or virtually for personalized bowel prep instructions if you have: Medical condition that needs special accommodations Had a poor bowel prep results or failed bowel prep attempts in the past. Had difficulty with anesthesia during the procedure. FREQUENTLY ASKED QUESTIONS Q: What if I suffer from constipation? A: Recommend taking extra laxatives to resolve your constipation days prior to entering the bowel prep day. Q: What if have had prior poor preps results in past? A: Contact your physician as you will likely need additional bowel prep instructions. Q: What if I have motility issues like Parkinson's, MS (multiple sclerosis), wheelchair dependent, etc.? or on medications that slow colonic transit times (narcotics, gabapentin, anticholinergic medications etc.) A: Contact your physician as you will likely need extra time and additional laxatives to complete your bowel prep. Q: What if I cannot drink large volume of liquid? A: Start your prep 2-3 hours earlier to allow yourself more time to complete the entire prep. Q: What if I had bariatric surgery? Do I still have to complete the entire prep? A: Yes, gastric bypass surgery involves the stomach & small bowel. You may need to drink smaller amounts, slower (may need more time to complete your bowel prep). Gastric bypass does not alter the length of your colon so you will need to complete the entire bowel prep, it may just take longer time to complete it. Q: What if I am on dialysis? A: Please consult your java software architect prior to scheduling to get instructions pertinent to you. In general, dialysis patients take the Golytely bowel prep and have the procedure same day of their dialysis (colonoscopy in AM, dialysis in PM). Q: How do I know if something is considered as clear liquid diet? A: If you can pour it in a glass and you can see through it, it is considered clear liquid Q: Can I eat nuts, seeds, beans, popcorn, dried fruits, vegetables & fruits that have skin peel? A: No, you will need to not eat these items starting 3 days prior to procedure. Q: Can I take Uber/Lyft/taxi/bus home? A: An adult MUST be present with you at check-in for your colonoscopy and remain in the endoscopy area until you are discharged. You can take Uber home only if this adult escort is with you at check in, remain in the endoscopy area until you are discharged, and takes the Uber with you to home. Q: Can I sleep it off here and drive myself home? A: No, you must have an adult with you at time of procedure check in, remain in the endoscopy center during your procedure, and drive you home. You cannot drive a vehicle after your procedure the rest of the day. Q: What if I can't finish my bowel prep? A: If you cannot complete your entire bowel prep, there is high likelihood that your colonoscopy will need to be rescheduled due to inadequate prep quality. documented in this encounterSum[facility]11-11-2024 NoteHNO ID: [id number] Author: CHALINO ZUÑIGA PA-C Service: ? Author Type: Physician Roper Operator Type: Progress Notes Filed: 05/23/2024 12:57 Note Text: .Follow Up Visit SUBJECTIVE 43 year old female with Crohn's disease here for follow-up. Last seen 09/23/2023. Changes and test results since last visit: Overall doing ok. Less stress at work. 2-4 BMs daily no blood. No pain. Tolerating diet weight is stable. No urgency no incontinence. No nocturnal defecation. Rinvoq 30 mg daily Changed insurance No EIMs. Did have some acne does note some nasal bleeding. Overall health is good. Overall energy is good. CBC: WBC (k/uL) Date Value 01/11/2024 6.66 Hematocrit (%) Date Value 01/11/2024 37.2 MCV (fL) Date Value 01/11/2024 92.5 Platelet Count (k/uL) Date Value 01/11/2024 327 Lymphocytes % (%) Date Value 09/29/2023 25.6 Hepatic Function Panel: Albumin (g/dL) Date Value 01/11/2024 3.5 (L) Bilirubin, Total (mg/dL) Date Value 01/11/2024 0.3 Bilirubin, Conjug (mg/dL) Date Value 08/22/2021 <0.2 Alkaline Phosphatase (U/L) Date Value 01/11/2024 91 AST (U/L) Date Value 01/11/2024 26 ALT (U/L) Date Value 01/11/2024 24 Protein, Total (g/dL) Date Value 01/11/2024 6.9 Current Clinical Symptoms # of bowel movements daily: 2-4 Consistency: soft Bloody bowel movements: no Urgency: no Abdominal pain: no Abdominal distention: no Nausea/vomiting: no Weight loss over last 3 months: no General well-being: very well Current Outpatient Medications Medication Sig Dispense Refill upadacitinib tablet ER 24 hr 30 mg (RINVOQ) Take 1 tablet (30 mg) by mouth once daily. Swallow whole; DO NOT crush, chew, or open. 90 tablet 3 ergocalciferol 50,000 unit capsule (VITAMIN D2, DRISDOL) Take 1 capsule by mouth one time a week. 12 capsule 0 ascorbic acid, vitamin C, (VITAMIN C) 250 mg tablet Take 250 mg by mouth. kagnrsw-ytmmjnnrq-olhixgy D3 500 mg-5 mcg (200 unit) per tablet Take 1 tablet by mouth. cholecalciferol (VITAMIN D3) 1,000 unit tab tablet Take 1,000 Units by mouth. Ferrous Sulfate 142 mg (45 mg iron) TbER Take 1 tablet by mouth daily with breakfast. Vit B Comp and C-Vit E-FA-Sabine-Zn 0.4 mg tab 1 tablet. valACYclovir (VALTREX) 1 gram Take 1,000 mg by mouth once daily as needed. CALCIUM ORAL Take by mouth. sertraline (ZOLOFT) 100 mg tablet Take 100 mg by mouth once daily. hydrOXYzine pamoate (VISTARIL) 25 mg capsule Take 25 mg by mouth as needed. Patient not sure of dosage Cyanocobalamin 1,000 mcg subl Dissolve 1 tablet under the tongue once daily. 100 tablet 0 multivitamin tablet Take 1 tablet by mouth once daily. ferrous sulfate (IRON ORAL) Take 1 capsule by mouth once daily. acetaminophen (TYLENOL) 325 mg tablet Take 650 mg by mouth every 6 hours as needed. inFLIXimab-abda (RENFLEXIS) 100 mg injection Inject 400 mg intravenously every 8 weeks. NURSE TO INSERT IV FOR ADMINISTRATION (Patient not taking: Reported on 02/04/2024) 400 mg No current facility-administered medications for this visit. ALLERGIES Allergen Reactions Ciprofibrate Anaphylaxis Ciprofloxacin Swelling, GI Upset, Anaphylaxis swelling at IV site and nausea Other reaction(s): stomach upset Demerol [Meperidine* Intolerance, Other: See Comments Patient reports Vomiting Gluten Protein GI Upset Meperidine Intolerance PHYSICAL EXAMINATION BP 125/80 Pulse 71 Ht 5' 1 (1.55m) Wt 127 lb (57.6kg) SpO2 98% LMP 05/22/2024 BMI 24.01 kg/(m2). General Appearance: alert, oriented x 3, pleasant and in no acute distress Heart:regular rate and rhythm, no murmurs or gallops Abdomen: Not distended. Normal bowel sounds. Soft and non-tender. No masses or organomegaly. Skin: no rashes or lesions Lymph:No cervical, axillary, supraclavicular, or inguinal adenopathy. Assessment IMPRESSION Ms. Keller, is a 43-year-old female with history of ileocolic Crohn's disease and underwent an ileocolic resection in 2017 with diverting loop ileostomy and subsequent takedown. Treated with vedolizumab in 2019 and then switched to Renflexis due to active disease. Due to mild recurrence (i2b) she was dose optimized to 7.5 mg/kg every 8 weeks and then in 2021 due to ongoing symptoms dose optimized to 10 mg/kg every 8 weeks to ongoing disease she was switched over to upadacitinib He has his routine office follow-up. Overall doing really well but stressed at work 2-4 bowel movements daily no blood no pain. Tolerating diet weight stable. Denies urgency or incontinence. Nocturnal defecation. No extraintestinal infestations of did have a little bit of acne and now with some new nasal bleeding but overall health is been good overall energy has been good and doing well. Will plan for blood work as well as repeat colonoscopy with TI intubation and biopsies to evaluate disease and response to treatment. Will plan to continue upadacitinib as this appears to be keeping (more content not included)...[facility]11-11-2024 History of Present illness Narrative* Chalino Zuñiga PA-C - 05/23/2024 10:11 AM EST .Follow Up Visit SUBJECTIVE 43 year old female with Crohn's disease here for follow-up. Last seen 09/23/2023. Changes and test results since last visit: Overall doing ok. Less stress at work. 2-4 BMs daily no blood. No pain. Tolerating diet weight is stable. No urgency no incontinence. No nocturnal defecation. Rinvoq 30 mg daily Changed insurance No EIMs. Did have some acne does note some nasal bleeding. Overall health is good. Overall energy is good. CBC: WBC (k/uL) Date Value 01/11/2024 6.66 Hematocrit (%) Date Value 01/11/2024 37.2 MCV (fL) Date Value 01/11/2024 92.5 Platelet Count (k/uL) Date Value 01/11/2024 327 Lymphocytes % (%) Date Value 09/29/2023 25.6 Hepatic Function Panel: Albumin (g/dL) Date Value 01/11/2024 3.5 (L) Bilirubin, Total (mg/dL) Date Value 01/11/2024 0.3 Bilirubin, Conjug (mg/dL) Date Value 08/22/2021 <0.2 Alkaline Phosphatase (U/L) Date Value 01/11/2024 91 AST (U/L) Date Value 01/11/2024 26 ALT (U/L) Date Value 01/11/2024 24 Protein, Total (g/dL) Date Value 01/11/2024 6.9 Current Clinical Symptoms # of bowel movements daily: 2-4 Consistency: soft Bloody bowel movements: no Urgency: no Abdominal pain: no Abdominal distention: no Nausea/vomiting: no Weight loss over last 3 months: no General well-being: very well Current Outpatient Medications Medication Sig Dispense Refill upadacitinib tablet ER 24 hr 30 mg (RINVOQ) Take 1 tablet (30 mg) by mouth once daily. Swallow whole; DO NOT crush, chew, or open. 90 tablet 3 ergocalciferol 50,000 unit capsule (VITAMIN D2, DRISDOL) Take 1 capsule by mouth one time a week. 12 capsule 0 ascorbic acid, vitamin C, (VITAMIN C) 250 mg tablet Take 250 mg by mouth. wgimzfu-ppjqnilau-wxcuprv D3 500 mg-5 mcg (200 unit) per tablet Take 1 tablet by mouth. cholecalciferol (VITAMIN D3) 1,000 unit tab tablet Take 1,000 Units by mouth. Ferrous Sulfate 142 mg (45 mg iron) TbER Take 1 tablet by mouth daily with breakfast. Vit B Comp and C-Vit E-FA-Sabine-Zn 0.4 mg tab 1 tablet. valACYclovir (VALTREX) 1 gram Take 1,000 mg by mouth once daily as needed. CALCIUM ORAL Take by mouth. sertraline (ZOLOFT) 100 mg tablet Take 100 mg by mouth once daily. hydrOXYzine pamoate (VISTARIL) 25 mg capsule Take 25 mg by mouth as needed. Patient not sure of dosage Cyanocobalamin 1,000 mcg subl Dissolve 1 tablet under the tongue once daily. 100 tablet 0 multivitamin tablet Take 1 tablet by mouth once daily. ferrous sulfate (IRON ORAL) Take 1 capsule by mouth once daily. acetaminophen (TYLENOL) 325 mg tablet Take 650 mg by mouth every 6 hours as needed. inFLIXimab-abda (RENFLEXIS) 100 mg injection Inject 400 mg intravenously every 8 weeks. NURSE TO INSERT IV FOR ADMINISTRATION (Patient not taking: Reported on 02/04/2024) 400 mg No current facility-administered medications for this visit. ALLERGIES Allergen Reactions Ciprofibrate Anaphylaxis Ciprofloxacin Swelling, GI Upset, Anaphylaxis swelling at IV site and nausea Other reaction(s): stomach upset Demerol [Meperidine* Intolerance, Other: See Comments Patient reports Vomiting Gluten Protein GI Upset Meperidine Intolerance PHYSICAL EXAMINATION BP 125/80 Pulse 71 Ht 5' 1 (1.55m) Wt 127 lb (57.6kg) SpO2 98% LMP 05/22/2024 BMI 24.01 kg/(m^2). General Appearance: alert, oriented x 3, pleasant and in no acute distress Heart:regular rate and rhythm, no murmurs or gallops Abdomen: Not distended. Normal bowel sounds. Soft and non-tender. No masses or organomegaly. Skin: no rashes or lesions Lymph:No cervical, axillary, supraclavicular, or inguinal adenopathy. Assessment IMPRESSION Ms. Keller, is a 43-year-old female with history of ileocolic Crohn's disease and underwent an ileocolic resection in 2016 with diverting loop ileostomy and subsequent takedown. Treated with vedolizumab in 2018 and then switched to Renflexis due to active disease. Due to mild recurrence (i2b) she was dose optimized to 7.5 mg/kg every 8 weeks and then in 2021 due to ongoing symptoms dose optimizedto 10 mg/kg every 8 weeks to ongoing disease she was switched over to upadacitinib He has his routine office follow-up. Overall doing really well but stressed at work 2-4 bowel movements daily no blood no pain. Tolerating diet weight stable. Denies urgency or incontinence. Nocturnal defecation. No extraintestinal infestations of did have a little bit of acne and now with some newnasal bleeding but overall health is been good overall energy has been good and doing well. Will plan for blood work as well as repeat colonoscopy with TI intubation and biopsies to evaluate disease and response to treatment. Will plan to continue upadacitinib as this appears to be keeping an excellent remission. Will plan follow-up in 6 months unless needed sooner Physician Global Assessment of Disease Activity: normal PLAN Labs Colonoscopy with TI intubation and biopsies to evaluate disease and response to treatment Continue Rinvoq Follow up in 6 months unless needed sooner I spent a total of 30 minutes on the date of the service which included preparing to see the patient, [id number] patient care, completing clinical documentation, obtaining and/or reviewing separately obtained history, performing a medically appropriate examination, counseling and educating the pat ient/family/caregiver, and ordering medications, tests, or procedures. Medical Decision Making: Problems: Low: Stable chronic illness Data: Unique test result(s) reviewed: 2 Unique test(s) ordered: 2 Risk: Moderate: Moderate risk from testing/treatment Medical Decision Making Level: 4 - Moderate Chalino Zuñiga PA-C May 23, 2024 10:11 AM documented in this encounterSumma Health [facility]11-11-2024 NoteHNO ID: [id number] Author: DIMITRY CODY Research Coordinator Service: ? Author Type: Research Type: Progress Notes Filed: 05/23/2024 09:27 Note Text: INFORMED CONSENT STUDY TITLE: CHACHAEIGarry: Cohort for Healing Arthritis, Skin, and Eye Extra-Intesetinal Manifestations IRB NO.: [id number] FIELD GAUGER: Chencho Larsen MD STUDY COORDINATORS: Dimitry Cody / [email or web address] Meng Shipman / [email or web address] Prior to consent discussion, Walter Keller's medical record was reviewed for pre-screening activities, including participation in other research studies. The study was verbally discussed with the patient, including the risks, benefits and alternatives. Patient expressed full understanding of study protocol. Patient was approached as a control for this study but reported history of joint pain correlating with IBD flares. Patient was not enrolled at this time and seemed agreeable to being approached about study again in the future if joint pain were to become active again.[facility]11-11-[facility] History of Present illness Narrative* Dimitry Cody Research Coordinator - 05/23/2024 9:25 AM EST INFORMED CONSENT STUDY TITLE: CHACHAEIGarry: Cohort for Healing Arthritis, Skin, and Eye Extra- Intesetinal Manifestations IRB NO.: [id number] FIELD GAUGER: Chencho Larsen MD STUDY COORDINATORS: Dimitry Cody / Megn Shipman / [email or web address] Prior to consent discussion, Walter Eduard Krishna's medical record was reviewed for pre-screening activities, including participation in other research studies. The study was verbally discussed with the patient, including the risks, benefits and alternatives. Patient expressed full understanding of study protocol. Patient was approached as a control for thisstudy but reported history of joint pain correlating with IBD flares. Patient was not enrolled at this time and seemed agreeable to being approached about study again in the future if joint pain wereto become active again. documented in this encounterSumma Health [facility]10-30-2024 Telephone encounter Note * Telephone Encounter - Haley Broussard RN - 05/11/2024 2:19 PM EDT Requested Prescriptions Pending Prescriptions Disp Refills upadacitinib tablet ER 24 hr 30 mg (RINVOQ) 90 tablet 3 Sig: Take 1 tablet (30 mg) by mouth once daily. Swallow whole; DO NOT crush, chew, or open. Order pended & routed to Dr. Vora to review / approve. Haley Broussard RN May 11, 2024 2:20 PM [facility]10-30-[facility]24 Miscellaneous Notes* Telephone Encounter - Haley Broussard RN - 05/11/2024 2:19 PM EDT Requested Prescriptions Pending Prescriptions Disp Refills upadacitinib tablet ER 24 hr 30 mg (RINVOQ) 90 tablet 3 Sig: Take 1 tablet (30 mg) by mouth once daily. Swallow whole; DO NOT crush, chew, or open. Order pended & routed to Dr. Vora to review / approve. Haley Broussard RN May 11, 2024 2:20 PM documented in this encounterSum[facility]24 NoteHNO ID: [id number] Author: PEREZ HOUSTON RN Service: ? Author Type: Registered Nurse Type: Nursing Progress Note Filed: 03/04/2024 13:42 Note Text: Other: assumed care of patient, received report from prior nurse AND agree with admission charting.[facility]08-23-2024 Nurse Note* Perez Houston RN - 03/04/2024 1:41 PM EDT Other: assumed care of patient, received report from prior nurse & agree with admission charting. [facility]08-23-[facility] Nurse Note* Perez Houston RN - 03/04/2024 1:41 PM EDT Other: assumed care of patient, received report from prior nurse & agree with admission charting. documented in this encounterSum[facility]08-23-2024 Surgery Surgical operation note* Brief Op Note - Hanh Houston MD - 03/04/2024 12:52 PM EDT [facility]OR[facility]GERY BRIEF OP NOTE LOG ID: [id number] Surgery/Procedure Date: 03/04/2024 Incision/Procedure Start Time: 12:35 PM Incision Close/Procedure End Time: 12:50 PM Surgeon(s) and Roper Operator(s): Surgeons and Role: * Flor Mar MD - Primary * Eri Sneed MD - Resident - Assisting * Hanh Houston MD - Resident - Assisting No Additional Staff Procedure(s): Procedure(s): EXAM UNDER ANESTHESIA RECTAL, kenalog injection Anesthesia: General Findings: Stenotic, inflamed anal canal. Superficial fistula posterior. Anterior fissure Tubes/Drains: None Estimated Blood Loss: 5 mls Specimens: None Wound Classification: N/A Pre-Op/Pre-Procedure Diagnosis: Pre-Op Diagnosis Codes: * Anal fissure [K60.2] Post-Op/Post-Procedure Diagnosis: Same SIGNATURE: Hanh Houston MD PATIENT NAME: Walter Keller DATE: March 04, 2024 TIME: 12:52 PM PAGER/CONTACT #: [phone] [facility]08-23-[facility] Surgical operation note* Brief Op Note - Hanh Houston MD - 03/04/2024 12:52 PM EDT COLORECT[facility] SURGERY BRIEF OP NOTE LOG ID: [id number] Surgery/Procedure Date: 03/04/2024 Incision/Procedure Start Time: 12:35 PM Incision Close/Procedure End Time: 12:50 PM Surgeon(s) and Roper Operator(s): Surgeons and Role: * Flor Mar MD - Primary * Eri Sneed MD - Resident - Assisting * Hanh Houston MD - Resident - Assisting No Additional Staff Procedure(s): Procedure(s): EXAM UNDER ANESTHESIA RECTAL, kenalog injection Anesthesia: General Findings: Stenotic, inflamed anal canal. Superficial fistula posterior. Anterior fissure Tubes/Drains: None Estimated Blood Loss: 5 mls Specimens: None Wound Classification: N/A Pre-Op/Pre-Procedure Diagnosis: Pre-Op Diagnosis Codes: * Anal fissure [K60.2] Post-Op/Post-Procedure Diagnosis: Same SIGNATURE: Hanh Houston MD PATIENT NAME: Walter Keller DATE: March 04, 2024 TIME: 12:52 PM PAGER/CONTACT #: [phone] * Operative Report - Flor Mar MD - 03/04/2024 12:18 PM EDT [facility] OPERATIVE/PROCEDURE REPORT LOG ID: [id number] Surgery/Procedure Date: 03/04/2024 Incision/Procedure Start Time: 12:35 PM Incision Close/Procedure End Time: 12:50 PM Surgeon(s)/Proceduralist(s) and Roper Operator(s): Surgeons and Role: * Flor Mar MD - Primary * Eri Sneed MD - Resident - Assisting * Hanh Houston MD - Resident - Assisting No Additional Staff Anesthesia: General Procedure(s): EUA, kenalog injection Indication: 43F with pCD Findings: circumferential anal inflammation, worst anteriorly and posteriorly Procedure Details: After informed consent was obtained, the patient was transferred to the OR and from the stretcher to the OR table in supine position and general anesthesia administered by Anesthesiology. The patient was then placed in the dorsal lithotomy position with YelloFin stirrups; all pressure point were padded. The patient was prepped and draped in the usual sterile fashion. A time outwas performed prior to beginning the incision confirming the patient, planned procedure, and allergies. We first performed perianal pasquale-shaped skin block and a bilateral pudendal nerve block using a mixture of Exparel and 0.5% Marcaine. We then performed an examination under anesthesia of the anorectum first by visual inspection and then using Hill-Michaels retractors. DAMON revealed anal canal inflammation and there was a right posterior close to midline short 5 mm mature/epithelized fistula in ano which was left un- disturbed. We then injected 80 mg of kenalog in 10cc of saline circumferentially submucosally. The operative field was noted to be hemostatic and fluffy 4 x 4's and mesh panties were placed. Prior to and after closing, all needle, instrument, lap and sponge counts were noted to be correct. There were no complications. I was present for the entire procedure. This note was partially generated using [employer] voice recognition system and there may be some incorrect words, spellings, and punctuation. Pre-Op/Pre-Procedure Diagnosis: perianal Crohn's Post-Op/Post-Procedure Diagnosis: * No post-op diagnosis entered * same Estimated Blood Loss: minimal Specimens: None Implantable Devices: None Drains: None Complications: None I/primary surgeon/proceduralist performed the procedure with assistance. SIGNATURE: Flor Mar MD PATIENT NAME: Walter Keller DATE: March 04, 2024 TIME: 1:12 PM PAGER/CONTACT #: [phone] documented in this encounterSumma [facility]08-23-2024 NoteHNO ID: [id number] Author: MARY MUSA SRNA Service: ? Author Type: Student Type: Anesthesia Procedure Notes Filed: 03/04/2024 12:41 Note Text: ANESTHESIOLOGY PROCEDURE NOTE Airway General Information Procedure Start Time/Medication Administration: 03/04/2024 12:25 PM Procedure End Time: 03/04/2024 12:25 PM Patient location during procedure: OR Timeout Performed Pre-procedure: timeout performed Consent Obtained: Yes Patient identity confirmed: arm band and patient Staffing Anesthesiologist: Cole Vázquez MD SRNA: Mary Musa SRNA Performed by: CHIQUIS Indications and Patient Condition Indications for airway management: anesthesia Preoxygenated: yes anesthesia circuit Patient position: sniffing Method: asleep Cricoid Pressure: No Manual In-Line Stabilization: No Difficult Mask: No Final Airway Details Final airway type: supraglottic airway Number of attempts at approach: 1 Final Supraglottic Airway: i-gel Size 3 Seal Adequate: yes Failed airway: no Unrecognized esophageal intubation: no Airway not difficult SIGNATURE: CHIQUIS Waite PATIENT NAME: Walter Keller DATE: March 04, 2024 TIME: 12:39 PM CSN: [id number] [facility]08-23-2024 Surgery Surgical operation note* Operative Report - Flor Mar MD - 03/04/2024 12:18 PM EDT [facility] OPERATIVE/PROCEDURE REPORT LOG ID: [id number] Surgery/Procedure Date: 03/04/2024 Incision/Procedure Start Time: 12:35 PM Incision Close/Procedure End Time: 12:50 PM Surgeon(s)/Proceduralist(s) and Roper Operator(s): Surgeons and Role: * Flor Mar MD - Primary * Eri Sneed MD - Resident - Assisting * Hanh Houston MD - Resident - Assisting No Additional Staff Anesthesia: General Procedure(s): EUA, kenalog injection Indication: 43F with pCD Findings: circumferential anal inflammation, worst anteriorly and posteriorly Procedure Details: After informed consent was obtained, the patient was transferred to the OR and from the stretcher to the OR table in supine position and general anesthesia administered by Anesthesiology. The patient was then placed in the dorsal lithotomy position with YelloFin stirrups; all pressure point were padded. The patient was prepped and draped in the usual sterile fashion. A time outwas performed prior to beginning the incision confirming the patient, planned procedure, and allergies. We first performed perianal pasquale-shaped skin block and a bilateral pudendal nerve block using a mixture of Exparel and 0.5% Marcaine. We then performed an examination under anesthesia of the anorectum first by visual inspection and then using Hill-Michaels retractors. DAMON revealed anal canal inflammation and there was a right posterior close to midline short 5 mm mature/epithelized fistula in ano which was left un- disturbed. We then injected 80 mg of kenalog in 10cc of saline circumferentially submucosally. The operative field was noted to be hemostatic and fluffy 4 x 4's and mesh panties were placed. Prior to and after closing, all needle, instrument, lap and sponge counts were noted to be correct. There were no complications. I was present for the entire procedure. This note was partially generated using [employer] voice recognition system and there may be some incorrect words, spellings, and punctuation. Pre-Op/Pre-Procedure Diagnosis: perianal Crohn's Post-Op/Post-Procedure Diagnosis: * No post-op diagnosis entered * same Estimated Blood Loss: minimal Specimens: None Implantable Devices: None Drains: None Complications: None I/primary surgeon/proceduralist performed the procedure with assistance. SIGNATURE: Flor Mar MD PATIENT NAME: Walter Keller DATE: March 04, 2024 TIME: 1:12 PM PAGER/CONTACT #: [phone] [facility]08-23-[facility] History and physical note* Hanh Houston MD - 03/04/2024 11:38 AM EDT Images from the original note were not included. COLORECTAL SURGERY CONSULT SERVICE DATE: March 04, 2024 SERVICE TIME: 11:38 AM Chief complaint: Anal pain ASSESSMENT & PLAN: 43 year old female with history of Crohns disease now with anal pain and possible fissure. Nifedipine/hydrocortisone/lidocaine ointment has not provided relief. Plan for OR today for EUA, possible Botox injection, possible Kenalog injection. HPI: Walter Keller is a 43 year old woman with history of Crohns disease and now with anal pain. From most recent clinic visit on 02/03: Walter Keller is a 43 year old female with a history of Crohn's disease. I last saw her on 01/07/24 for anal pain and potentially an anal fissure. On exam there were 2 small ulcerated areas that could potentially be anal fissures. With that I discussed a treatment plan with Dr. Vora and Dr. Mar. We advised to stop Budesonide enemas, start nifedipine/hydrocortisone/lidocaine ointment and tofollow up in 4 weeks. If not improved then she would go with the already scheduled EUA for 03/04/24. No changes in her health since her last visit. Continues to have anal pain. No recent illnesses. Recent Labs 01/11/24 1553 06/25/17 1116 06/04/17 0418 ALB 3.5* < > 2.5* PREALB -- -- 13* < > = values in this interval not displayed. 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 Incision and drainage of interloop small bowel abscess. Takedown of ileorectal fistula. Ileocecectomy. Primary debridement and repair of rectal fistula. Creation of end ileostomy. Placement of seprafilm. Creation of omental pedicle flap. 05/27/2017: PAST SURGICAL HISTORY OF Comment: Ex lap, extensive KAREN, ileostomy reversal, right ovarian cystectomy No date: PAST SURGICAL HISTORY OF Comment: colposcopy 06/03/2017: PICC LINE INSERT/CONSULT Comment: FHx: FAMILY HISTORY Problem Relation Age of Onset other (diverticulitis) Paternal Grandmother SocHx: Social History Tobacco Use Smoking status: Former Smokeless tobacco: Never Tobacco comments: 1/2 pack for 4 years 10+ yrs ago Vaping Use Vaping status: Never Used Substance Use Topics Alcohol use: Yes Comment: occ Drug use: No Home Meds: upadacitinib tablet ER 24 hr 30 mg (RINVOQ)^Take 1 tablet (30 mg) by mouth once daily. Swallow whole; DO NOT crush, chew, or open.^Disp: 30 tablet^Rfl: 5 ergocalciferol 50,000 unit capsule (VITAMIN D2, DRISDOL)^Take 1 capsule by mouth one time a week.^Disp: 12 capsule^Rfl: 0 ascorbic acid, vitamin C, (VITAMIN C) 250 mg tablet^Take 250 mg by mouth.^Disp: ^Rfl: ajruuis-bqpkecjsm-kgelkom D3 500 mg-5 mcg (200 unit) per tablet^Take 1 tablet by mouth.^Disp: ^Rfl: cholecalciferol (VITAMIN D3) 1,000 unit tab tablet^Take 1,000 Units by mouth.^Disp: ^Rfl: Ferrous Sulfate 142 mg (45 mg iron) TbER^Take 1 tablet by mouth daily with breakfast.^Disp: ^Rfl: Vit B Comp and C-Vit E-FA-Sabine-Zn 0.4 mg tab^1 tablet.^Disp: ^Rfl: CALCIUM ORAL^Take by mouth.^Disp: ^Rfl: sertraline (ZOLOFT) 100 mg tablet^Take 100 mg by mouth once daily.^Disp: ^Rfl: Cyanocobalamin 1,000 mcg subl^Dissolve 1 tablet under the tongue once daily.^Disp: 100 tablet^Rfl: 0 multivitamin tablet^Take 1 tablet by mouth once daily.^Disp: ^Rfl: ferrous sulfate (IRON ORAL)^Take 1 capsule by mouth once daily.^Disp: ^Rfl: hydrocortisone (ANUSOL-HC) 25 mg suppository^1 Suppository by RECTAL route every 12 hours.^Disp: 60Each^Rfl: 0 lidocaine urojet (GLYDO) 2 % jelp^Apply 6 mL to affected area three times a day as needed.^Disp: 126 mL^Rfl: 4 upadacitinib tablet ER 24 hr 45 mg (RINVOQ)^Take 1 tablet (45 mg) by mouth once daily. Swallow whole; DO NOT crush, chew, or open.^Disp: 28 tablet^Rfl: 2 (Patient not taking: Reported on 02/04/2024) valACYclovir (VALTREX) 1 gram^Take 1,000 mg by mouth once daily as needed.^Disp: ^Rfl: hydrOXYzine pamoate (VISTARIL) 25 mg capsule^Take 25 mg by mouth as needed. Patient not sure of dosage^Disp: ^Rfl: inFLIXimab-abda (RENFLEXIS) 100 mg injection^Inject 400 mg intravenously every 8 weeks. NURSE TO INSERT IV FOR ADMINISTRATION^Disp: 400 mg^Rfl: (Patient not taking: Reported on 02/04/2024) acetaminophen (TYLENOL) 325 mg tablet^Take 650 mg by mouth every 6 hours as needed.^Disp: ^Rfl: IP Meds: Current Facility-Administered Medications Medication Dose Route Frequency lidocaine (PF) 10 mg/mL (1 %) 1-2 mg injection (XYLOCAINE) 0.1-0.2 mL INTRADERMAL PRN Or lidocaine 1% 0.25 mL subcutaneous j-tip syringe (XYLOCAINE) 0.25 mL SUBCUTANEOUS PRN lactated ringers iv infusion 5-30 mL/hr INTRAVENOUS CONTINUOUS NaCl 0.9% iv flush bag 20 mL INTRAVENOUS PRN ALL: ALLERGIES Allergen Reactions Ciprofibrate Anaphylaxis Ciprofloxacin Swelling, GI Upset, Anaphylaxis swelling at IV site and nausea Other reaction(s): stomach upset Demerol [Meperidine* Intolerance, Other: See Comments Patient reports Vomiting Gluten Protein GI Upset Meperidine Intolerance ROS: GENERAL: No weight loss, malaise or fevers HEENT: Negative for frequent or significant headaches, No changes in hearing or vision, no nose bleeds or other nasal problems NECK: Negative for lumps, goiter, pain and significant neck swelling RESPIRATORY: Negative for cough, hemoptysis, wheezing, COPD, dyspnea or shortness of breath CARDIOVASCULAR: Negative for chest pain, leg swelling, hypertension, CHF or palpitations GI: as per HPI : No history of dysuria, frequency or incontinence MUSCULOSKELETAL: Negative for joint pain or swelling, back pain or muscle pain SKIN: Negative for lesions, rash, and itching PSYCH: Negative for sleep disturbance, mood disorder and recent psychosocial stressors NEURO: No history of headaches, syncope, paralysis, seizures or tremors PE: BP 106/68 Pulse 87 Temp 36.1 C (97 F) (Temporal) Resp 16 Ht 154.9 cm (5' 1) Wt 56.7 kg (125 lb) LMP 02/14/2024 (Approximate) SpO2 100% BMI 23.62 kg/m No intake/output data recorded. GENERAL: Alert, no distress, cooperative NEURO: Grossly normal cognition, motor function, and cranial nerves III-XII SKIN: Skin color, texture, turgor normal. No rashes or lesions. EYES: EOMI EARS: External ears normal, canals clear NECK: Supple, No thyromegaly BACK: Back symmetric LUNGS: Lungs clear to auscultation, Good diaphragmatic excursion CARDIAC: Normal S1 and S2; no rubs, murmurs, or gallops EXTREMITIES: Extremities normal, no deformities, edema, clubbing or skin discoloration. Good capillary refill. ABDOMEN: Soft, nontender, nondistended ANORECTAL: Deferred Labs: CBC, BMP, MG, PHOS Recent Labs 01/11/24 1553 09/29/23 1541 04/20/23 1608 05/26/22 1446 06/25/17 1116 06/06/17 0418 06/05/17 0346 06/04/17 0418 06/03/17 0645 06/03/17 0028 05/30/17 2136 05/30/17 0459 WBC 6.66 9.43 7.63 6.80 < > 4.70 4.01 5.21 -- 4.58 < > 11.40* HB 12.3 13.2 13.4 12.7 < > 7.7* 7.2* 7.6* -- 7.8* < > 10.0* HCT 37.2 40.4 41.2 39.4 < > 23.7* 22.9* 23.7* -- 24.5* < > 31.0* PLT 327 254 259 230 < > 273 255 273 -- 275 < > 226 NA 135* 138 138 139 < > 137 139 142 -- 139 < > 133* K 3.7 3.8 4.2 3.5* < > 4.1 3.8 3.7 < > 3.2* < > 3.3* CHLOR 102 102 102 101 < > 103 102 104 -- 101 < > 98 CO2 23 25 22 27 < > 25 28 26 -- 25 < > 24 BUN 11 13 10 15 < > 11 9 3* -- 2* < > 7 CREAT 0.83 0.74 0.79 0.84 < > 0.65 0.65 0.74 -- 0.73 < > 0.86 GLUC 84 84 98 83 < > 86 86 103* -- 106* < > 94 CA 8.6 9.0 9.3 9.3 < > 8.2* 8.0* 8.1* -- 8.3* < > 8.1* MG -- -- -- -- -- 2.4* 2.5* 2.0 -- 2.0 < > 2.0 P -- -- -- -- -- 3.9 4.6 4.6 -- -- -- 2.6* < > = values in this interval not displayed. Liver Function, Amylase, & Lipase Recent Labs 01/11/24 1553 09/29/23 1541 04/20/23 1608 05/26/22 1446 TPROT 6.9 7.0 7.1 6.3 ALB 3.5* 3.9 4.1 3.7* ALT 24 33 22 15 AST 26 31 25 20 ALKPHOS 91 83 65 67 TBILI 0.3 0.4 0.4 0.3 Coags Recent Labs 02/04/17 1346 APTT 40.3* INR 1.2 ASSESSMENT & PLAN: (located at the top of the note) All NEW consults seen by [facility] fellow meat products demonstrator from 6A-6PM. Once consult is staffed, patient management decisions to be dictated by assigned [facility] fellow and attending. Please refer to last [facility] progress note to identify the name of provider to discuss management concerns. (Signed electronically to expedite mailing) Associated attestation - Flor Mar MD - 03/04/2024 12:13 PM EDT Images from the original note were not included. Flor Mar MD, MS, FACS, FASCRS Inflammatory Bowel Disease Surgery Section Director of Research, Department of Colorectal Surgery Digestive Disease [place] [facility] [address] [place] [address] [facility]08-23-2024 History and physical note* Hanh Houston MD - 03/04/2024 11:38 AM EDT Images from the original note were not included. COLORECTAL SURGERY CONSULT SERVICE DATE: March 04, 2024 SERVICE TIME: 11:38 AM Chief complaint: Anal pain ASSESSMENT & PLAN: 43 year old female with history of Crohns disease now with anal pain and possible fissure. Nifedipine/hydrocortisone/lidocaine ointment has not provided relief. Plan for OR today for EUA, possible Botox injection, possible Kenalog injection. HPI: Walter Keller is a 43 year old woman with history of Crohns disease and now with anal pain. From most recent clinic visit on 02/03: Walter Keller is a 43 year old female with a history of Crohn's disease. I last saw her on 01/07/24 for anal pain and potentially an anal fissure. On exam there were 2 small ulcerated areas that could potentially be anal fissures. With that I discussed a treatment plan with Dr. Vora and Dr. Mar. We advised to stop Budesonide enemas, start nifedipine/hydrocortisone/lidocaine ointment and tofollow up in 4 weeks. If not improved then she would go with the already scheduled EUA for 03/04/24. No changes in her health since her last visit. Continues to have anal pain. No recent illnesses. Recent Labs 01/11/24 1553 06/25/17 1116 06/04/17 0418 ALB 3.5* < > 2.5* PREALB -- -- 13* < > = values in this interval not displayed. 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 Incision and drainage of interloop small bowel abscess. Takedown of ileorectal fistula. Ileocecectomy. Primary debridement and repair of rectal fistula. Creation of end ileostomy. Placement of seprafilm. Creation of omental pedicle flap. 05/27/2017: PAST SURGICAL HISTORY OF Comment: Ex lap, extensive KAREN, ileostomy reversal, right ovarian cystectomy No date: PAST SURGICAL HISTORY OF Comment: colposcopy 06/03/2017: PICC LINE INSERT/CONSULT Comment: FHx: FAMILY HISTORY Problem Relation Age of Onset other (diverticulitis) Paternal Grandmother SocHx: Social History Tobacco Use Smoking status: Former Smokeless tobacco: Never Tobacco comments: 1/2 pack for 4 years 10+ yrs ago Vaping Use Vaping status: Never Used Substance Use Topics Alcohol use: Yes Comment: occ Drug use: No Home Meds: upadacitinib tablet ER 24 hr 30 mg (RINVOQ)^Take 1 tablet (30 mg) by mouth once daily. Swallow whole; DO NOT crush, chew, or open.^Disp: 30 tablet^Rfl: 5 ergocalciferol 50,000 unit capsule (VITAMIN D2, DRISDOL)^Take 1 capsule by mouth one time a week.^Disp: 12 capsule^Rfl: 0 ascorbic acid, vitamin C, (VITAMIN C) 250 mg tablet^Take 250 mg by mouth.^Disp: ^Rfl: uuasean-vrqoueulp-sobowxs D3 500 mg-5 mcg (200 unit) per tablet^Take 1 tablet by mouth.^Disp: ^Rfl: cholecalciferol (VITAMIN D3) 1,000 unit tab tablet^Take 1,000 Units by mouth.^Disp: ^Rfl: Ferrous Sulfate 142 mg (45 mg iron) TbER^Take 1 tablet by mouth daily with breakfast.^Disp: ^Rfl: Vit B Comp and C-Vit E-FA-Sabine-Zn 0.4 mg tab^1 tablet.^Disp: ^Rfl: CALCIUM ORAL^Take by mouth.^Disp: ^Rfl: sertraline (ZOLOFT) 100 mg tablet^Take 100 mg by mouth once daily.^Disp: ^Rfl: Cyanocobalamin 1,000 mcg subl^Dissolve 1 tablet under the tongue once daily.^Disp: 100 tablet^Rfl: 0 multivitamin tablet^Take 1 tablet by mouth once daily.^Disp: ^Rfl: ferrous sulfate (IRON ORAL)^Take 1 capsule by mouth once daily.^Disp: ^Rfl: hydrocortisone (ANUSOL-HC) 25 mg suppository^1 Suppository by RECTAL route every 12 hours.^Disp: 60Each^Rfl: 0 lidocaine urojet (GLYDO) 2 % jelp^Apply 6 mL to affected area three times a day as needed.^Disp: 126 mL^Rfl: 4 upadacitinib tablet ER 24 hr 45 mg (RINVOQ)^Take 1 tablet (45 mg) by mouth once daily. Swallow whole; DO NOT crush, chew, or open.^Disp: 28 tablet^Rfl: 2 (Patient not taking: Reported on 02/04/2024) valACYclovir (VALTREX) 1 gram^Take 1,000 mg by mouth once daily as needed.^Disp: ^Rfl: hydrOXYzine pamoate (VISTARIL) 25 mg capsule^Take 25 mg by mouth as needed. Patient not sure of dosage^Disp: ^Rfl: inFLIXimab-abda (RENFLEXIS) 100 mg injection^Inject 400 mg intravenously every 8 weeks. NURSE TO INSERT IV FOR ADMINISTRATION^Disp: 400 mg^Rfl: (Patient not taking: Reported on 02/04/2024) acetaminophen (TYLENOL) 325 mg tablet^Take 650 mg by mouth every 6 hours as needed.^Disp: ^Rfl: IP Meds: Current Facility-Administered Medications Medication Dose Route Frequency lidocaine (PF) 10 mg/mL (1 %) 1-2 mg injection (XYLOCAINE) 0.1-0.2 mL INTRADERMAL PRN Or lidocaine 1% 0.25 mL subcutaneous j-tip syringe (XYLOCAINE) 0.25 mL SUBCUTANEOUS PRN lactated ringers iv infusion 5-30 mL/hr INTRAVENOUS CONTINUOUS NaCl 0.9% iv flush bag 20 mL INTRAVENOUS PRN ALL: ALLERGIES Allergen Reactions Ciprofibrate Anaphylaxis Ciprofloxacin Swelling, GI Upset, Anaphylaxis swelling at IV site and nausea Other reaction(s): stomach upset Demerol [Meperidine* Intolerance, Other: See Comments Patient reports Vomiting Gluten Protein GI Upset Meperidine Intolerance ROS: GENERAL: No weight loss, malaise or fevers HEENT: Negative for frequent or significant headaches, No changes in hearing or vision, no nose bleeds or other nasal problems NECK: Negative for lumps, goiter, pain and significant neck swelling RESPIRATORY: Negative for cough, hemoptysis, wheezing, COPD, dyspnea or shortness of breath CARDIOVASCULAR: Negative for chest pain, leg swelling, hypertension, CHF or palpitations GI: as per HPI : No history of dysuria, frequency or incontinence MUSCULOSKELETAL: Negative for joint pain or swelling, back pain or muscle pain SKIN: Negative for lesions, rash, and itching PSYCH: Negative for sleep disturbance, mood disorder and recent psychosocial stressors NEURO: No history of headaches, syncope, paralysis, seizures or tremors PE: BP 106/68 Pulse 87 Temp 36.1 C (97 F) (Temporal) Resp 16 Ht 154.9 cm (5' 1) Wt 56.7 kg (125 lb) LMP 02/14/2024 (Approximate) SpO2 100% BMI 23.62 kg/m No intake/output data recorded. GENERAL: Alert, no distress, cooperative NEURO: Grossly normal cognition, motor function, and cranial nerves III-XII SKIN: Skin color, texture, turgor normal. No rashes or lesions. EYES: EOMI EARS: External ears normal, canals clear NECK: Supple, No thyromegaly BACK: Back symmetric LUNGS: Lungs clear to auscultation, Good diaphragmatic excursion CARDIAC: Normal S1 and S2; no rubs, murmurs, or gallops EXTREMITIES: Extremities normal, no deformities, edema, clubbing or skin discoloration. Good capillary refill. ABDOMEN: Soft, nontender, nondistended ANORECTAL: Deferred Labs: CBC, BMP, MG, PHOS Recent Labs 01/11/24 1553 09/29/23 1541 04/20/23 1608 05/26/22 1446 06/25/17 1116 06/06/17 0418 06/05/17 0346 06/04/17 0418 06/03/17 0645 06/03/17 0028 05/30/17 2136 05/30/17 0459 WBC 6.66 9.43 7.63 6.80 < > 4.70 4.01 5.21 -- 4.58 < > 11.40* HB 12.3 13.2 13.4 12.7 < > 7.7* 7.2* 7.6* -- 7.8* < > 10.0* HCT 37.2 40.4 41.2 39.4 < > 23.7* 22.9* 23.7* -- 24.5* < > 31.0* PLT 327 254 259 230 < > 273 255 273 -- 275 < > 226 NA 135* 138 138 139 < > 137 139 142 -- 139 < > 133* K 3.7 3.8 4.2 3.5* < > 4.1 3.8 3.7 < > 3.2* < > 3.3* CHLOR 102 102 102 101 < > 103 102 104 -- 101 < > 98 CO2 23 25 22 27 < > 25 28 26 -- 25 < > 24 BUN 11 13 10 15 < > 11 9 3* -- 2* < > 7 CREAT 0.83 0.74 0.79 0.84 < > 0.65 0.65 0.74 -- 0.73 < > 0.86 GLUC 84 84 98 83 < > 86 86 103* -- 106* < > 94 CA 8.6 9.0 9.3 9.3 < > 8.2* 8.0* 8.1* -- 8.3* < > 8.1* MG -- -- -- -- -- 2.4* 2.5* 2.0 -- 2.0 < > 2.0 P -- -- -- -- -- 3.9 4.6 4.6 -- -- -- 2.6* < > = values in this interval not displayed. Liver Function, Amylase, & Lipase Recent Labs 01/11/24 1553 09/29/23 1541 04/20/23 1608 05/26/22 1446 TPROT 6.9 7.0 7.1 6.3 ALB 3.5* 3.9 4.1 3.7* ALT 24 33 22 15 AST 26 31 25 20 ALKPHOS 91 83 65 67 TBILI 0.3 0.4 0.4 0.3 Coags Recent Labs 02/04/17 1346 APTT 40.3* INR 1.2 ASSESSMENT & PLAN: (located at the top of the note) All NEW consults seen by [facility] fellow meat products demonstrator from 6A-6PM. Once consult is staffed, patient management decisions to be dictated by assigned [facility] fellow and attending. Please refer to last [facility] progress note to identify the name of provider to discuss management concerns. (Signed electronically to expedite mailing) Associated attestation - Flor Mar MD - 03/04/2024 12:13 PM EDT Images from the original note were not included. Flor Mar MD, MS, FACS, FASCRS Inflammatory Bowel Disease Surgery Section Director of Research, Department of Colorectal Surgery Digestive Disease [place] [facility] [address] [place] [address] documented in this encounterSumma Health [facility] Campus08-19-2024 Telephone encounter Note * Telephone Encounter - Brittany Nixon RN - 02/29/2024 5:10 PM EDT I did too! [facility]08-19-2024 Miscellaneous Notes* Telephone Encounter - Brittany Nixon RN - 02/29/2024 5:10 PM EDT I did too! * Telephone Encounter - Milad Girard - 02/29/2024 4:18 PM EDT Walter Fabcarmela is wondering about her preops. They are scheduled after the procedure. [phone] documented in this encounterSumma Health [facility] Campus08-19-2024 Telephone encounter Note * Telephone Encounter - Milad Girard - 02/29/2024 4:18 PM EDT Walter Keller is wondering about her preops. They are scheduled after the procedure. [phone] [facility]07-31-2024 Telephone encounter Note* Telephone Encounter - Nina Roth RN - 02/10/2024 1:24 PM EDT SPECIALTY CARE COORDINATION FOLLOW-UP NOTE Provider Action/FYI Attempted to call patient Patient identified by name and date of . NO Spoke to No answer, unable to leave VM Summary: CC attempted to contact patient via phone to move up surgical date to this Sunday 02/11. Patient having increased pain in rectal area. Dr. Mar offering Thursday for surgery and will see her in officetomorrow 02/10. Patient did not answer phone and unable to leave voicemail. Sent patient detailed Think2 message with above information. Concerns: Needing to move up surgical date Non Emergency Services Ambulance Driver plan for next outreach: Will follow up by end of day if not heard from patient. Adrianna Roth RN February 10, 2024 [facility]07-31-2024 Miscellaneous Notes* Telephone Encounter - Nina Roth RN - 02/10/2024 1:24 PM EDT SPECIALTY CARE COORDINATION FOLLOW-UP NOTE Provider Action/FYI Attempted to call patient Patient identified by name and date of . NO Spoke to No answer, unable to leave VM Summary: CC attempted to contact patient via phone to move up surgical date to this Sunday 02/11. Patient having increased pain in rectal area. Dr. Mar offering Thursday for surgery and will see her in officetomorrow 02/10. Patient did not answer phone and unable to leave voicemail. Sent patient detailed Think2 message with above information. Concerns: Needing to move up surgical date Non Emergency Services Ambulance Driver plan for next outreach: Will follow up by end of day if not heard from patient. Signature Nina Roth RN February 10, 2024 documented in this encounterSumma Health [facility]07-25-2024 History of Present illness Narrative* Divya Diego PA-C - 02/04/2024 10:30 AM EDT COLORECTAL SURGERY Follow-up February 04, 2024 Chief complaint: follow up anal pain HPI: Walter Keller is a 43 year old female with a history of Crohn's disease. I last saw her on 01/07/24 for anal pain and potentially an anal fissure. On exam there were 2 small ulcerated areas that could potentially be anal fissures. With that I discussed a treatment plan with Dr. Vora and Dr. Mar. We advised to stop Budesonide enemas, start nifedipine/hydrocortisone/lidocaine ointment and to follow up in 4 weeks. If not improved then she would go with the already scheduled EUA for 03/04/24. Today She reports: Overall: -getting worse - stopping the budesonide enema did not have any effect - having a hard time with going to work due to this Bowel movements: -4-6 bms a day -from soft to formed Pain: -pain at a 7 - with bowel movements will last for a couple of hours afterwards Bleeding/Drainage: -some mucus and blood every bm Txs: - nifedipine/hydrocortisone/ lidocaine ointment TID - taking Tylenol daily - feels like her Rinvoq is not working Surgeries/ Procedures: 02/10/2017 Dr. Casas OPERATION: 1. Exploratory laparotomy. 2. 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 3. Incision and drainage of interloop small bowel abscess. 4. Takedown of ileorectal fistula. 5. Ileocecectomy. 6. Primary debridement and repair of rectal fistula. 7. Creation of end ileostomy. 8. Placement of Seprafilm. 9. Creation of omental pedicle flap. 05/27/2017 Dr. Mar: Procedure(s): Ex lap, extensive KAREN, ileostomy reversal, right ovarian cystectomy 02/18/2022 MRE: IMPRESSION: Active inflammatory bowel disease in the the ileum and mid rectum without luminal narrowing. Neoterminal ileum is patent. No penetrating disease. No acute extra gastrointestinal findings. 03/21/2022 Dr. Mar: Procedure(s): EUA anorectum, bilateral pudendal nerve block, kenalog injection Findings: Anal ulcers - anterior and posterior Kenalog injection - 80 mg 09/17/2023 Colonoscopy: Impression: - Preparation of the colon was fair. - Patent [id number] ileo-colonic anastomosis, characterized by ulceration. - Crohn's disease with ileitis and colitis. Inflammation was found. This was graded as Rutgeerts Score i2b (more than five aphthous lesions with normal intervening mucosa or skip areas of larger lesions or lesions confined to the ileocolonic anastomosis). Biopsied. - Simple Endoscopic Score for Crohn's Disease: 8, mucosal inflammatory changes secondary to Crohn's disease, with ileitis and colitis. Biopsied. FINAL DIAGNOSIS A. Terminal ileum, biopsy: -Chronic active ileitis -Negative for granulomas or dysplasia B, C, D. Colon, right, transverse, and left, biopsy: -Colonic mucosa with no significant histologic abnormality -Negative for granulomas or dysplasia E. Rectum, biopsy: -Chronic moderately active colitis -Negative for granulomas or dysplasia Physical Exam: [facility] 12/19/2023 (Approximate) General - awake, alert, no acute distress Anorectal: -Perianal skin is intact. - moist/ mildly macerated skin tissue - small ulcerated area right anterior externally - limited exam Digital Rectal Exam: Deferred due to wanting to avoid trauma to potential ulcerations internally Extrusion Supervisor present: Yes, Chayo Booker Assessment Medical Decision Making: Assessment & Diagnosis: Walter Keller is a 43 year old female with a history of Crohn's disease. I last saw her on 01/07/24 for anal pain and potentially an anal fissure. On exam there were 2 small ulcerated areas that could potentially be anal fissures. With that I discussed a treatment plan with Dr. Vora and Dr. Mar. We advised to stop Budesonide enemas, start nifedipine/hydrocortisone/lidocaine ointment and to follow up in 4 weeks. She notes things are worse since last visit. She does not think her Rinvoq is working and feels like her Crohn's may be getting worse.Her external exam is improved but I am concerned for ulcerations internally. I avoided DAMON and anoscopy ( per Dr. Mar's recommendations) due to wanting to avoid trauma to her anal canal. We will start HC suppositories as they are stronger than the ointment prescribed and more targets to the anal canal. She was told to stop if she entails discomfort or trouble inserting. I am unsure if any other IBD workup is needed at this time like an MRE as it would not detect an ulceration. Will send message to GI to see thoughts. Patient will mostlikely be getting EUA as scheduled in February. Data Reviewed: Tests & Documents Reviewed/ordered: Review of prior notes from [facility] Review of prior operative reports Review of Imaging: MRI Abdomen, MRI Pelvis I have independently interpreted: none I have discussed Walter Keller's treatment plan and/or results with patient, Dr. Mar. Treatment plan: - continue sitz baths - HC suppositories BID w/ lidocaine jelly - OK to continue nifedipine/ hydrocortisone/ lidocaine ointment - lidocaine jelly PRN - keep follow up and EUA with Dr. Mar next month - message sent to Dr. Vora/ Dr. Mar/ Chalino to see if any other work up or follow up is needed - contact with questions/ concerns Divya Diego PA-C [facility] Risk of morbidity, mortality and/or complications of treatment plan: low I spent a total of 35 minutes on the date of the service which included preparing to see the patient, [id number] patient care, completing clinical documentation, obtaining and/or reviewing separately obtained history, performing a medically appropriate examination, counseling and educating the pat ient/family/caregiver, ordering medications, tests, or procedures, communicating with other HCPs (not separately reported), and care coordination (not separately reported). documented in this encounterSumma Health [facility]07-25-2024 NoteHNO ID: [id number] Author: DIVYA DIEGO PA-C Service: ? Author Type: Physician Roper Operator Type: Progress Notes Filed: 02/04/2024 11:21 Note Text: COLORECTAL SURGERY Follow-up February 04, 2024 Chief complaint: follow up anal pain HPI: Walter Keller is a 43 year old female with a history of Crohn's disease. I last saw her on 01/07/24 for anal pain and potentially an anal fissure. On exam there were 2 small ulcerated areas that could potentially be anal fissures. With that I discussed a treatment plan with Dr. Vora and Dr. Mar. We advised to stop Budesonide enemas, start nifedipine/hydrocortisone/lidocaine ointment and to follow up in 4 weeks. If not improved then she would go with the already scheduled EUA for 03/04/24. Today She reports: Overall: -getting worse - stopping the budesonide enema did not have any effect - having a hard time with going to work due to this Bowel movements: -4-6 bms a day -from soft to formed Pain: -pain at a 7 - with bowel movements will last for a couple of hours afterwards Bleeding/Drainage: -some mucus and blood every bm Txs: - nifedipine/hydrocortisone/ lidocaine ointment TID - taking Tylenol daily - feels like her Rinvoq is not working Surgeries/ Procedures: 02/10/2017 Dr. Casas OPERATION: 1. Exploratory laparotomy. 2. 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 3. Incision and drainage of interloop small bowel abscess. 4. Takedown of ileorectal fistula. 5. Ileocecectomy. 6. Primary debridement and repair of rectal fistula. 7. Creation of end ileostomy. 8. Placement of Seprafilm. 9. Creation of omental pedicle flap. 05/27/2017 Dr. Mar: Procedure(s): Ex lap, extensive KAREN, ileostomy reversal, right ovarian cystectomy 02/18/2022 MRE: IMPRESSION: Active inflammatory bowel disease in the the ileum and mid rectum without luminal narrowing. Neoterminal ileum is patent. No penetrating disease. No acute extra gastrointestinal findings. 03/21/2022 Dr. Mar: Procedure(s): EUA anorectum, bilateral pudendal nerve block, kenalog injection Findings: Anal ulcers - anterior and posterior Kenalog injection - 80 mg 09/17/2023 Colonoscopy: Impression: - Preparation of the colon was fair. - Patent [id number] ileo-colonic anastomosis, characterized by ulceration. - Crohn's disease with ileitis and colitis. Inflammation was found. This was graded as Rutgeerts Score i2b (more than five aphthous lesions with normal intervening mucosa or skip areas of larger lesions or lesions confined to the ileocolonic anastomosis). Biopsied. - Simple Endoscopic Score for Crohn's Disease: 8, mucosal inflammatory changes secondary to Crohn's disease, with ileitis and colitis. Biopsied. FINAL DIAGNOSIS A. Terminal ileum, biopsy: -Chronic active ileitis -Negative for granulomas or dysplasia B, C, D. Colon, right, transverse, and left, biopsy: -Colonic mucosa with no significant histologic abnormality -Negative for granulomas or dysplasia E. Rectum, biopsy: -Chronic moderately active colitis -Negative for granulomas or dysplasia Physical Exam: [facility] 12/19/2023 (Approximate) General - awake, alert, no acute distress Anorectal: -Perianal skin is intact. - moist/ mildly macerated skin tissue - small ulcerated area right anterior externally - limited exam Digital Rectal Exam: Deferred due to wanting to avoid trauma to potential ulcerations internally Extrusion Supervisor present: Yes, Chayo Booker Assessment Medical Decision Making: Assessment AND Diagnosis: Walter Keller is a 43 year old female with a history of Crohn's disease. I last saw her on 01/07/24 for anal pain and potentially an anal fissure. On exam there were 2 small ulcerated areas that could potentially be anal fissures. With that I discussed a treatment plan with Dr. Vora and Dr. Mar. We advised to stop Budesonide enemas, start nifedipine/hydrocortisone/lidocaine ointment and to follow up in 4 weeks. She notes things are worse since last visit. She does not think her Rinvoq is working and feels like her Crohn's may be getting worse.Her external exam is improved but I am concerned for ulcerations internally. I avoided DAMON and anoscopy ( per Dr. Mar's recommendations) due to wanting to avoid trauma to her anal canal. We will start HC suppositories as they are stronger than the ointment prescribed and more targets to the anal canal. She was told to stop if she entails discomfort or trouble inserting. I amunsure if any other IBD workup is needed at this time like an MRE as it would not detect an ulceration. Will send message to GI to see thoughts. Patient will most likely be getting EUA as scheduled in February. Data Reviewed: Tests AND Documents Reviewed/ordered: Review of prior notes from [facility] Review of prior operative reports Review of Imaging: MRI Abdomen, MRI Pelvis I have independently interpreted: non (more content not included)...[facility]06-27-2024 Telephone encounter Note* Telephone Encounter - Prabhu Masterson RN - 01/07/2024 12:39 PM EDT SPECIALTY CARE COORDINATION FOLLOW-UP NOTE Patient returned call. Patient agreeable to office visit 03/03 and surgery 03/04. Pt education to be sent via Think2. Prabhu Masterson RN January 07, 2024 [facility]06-27-2024 Miscellaneous Notes* Telephone Encounter - Prabhu Masterson RN - 01/07/2024 12:39 PM EDT SPECIALTY CARE COORDINATION FOLLOW-UP NOTE Patient returned call. Patient agreeable to office visit 03/03 and surgery 03/04. Pt education to be sent via Think2. Prabhu Masterson RN January 07, 2024 * Telephone Encounter - Prabhu Masterson RN - 01/07/2024 12:15 PM EDT SPECIALTY CARE COORDINATION FOLLOW-UP NOTE Called patient. Left detailed vm to call office back to discuss surgery scheduling options. Dr. Mar would like to see her in office on and proceed with surgery on Thursday. Offered surgerydate of 03/04 or 03/11. Office number provided for call back Prabhu Masterson RN January 07, 2024 documented in this encounterSumma [facility]06-[facility] Telephone encounter Note * Telephone Encounter - Ab CornejobreannaShruthi Moses - 01/07/2024 12:27 PM EDT Walter Keller [phone], returned nurse call. [facility] Work Phone: [phone]) 231-958506-27-2024 Miscellaneous Notes* Telephone Encounter - Ab CornejoShruthi ortega - 01/07/2024 12:27 PM EDT Walter Keller [phone], returned nurse call. documented in this encounterSumma Health [facility]06-27-2024 Telephone encounter Note * Telephone Encounter - Prabhu Masterson RN - 01/07/2024 12:15 PM EDT SPECIALTY CARE COORDINATION FOLLOW-UP NOTE Called patient. Left detailed vm to call office back to discuss surgery scheduling options. Dr. Mar would like to see her in office on and proceed with surgery on Thursday. Offered surgerydate of 03/04 or 03/11. Office number provided for call back Prabhu Masterson RN January 07, 2024 [facility]06-27[facility]2024 History of Present illness Narrative* Divya Diego PA-C - 01/07/2024 8:00 AM EDT COLORECTAL SURGERY Follow-up January 07, 2024 Chief complaint: anal pain HPI: Walter Keller is a 43 year old female with a history of Crohn's disease. She is s/p surgeries below. Patient contacted Dr. Vora on 12/21/23 in regards to a possible fissure. It was recommended she follow up with [facility] for evaluation. Today She reports: Overall: - about a month and a half ago - started up after weaning off of the budesonide foam and is in a flar - interfering with work, sleep Bowel movements: - at least 5 times a day - sometimes can be jama, sometimes can be water, can sometimes be sand - no straining Pain: - Abdominal pain: -sometimes - comes and goes - Anorectal pain: - tenesmus from time to time - pulsating - always there - currently 09/19 - 5/6 radiating up after a BM and lasts for hours Prolapsing tissue:unsure Bleeding/drainage: - every time - sometimes blood in the toilet - can sometimes be interwoven - can sometimes be mucous Lumps/lesions:unsure Txs: - sitz baths - started Rinvoq 2 months ago N/V/F/C: just nausea Crohn's: -Getting sores in her mouth due to her crohn's flare -Just starting to do the rectal budesonide again but hurts to put it in and take it out Surgeries/ Procedures: 02/10/2017 Dr. Casas OPERATION: 1. Exploratory laparotomy. 2. 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 3. Incision and drainage of interloop small bowel abscess. 4. Takedown of ileorectal fistula. 5. Ileocecectomy. 6. Primary debridement and repair of rectal fistula. 7. Creation of end ileostomy. 8. Placement of Seprafilm. 9. Creation of omental pedicle flap. 05/27/2017 Dr. Mar: Procedure(s): Ex lap, extensive KAREN, ileostomy reversal, right ovarian cystectomy 02/18/2022 MRE: IMPRESSION: Active inflammatory bowel disease in the the ileum and mid rectum without luminal narrowing. Neoterminal ileum is patent. No penetrating disease. No acute extra gastrointestinal findings. 03/21/2022 Dr. Mar: Procedure(s): EUA anorectum, bilateral pudendal nerve block, kenalog injection Findings: Anal ulcers - anterior and posterior Kenalog injection - 80 mg 09/17/2023 Colonoscopy: Impression: - Preparation of the colon was fair. - Patent [id number]-[id number] ileo-colonic anastomosis, characterized by ulceration. - Crohn's disease with ileitis and colitis. Inflammation was found. This was graded as Rutgeerts Score i2b (more than five aphthous lesions with normal intervening mucosa or skip areas of larger lesions or lesions confined to the ileocolonic anastomosis). Biopsied. - Simple Endoscopic Score for Crohn's Disease: 8, mucosal inflammatory changes secondary to Crohn's disease, with ileitis and colitis. Biopsied. FINAL DIAGNOSIS A. Terminal ileum, biopsy: -Chronic active ileitis -Negative for granulomas or dysplasia B, C, D. Colon, right, transverse, and left, biopsy: -Colonic mucosa with no significant histologic abnormality -Negative for granulomas or dysplasia E. Rectum, biopsy: -Chronic moderately active colitis -Negative for granulomas or dysplasia Physical Exam: Ht 154.9 cm (5' 1) Wt 59.4 kg (131 lb) LMP 12/19/2023 (Approximate) BMI 24.75 kg/m General - awake, alert, no acute distress Anorectal: - perianal skin is intact - perianal skin tag anterior midline - tender to q-tip palpation midline posterior, midline anterior, right lateral - small ulcerated area just left of posterior midline more external - ulcerated/ fissure area posterior midline Digital Rectal Exam: deferred due to pain Extrusion Supervisor present: Yes, Terrie Hoffmann Assessment Medical Decision Making: Assessment & Diagnosis: Walter Keller is a 43 year old female with a history of Crohn's disease. She is s/p surgeries above. Patient notes about a month and a half ago she started to notice rectal pain and bleeding as shewas trying to wean herself off of rectal budesonide. She then started it back up again. She currently notes she is in a Crohn's flare. On exam there is a small ulcerated area as well as another area that could potentially be an ulcer vs fissure. I discussed with Dr. Vora talking about discontinuing the budesonide foam given the trauma with each insertion. He agrees we can stop and can try more topical ointment of HC to see if it helps. Will also treat with nifedipine to help relax things. If things do not improve at follow up she may need kenalog injection to the area again like previously. Data Reviewed: Tests & Documents Reviewed/ordered: Review of prior notes from [facility], GI Review of prior operative reports Review of Imaging: MRI Abdomen, MRI Pelvis Review of Procedures / Tests: Colonoscopy I have independently interpreted: none I have discussed Walter Keller's treatment plan and/or results with patient, Dr. Vora . Treatment plan: - stop budesonide foam enemas ( due to trauma from insertion) OK with Dr. Vora - nifedipine/hydrocortisone/lidocaine ointment 3 times a day - sitz baths - bidet or dyan bottle/ avoid excessive wiping - follow up in 4 weeks on in case Dr. Mar needs to be brought in - contact with questions/ concerns Divya Diego PA-C [facility] Risk of morbidity, mortality and/or complications of treatment plan: moderate I spent a total of 35 minutes on the date of the service which included preparing to see the patient, [id number] patient care, completing clinical documentation, obtaining and/or reviewing separately obtained history, performing a medically appropriate examination, counseling and educating the pat ient/family/caregiver, ordering medications, tests, or procedures, communicating with other HCPs (not separately reported), and care coordination (not separately reported). documented in this encounterSumma Health [facility]06-27-2024 NoteHNO ID: [id number] Author: DIVYA DIEGO PA-C Service: ? Author Type: Physician Roper Operator Type: Progress Notes Filed: 01/07/2024 09:00 Note Text: COLORECTAL SURGERY Follow-up January 07, 2024 Chief complaint: anal pain HPI: Walter Keller is a 43 year old female with a history of Crohn's disease. She is s/p surgeries below. Patient contacted Dr. Vora on 12/21/23 in regards to a possible fissure. It was recommended she follow up with [facility] for evaluation. Today She reports: Overall: - about a month and a half ago - started up after weaning off of the budesonide foam and is in a flar - interfering with work, sleep Bowel movements: - at least 5 times a day - sometimes can be jama, sometimes can be water, can sometimes be sand - no straining Pain: - Abdominal pain: -sometimes - comes and goes - Anorectal pain: - tenesmus from time to time - pulsating - always there - currently 3/10 - 5/6 radiating up after a BM and lasts for hours Prolapsing tissue:unsure Bleeding/drainage: - every time - sometimes blood in the toilet - can sometimes be interwoven - can sometimes be mucous Lumps/lesions:unsure Txs: - sitz baths - started Rinvoq 2 months ago N/V/F/C: just nausea Crohn's: -Getting sores in her mouth due to her crohn's flare -Just starting to do the rectal budesonide again but hurts to put it in and take it out Surgeries/ Procedures: 02/10/2017 Dr. Casas OPERATION: 1. Exploratory laparotomy. 2. 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 3. Incision and drainage of interloop small bowel abscess. 4. Takedown of ileorectal fistula. 5. Ileocecectomy. 6. Primary debridement and repair of rectal fistula. 7. Creation of end ileostomy. 8. Placement of Seprafilm. 9. Creation of omental pedicle flap. 05/27/2017 Dr. Mar: Procedure(s): Ex lap, extensive KAREN, ileostomy reversal, right ovarian cystectomy 02/18/2022 MRE: IMPRESSION: Active inflammatory bowel disease in the the ileum and mid rectum without luminal narrowing. Neoterminal ileum is patent. No penetrating disease. No acute extra gastrointestinal findings. 03/21/2022 Dr. Mar: Procedure(s): EUA anorectum, bilateral pudendal nerve block, kenalog injection Findings: Anal ulcers - anterior and posterior Kenalog injection - 80 mg 09/17/2023 Colonoscopy: Impression: - Preparation of the colon was fair. - Patent alfe-tc-goxn ileo-colonic anastomosis, characterized by ulceration. - Crohn's disease with ileitis and colitis. Inflammation was found. This was graded as Rutgeerts Score i2b (more than five aphthous lesions with normal intervening mucosa or skip areas of larger lesions or lesions confined to the ileocolonic anastomosis). Biopsied. - Simple Endoscopic Score for Crohn's Disease: 8, mucosal inflammatory changes secondary to Crohn's disease, with ileitis and colitis. Biopsied. FINAL DIAGNOSIS A. Terminal ileum, biopsy: -Chronic active ileitis -Negative for granulomas or dysplasia B, C, D. Colon, right, transverse, and left, biopsy: -Colonic mucosa with no significant histologic abnormality -Negative for granulomas or dysplasia E. Rectum, biopsy: -Chronic moderately active colitis -Negative for granulomas or dysplasia Physical Exam: Ht 154.9 cm (5' 1) Wt 59.4 kg (131 lb) LMP 12/19/2023 (Approximate) BMI 24.75 kg/m? General - awake, alert, no acute distress Anorectal: - perianal skin is intact - perianal skin tag anterior midline - tender to q-tip palpation midline posterior, midline anterior, right lateral - small ulcerated area just left of posterior midline more external - ulcerated/ fissure area posterior midline Digital Rectal Exam: deferred due to pain Extrusion Supervisor present: Yes, Terrie Hoffmann Assessment Medical Decision Making: Assessment AND Diagnosis: Walter Keller is a 43 year old female with a history of Crohn's disease. She is s/p surgeries above. Patient notes about a month and a half ago she started to notice rectal pain and bleeding as she was trying to wean herself off of rectal budesonide. She then started it back up again. She currently notes she is in a Crohn's flare. On exam there is a small ulcerated area as well as another area that could potentially be an ulcer vs fissure. I discussed with Dr. Vora talking about discontinuing the budesonide foam given the trauma with each insertion. He agrees we can stop and can try more topical ointment of HC to see if it helps. Will also treat with nifedipine to help relax things. If things do not improve at follow up she may need kenalog injection to the area again like previously. Data Reviewed: Tests AND Documents Reviewed/ordered: Review of prior notes from [facility], GI Review of prior operative reports Review of Imaging: MRI Abdomen, MRI Pelvis Review of Procedures / Tests: Colonoscopy I have independently interpreted: none I (more content not included)...[facility]04-05-2024 Miscellaneous Notes* Telephone Encounter - Tano Reza, [facility] - 10/16/2023 4:52 PM EDT Rinvoq prior authorization has been approved; however, due to insurance restrictions Rx must be filled at [facility]. If refill request approved, Rx will be sent to [facility] for processing. NOTE: Initial prior auth was completed by [facility] and expires on 10/14/2024. Future PA renewals will be the responsibility of the provider's office. Requested Prescriptions Pending Prescriptions Disp Refills upadacitinib tablet ER 24 hr 30 mg (RINVOQ) 30 tablet 5 Sig: Take 1 tablet (30 mg) by mouth once daily. Swallow whole; DO NOT crush, chew, or open. upadacitinib tablet ER 24 hr 45 mg (RINVOQ) 28 tablet 2 Sig: Take 1 tablet (45 mg) by mouth once daily. Swallow whole; DO NOT crush, chew, or open. Please review and advise. Tano Reza RPh documented in this encounterSum[facility]03-22-[facility]24 Miscellaneous Notes* Telephone Encounter - Haley Morales - 10/02/2023 12:15 PM EDT Requested Prescriptions Pending Prescriptions Disp Refills ergocalciferol 50,000 unit capsule (VITAMIN D2, DRISDOL) 12 capsule 0 Sig: Take 1 capsule by mouth one time a week. Refill pended & routed to Chalino Zuñiga PA-C for review / approval. Haley Stallings October 02, 2023 12:22 PM documented in this encounterSumma Health [facility]03-13-2024 History of Present illness Narrative* Chalino Zuñiga PA-C - 09/23/2023 4:06 PM EDT Virtual Follow Up Visit Provider [facility] Patient Location: Patient Home or Place of Residence SUBJECTIVE Waltershayan Keller [id number] has requested a video telemedicine for follow up of Crohn's disease. Last seen 04/23/2023. IBD History (copied and updated from my prior notes) Ms. Keller, is a 42-year-old female with history of ileocolic Crohn's disease and underwent an ileocolic resection in 2017 with diverting loop ileostomy and subsequent takedown. Treated with vedolizumab in 2019 and then switched to Renflexis due to active disease. Due to mild recurrence (i2b) she was dose optimized to 7.5 mg/kg every 8 weeks and then in 2021 due to ongoing symptoms dose optimizedto 10 mg/kg every 8 weeks Changes and test results since last visit: Not feeling the greatest since starting Uceris foam feeling a little better. 4 BMs daily no blood. No incontinence no urgency. Tolerating diet weight is stable (has gained 15 lbs over the past year) Some acne Gets IFX every 8 weeks last dose Current Clinical Symptoms # of bowel movements daily: 4 Consistency: loose Bloody bowel movements: no Urgency: no Abdominal pain: no Abdominal distention: no Nausea/vomiting: no Weight loss over last 3 months: no Diagnosis Crohn's Disease: Date of diagnosis (year): 2016 Phenotype Location affected: ileum colon Behavior: inflammatory penetrating Perianal disease: no Prior Medications/Reason for Switch Surgery: Yes: Small Bowel Resection, Partial Colectomy 5-ASA: Yes, ineffective Thiopurines: No Methotrexate: No Biologics: vedo, ineffective Small molecules: No Current Medications IFX; once every 8 weeks. October 25 > next dose December 20 Prior Complications and Extraintestinal Manifestations Clostridium difficile: no Thrombosis: no Ocular (Uveitis, Episcleritis): no Dermatologic (Pyoderma gangrenosum, Erythema nodosum): yes, after renflexis; acneform lesion Arthropathy/Arthralgia: no Oral ulcers: no Primary Sclerosing Cholangitis: no Other: no Labs TB Status: Negative 10/2020 Hepatitis B Status: equivocal ab 10/2020 TPMT: Normal Vaccines if on biologic therapy (Instructed to avoid live vaccines): Immunization History Administered Date(s) Administered COVID-19 original vaccine, full dose, monovalent (MODERNA) 11/02/2020 11/30/2020 06/26/2021 01/30/2022 COVID-19 vaccine, age 12+ yr, 2022- season (MODERNA) 05/27/2023 COVID-19 vaccine, age 12+ yr, bivalent (MODERNA) 06/14/2022 hepatitis A (HepA) vaccine, adult (HAVRIX, VAQTA) 10/15/2018 04/11/2020 hepatitis A-hepatitis B (HepA-HepB) vaccine (TWINRIX) 10/11/2018 hepatitis B (HepB) vaccine (ENGERIX-B, RECOMBIVAX HB) 10/15/2018 hepatitis B (HepB) vaccine, 3-dose series, age 0 yr - 19 yr (ENGERIX B-PEDS, RECOMBIVAX HB-PEDS) 03/25/2019 hepatitis B (HepB) vaccine, 3-dose series, age 20+ yr (ENGERIX-B, RECOMBIVAX HB) 04/11/2020 hepatitis B (HepB) vaccine, unspecified formulation 03/25/2019 influenza (IIV4) vaccine, age 6 mo - 64 yr, quadrivalent (AFLURIA, FLULAVAL, FLUZONE) 06/06/2017 03/25/2019 04/11/2020 influenza (IIV4) vaccine, age 6 mo - 64 yr, quadrivalent, PF (AFLURIA, FLUARIX, FLULAVAL, FLUZONE) 06/06/2017 05/14/2018 03/25/2019 04/11/2020 influenza (ccIIV4) vaccine, age 6+ mo, quadrivalent, PF (FLUCELVAX) 06/26/2021 05/25/2022 05/27/2023 influenza vaccine, unspecified formulation 05/13/2018 pneumococcal conjugate (PCV13) vaccine, 13 valent (PREVNAR 13) 10/15/2018 pneumococcal polysaccharide (PPV23) vaccine, 23 valent (PNEUMOVAX 23) 12/15/2018 tetanus diphtheria pertussis (Tdap) vaccine, age 7+ yr (ADACEL, BOOSTRIX) 10/11/2018 10/15/2018 tetanus toxoid (TT) vaccine 06/14/2010 Current Outpatient Medications Medication Sig Dispense Refill budesonide 2 mg/actuation foam by RECTAL route daily at bedtime. 66.8 g 3 budesonide (UCERIS) 2 mg/actuation foam by RECTAL route daily at bedtime. 66.8 g 3 ascorbic acid, vitamin C, (VITAMIN C) 250 mg tablet Take 250 mg by mouth. xhtsddz-vjdqkiomw-mwyicmn D3 500 mg-5 mcg (200 unit) per tablet Take 1 tablet by mouth. cholecalciferol (VITAMIN D3) 1,000 unit tab tablet Take 1,000 Units by mouth. Ferrous Sulfate 142 mg (45 mg iron) TbER Take 1 tablet by mouth daily with breakfast. Vit B Comp and C-Vit E-FA-Sabine-Zn 0.4 mg tab 1 tablet. valACYclovir (VALTREX) 1 gram Take 1,000 mg by mouth once daily as needed. CALCIUM ORAL Take by mouth. sertraline (ZOLOFT) 100 mg tablet Take 100 mg by mouth once daily. hydrOXYzine pamoate (VISTARIL) 25 mg capsule Take 25 mg by mouth as needed. Patient not sure of dosage inFLIXimab-abda (RENFLEXIS) 100 mg injection Inject 400 mg intravenously every 8 weeks. NURSE TO INSERT IV FOR ADMINISTRATION 400 mg ergocalciferol 50,000 unit capsule (VITAMIN D2, DRISDOL) TAKE 1 CAPSULE BY MOUTH ONE TIME A WEEK. 12 capsule 0 Cyanocobalamin 1,000 mcg subl Dissolve 1 tablet under the tongue once daily. 100 tablet 0 multivitamin tablet Take 1 tablet by mouth once daily. ferrous sulfate (IRON ORAL) Take 1 capsule by mouth once daily. acetaminophen (TYLENOL) 325 mg tablet Take 650 mg by mouth every 6 hours as needed. No current facility-administered medications for this visit. ALLERGIES Allergen Reactions Ciprofibrate Anaphylaxis Ciprofloxacin Swelling, GI Upset, Anaphylaxis swelling at IV site and nausea Other reaction(s): stomach upset Demerol [Meperidine* Intolerance, Other: See Comments Patient reports Vomiting Gluten Protein GI Upset Meperidine Intolerance PAST SURGICAL HISTORY Procedure Laterality Date PAST SURGICAL HISTORY OF 02/10/2017 Exploratory laparotomy. 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 Incision and drainage of interloop small bowel abscess. Takedown of ileorectal fistula. Ileocecectomy. Primary debridement and repair of rectal fistula. Creation of end ileostomy. Placement of seprafilm. Creation of omental pedicle flap. PAST SURGICAL HISTORY OF 05/27/2017 Ex lap, extensive KAREN, ileostomy reversal, right ovarian cystectomy PAST SURGICAL HISTORY OF colposcopy PICC LINE INSERT/CONSULT 06/03/2017 Review of Systems: GENERAL:No weight loss, malaise or fevers HEENT:Negative for frequent or significant headaches, No changes in hearing or vision, no nose bleeds or other nasal problems NECK:Negative for lumps, goiter, pain and significant neck swelling RESPIRATORY: Negative for cough, hemoptysis, wheezing, COPD, dyspnea or shortness of breath CARDIOVASCULAR: Negative for chest pain, leg swelling, hypertension, CHF or palpitations GASTROINTESTINAL: See HPI GENITOURINARY: No history of dysuria, frequency or incontinence FLUX MIXER: Negative for abnormal vaginal bleeding, abnormal vaginal discharge MUSCULOSKELETAL: Negative for joint pain or swelling, back pain or muscle pain NEUROLOGIC:Negative for focal numbness or weakness, headaches and dizziness or syncope. SKIN:Negative for lesions, rash, and itching PSYCHIATRIC: Negative for sleep disturbance, mood disorder and recent psychosocial stressors. HEMATOLOGIC/LYMPHATIC/IMMUNOLOGIC:Negative for prolonged bleeding, bruising easily or swollen nodes ENDOCRINE: Negative for cold or heat intolerance, polyuria, polydipsia and goiter The remainder of the ROS was negative. PHYSICAL EXAMINATION General: alert and appropriate, in no distress and well-hydrated, well nourished, Head: normocephalic, no abnormality or lesion noted, Eyes: visual acuity is grossly normal, no injection,, and EOMI, Oropharynx: moist mucus membranes, no tonsillar hypertrophy/exudate, uvula midline and pharynx non-erythematous, lips, teeth and gums are without obvious lesion, Neck: full ROM, no cervical LNs noted, Respiratory: breathing non-labored, and no grunting/flaring/retractions, Chest: equal chest rise with normal respiratory effort, Abdomen: flat appearing. Visible protrusions or hernias: No Incisions/scars: None Areas of pain/tenderness: Denies Skin: no rash noted, Neuro: Patient seen sitting with normal appearing strength and coordination. No focal motor deficits. Psych: Appropriate mood and interaction Most recent labs: CBC: WBC (k/uL) Date Value 04/20/2023 7.63 Hematocrit (%) Date Value 04/20/2023 41.2 MCV (fL) Date Value 04/20/2023 92.6 Platelet Count (k/uL) Date Value 04/20/2023 259 Lymphocytes % (%) Date Value 04/20/2023 28.0 Hepatic Function Panel: Albumin (g/dL) Date Value 04/20/2023 4.1 Bilirubin, Total (mg/dL) Date Value 04/20/2023 0.4 Bilirubin, Conjug (mg/dL) Date Value 08/22/2021 <0.2 Alkaline Phosphatase (U/L) Date Value 04/20/2023 65 AST (U/L) Date Value 04/20/2023 25 ALT (U/L) Date Value 04/20/2023 22 Protein, Total (g/dL) Date Value 04/20/2023 7.1 CRP: CRP Date Value Ref Range Status 04/20/2023 0.6 <0.9 mg/dL Final No results found for: QTBGOLD No results found for: HRINTP No results found for: TBTEST No results found for: PTMPT Folate Date Value Ref Range Status 02/11/2017 15.5 >4.7 ng/mL Final Vitamin B12 Date Value Ref Range Status 04/20/2023 275 232 - 1,245 pg/mL Final Iron Date Value Ref Range Status 04/20/2023 39 (L) 41 - 186 ug/dL Final TIBC Date Value Ref Range Status 04/20/2023 406 (H) 232 - 386 ug/dL Final Vitamin D 25 Hydroxy Date Value Ref Range Status 04/20/2023 37.2 31.0 - 80.0 ng/mL Final Comment: Classification of 25 OH Vitamin D status: Deficiency/Insufficiency: < or = 30 ng/ml. Sufficiency/Optimal Levels: 31-80 ng/mL Toxicity: > 100 ng/mL. Test performed by chemiluminescent immunoassay. Last Endoscopy: Colonoscopy 09/17/2023 Impression: - Preparation of the colon was fair. - Patent abmo-zt-xohz ileo-colonic anastomosis, characterized by ulceration. - Crohn's disease with ileitis and colitis. Inflammation was found. This was graded as Rutgeerts Score i2b (more than five aphthous lesions with normal intervening mucosa or skip areas of larger lesions or lesions confined to the ileocolonic anastomosis). Biopsied. - Simple Endoscopic Score for Crohn's Disease: 8, mucosal inflammatory changes secondary to Crohn's disease, with ileitis and colitis. Biopsied. Biopsies: FINAL DIAGNOSIS A. Terminal ileum, biopsy: -Chronic active ileitis -Negative for granulomas or dysplasia B, C, D. Colon, right, transverse, and left, biopsy: -Colonic mucosa with no significant histologic abnormality -Negative for granulomas or dysplasia E. Rectum, biopsy: -Chronic moderately active colitis -Negative for granulomas or dysplasia Last Imaging: MRE 02/18/2022 IMPRESSION: Active inflammatory bowel disease in the the ileum and mid rectum without luminal narrowing. Neoterminal ileum is patent. No penetrating disease. No acute extra gastrointestinal findings. Assessment IMPRESSION (as copied and updated from my / note and reflects medical decision making today): 42-year-old female with history of ileocolic Crohn's disease and underwent an ileocolic resection in 2017 with diverting loop ileostomy and subsequent takedown. Treated with vedolizumab in 2018 and then switched to Renflexis due to active disease. Due to mild recurrence (i2b) she was dose optimizedto 7.5 mg/kg every 8 weeks and then in 2021 due to ongoing symptoms dose optimized to 10 mg/kg every 8 weeks She presents today as a routine post endoscopy follow-up. Overall has not been feeling well since starting Uceris foam has had a little bit of improvement. About 4 bowel movements daily no blood no incontinence or urgency. Tolerating diet weight is stable has some neck pain. Has been getting infliximab every 8 weeks with her last dose on August (around 4 weeks ago). Of note her colonoscopy revealed ongoing inflammation both in the ileum as well as the rectum despite infliximab. Will plan for fecal calprotectin routine lab work as well as an infliximab level and will likely need to changeto Rinvoq. For now continue Uceris and I will discuss with Dr. Vora and will likely need to transition over to Rinvoq as long as this approved by insurance. PLAN Labs Fecal calprotectin Infliximab level now (not a trough but a 4-week level) Will likely plan to transition to Rinvoq in the near future due to ongoing disease despite Remicade I will discuss with Dr. Vora I spent 20 minutes in the virtual visit, with more than 50% of the total wfwj-wo-dawl time of the visit in counseling / coordination of care. I have confirmed and edited as necessary, the PFSH and ROS obtained by others. I will communicate my recommendations and prescriptions to the patient's primary care provider. Unrelated to E/M, telemedicine, or virtual visit service provided within previous 7 days. No E/M service or procedure anticipated within next 24 hours. I have communicated my name and active licensure. The patient's identity and physical location wereverified at the time of this visit. 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 Chalino Zuñiga PA-C September 23, 2023 4:06 PM documented in this encounterSumma [facility]03-07-2024 Miscellaneous Notes* Telephone Encounter - Calvin Vora MD - 09/17/2023 2:01 PM EST Uceris foam prescribed for proctitis documented in this encounterSumma [facility]03-07-2024 Nurse Note* Vineet Berry LPN - 09/17/2023 1:51 PM EST POST OP LEARNING RESPONSE INSTRUCTION PROVIDED TO: Patient and friend/other METHOD OF INSTRUCTION: Written instruction - handouts Verbal instruction PATIENT / FAMILY RESPONSE: Verbalizes understanding of: POST-PROCEDURE INSTRUCTIONS-Correct actionsto take to reduce post procedure complications WORSENING CONDITION-Signs and symptoms of a worsening condition that warrant a call to the physician FOLLOW-UP PLAN: Patient instructed to call with any further issues SUPPLEMENTAL MATERIAL: Post op discharge instructions Procedure discharge instructions REFERRAL (RECOMMENDATION): Patient Education Electronically Signed By: Vineet Berry LPN In Department: GASTROENTEROLOGY * Debbie Clark RN - 09/17/2023 12:55 PM EST PRE OP LEARNING ASSESSMENT PROCEDURE/SURGERY: GI PROCEDURES: Colonoscopy READINESS TO LEARN COGNITIVE ABILITY: Alert and oriented MOTIVATION TO LEARN: Interested FAMILY SUPPORT: moderate PATIENT LEARNS BEST BY: Individual Instruction FACTORS AFFECTING LEARNING: None PHYSICAL LIMITATIONS AFFECTING LEARNING: None Electronically Signed By: Debbie Clark RN In Department: GASTROENTEROLOGY documented in this encounterSumma [facility]03-07-2024 Miscellaneous Notes* Sedation Documentation - Lynn Roque RN - 09/17/2023 1:28 PM EST Extent reached documented in this encounterSumma Health [facility]03-07-2024 History and physical note * Calvin Vora MD - 09/17/2023 1:00 PM EST COMPREHENSIVE DAY OF SURGERY SURGICAL SERVICES H&P SERVICE DATE: 09/17/2023 SERVICE TIME: 1 pm PRIMARY CARE PHYSICIAN: Michelle Garcia MD Subjective CHIEF COMPLAINT: crohn's disease HISTORY OF PRESENT ILLNESS: Ms. Keller is a 42 year old female who presents for * No procedures listed *. 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 Incision and drainage of interloop small bowel abscess. Takedown of ileorectal fistula. Ileocecectomy. Primary debridement and repair of rectal fistula. Creation of end ileostomy. Placement of seprafilm. Creation of omental pedicle flap. PAST SURGICAL HISTORY OF 05/27/2017 Ex lap, extensive KAREN, ileostomy reversal, right ovarian cystectomy PAST SURGICAL HISTORY OF colposcopy PICC LINE INSERT/CONSULT 06/03/2017 FAMILY HISTORY Problem Relation Age of Onset other (diverticulitis) Paternal Grandmother Social History Tobacco Use Smoking status: Former Smokeless tobacco: Never Tobacco comments: 1/2 pack for 4 years 10+ yrs ago Vaping Use Vaping Use: Never used Substance Use Topics Alcohol use: Yes Comment: occ Drug use: No (Not in a hospital admission) Current Facility-Administered Medications Medication Dose Route Frequency lidocaine (PF) 10 mg/mL (1 %) 1-2 mg injection (XYLOCAINE) 0.1-0.2 mL INTRADERMAL PRN NaCl 0.9% iv infusion 30 mL/hr INTRAVENOUS CONTINUOUS ALLERGIES Allergen Reactions Ciprofibrate Anaphylaxis Ciprofloxacin Swelling, GI Upset, Anaphylaxis swelling at IV site and nausea Other reaction(s): stomach upset Demerol [Meperidine* Intolerance, Other: See Comments Patient reports Vomiting Gluten Protein GI Upset Meperidine Intolerance REVIEW OF SYSTEMS: RESPIRATORY: Negative for cough, hemoptysis, wheezing, COPD, dyspnea or shortness of breath CARDIOVASCULAR: Negative for chest pain, leg swelling, hypertension, CHF or palpitations GENERAL: No weight loss, malaise or fevers GI: No nausea, vomiting, or diarrhea Objective PHYSICAL EXAM: BP 116/64 Temp (Src) 98.2 (Temporal) Resp 16 Ht 5' 0 (1.52m) Wt 125 lb (56.7kg) SpO2 99% LMP 02/21/2022 BMI 24.41 kg/(m^2). O2 Therapy: Room Air Physical Exam Performed LUNGS: Lungs clear to auscultation, Good diaphragmatic excursion CARDIAC: Normal S1 and S2; no rubs, murmurs, or gallops GENERAL: Alert, no distress, cooperative ABDOMEN: Abdomen soft, non-tender, BS normal, No masses or organomegaly DATA: Diagnostic tests reviewed for today's visit: Most recent labs and imaging results. 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 Vitamin D Insufficiency 42 yo woman history of crohn's for colonoscopy SIGNATURE: Calvin Vora MD PATIENT NAME: Walter Keller DATE: September 17, 2023 TIME: 1:03 PM documented in this encounterSumma Health [facility]02-29-2024 Miscellaneous Notes* Telephone Encounter - Debbie Clark RN - 09/10/2023 3:52 PM EST GI Pre-Procedure Spoke with patient: Yes Confirmed date scheduled and patient report time: Yes Procedure Planned:Colonoscopy with or without biopsies based on clinical findings Is the patient on blood thinners?no Procedure Instructions given to patient: Yes, and they verbalized their understanding of instructions given Patient instructed to take prescribed preparation prior to procedure:Yes, and they verbalized theirunderstanding of instructions given Patient instructed to have family/friend present for procedure transport home: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 Any barriers to Patient learning: Patient/Patient Staking Technician responded appropriately on phone. Type of instruction given: Verbal by telephone contact. Debbie Clark RN documented in this encounterSum[facility]02-29-2024 Nurse Note* Apple Quiroga RN - 09/10/2023 12:58 PM EST AMBULATORY PATIENT EDUCATION NOTE TOPIC: Inflectra READINESS TO LEARN INSTRUCTION PROVIDED TO: Patient, readness to learn accessed prior to procedure COGNITIVE ABILITY: Alert and oriented PTED MOTIVATION TO LEARN: Eager FAMILY SUPPORT: None - Unavailable/disinterested IPATIENT LEARNS BEST BY: Individual Instruction FACTORS AFFECTING LEARNING: None PHYSICAL LIMITATIONS AFFECTING LEARNING: None LEARNING RESPONSE METHOD OF INSTRUCTION: Individual instruction PATIENT / FAMILY RESPONSE: Verbalizes understanding of: WORSENING CONDITION- Signs and symptoms of aworsening condition that warrant a call to the physician FOLLOW-UP PLAN: Complete - No need for follow-up Electronically Signed By: Apple Quiroga RN Walter Keller Reason for therapy: IBD Ordering Physician: Anton Supervising/Billing Physician: Girma MARTINEZ MEDICATION ADMINISTERED: No MEDICATIONS ADMINISTERED: Remicade/Renflexis/Infliximab/Inflectra (See MAR) Dose #: 8 Start: 1337PM / Stop: 1450PM Fevers in last 7 days: No Rash: No Infusion tolerated well? Yes IV: See avatar Vital Signs: See Flow sheets Additional Notes if applicable: N/A documented in this encounterSum[facility]10-26-2023 Nurse Note* Gricel Sheffield RN - 05/07/2023 2:17 PM EDT AMBULATORY PATIENT EDUCATION NOTE TOPIC: remicade READINESS TO LEARN INSTRUCTION PROVIDED TO: Patient, readness to learn accessed prior to procedure COGNITIVE ABILITY: Alert and oriented PTED MOTIVATION TO LEARN: Eager FAMILY SUPPORT: None - Unavailable/disinterested IPATIENT LEARNS BEST BY: Individual Instruction FACTORS AFFECTING LEARNING: None PHYSICAL LIMITATIONS AFFECTING LEARNING: None LEARNING RESPONSE METHOD OF INSTRUCTION: Individual instruction PATIENT / FAMILY RESPONSE: Verbalizes understanding of: WORSENING CONDITION- Signs and symptoms of aworsening condition that warrant a call to the physician FOLLOW-UP PLAN: Complete - No need for follow-up Electronically Signed By: Gricel Sheffield RN Walter Keller Reason for therapy: IBD Ordering Physician: anton Supervising/Billing Physician: bianka MARTINEZ MEDICATION ADMINISTERED: No MEDICATIONS ADMINISTERED: Remicade/Renflexis/Infliximab/Inflectra (See MAR) Dose #: 10+ Start: 1250PM / Stop: 1416PM Fevers in last 7 days: No Rash: No Infusion tolerated well? Yes IV: See avatar Vital Signs: See Flow sheets Additional Notes if applicable: N/A Electronically Signed By: Gricel Sheffeild RN documented in this encounterSumma Health [facility]10-12-2023 Instructions* Patient Instructions* Chalino Zuñiga PA-C - 04/23/2023 1:22 PM EDT Images from the original note were not included. Bowel Preparation Instructions for: Miralax-Gatorade Preparations IF YOU DO NOT FOLLOW THESE DIRECTIONS, YOUR COLONOSCOPY WILL BE CANCELLED. Strange Instructions: Your bowel must be empty so that your doctor can clearly view your colon. Follow all of the instructions in this handout EXACTLY as they are written. Do NOT eat any solid food the ENTIRE day before your colonoscopy. Buy your bowel preparation at least 5 days before your colonoscopy. Four (4) Dulcolax laxative tablets containing 5mg of bisacodyl each (NOT Dulcolax stool softener) One (1) 8.3oz. bottle Miralax (238 grams) or generic equivalent 2 x 32oz. Bottles of Gatorade (NOT RED) Diabetic Patients: Use G2 (Gatorade 2) TRANSPORTATION on the Day of Your Exam A responsible adult MUST be present with you at Check In prior to your colonoscopy and REMAIN in the endoscopy area until you are discharged. You are NOT ALLOWED to drive, take a taxi or bus, or leave the Endoscopy Center ALONE. If you do not have a responsible grain combine driver (family member or friend) withyou to take you home, your exam cannot be done with sedation and will be cancelled. Please bring a list of all of your current medications, including any Fnct-mzj-Ewczvjy medications with you. Medications If you take insulin, diabetic medications or blood thinners such as Coumadin (warfarin), Plavix (clopidogrel), Ticlid (ticlopidine hydrochloride), Agrylin (anagrelide), Xarelto (Rivaroxaban), Pradaxa(Dabigatran), Eliquis (Apixaban), and Effient (Prasugrel). You MUST call the doctors who orders those medicines for instructions on altering the dosage before your colonoscopy. All other medications should be taken the day of the exam with a sip of water including ASPIRIN. Five (5) Days Before Your Colonoscopy Do NOT take medicines that stop diarrhea - such as Imodium, Kaopectate, or Pepto Bismol. Do NOT take fiber supplements - such as Metamucil, Citrucel, or Perdiem. Do NOT take products that contain iron - such as multi-vitamins (the label lists what is in the products). Three (3) Days Before Your Colonoscopy Do NOT eat high-fiber foods - such as popcorn, beans, seeds (flax, sunflower, quinoa), multigrain bread, nuts, salad/vegetables, or fresh and dried fruit. 1 Bowel Preparation Instructions for: Miralax-Gatorade Preparations One (1) Day Before Your Colonoscopy Only drink clear liquids the ENTIRE DAY before your colonoscopy. Do NOT eat any solid foods. Drink at least 8 ounces of clear liquids every hour after waking up. The clear liquids you can drink include: Clear Liquid (NO RED LIQUIDS) DO NOT DRINK Gatorade, Pedialyte or Powerade Clear broth or bouillon Coffee or tea (no milk or non-dairy creamer) Carbonated and non-carbonated soft drinks Ronnie-Aid or other fruit flavored drinks Strained fruit juices (no pulp) Jell-O, popsicles, hard candy Water Alcohol Milk or non-dairy creamers Noodles or vegetables in soup Juice with pulp Liquid you cannot see through Do not use tobacco/vaping products Mix 1/2 of Miralax bottle (119 grams) in each 32 ounces of Gatorade bottle until dissolved. Keep cool in the refrigerator. DO NOT ADD ICE. The bowel preparation solution will be consumed in two parts. Part 1 5:00 PM - Evening before your colonoscopy Take 4 Dulcolax tablets. 6 PM - Evening before your colonoscopy Drink 32 oz. of the mixed solution. Drink an 8 oz. glass of bowel preparation every 15 minutes for a total of 4 glasses. Fifteen (15) minutes later, drink an 8 oz. glass of of clear liquids every 15 minutes for a total of 2 glasses. You may continue to drink clear liquids till midnight. Part 2 On the day of your colonoscopy you may drink clear liquids up to (three) 3 hours prior to procedure. 4 1/2 hours before your colonoscopy Take another 32 oz. bottle of mixed solution. Drink an 8 oz. glass of bowel prep every 15 minutes for a total of 4 glasses. Fifteen (15) minutes later, drink an 8 oz. glass of clear liquids every 15 minutes for a total of 2glasses. You may continue to drink clear liquids up to (three) 3 hours before your exam. 2 06/2019 documented in this encounterSum[facility]10-12-2023 History of Present illness Narrative* Chalino Zuñiga PA-C - 04/23/2023 1:07 PM EDT Virtual Follow Up Visit Provider [facility] Patient Location: Patient Home or Place of Residence SUBJECTIVE Walter Keller [id number] has requested a video telemedicine for follow up of Crohn's disease. Last seen 05/22/[address] Vora. IBD History (copied and updated from prior notes) Ms. Keller, is a 42-year-old female with history of ileocolic Crohn's disease and underwent an ileocolic resection in 2016 with diverting loop ileostomy and subsequent takedown. Treated with vedolizumab in 2018 and then switched to Renflexis due to active disease. Due to mild recurrence (i2b) she was dose optimized to 7.5 mg/kg every 8 weeks and then in 2022 due to ongoing symptoms dose optimizedto 10 mg/kg every 8 weeks Changes and test results since last visit: Overall feeling ok. Did just move and has been working 2 jobs and has had a lot of stress. Able to work. Normally 2-3 soft formed. No blood. No urgency no incontinence no nocturnal defecation. 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 Was using budesonide foam with some relief Last IFX 02/26 no infusion reactions. Gets every 8 weeks Current Clinical Symptoms # of bowel movements daily: 2-3 Consistency: soft Bloody bowel movements: no Urgency: no Abdominal pain: yes Abdominal distention: no Nausea/vomiting: no Weight loss over last 3 months: no Diagnosis Crohn's Disease: Date of diagnosis (year): 2016 Phenotype Location affected: ileum colon Behavior: inflammatory penetrating Perianal disease: no Prior Medications/Reason for Switch Surgery: Yes: Small Bowel Resection, Partial Colectomy 5-ASA: Yes, ineffective Thiopurines: No Methotrexate: No Biologics: vedo, ineffective Small molecules: No Current Medications IFX; once every 8 weeks. October 25 > next dose December 20 Prior Complications and Extraintestinal Manifestations Clostridium difficile: no Thrombosis: no Ocular (Uveitis, Episcleritis): no Dermatologic (Pyoderma gangrenosum, Erythema nodosum): yes, after renflexis; acneform lesion Arthropathy/Arthralgia: no Oral ulcers: no Primary Sclerosing Cholangitis: no Other: no Labs TB Status: Negative 10/2020 Hepatitis B Status: equivocal ab 10/2020 TPMT: Normal Vaccines if on biologic therapy (Instructed to avoid live vaccines): Immunization History Administered Date(s) Administered COVID-19 original vaccine, full dose, monovalent (MODERNA) 11/02/2020 11/30/2020 06/26/2021 01/30/2022 COVID-19 vaccine, age 12+ yr, bivalent (MODERNA) 06/14/2022 hepatitis A (HepA) vaccine, adult (HAVRIX, VAQTA) 10/15/2018 04/11/2020 hepatitis A-hepatitis B (HepA-HepB) vaccine (TWINRIX) 10/11/2018 hepatitis B (HepB) vaccine, 3-dose series, age 0 yr - 19 yr (ENGERIX B-PEDS, RECOMBIVAX HB-PEDS) 03/25/2019 hepatitis B (HepB) vaccine, 3-dose series, age 20+ yr (ENGERIX-B, RECOMBIVAX HB) 04/11/2020 influenza (IIV4) vaccine, age 6 mo - 64 yr, quadrivalent (AFLURIA, FLULAVAL, FLUZONE) 06/06/2017 03/25/2019 04/11/2020 influenza (IIV4) vaccine, age 6 mo - 64 yr, quadrivalent, PF (AFLURIA, FLUARIX, FLULAVAL, FLUZONE) 06/06/2017 pneumococcal (PCV13) vaccine, 13 valent (PREVNAR 13) 10/15/2018 pneumococcal (PPV23) vaccine, 23 valent (PNEUMOVAX 23) 12/15/2018 tetanus diphtheria pertussis (Tdap) vaccine, age 7+ yr (ADACEL, BOOSTRIX) 10/11/2018 Current Outpatient Medications Medication Sig Dispense Refill acetaminophen (TYLENOL) 325 mg tablet Take 650 mg by mouth every 6 hours as needed. ascorbic acid, vitamin C, (VITAMIN C) 250 mg tablet Take 250 mg by mouth. budesonide (UCERIS) 2 mg/actuation foam by RECTAL route daily at bedtime. 66.8 g 3 CALCIUM ORAL Take by mouth. igovnju-mbqdumcll-iaygfuy D3 500 mg-5 mcg (200 unit) per tablet Take 1 tablet by mouth. cholecalciferol (VITAMIN D3) 1,000 unit tab tablet Take 1,000 Units by mouth. Cyanocobalamin 1,000 mcg subl Dissolve 1 tablet under the tongue once daily. 100 tablet 0 ergocalciferol 50,000 unit capsule (VITAMIN D2, DRISDOL) TAKE 1 CAPSULE BY MOUTH ONE TIME A WEEK. 12 capsule 0 ferrous sulfate (IRON ORAL) Take 1 capsule by mouth once daily. Ferrous Sulfate 142 mg (45 mg iron) TbER Take 1 tablet by mouth daily with breakfast. hydrOXYzine pamoate (VISTARIL) 25 mg capsule Take 25 mg by mouth as needed. Patient not sure of dosage inFLIXimab-abda (RENFLEXIS) 100 mg injection Inject 400 mg intravenously every 8 weeks. NURSE TO INSERT IV FOR ADMINISTRATION 400 mg multivitamin tablet Take 1 tablet by mouth once daily. sertraline (ZOLOFT) 100 mg tablet Take 100 mg by mouth once daily. valACYclovir (VALTREX) 1 gram Take 1,000 mg by mouth once daily as needed. Vit B Comp and C-Vit E-FA-Sabine-Zn 0.4 mg tab 1 tablet. No current facility-administered medications for this visit. ALLERGIES Allergen Reactions Ciprofibrate Anaphylaxis Ciprofloxacin Swelling, GI Upset swelling at IV site and nausea Other reaction(s): stomach upset Demerol [Meperidine* Intolerance, Other: See Comments Patient reports Vomiting Gluten Protein GI Upset PAST SURGICAL HISTORY Procedure Laterality Date PAST SURGICAL HISTORY OF 02/10/2017 Exploratory laparotomy. 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 Incision and drainage of interloop small bowel abscess. Takedown of ileorectal fistula. Ileocecectomy. Primary debridement and repair of rectal fistula. Creation of end ileostomy. Placement of seprafilm. Creation of omental pedicle flap. PAST SURGICAL HISTORY OF 05/27/2017 Ex lap, extensive KAREN, ileostomy reversal, right ovarian cystectomy PAST SURGICAL HISTORY OF colposcopy PICC LINE INSERT/CONSULT 06/03/2017 Review of Systems: GENERAL:No weight loss, malaise or fevers HEENT:Negative for frequent or significant headaches, No changes in hearing or vision, no nose bleeds or other nasal problems NECK:Negative for lumps, goiter, pain and significant neck swelling RESPIRATORY: Negative for cough, hemoptysis, wheezing, COPD, dyspnea or shortness of breath CARDIOVASCULAR: Negative for chest pain, leg swelling, hypertension, CHF or palpitations GASTROINTESTINAL: See HPI GENITOURINARY: No history of dysuria, frequency or incontinence FLUX MIXER: Negative for abnormal vaginal bleeding, abnormal vaginal discharge MUSCULOSKELETAL: Negative for joint pain or swelling, back pain or muscle pain NEUROLOGIC:Negative for focal numbness or weakness, headaches and dizziness or syncope. SKIN:Negative for lesions, rash, and itching PSYCHIATRIC: Negative for sleep disturbance, mood disorder and recent psychosocial stressors. HEMATOLOGIC/LYMPHATIC/IMMUNOLOGIC:Negative for prolonged bleeding, bruising easily or swollen nodes ENDOCRINE: Negative for cold or heat intolerance, polyuria, polydipsia and goiter The remainder of the ROS was negative. PHYSICAL EXAMINATION General: alert and appropriate, in no distress and well-hydrated, well nourished, Head: normocephalic, no abnormality or lesion noted, Eyes: visual acuity is grossly normal, no injection,, and EOMI, Oropharynx: moist mucus membranes, no tonsillar hypertrophy/exudate, uvula midline and pharynx non-erythematous, lips, teeth and gums are without obvious lesion, Neck: full ROM, no cervical LNs noted, Respiratory: breathing non-labored, and no grunting/flaring/retractions, Chest: equal chest rise with normal respiratory effort, Abdomen: flat appearing. Visible protrusions or hernias: No Incisions/scars: None Areas of pain/tenderness: Denies Skin: no rash noted, Neuro: Patient seen sitting with normal appearing strength and coordination. No focal motor deficits. Psych: Appropriate mood and interaction Most recent labs: CBC: WBC (k/uL) Date Value 04/20/2023 7.63 Hematocrit (%) Date Value 04/20/2023 41.2 MCV (fL) Date Value 04/20/2023 92.6 Platelet Count (k/uL) Date Value 04/20/2023 259 Lymphocytes % (%) Date Value 04/20/2023 28.0 Hepatic Function Panel: Albumin (g/dL) Date Value 04/20/2023 4.1 Bilirubin, Total (mg/dL) Date Value 04/20/2023 0.4 Bilirubin, Conjug (mg/dL) Date Value 08/22/2021 <0.2 Alkaline Phosphatase (U/L) Date Value 04/20/2023 65 AST (U/L) Date Value 04/20/2023 25 ALT (U/L) Date Value 04/20/2023 22 Protein, Total (g/dL) Date Value 04/20/2023 7.1 CRP: CRP Date Value Ref Range Status 04/20/2023 0.6 <0.9 mg/dL Final No results found for: QTBGOLD No results found for: HRINTP No results found for: TBTEST No results found for: PTMPT Folate Date Value Ref Range Status 02/11/2017 15.5 >4.7 ng/mL Final Vitamin B12 Date Value Ref Range Status 04/20/2023 275 232 - 1,245 pg/mL Final Iron Date Value Ref Range Status 04/20/2023 39 (L) 41 - 186 ug/dL Final TIBC Date Value Ref Range Status 04/20/2023 406 (H) 232 - 386 ug/dL Final Vitamin D 25 Hydroxy Date Value Ref Range Status 04/20/2023 37.2 31.0 - 80.0 ng/mL Final Comment: Classification of 25 OH Vitamin D status: Deficiency/Insufficiency: < or = 30 ng/ml. Sufficiency/Optimal Levels: 31-80 ng/mL Toxicity: > 100 ng/mL. Test performed by chemiluminescent immunoassay. Last Endoscopy: Colonoscopy 09/11/2022 Impression: - Anal fissure found on perianal exam. - Patent qymz-gk-jxec ileo-colonic anastomosis, characterized by ulceration. - Inflammation was found in the terminal ileum. This was graded as Rutgeerts Score i2b (more than five aphthous lesions), unchanged compared to previous examinations. Biopsied. - Simple Endoscopic Score for Crohn's Disease: 8, mucosal inflammatory changes in the ileum and rectum. - Background biopsies were taken from the ileum, right colon, left colon and rectum. Pathology: FINAL DIAGNOSIS A. Kris-terminal ileum, biopsy: - Small bowel mucosa with no diagnostic abnormality. B. Right colon, biopsy: - Colonic mucosa with no diagnostic abnormality. C. Left colon, biopsy: - Colonic mucosa with no diagnostic abnormality. D. Rectum, biopsy: - Mildly active proctitis, negative for granulomas or dysplasia. Last Imaging: MRE 02/18/2023 IMPRESSION: Active inflammatory bowel disease in the the ileum and mid rectum without luminal narrowing. Neoterminal ileum is patent. No penetrating disease. No acute extra gastrointestinal findings. Assessment IMPRESSION (as copied and updated from my / note and reflects medical decision making today): 42-year-old female with history of ileocolic Crohn's disease and underwent an ileocolic resection in 2017 with diverting loop ileostomy and subsequent takedown. Treated with vedolizumab in 2018 and then switched to Renflexis due to active disease. Due to mild recurrence (i2b) she was dose optimizedto 7.5 mg/kg every 8 weeks and then in 2021 due to ongoing symptoms dose optimized to 10 mg/kg every 8 weeks She presents today as a routine virtual follow-up. Overall feeling okay did just move and has been working 2 jobs and has a lot of stress. Normally 2-3 bowel movements daily that are soft formed withno blood. No urgency no incontinence nocturnal defecation does have some abdominal pain but not sure if this is due to her endometriosis. Due to the stress did use budesonide foam with relief. For now we will plan to continue her current infliximab 10 mg/kg every 8 weeks as this appears to be keeping her in remission we will treat with oral iron as needed and planning for colonoscopy early next year to reassess. Follow-up after colonoscopy unless needed sooner. PLAN Colonoscopy early next year Continue current IFX dosing as this appears to be keeping her in remission Oral iron supplement Medical Decision Making: Problems: Low: Stable chronic illness Data: Unique source(s) for external note(s) reviewed: 1 Unique test result(s) reviewed: 2 Unique test(s) ordered: 1 Risk: Moderate: Moderate risk from testing/treatment Medical Decision Making Level: 4 - Moderate I spent 20 minutes in the virtual visit, with more than 50% of the total bgel-nh-beda time of the visit in counseling / coordination of care. I have confirmed and edited as necessary, the PFSH and ROS obtained by others. I will communicate my recommendations and prescriptions to the patient's primary care provider. Unrelated to E/M, telemedicine, or virtual visit service provided within previous 7 days. No E/M service or procedure anticipated within next 24 hours. I have communicated my name and active licensure. The patient's identity and physical location wereverified at the time of this visit. 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 Chalino Zuñiga PA-C April 23, 2023 1:07 PM documented in this encounterSum[facility]09-22-2023 Miscellaneous Notes* Telephone Encounter - Haley Morales - 04/03/2023 1:56 PM EDTSummary: Call to patient Spoke to patient, advised PA is authorized. None needed because of mmo gold plan. She may schedule an appointment for infusion now. Also advised e need to see her for follow up. She accepted 07/04 appt with Chalino Zuñiga PA-C at 1:00 pm. IBD labs ordered & VV instructions sent to patient. Patient was instructed to complete labs prior to visit. Haley Stallings April 03, 2023 2:08 PM documented in this encounterSumma Health [facility]08-17-2023 Nurse Note* Eva Thomas RN - 02/26/2023 2:45 PM EDT AMBULATORY PATIENT EDUCATION NOTE TOPIC: remicade READINESS TO LEARN INSTRUCTION PROVIDED TO: Patient, readness to learn accessed prior to procedure COGNITIVE ABILITY: Alert and oriented PTED MOTIVATION TO LEARN: Interested FAMILY SUPPORT: High - Very involved in pt care IPATIENT LEARNS BEST BY: Individual Instruction FACTORS AFFECTING LEARNING: None PHYSICAL LIMITATIONS AFFECTING LEARNING: None LEARNING RESPONSE METHOD OF INSTRUCTION: Individual instruction PATIENT / FAMILY RESPONSE: Verbalizes understanding of: WORSENING CONDITION- Signs and symptoms of aworsening condition that warrant a call to the physician FOLLOW-UP PLAN: Patient instructed to call with any further issues Electronically Signed By: YAMILETH Alvarado Reason for therapy: IBD Ordering Physician: anton Supervising/Billing Physician: girma PRE MEDICATION ADMINISTERED: No MEDICATIONS ADMINISTERED: Remicade/Renflexis/Infliximab/Inflectra (See MAR) Dose #: 10+ Start: 1322PM / Stop: 1443PM Fevers in last 7 days: No Rash: No Infusion tolerated well? Yes IV: See avatar Vital Signs: See Flow sheets Additional Notes if applicable: N/A documented in this encounterSumma Health [facility]06-22-2023 Nurse Note* Tito Acuna RN - 01/01/2023 2:52 PM EDT Walter Keller Reason for therapy: IBD Ordering Physician: Dr. Vora Supervising/Billing Physician: Dr. SHENG Figueroa PRE MEDICATION ADMINISTERED: No MEDICATIONS ADMINISTERED: Remicade 600mg (See MAR) Dose #: 10+ Start: 1330PM / Stop: 1440PM Fevers in last 7 days: No Rash: No Infusion tolerated well? Yes IV: See avatar Vital Signs: See Flow sheets Additional Notes if applicable: N/A Electronically Signed By: Tito Acuna RN Walter Keller Reason for therapy: IBD Ordering Physician: Dr. Vora Supervising/Billing Physician: Dr. SHENG Figueroa PRE MEDICATION ADMINISTERED: No MEDICATIONS ADMINISTERED: Remicade 600mg (See MAR) Dose #: 10+ Start: 1330PM / Stop: 1440PM Fevers in last 7 days: No Rash: No Infusion tolerated well? Yes IV: See avatar Vital Signs: See Flow sheets Additional Notes if applicable: N/A documented in this encounterSumma [facility]04-20-2023 Nurse Note* Tito Acuna RN - 10/30/2022 5:37 PM EDT Walter Keller Reason for therapy: IBD Ordering Physician: Dr. Vora Supervising/Billing Physician: Dr. SHENG Figueroa PRE MEDICATION ADMINISTERED: No MEDICATIONS ADMINISTERED: Remicade/Renflexis/Infliximab/Inflectra (See MAR) Dose #: 10 Start: 0915AM / Stop: 1032AM Fevers in last 7 days: No Rash: No Infusion tolerated well? Yes IV: See avatar Vital Signs: See Flow sheets Additional Notes if applicable: N/A Electronically Signed By: Tito Acuna RN AMBULATORY PATIENT EDUCATION NOTE TOPIC: Insert type of infusion READINESS TO LEARN INSTRUCTION PROVIDED TO: Patient, readness to learn accessed prior to procedure COGNITIVE ABILITY: Alert and oriented PTED MOTIVATION TO LEARN: Eager FAMILY SUPPORT: Unable to assess - Family not present IPATIENT LEARNS BEST BY: Individual Instruction FACTORS AFFECTING LEARNING: None PHYSICAL LIMITATIONS AFFECTING LEARNING: None LEARNING RESPONSE METHOD OF INSTRUCTION: Individual instruction PATIENT / FAMILY RESPONSE: Verbalizes understanding of: WORSENING CONDITION- Signs and symptoms of aworsening condition that warrant a call to the physician FOLLOW-UP PLAN: Complete - No need for follow-up documented in this encounterSum[facility]23 Miscellaneous Notes* Telephone Encounter - Calvin Vora MD - 09/11/2022 3:14 PM EST Trial uceris foam for proctitis documented in this encounterSumma [facility]02-23-2023 Miscellaneous Notes* Telephone Encounter - Eva Lynn RN - 09/04/2022 2:52 PM EST GI Pre-Procedure Spoke with patient: Yes Confirmed date scheduled and patient report time: Yes Procedure Planned:Colonoscopy with or without biopsies based on clinical findings Is the patient on blood thinners?no Procedure Instructions given to patient: Yes, and they verbalized their understanding of instructions given Patient instructed to take prescribed preparation prior to procedure:Yes, and they verbalized theirunderstanding of instructions given Patient instructed to have family/friend present for procedure transport home: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 and They verbalized their understanding and agree to have a responsible adult accompany the patient to their procedure and remain in the endoscopy area. Any barriers to Patient learning: Patient/Patient Staking Technician responded appropriately on phone. Type of instruction given: Verbal by telephone contact. EVA Lynn RN documented in this encounterSumma Health [facility]02-17-2023 NoteHNO ID: [id number] Author: Natacha Klein MD Service: ? Author Type: Physician Type: Progress Notes Filed: 08/29/2022 7:22 PM Note Text: Walter Keller is a 41 year old female who presents with Sore throat, cough, body aches HPI patient is a 41-year-old female who presented to the [facility] this evening with a complaint of sore throat, dry cough and body aches the symptoms started 2 days ago and the patient exposed to's coworker who had strep infection therefore the patient concerning coming for further evaluation treatment. 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) 05/14/2017 Endometriosis Fistula History of recurrent UTIs HPV in female retirement current use of immunosuppressive drug 05/02/2020 Vitamin D insufficiency 05/02/2020 ACTIVE PROBLEM LIST Infective Urethritis Low Iron Abdominal Pain Malnutrition of Moderate Degree (Hcc) Post-Operative Pain Gastric Reflux Crohn's Disease of Both Small and Large Intestine With Fistula (Hcc) Attention to Ileostomy (Hcc) Colitis 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 vwjttaf-juezvqbbf-yepmsbc D3 500 mg-5 mcg (200 unit) per tablet Take 1 tablet by mouth. cholecalciferol (VITAMIN D3) 1,000 unit tab tablet Take 1,000 Units by mouth. Ferrous Sulfate 142 mg (45 mg iron) TbER Take 1 tablet by mouth daily with breakfast. Vit B Comp and C-Vit E-FA-Sabine-Zn 0.4 mg tab 1 tablet. valACYclovir (VALTREX) 1 gram Take 1,000 mg by mouth once daily as needed. CALCIUM ORAL Take by mouth. sertraline (ZOLOFT) 100 mg tablet Take 100 mg by mouth once daily. hydrOXYzine pamoate (VISTARIL) 25 mg capsule Take 25 mg by mouth as needed. Patient not sure of dosage inFLIXimab-abda (RENFLEXIS) 100 mg injection Inject 400 mg intravenously every 8 weeks. NURSE TO INSERT IV FOR ADMINISTRATION 400 mg ergocalciferol 50,000 unit capsule (VITAMIN D2, DRISDOL) TAKE 1 CAPSULE BY MOUTH ONE TIME A WEEK. 12 capsule 0 Cyanocobalamin 1,000 mcg subl Dissolve 1 tablet under the tongue once daily. 100 tablet 0 multivitamin tablet Take 1 tablet by mouth once daily. ferrous sulfate (IRON ORAL) Take 1 capsule by mouth once daily. acetaminophen (TYLENOL) 325 mg tablet Take 650 mg by mouth every 6 hours as needed. No current facility-administered medications for this visit. Social History Tobacco Use Smoking status: Former Smokeless tobacco: Never Tobacco comments: 1/2 pack for 4 years 10+ yrs ago Vaping Use Vaping Use: Never used Substance Use Topics Alcohol use: No Drug use: No Alcohol Use: No Tobacco Use: Quit FAMILY HISTORY Problem Relation Age of Onset other (diverticulitis) Paternal Grandmother Review of Systems Constitutional: Negative for chills, fever and malaise/fatigue. HENT: Positive for sore throat. Negative for congestion, ear pain, nosebleeds and sinus pain. Eyes: Negative for blurred vision and pain. Respiratory: Positive for cough. Negative for shortness of breath and wheezing. Cardiovascular: Negative for chest pain and palpitations. Gastrointestinal: Negative for abdominal pain, diarrhea, nausea and vomiting. Musculoskeletal: Positive for myalgias. Skin: Negative for rash. Neurological: Negative for dizziness and headaches. BP 134/85 Pulse 92 Temp 98.8 Resp 20 Wt 121 lb (54.9kg) SpO2 97% LMP 02/21/2022 Physical Exam Vitals and nursing note reviewed. Constitutional: Appearance: Normal appearance. She is not ill-appearing. HENT: Right Ear: Tympanic membrane and ear canal normal. Left Ear: Tympanic membrane normal. Nose: Nose normal. No congestion or rhinorrhea. Mouth/Throat: Mouth: Mucous membranes are moist. Pharynx: Posterior oropharyngeal erythema present. No oropharyngeal exudate. Eyes: Extraocular Movements: Extraocular movements intact. Conjunctiva/sclera: Conjunctivae normal. Pupils: Pupils are equal, round, and reactive to light. Cardiovascular: Rate and Rhythm: Regular rhythm. Heart sounds: Normal heart sounds. Pulmonary: Breath sounds: Normal breath sounds. Abdominal: Palpations: Abdomen is soft. Tenderness: There is no abdominal tenderness. Musculoskeletal: Cervical back: Normal range of motion and neck supple. Lymphadenopathy: Cervical: No cervical adenopathy. Skin: Findings: No rash. ASSESSMENT/PLAN: 1. Acute pharyngitis, unspecified etiology - ICD9: 462, ICD10: J02.9 - suspect viral - Rapid Strep negative in the office today - Discussed supportive care treatment with fluids, rest and analgesia. - The patient may (more content not included)...[facility]02-17-2023 History of Present illness Narrative* Son Christopher MD Ernie - 08/29/2022 6:59 PM EST Walter Keller is a 41 year old female who presents with Sore throat, cough, body aches HPI patient is a 41-year-old female who presented to the [facility] this evening with a complaint of sore throat, dry cough and body aches the symptoms started 2 days ago and the patient exposed to's coworker who had strep infection therefore the patient concerning coming for further evaluation treatment. 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) 05/14/2017 Endometriosis Fistula History of recurrent UTIs HPV in female retirement current use of immunosuppressive drug 05/02/2020 Vitamin D insufficiency 05/02/2020 ACTIVE PROBLEM LIST Infective Urethritis Low Iron Abdominal Pain Malnutrition of Moderate Degree (Hcc) Post-Operative Pain Gastric Reflux Crohn's Disease of Both Small and Large Intestine With Fistula (Hcc) Attention to Ileostomy (Hcc) Colitis Endometriosis 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 ljvfuyz-juzatqwuh-yptarus D3 500 mg-5 mcg (200 unit) per tablet Take 1 tablet by mouth. cholecalciferol (VITAMIN D3) 1,000 unit tab tablet Take 1,000 Units by mouth. Ferrous Sulfate 142 mg (45 mg iron) TbER Take 1 tablet by mouth daily with breakfast. Vit B Comp and C-Vit E-FA-Sabine-Zn 0.4 mg tab 1 tablet. valACYclovir (VALTREX) 1 gram Take 1,000 mg by mouth once daily as needed. CALCIUM ORAL Take by mouth. sertraline (ZOLOFT) 100 mg tablet Take 100 mg by mouth once daily. hydrOXYzine pamoate (VISTARIL) 25 mg capsule Take 25 mg by mouth as needed. Patient not sure of dosage inFLIXimab-abda (RENFLEXIS) 100 mg injection Inject 400 mg intravenously every 8 weeks. NURSE TO INSERT IV FOR ADMINISTRATION 400 mg ergocalciferol 50,000 unit capsule (VITAMIN D2, DRISDOL) TAKE 1 CAPSULE BY MOUTH ONE TIME A WEEK. 12 capsule 0 Cyanocobalamin 1,000 mcg subl Dissolve 1 tablet under the tongue once daily. 100 tablet 0 multivitamin tablet Take 1 tablet by mouth once daily. ferrous sulfate (IRON ORAL) Take 1 capsule by mouth once daily. acetaminophen (TYLENOL) 325 mg tablet Take 650 mg by mouth every 6 hours as needed. No current facility-administered medications for this visit. Social History Tobacco Use Smoking status: Former Smokeless tobacco: Never Tobacco comments: 1/2 pack for 4 years 10+ yrs ago Vaping Use Vaping Use: Never used Substance Use Topics Alcohol use: No Drug use: No Alcohol Use: No Tobacco Use: Quit FAMILY HISTORY Problem Relation Age of Onset other (diverticulitis) Paternal Grandmother Review of Systems Constitutional: Negative for chills, fever and malaise/fatigue. HENT: Positive for sore throat. Negative for congestion, ear pain, nosebleeds and sinus pain. Eyes: Negative for blurred vision and pain. Respiratory: Positive for cough. Negative for shortness of breath and wheezing. Cardiovascular: Negative for chest pain and palpitations. Gastrointestinal: Negative for abdominal pain, diarrhea, nausea and vomiting. Musculoskeletal: Positive for myalgias. Skin: Negative for rash. Neurological: Negative for dizziness and headaches. BP 134/85 Pulse 92 Temp 98.8 Resp 20 Wt 121 lb (54.9kg) SpO2 97% LMP 02/21/2022 Physical Exam Vitals and nursing note reviewed. Constitutional: Appearance: Normal appearance. She is not ill-appearing. HENT: Right Ear: Tympanic membrane and ear canal normal. Left Ear: Tympanic membrane normal. Nose: Nose normal. No congestion or rhinorrhea. Mouth/Throat: Mouth: Mucous membranes are moist. Pharynx: Posterior oropharyngeal erythema present. No oropharyngeal exudate. Eyes: Extraocular Movements: Extraocular movements intact. Conjunctiva/sclera: Conjunctivae normal. Pupils: Pupils are equal, round, and reactive to light. Cardiovascular: Rate and Rhythm: Regular rhythm. Heart sounds: Normal heart sounds. Pulmonary: Breath sounds: Normal breath sounds. Abdominal: Palpations: Abdomen is soft. Tenderness: There is no abdominal tenderness. Musculoskeletal: Cervical back: Normal range of motion and neck supple. Lymphadenopathy: Cervical: No cervical adenopathy. Skin: Findings: No rash. ASSESSMENT/PLAN: 1. Acute pharyngitis, unspecified etiology - ICD9: 462, ICD10: J02.9 - suspect viral - Rapid Strep negative in the office today - Discussed supportive care treatment with fluids, rest and analgesia. - The patient may also use OTC cough and cold meds as needed and warm salt water gargles, throat lozenges and/or OTC throat spray as needed. - Contagious dz precautions discussed- including considered contagious until on antibiotics for 24 hours - The patient should follow up with primary care physician in 3-5 days if symptoms persist or worsen - RAPID GROUP A STREP RFLX TO PCR - GROUP A STREPTOCOCCUS BY PCR Natacha Klein MD documented in this encounterSum[facility]02-02-2023 Nurse Note* Karena Olivares RN - 08/14/2022 10:53 AM EST Walter Keller Reason for therapy: IBD Ordering Physician: Dr. Vora Supervising/Billing Physician: Dr. Booker PRE MEDICATION ADMINISTERED: no MEDICATIONS ADMINISTERED:Remicade/Renflexis/Infliximab/Inflectra (See MAR) Dose #: 10+ Start: 0948AM / Stop: 1053AM Fevers in last 7 days: No Rash: No Infusion tolerated well? Yes IV: See avatar Vital Signs: See Flow sheets Additional Notes if applicable: N/A Electronically Signed By: Karena Olivares RN AMBULATORY PATIENT EDUCATION NOTE TOPIC: Remicade READINESS TO LEARN INSTRUCTION PROVIDED TO: Patient, readness to learn accessed prior to procedure COGNITIVE ABILITY: Alert and oriented PTED MOTIVATION TO LEARN: Interested FAMILY SUPPORT: Unable to assess - Family not present IPATIENT LEARNS BEST BY: Individual Instruction FACTORS AFFECTING LEARNING: None PHYSICAL LIMITATIONS AFFECTING LEARNING: None LEARNING RESPONSE METHOD OF INSTRUCTION: Individual instruction PATIENT / FAMILY RESPONSE: Verbalizes understanding of: WORSENING CONDITION- Signs and symptoms of aworsening condition that warrant a call to the physician FOLLOW-UP PLAN: Complete - No need for follow-up Electronically Signed By: Karena Olivares RN documented in this encounterSum[facility]11-21-2022 Nurse Note* Karena Olivares RN - 06/02/2022 9:04 AM EST Walter Keller Reason for therapy: IBD Ordering Physician: Chalino Zuñiga PA-C Supervising/Billing Physician: Dr. Thomson PRE MEDICATION ADMINISTERED: No MEDICATIONS ADMINISTERED: Remicade/Renflexis/Infliximab/Inflectra (See MAR) Dose #: 10+ Start: 0745AM / Stop: 0900AM Fevers in last 7 days: No Rash: No Infusion tolerated well? Yes IV: See avatar Vital Signs: See Flow sheets Additional Notes if applicable: N/A Electronically Signed By: Karena Olivares RN AMBULATORY PATIENT EDUCATION NOTE TOPIC: Remicade READINESS TO LEARN INSTRUCTION PROVIDED TO: Patient, readness to learn accessed prior to procedure COGNITIVE ABILITY: Alert and oriented PTED MOTIVATION TO LEARN: Interested FAMILY SUPPORT: Moderate - Family present but overwhelmed IPATIENT LEARNS BEST BY: Individual Instruction FACTORS AFFECTING LEARNING: None PHYSICAL LIMITATIONS AFFECTING LEARNING: None LEARNING RESPONSE METHOD OF INSTRUCTION: Individual instruction PATIENT / FAMILY RESPONSE: Verbalizes understanding of: WORSENING CONDITION- Signs and symptoms of aworsening condition that warrant a call to the physician FOLLOW-UP PLAN: Complete - No need for follow-up Electronically Signed By: Karena Olivares RN documented in this encounterSumma [facility]11-11-2022 Miscellaneous Notes* Telephone Encounter - Haley Stallings - 05/23/2022 4:24 PM EST Returned the call, enrollment form for provider will be faxed to the office [phone]. Haley Stallings May 23, 2022 4:24 PM * Telephone Encounter - Gabriela Thomas Ma - 05/23/2022 1:53 PM EST Jag with [employer] wants to know if patient will be re-enrolling for their Renflexis Drug Program for next year 2022. - For Enrollment Form documented in this encounterSumma Health [facility]11-10-2022 History of Present illness Narrative* Calvin Vora MD - 05/22/2022 5:02 PM EST Increase to IFX 10 mg/kg q8w documented in this encounterSumma Health [facility]11-10-2022 Miscellaneous Notes* Telephone Encounter - Haley Stallings - 05/22/2022 9:36 AM EST MD Haley Whitehead Coord; [employer] Navigator Pool Please increase IFX to 10 mg/kg dosing (600 mg) every 8 weeks New therapy plan routed to Dr. Vora for IFX 10mg/kg/dose every 8 weeks. Haley Stallings May 22, 2022 9:37 AM documented in this encounterSumma Health [facility]09-08-2022 History and physical note * Flor Mar MD - 03/20/2022 1:00 PM EDT Images from the original note were not included. COLORECTAL SURGERY New Patient Visit March 19, 2022 Chief Complaint: ?Fissure History of Present Illness: Walter Keller is a 41 year old year old female with Crohn's disease with CC of anal pain. Patientfollows with Dr Vora and in January she noticed bleeding after having Bms and pain. She has tried sitz baths and topical lidocaine but noted no improvement in symptoms. Over the past 2 weeks her symptoms worsened and she states the rectal pain is now unbearable. She is having multiple thin bowel movements, normal consistency. There is blood around the bowel movements and on the toilet paper after wiping. She also has pain constantly and feels like there is a tear around her rectum. She has a history of Crohn's diagnosed by Dr Rayshawn Torres 5 years ago. She had rectal ulcers in the past treated with topical ointments. She also had an exploratory laparotomy with takedown of small bowel abscess interloop fistula, ileocectomy, and creation of end ileostomy with subsequent ileostomy reversal. She is on renflexis for Crohn's, not currently on steroids. She denies fevers, chills, chest pain, SOB, vomiting, diarrhea. She endorses nausea. Denies tobacco, alcohol, illicit drug use. 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 Incision and drainage of interloop small bowel abscess. Takedown of ileorectal fistula. Ileocecectomy. Primary debridement and repair of rectal fistula. Creation of end ileostomy. Placement of seprafilm. Creation of omental pedicle flap. PAST SURGICAL HISTORY OF 05/27/2017 Ex lap, extensive KAREN, ileostomy reversal, right ovarian cystectomy PAST SURGICAL HISTORY OF colposcopy PICC LINE INSERT/CONSULT 06/03/2017 Current Outpatient Medications Medication Sig Dispense Refill sertraline (ZOLOFT) 100 mg tablet Take 100 mg by mouth once daily. hydrOXYzine pamoate (VISTARIL) 25 mg capsule Take 25 mg by mouth as needed. Patient not sure of dosage inFLIXimab-abda (RENFLEXIS) 100 mg injection Inject 400 mg intravenously every 8 weeks. NURSE TO INSERT IV FOR ADMINISTRATION 400 mg ergocalciferol 50,000 unit capsule (VITAMIN D2, DRISDOL) TAKE 1 CAPSULE BY MOUTH ONE TIME A WEEK. 12 capsule 0 multivitamin tablet Take 1 tablet by mouth once daily. ferrous sulfate (IRON ORAL) Take 1 capsule by mouth once daily. acetaminophen (TYLENOL) 325 mg tablet Take 650 mg by mouth every 6 hours as needed. lidocaine (XYLOCAINE) 2 % jelly Apply as directed. (Patient not taking: Reported on 03/20/2022) 30 mL1 glucagon (GLUCAGEN) 1 mg/mL injection Inject 1 mg intravenously one time only for 1 dose. For MRI Enterography, Inject 1 mg intravenously, as directed. Slow push at the appropriate time during MRI Scan 1 Each 0 Cyanocobalamin 1,000 mcg subl Dissolve 1 tablet under the tongue once daily. (Patient not taking: No sig reported) 100 tablet 0 No current facility-administered medications for this visit. Facility-Administered Medications Ordered in Other Visits Medication Dose Route Frequency Provider Last Rate Last Admin inFLIXimab-abda 400 mg in NaCl 0.9% 250 mL (RENFLEXIS) 400 mg INTRAVENOUS ONCE Chalion Ribmajorw, PA-C NaCl 0.9% iv infusion 500-999 mL/hr INTRAVENOUS PRN Chalino Ribmajorw, PA-C diphenhydrAMINE 50 mg injection (BENADRYL) 50 mg INTRAVENOUS PRN Chalino Ribakow, PA-C hydrocortisone sodium succinate (PF) 100 mg injection (Solu-CORTEF) 100 mg INTRAVENOUS PRN Chalino Ribmajorw, PA-C EPINEPHrine 1 mg/mL (1 mL) 0.3 mg injection 0.3 mg INTRAMUSCULAR PRN Chalino Ribakow, PA-C sodium chloride 0.9 % (flush) 10-20 mL (BD POSIFLUSH) 10-20 mL INTRAVENOUS PRN Chalino Ribmajorw, PA-C 10 mL at 03/20/22 0832 heparin 100 unit/mL 500 Units injection 5 mL INTRAVENOUS DIRECTED PRN Chalino Ribmajorw, PA-C sodium chloride 0.9 % (flush) 10-20 mL (BD POSIFLUSH) 10-20 mL INTRAVENOUS DIRECTED PRN Chalino Ribakow, PA-C ALLERGIES Allergen Reactions Ciprofloxacin Swelling, GI Upset swelling at IV site and nausea Demerol [Meperidine* Intolerance Patient reports Vomiting Gluten Protein GI Upset Review of Systems / PACC screen: Do you have difficulty climbing a full flight of stairs without feeling short of breath? no Do you require oxygen for your breathing or have your gone to an emergency department because of breathing problems? no Are you on dialysis or have you been told that your kidneys do not work well as they should? no Do have an implanted cardiac device (pacemaker, defibrillator etc.) that has not been checked in the last 6 months? no Have you had an organ transplant? no Have you been told that you had excessive bleeding during surgical procedures or do you take blood thinning medications other than aspirin? no Have you ever had a heart attack, heart stents/surgery, valve problems, or other heart problems? no Have you had a stroke, seizures, or unexplained loss of consciousness? no Do you have a neurologic condition like Parkinson's disease or multiple sclerosis? no Have you or a blood relative had a life-threatening reaction to anesthesia? no Do you have cirrhosis of the liver or other liver disease? no Have you had a blood clot within the past year? no Do you take insulin or other injections for diabetes? no Do you have sleep apnea or have you been told you may have sleep apnea? no Do you have other implanted devices (deep brain stimulator, spinal cord stimulator, etc.)? no Physical Exam: Ht 154.9 cm (5' 1) Wt 54.9 kg (121 lb) LMP 02/21/2022 (Approximate) BMI 22.86 kg/m General Appearance: Well appearing, alert, in no acute distress, well-hydrated, well nourished. Lungs: Lungs clear to auscultation. No wheezing, rhonchi, rales. Heart: Negative findings: regular rate and rhythm Edema: no Abdomen: Normal abdominal exam, Abdomen soft, non-tender. No masses, organomegaly Anorectal: Perianal skin is intact. Erythema around the inferior aspect of the anal canal, anal fissure present around anterior aspect Assessment Medical Decision Making: Assessment & Diagnosis: Walter Keller is a 41 year old female with Crohn's disease presenting with anal fissure Data Reviewed: Tests & Documents Reviewed/ordered: Review of prior operative reports I have independently interpreted: MRI Pelvis I have discussed Walter Keller's treatment plan and/or results with patient. Treatment plan: -OR tomorrow for EUA and botox, Kenalog injection -NPOpMN Colorectal Surgery Risk of morbidity, mortality and/or complications of treatment plan: [facility] STAFF PHYSICIAN NOTE OF PERSONAL INVOLVEMENT IN CARE I have reviewed the history and physical exam obtained and documented by the resident and I personally participated in the strange components. I have confirmed and edited as necessary, the PFSH and ROS obtained by others. I have discussed the case and management of the patient's care. The following comments revise or confirm relevant strange components of the note. IMPRESSION: Walter Keller is a 41 year old PLAN: Dr. Augustina Lange MD has accurately documented our encounter which we discussed and real-time and my recommendations were scribed. I spent a total of 40 minutes on the date of the service which included preparing to see the patient, [id number] patient care, completing clinical documentation, obtaining and/or reviewing separately obtained history, performing a medically appropriate examination, counseling and educating the pat ient/family/caregiver, ordering medications, tests, or procedures, communicating with other HCPs (not separately reported), independently interpreting results (not separately reported), communicatingresults to the patient/family/caregiver, and care coordination (not separately reported). Flor Mar MD, MS, FACS, FASCRS Inflammatory Bowel Disease Surgery Signal Technician Director of Research, Department of Colorectal Surgery Digestive Disease & Surgery [place] [facility] [address] [place] [address] documented in this encounterSumma Health [facility]09-08-2022 Nurse Note* Karena Olivares RN - 03/20/2022 10:02 AM EDT Walter Keller Reason for therapy: IBD Ordering Physician: Chalino Hernandez PA-C Supervising/Billing Physician: Dr. Figueroa PRE MEDICATION ADMINISTERED: No MEDICATIONS ADMINISTERED: Remicade/Renflexis/Infliximab/Inflectra (See MAR) Dose #: 10+ Start: 0850AM / Stop: 1001AM Fevers in last 7 days: No Rash: No Infusion tolerated well? Yes IV: See avatar Vital Signs: See Flow sheets Additional Notes if applicable: N/A Electronically Signed By: Karena Olivares RN * Tito Acuna RN - 03/20/2022 9:57 AM EDT AMBULATORY PATIENT EDUCATION NOTE TOPIC: Insert type of infusion READINESS TO LEARN INSTRUCTION PROVIDED TO: Patient, readness to learn accessed prior to procedure COGNITIVE ABILITY: Alert and oriented PTED MOTIVATION TO LEARN: Eager FAMILY SUPPORT: Unable to assess - Family not present IPATIENT LEARNS BEST BY: Individual Instruction FACTORS AFFECTING LEARNING: None PHYSICAL LIMITATIONS AFFECTING LEARNING: None LEARNING RESPONSE METHOD OF INSTRUCTION: Individual instruction PATIENT / FAMILY RESPONSE: Verbalizes understanding of: WORSENING CONDITION- Signs and symptoms of aworsening condition that warrant a call to the physician FOLLOW-UP PLAN: Complete - No need for follow-up [facility]* Brittany Nixon - 03/19/2022 3:07 PM EDT New Pt last seen 06/25/17 DX: Crohn's Imaging 02/18/22 MRE IMPRESSION: Active inflammatory bowel disease in the the ileum and mid rectum without luminal narrowing. Neoterminal ileum is patent. No penetrating disease. No acute extra gastrointestinal findings. Surgery/Procedure 05/27/17 Surgery Ex lap, extensive KAREN, ileostomy reversal, right ovarian cystectomy 02/04/17 Surgery 1. Exploratory laparotomy. 2. 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 3. Incision and drainage of interloop small bowel abscess. 4. Takedown of ileorectal fistula. 5. Ileocecectomy. 6. Primary debridement and repair of rectal fistula. 7. Creation of end ileostomy. 8. Placement of Seprafilm. 9. Creation of omental pedicle flap. FINDINGS: 1. 20 cm distal ileum fibrostenotic disease 2. Ileum to upper rectal fistula tract 3. Interloop small bowel abscess and fistula 4. Colon and remainder of small bowel normal. Clinical Notes 01/22-Present My chart Message Patient complaints of rectal pain, reports small tear in anal area and pain with bowel movements. request patient be evaluated after her [facility] documented in this [facility]22 NoteHNO ID: [id number] Author: RT Lenin(R) Service: Radiology Author Type: Technologist Type: Progress Notes Filed: 02/18/2022 9:01 AM Note Text: Radiology Service Progress Note DATE OF SERVICE: February 18, 2022 TIME: 9:01 AM PATIENT IDENTITY VERIFICATION COMPLETED USING TWO (2) STANDARD IDENTIFIERS: Name and Date of confirmed by patient verbally and Name and Date of confirmed by identification band. FALL SCREENING: Has the patient had 2 falls in the last year or 1 fall with injury or currently using an Ambulatory Assistive Device (Walker, Cane, Wheelchair, Crutches, etc.)? No PATIENT GENDER DATA: Female. status: : No status: NO. PATIENT RELEVANT IMPLANT DATA REVIEWED: Yes ALLERGIES: Reviewed and unchanged CONTRAST ALLERGY: NO. EXAM: MRI - CONTRAST TYPE: GROUP II PERIPHERAL IV DATA: Ambulatory: A peripheral IV was started in the Right antecubital site with a Angio cath: 22 gauge. RADIOLOGY DEPARTMENT: MR; Exam(s) Completed: Body: Enterography SIGNATURE: RT Lenin(R) PATIENT NAME: Walter Keller DATE: February 18, 2022 TIME: 9:01 [facility] of Present illness Narrative* CAROL Phelps) - 02/18/2022 9:00 AM EDT Radiology Service Progress Note DATE OF SERVICE: February 18, 2022 TIME: 9:01 AM PATIENT IDENTITY VERIFICATION COMPLETED USING TWO (2) STANDARD IDENTIFIERS: Name and Date of confirmed by patient verbally and Name and Date of confirmed by identification band. FALL SCREENING: Has the patient had 2 falls in the last year or 1 fall with injury or currently using an Ambulatory Assistive Device (Walker, Cane, Wheelchair, Crutches, etc.)? No PATIENT GENDER DATA: Female. status: : No status: NO. PATIENT RELEVANT IMPLANT DATA REVIEWED: Yes ALLERGIES: Reviewed and unchanged CONTRAST ALLERGY: NO. EXAM: MRI - CONTRAST TYPE: GROUP II PERIPHERAL IV DATA: Ambulatory: A peripheral IV was started in the Right antecubital site with a Angio cath: 22 gauge. RADIOLOGY DEPARTMENT: MR; Exam(s) Completed: Body: Enterography SIGNATURE: RT Lenin(Uriah) PATIENT NAME: Walter Keller DATE: February 18, 2022 TIME: 9:01 AM documented in this encounterSum[facility]-18-2022 Miscellaneous Notes* Telephone Encounter - Yoli Lawrence RN - 01/27/2022 5:01 PM EDT Spoke to patient and advised her to do sitz baths and over the counter analrectal lidocaine. Also assisted patient in locating imaging close to home to get MRE completed. Provided patient scheduling number [phone] Patient verbalized understanding and agreed. No follow up needed at this time. Yoli Lawrence RN * Telephone Encounter - Yoli Lawrence RN - 01/27/2022 4:31 PM EDT [facility] sent correspondence that Xylocaine is on back order. Would you like to prescribe something else? Yoli Lawrence RN documented [facility] Hospital Discharge instructions Patient Education 01/27/2022 14:01:33 Crohn's Disease Crohn s Disease Crohn s disease is inflammation of the intestinal tract that comes and goes in flare-ups. This is achronic (long-term) illness. During a flare-up, intense abdominal pain and fever may be felt. Mucus, blood, or pus may appear in the stool. Between flare-ups, inflammation lessens and there usually are no symptoms. Crohn s disease is a form of inflammatory bowel disease (IBD). Symptoms of Crohn's disease may include: Abdominal cramps and pain Diarrhea, sometimes bloody, occasionally alternating with constipation Mucus in stools Rectal bleeding Rectal pain Fever Low energy Decreased appetite and weight loss Bloating or swollen abdomen Nausea or vomiting Joint aches Sores in mouth Red, painful eye problems Rashes in anal area or other anal problems No one knows what exactly causes Crohn's disease, and there is no cure. The goal of treatment is tocontrol and relieve symptoms and prevent complications, so you can lead a full and active life. No single treatment works for everyone, but many things can be done to help. Diet Foods did not cause your Crohn's disease, but they can affect it. Unfortunately, there is no one diet that works for everyone. Keep a food log to figure out what you are sensitive to. Below are some things to try. Eat more slowly and smaller amounts at a time, but more often. Remember, you can always eat more ifyou are still hungry, but you can t eat less once you ve eaten too much. High fiber foods are complicated. While they may help constipation they can make the bloating, cramping, gas, and diarrhea worse. If your Crohn's disease involves the small intestine, avoiding lactose- containing dairy products can help relieve some symptoms. Try cutting out fatty foods and meats. Eat less sugar. Bloating or passing excess gas may be controlled. Stay away from gassy foods, such as beans, cabbage, broccoli, and cauliflower. Stay away from beverages and fruit juices. They can make the bloating and diarrhea worse. Caffeine, alcohol, and stimulants may worsen symptoms. These include coffee, tea, sodas, energy drinks, and chocolate. Lifestyle Although stress does not cause Crohn's, it is often a factor in flare-ups. It can also affect how you feel about and cope with your health problem. Look for things that seem to worsen your symptoms, such as stress and emotions. Counseling can often help relieve stress. So can self-help measures such as exercise, yoga, and meditation. Depression can be a part of this illness and antidepressants may be prescribed. This may actually help with diarrhea, constipation, and cramping, as well as depression. Smoking doesn't cause Crohn's, but can make the symptoms worse. Medicines Your healthcare provider may prescribe medicines. If so, take them as directed. In Crohn's disease,long-term medicine is usually needed. This is because control of the disease is very important to prevent complications down the line. For acute flare-ups, prescription medicines can be prescribed. Call your healthcare provider if you need this. Ask your healthcare provider before taking any antidiarrheal medicines. Don t take anti-inflammatory medicines like ibuprofen or naproxen. Consider nutritional supplements. This is especially true if the diarrhea is prolonged, or you aren't eating or are losing weight. If you need supplements, talk it over with your healthcare provider for the best recommendation. Stay away from herbal supplements as they are not evaluated by the FDA. Because of this, there is no way to be certain of their safety and purity. Follow-up care Follow up with your healthcare provider, or as advised. If a stool sample was taken or cultures were done, you will be told if your treatment needs to change. You may also need blood tests, procedures, or imaging studies. Call as directed for the results. Support Joining a support group for people with Crohn s disease can be a source of useful information on how others are coping with this illness. They are available in person, on the phone, or on the Web. Contact the following resources for more information. Crohn s and Colitis [employer] 916.670.3905 www.ccfa.org National Digestive Diseases Information Clearinghouse (NDDIC) www.digestive.niddk.nih.gov When to get medical advice Call your healthcare provider right away if any of these occur: Fever of 100.4 F (38 C) or higher, or as directed by your healthcare provider Abdominal pain that doesn't get better when you take the usual measures Mucus, pus, or blood in the stool (dark or bright red) Repeated vomiting Abdominal swelling and pain that doesn t go away after a few hours Call 911 Call 911 if any of these occur: Trouble breathing Confusion Extreme sleepiness or trouble waking up Fainting or loss of consciousness Rapid heart rate 4123-[address] [employer] [place] [address]. All rights reserved. This information is not intended as a substitute for professional medical care. Always follow yourhealthcare professional's instructions. Follow Up Care 01/27/2022 10:38:40 With:Go to emergency room if symptoms worsen Address:Unknown When:2-4 days With:JAMMIE RAINES MD, Surgery Address: [address] [place] [id number]- When:2-4 days [facility] 07-18-2022 Note Discharge Instructions Thank you for allowing [place] to assist you with your healthcare needs. The following is importantdischarge information regarding your hospital visit. 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 You Need to Schedule the Following Appointments Follow Up with Go to emergency room if symptoms worsen When Within 2-4 days Follow Up with JAMMIE RAINES MD, Surgery When Within 2-4 days Where: [address] [place] [address]- Allergies ciprofloxacin (Nausea) Medications Please ask your primary doctor or pharmacist before taking any other medication not listed, including over the counter drugs, herbal medications, vitamins and or supplements as they may interact withyour home medications. What How Much When Instructions Last Dose New predniSONE (predniSONE 10 mg oral tablet) See instructions 4 tabs for 2 days 3 tabs for 2 days 2 tabs for 2 days 1 tabs for 2 days Printed Prescription Unchanged bifidobacterium-lactobacillus (Probiotic Formula oral capsule) 1 cap by mouth Once a day Unchanged dicyclomine (Bentyl 10 mg oral capsule) 1 cap by mouth Four (4) times a day Duration: 3 Days Unchanged famotidine (famotidine 40 mg oral tablet) 1 tab(s) by mouth Every day Please take this list to your next doctor s visit. Bring all medications you take, including over the counter medications, herbals and other supplements with you to your doctor s visit. Patients and families are reminded to discard old lists and to update any records with all medication providers or retail pharmacies. Education Materials Crohn s Disease Crohn s disease is inflammation of the intestinal tract that comes and goes in flare-ups. This is achronic (long-term) illness. During a flare-up, intense abdominal pain and fever may be felt. Mucus, blood, or pus may appear in the stool. Between flare-ups, inflammation lessens and there usually are no symptoms. Crohn s disease is a form of inflammatory bowel disease (IBD). Symptoms of Crohn's disease may include: Abdominal cramps and pain Diarrhea, sometimes bloody, occasionally alternating with constipation Mucus in stools Rectal bleeding Rectal pain Fever Low energy Decreased appetite and weight loss Bloating or swollen abdomen Nausea or vomiting Joint aches Sores in mouth Red, painful eye problems Rashes in anal area or other anal problems No one knows what exactly causes Crohn's disease, and there is no cure. The goal of treatment is tocontrol and relieve symptoms and prevent complications, so you can lead a full and active life. No single treatment works for everyone, but many things can be done to help. Diet Foods did not cause your Crohn's disease, but they can affect it. Unfortunately, there is no one diet that works for everyone. Keep a food log to figure out what you are sensitive to. Below are some things to try. Eat more slowly and smaller amounts at a time, but more often. Remember, you can always eat more ifyou are still hungry, but you can t eat less once you ve eaten too much. High fiber foods are complicated. While they may help constipation they can make the bloating, cramping, gas, and diarrhea worse. If your Crohn's disease involves the small intestine, avoiding lactose- containing dairy products can help relieve some symptoms. Try cutting out fatty foods and meats. Eat less sugar. Bloating or passing excess gas may be controlled. Stay away from gassy foods, such as beans, cabbage, broccoli, and cauliflower. Stay away from beverages and fruit juices. They can make the bloating and diarrhea worse. Caffeine, alcohol, and stimulants may worsen symptoms. These include coffee, tea, sodas, energy drinks, and chocolate. Lifestyle Although stress does not cause Crohn's, it is often a factor in flare-ups. It can also affect how you feel about and cope with your health problem. Look for things that seem to worsen your symptoms, such as stress and emotions. Counseling can often help relieve stress. So can self-help measures such as exercise, yoga, and meditation. Depression can be a part of this illness and antidepressants may be prescribed. This may actually help with diarrhea, constipation, and cramping, as well as depression. Smoking doesn't cause Crohn's, but can make the symptoms worse. Medicines Your healthcare provider may prescribe medicines. If so, take them as directed. In Crohn's disease,long-term medicine is usually needed. This is because control of the disease is very important to prevent complications down the line. For acute flare-ups, prescription medicines can be prescribed. Call your healthcare provider if you need this. Ask your healthcare provider before taking any antidiarrheal medicines. Don t take anti-inflammatory medicines like ibuprofen or naproxen. Consider nutritional supplements. This is especially true if the diarrhea is prolonged, or you aren't eating or are losing weight. If you need supplements, talk it over with your healthcare provider for the best recommendation. Stay away from herbal supplements as they are not evaluated by the FDA. Because of this, there is no way to be certain of their safety and purity. Follow-up care Follow up with your healthcare provider, or as advised. If a stool sample was taken or cultures were done, you will be told if your treatment needs to change. You may also need blood tests, procedures, or imaging studies. Call as directed for the results. Support Joining a support group for people with Crohn s disease can be a source of useful information on how others are coping with this illness. They are available in person, on the phone, or on the Web. Contact the following resources for more information. Crohn s and Colitis [employer] 682.121.4471 www.ccfa.org National Digestive Diseases Information Clearinghouse (NDDIC) www.digestive.niddk.nih.gov When to get medical advice Call your healthcare provider right away if any of these occur: Fever of 100.4 F (38 C) or higher, or as directed by your healthcare provider Abdominal pain that doesn't get better when you take the usual measures Mucus, pus, or blood in the stool (dark or bright red) Repeated vomiting Abdominal swelling and pain that doesn t go away after a few hours Call 911 Call 911 if any of these occur: Trouble breathing Confusion Extreme sleepiness or trouble waking up Fainting or loss of consciousness Rapid heart rate [id number] [employer]. [address] [place] [address]. All rights reserved. This information is not intended as a substitute for professional medical care. Always follow yourhealthcare professional's instructions. Additional Information VACCINATE! IT SAVES LIVES! Members of the community who have not yet received the COVID-19 vaccine and would like to receive it can visit one of [facility] vaccine clinics. There are many vaccine clinic locations within the [facility]. For locations and available times, please visit [email or web address]. It is important to note that some COVID mobile vaccine clinics are held outdoors and may be canceled in rainy orstormy conditions. To learn more about pediatric vaccinations (ages 5-11), we invite you to visit the [facility] webpage. [email or web address]/[email or web address] [email or web address] learn more about the COVID-19 vaccine, we invite you to visit the [place] website for a list of frequently asked questions. [email or web address]-[email or web address] _[email or web address] [facility] Patient Portal Access Instructions: Stay connected with your healthcare team and access your personal medical information anytime with the [place] [facility] Patient Portal. If you would like a full copy of your medical records please contact the [facility] Medical Records Department Thursday through Thursday between 8a.m. and 4:30p.m. Please follow the directions below to access the portal: 1.Access the email account you provided upon registration to the [facility].2.Look for an invitation email from [facility].3.Open the email and access the invitation link: Accept Invitation to [facility]4.Fill in the required dolan to create your account. Sign into [email or web address] with your username and password that you created in the above steps to stay up to date. You can then view a summary of results, a summary of your visits, and the ability to download your summaries to your computer or send the information securely to a physician. Remember that your healthcare information is confidential, so carefully consider who you will allow to register on the [place] [facility] Patient Portal for access to your information. You can also access the [place] [facility] Patient Portal on the Dr. Z guillermo. Simply click on Health Records under [employer] and then click on the Jennie logo. HOW TO SAFELY DISPOSE OF PRESCRIPTION MEDICATIONS Please use one of the following methods to safely dispose of your unused medications. 1.Use a drug disposal kit: the drug disposal pouch allows you to safely discard your old and unuseddrugs. Ask your nurse to give you one when you are discharged.2.Visit a local take-back location: Many local pharmacies and police departments have programs that collect old and unwanted prescriptiondrugs. Call your local pharmacy or go to http://bit.ly/2O0Mx9s to find one close to you.3.Make use of household items: Use cat litter or old coffee grounds to dispose medications if other options arenot available. Mix your drugs with these household products, seal them in an airtight container andthrow it into the garbage. Call [facility]: [phone] to be sure your drugs can be disposed of in this way. Some medicines may require a different approach.4.Never flush your medications down the toilet. IF YOU HAVE BEEN PRESCRIBED AN OPIOIDS FOR PAIN If you have been prescribed an opioid (such as hydrocodone, oxycodone or morphine), it is critical to understand the possible side effects and risks of opioid pain medications. Even when taken as directed, opioids can have several side effects including: Tolerance, meaning you might need to take more of a medication for the same pain relief. Nausea, vomiting and/or constipation. Sleepiness, dizziness, dry mouth, confusion, depression or itching. Physical dependence, meaning you have withdrawal symptoms when a medication is stopped ? this can develop within a few days. KNOW YOUR RESPONSIBILITIES It is important to know exactly how much and how often to take the opioid pain medications you are prescribed. Never take opioids in higher amounts or more often than prescribed. Do not combine opioids with alcohol or other drugs that cause drowsiness, such as benzodiazepines, also known as benzos,including diazepam and alprazolam, muscle relaxants or sleep aids. Never sell or share prescriptionopioids. This is illegal. Store opioids in a secure place and out of reach of others (including children, family, friends and visitors). The last page(s) of this document has been signed and retained as a CHART COPY Signatures Patient Education Materials Crohn's Disease Medication Leaflets My discharge plan and instructions have been reviewed and explained to me and I,WALTER KELLER understand my current condition and have read and understand these discharge instructions. I have received a written copy of the plan/instructions. If I have questions, I am aware that I should contact my doctor. Patient/Staking Technician Signature: Date/Time: Relationship to Patient: Witness Name/Signature: Date/Time: [facility]07-18-2022 Note Discharge Instructions Thank you for allowing [place] to assist you with your healthcare needs. The following is importantdischarge information regarding your hospital visit. 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 You Need to Schedule the Following Appointments Follow Up with Go to emergency room if symptoms worsen When Within 2-4 days Follow Up with JAMMIE RAINES MD, Surgery When Within 2-4 days Where: [address] [place] [address]- Allergies ciprofloxacin (Nausea) Medications Please ask your primary doctor or pharmacist before taking any other medication not listed, including over the counter drugs, herbal medications, vitamins and or supplements as they may interact withyour home medications. What How Much When Instructions Last Dose New predniSONE (predniSONE 10 mg oral tablet) See instructions 4 tabs for 2 days 3 tabs for 2 days 2 tabs for 2 days 1 tabs for 2 days Printed Prescription Unchanged bifidobacterium-lactobacillus (Probiotic Formula oral capsule) 1 cap by mouth Once a day Unchanged dicyclomine (Bentyl 10 mg oral capsule) 1 cap by mouth Four (4) times a day Duration: 3 Days Unchanged famotidine (famotidine 40 mg oral tablet) 1 tab(s) by mouth Every day Please take this list to your next doctor s visit. Bring all medications you take, including over the counter medications, herbals and other supplements with you to your doctor s visit. Patients and families are reminded to discard old lists and to update any records with all medication providers or retail pharmacies. Education Materials Crohn s Disease Crohn s disease is inflammation of the intestinal tract that comes and goes in flare-ups. This is achronic (long-term) illness. During a flare-up, intense abdominal pain and fever may be felt. Mucus, blood, or pus may appear in the stool. Between flare-ups, inflammation lessens and there usually are no symptoms. Crohn s disease is a form of inflammatory bowel disease (IBD). Symptoms of Crohn's disease may include: Abdominal cramps and pain Diarrhea, sometimes bloody, occasionally alternating with constipation Mucus in stools Rectal bleeding Rectal pain Fever Low energy Decreased appetite and weight loss Bloating or swollen abdomen Nausea or vomiting Joint aches Sores in mouth Red, painful eye problems Rashes in anal area or other anal problems No one knows what exactly causes Crohn's disease, and there is no cure. The goal of treatment is tocontrol and relieve symptoms and prevent complications, so you can lead a full and active life. No single treatment works for everyone, but many things can be done to help. Diet Foods did not cause your Crohn's disease, but they can affect it. Unfortunately, there is no one diet that works for everyone. Keep a food log to figure out what you are sensitive to. Below are some things to try. Eat more slowly and smaller amounts at a time, but more often. Remember, you can always eat more ifyou are still hungry, but you can t eat less once you ve eaten too much. High fiber foods are complicated. While they may help constipation they can make the bloating, cramping, gas, and diarrhea worse. If your Crohn's disease involves the small intestine, avoiding lactose- containing dairy products can help relieve some symptoms. Try cutting out fatty foods and meats. Eat less sugar. Bloating or passing excess gas may be controlled. Stay away from gassy foods, such as beans, cabbage, broccoli, and cauliflower. Stay away from beverages and fruit juices. They can make the bloating and diarrhea worse. Caffeine, alcohol, and stimulants may worsen symptoms. These include coffee, tea, sodas, energy drinks, and chocolate. Lifestyle Although stress does not cause Crohn's, it is often a factor in flare-ups. It can also affect how you feel about and cope with your health problem. Look for things that seem to worsen your symptoms, such as stress and emotions. Counseling can often help relieve stress. So can self-help measures such as exercise, yoga, and meditation. Depression can be a part of this illness and antidepressants may be prescribed. This may actually help with diarrhea, constipation, and cramping, as well as depression. Smoking doesn't cause Crohn's, but can make the symptoms worse. Medicines Your healthcare provider may prescribe medicines. If so, take them as directed. In Crohn's disease,long-term medicine is usually needed. This is because control of the disease is very important to prevent complications down the line. For acute flare-ups, prescription medicines can be prescribed. Call your healthcare provider if you need this. Ask your healthcare provider before taking any antidiarrheal medicines. Don t take anti-inflammatory medicines like ibuprofen or naproxen. Consider nutritional supplements. This is especially true if the diarrhea is prolonged, or you aren't eating or are losing weight. If you need supplements, talk it over with your healthcare provider for the best recommendation. Stay away from herbal supplements as they are not evaluated by the FDA. Because of this, there is no way to be certain of their safety and purity. Follow-up care Follow up with your healthcare provider, or as advised. If a stool sample was taken or cultures were done, you will be told if your treatment needs to change. You may also need blood tests, procedures, or imaging studies. Call as directed for the results. Support Joining a support group for people with Crohn s disease can be a source of useful information on how others are coping with this illness. They are available in person, on the phone, or on the Web. Contact the following resources for more information. Crohn s and Colitis [employer] 162.110.2236 www.ccfa.org National Digestive Diseases Information Clearinghouse (NDDIC) www.digestive.niddk.nih.gov When to get medical advice Call your healthcare provider right away if any of these occur: Fever of 100.4 F (38 C) or higher, or as directed by your healthcare provider Abdominal pain that doesn't get better when you take the usual measures Mucus, pus, or blood in the stool (dark or bright red) Repeated vomiting Abdominal swelling and pain that doesn t go away after a few hours Call 911 Call 911 if any of these occur: Trouble breathing Confusion Extreme sleepiness or trouble waking up Fainting or loss of consciousness Rapid heart rate [phone] The [employer]. [address] [place] [address], [place] [address]. All rights reserved. This information is not intended as a substitute for professional medical care. Always follow yourhealthcare professional's instructions. Additional Information VACCINATE! IT SAVES LIVES! Members of the community who have not yet received the COVID-19 vaccine and would like to receive it can visit one of [facility] vaccine clinics. There are many vaccine clinic locations within the [facility]. For locations and available times, please visit [email or web address]. It is important to note that some COVID mobile vaccine clinics are held outdoors and may be canceled in rainy orstormy conditions. To learn more about pediatric vaccinations (ages 5-11), we invite you to visit the [facility] webpage. [email or web address] learn more about the COVID-19 vaccine, we invite you to visit the [place] website for a list of frequently asked questions. [email or web address] [facility] Patient Portal Access Instructions: Stay connected with your healthcare team and access your personal medical information anytime with the [facility] Patient Portal. If you would like a full copy of your medical records please contact the [facility] Medical Records Department Thursday through Thursday between 8a.m. and 4:30p.m. Please follow the directions below to access the portal: 1.Access the email account you provided upon registration to the hospital.2.Look for an invitation email from [facility].3.Open the email and access the invitation link: Accept Invitation to [facility]4.Fill in the required dolan to create your account. Sign into www.[employer] [place] with your username and password that you created in the above steps to stay up to date. You can then view a summary of results, a summary of your visits, and the ability to download your summaries to your computer or send the information securely to a physician. Remember that your healthcare information is confidential, so carefully consider who you will allow to register on the [facility] Patient Portal for access to your information. You can also access the [facility] Patient Portal on the [employer]. Simply click on Health Records under [employer] and then click on the [employer] logo. HOW TO SAFELY DISPOSE OF PRESCRIPTION MEDICATIONS Please use one of the following methods to safely dispose of your unused medications. 1.Use a drug disposal kit: the drug disposal pouch allows you to safely discard your old and unuseddrugs. Ask your nurse to give you one when you are discharged.2.Visit a local take-back location: Many local pharmacies and police departments have programs that collect old and unwanted prescriptiondrugs. Call your local pharmacy or go to [email or web address] to find one close to you.3.Make use of household items: Use cat litter or old coffee grounds to dispose medications if other options arenot available. Mix your drugs with these household products, seal them in an airtight container andthrow it into the garbage. Call [facility]: [phone] to be sure your drugs can be disposed of in this way. Some medicines may require a different approach.4.Never flush your medications down the toilet. IF YOU HAVE BEEN PRESCRIBED AN OPIOIDS FOR PAIN If you have been prescribed an opioid (such as hydrocodone, oxycodone or morphine), it is critical to understand the possible side effects and risks of opioid pain medications. Even when taken as directed, opioids can have several side effects including: Tolerance, meaning you might need to take more of a medication for the same pain relief. Nausea, vomiting and/or constipation. Sleepiness, dizziness, dry mouth, confusion, depression or itching. Physical dependence, meaning you have withdrawal symptoms when a medication is stopped ? this can develop within a few days. KNOW YOUR RESPONSIBILITIES It is important to know exactly how much and how often to take the opioid pain medications you are prescribed. Never take opioids in higher amounts or more often than prescribed. Do not combine opioids with alcohol or other drugs that cause drowsiness, such as benzodiazepines, also known as benzos,including diazepam and alprazolam, muscle relaxants or sleep aids. Never sell or share prescriptionopioids. This is illegal. Store opioids in a secure place and out of reach of others (including children, family, friends and visitors). The last page(s) of this document has been signed and retained as a CHART COPY Signatures Patient Education Materials Crohn's Disease Medication Leaflets My discharge plan and instructions have been reviewed and explained to me and IKRISHNA ASHLIE L understand my current condition and have read and understand these discharge instructions. I have received a written copy of the plan/instructions. If I have questions, I am aware that I should contact my doctor. Patient/Staking Technician Signature: Date/Time: Relationship to Patient: Witness Name/Signature: Date/Time: [facility] [id number] Note Discharge Instructions Thank you for allowing [facility] to assist you with your healthcare needs. The following is importantdischarge information regarding your hospital visit. 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 You Need to Schedule the Following Appointments Follow Up with Go to emergency room if symptoms worsen When Within 2-4 days Follow Up with JAMMIE RAINES MD, Surgery When Within 2-4 days Where: [place] [address]- Allergies ciprofloxacin (Nausea) Medications Please ask your primary doctor or pharmacist before taking any other medication not listed, including over the counter drugs, herbal medications, vitamins and or supplements as they may interact withyour home medications. What How Much When Instructions Last Dose New predniSONE (predniSONE 10 mg oral tablet) See instructions 4 tabs for 2 days 3 tabs for 2 days 2 tabs for 2 days 1 tabs for 2 days Printed Prescription Unchanged bifidobacterium-lactobacillus (Probiotic Formula oral capsule) 1 cap by mouth Once a day Unchanged dicyclomine (Bentyl 10 mg oral capsule) 1 cap by mouth Four (4) times a day Duration: 3 Days Unchanged famotidine (famotidine 40 mg oral tablet) 1 tab(s) by mouth Every day Please take this list to your next doctor s visit. Bring all medications you take, including over the counter medications, herbals and other supplements with you to your doctor s visit. Patients and families are reminded to discard old lists and to update any records with all medication providers or retail pharmacies. Education Materials Crohn s Disease Crohn s disease is inflammation of the intestinal tract that comes and goes in flare-ups. This is achronic (long-term) illness. During a flare-up, intense abdominal pain and fever may be felt. Mucus, blood, or pus may appear in the stool. Between flare-ups, inflammation lessens and there usually are no symptoms. Crohn s disease is a form of inflammatory bowel disease (IBD). Symptoms of Crohn's disease may include: Abdominal cramps and pain Diarrhea, sometimes bloody, occasionally alternating with constipation Mucus in stools Rectal bleeding Rectal pain Fever Low energy Decreased appetite and weight loss Bloating or swollen abdomen Nausea or vomiting Joint aches Sores in mouth Red, painful eye problems Rashes in anal area or other anal problems No one knows what exactly causes Crohn's disease, and there is no cure. The goal of treatment is tocontrol and relieve symptoms and prevent complications, so you can lead a full and active life. No single treatment works for everyone, but many things can be done to help. Diet Foods did not cause your Crohn's disease, but they can affect it. Unfortunately, there is no one diet that works for everyone. Keep a food log to figure out what you are sensitive to. Below are some things to try. Eat more slowly and smaller amounts at a time, but more often. Remember, you can always eat more ifyou are still hungry, but you can t eat less once you ve eaten too much. High fiber foods are complicated. While they may help constipation they can make the bloating, cramping, gas, and diarrhea worse. If your Crohn's disease involves the small intestine, avoiding lactose- containing dairy products can help relieve some symptoms. Try cutting out fatty foods and meats. Eat less sugar. Bloating or passing excess gas may be controlled. Stay away from gassy foods, such as beans, cabbage, broccoli, and cauliflower. Stay away from beverages and fruit juices. They can make the bloating and diarrhea worse. Caffeine, alcohol, and stimulants may worsen symptoms. These include coffee, tea, sodas, energy drinks, and chocolate. Lifestyle Although stress does not cause Crohn's, it is often a factor in flare-ups. It can also affect how you feel about and cope with your health problem. Look for things that seem to worsen your symptoms, such as stress and emotions. Counseling can often help relieve stress. So can self-help measures such as exercise, yoga, and meditation. Depression can be a part of this illness and antidepressants may be prescribed. This may actually help with diarrhea, constipation, and cramping, as well as depression. Smoking doesn't cause Crohn's, but can make the symptoms worse. Medicines Your healthcare provider may prescribe medicines. If so, take them as directed. In Crohn's disease,long-term medicine is usually needed. This is because control of the disease is very important to prevent complications down the line. For acute flare-ups, prescription medicines can be prescribed. Call your healthcare provider if you need this. Ask your healthcare provider before taking any antidiarrheal medicines. Don t take anti-inflammatory medicines like ibuprofen or naproxen. Consider nutritional supplements. This is especially true if the diarrhea is prolonged, or you aren't eating or are losing weight. If you need supplements, talk it over with your healthcare provider for the best recommendation. Stay away from herbal supplements as they are not evaluated by the FDA. Because of this, there is no way to be certain of their safety and purity. Follow-up care Follow up with your healthcare provider, or as advised. If a stool sample was taken or cultures were done, you will be told if your treatment needs to change. You may also need blood tests, procedures, or imaging studies. Call as directed for the results. Support Joining a support group for people with Crohn s disease can be a source of useful information on how others are coping with this illness. They are available in person, on the phone, or on the Web. Contact the following resources for more information. Crohn s and Colitis [employer] 712.878.5606 www.ccfa.org National Digestive Diseases Information Clearinghouse (NDDIC) www.digestive.niddk.nih.gov When to get medical advice Call your healthcare provider right away if any of these occur: Fever of 100.4 F (38 C) or higher, or as directed by your healthcare provider Abdominal pain that doesn't get better when you take the usual measures Mucus, pus, or blood in the stool (dark or bright red) Repeated vomiting Abdominal swelling and pain that doesn t go away after a few hours Call 911 Call 911 if any of these occur: Trouble breathing Confusion Extreme sleepiness or trouble waking up Fainting or loss of consciousness Rapid heart rate [id number] [employer]. [address] [place] [address], [place] [address]. All rights reserved. This information is not intended as a substitute for professional medical care. Always follow yourhealthcare professional's instructions. Additional Information VACCINATE! IT SAVES LIVES! Members of the community who have not yet received the COVID-19 vaccine and would like to receive it can visit one of [facility] vaccine clinics. There are many vaccine clinic locations within the [facility]. For locations and available times, please visit [email or web address]. It is important to note that some COVID mobile vaccine clinics are held outdoors and may be canceled in rainy orstormy conditions. To learn more about pediatric vaccinations (ages 5-11), we invite you to visit the [facility] webpage. [email or web address] learn more about the COVID-19 vaccine, we invite you to visit the [place] website for a list of frequently asked questions. [email or web address] [facility] Patient Portal Access Instructions: Stay connected with your healthcare team and access your personal medical information anytime with the [facility] [place] [facility] Patient Portal. If you would like a full copy of your medical records please contact the [facility] Medical Records Department Thursday through Thursday between 8a.m. and 4:30p.m. Please follow the directions below to access the portal: 1.Access the email account you provided upon registration to the [facility].2.Look for an invitation email from [facility].3.Open the email and access the invitation link: Accept Invitation to [facility]4.Fill in the required dolan to create your account. Sign into www.[employer] [place] with your username and password that you created in the above steps to stay up to date. You can then view a summary of results, a summary of your visits, and the ability to download your summaries to your computer or send the information securely to a physician. Remember that your healthcare information is confidential, so carefully consider who you will allow to register on the [facility] Patient Portal for access to your information. You can also access the [facility] Patient Portal on the [employer]. Simply click on Health Records under [employer] and then click on the [employer] logo. HOW TO SAFELY DISPOSE OF PRESCRIPTION MEDICATIONS Please use one of the following methods to safely dispose of your unused medications. 1.Use a drug disposal kit: the drug disposal pouch allows you to safely discard your old and unuseddrugs. Ask your nurse to give you one when you are discharged.2.Visit a local take-back location: Many local pharmacies and police departments have programs that collect old and unwanted prescriptiondrugs. Call your local pharmacy or go to [email or web address] to find one close to you.3.Make use of household items: Use cat litter or old coffee grounds to dispose medications if other options arenot available. Mix your drugs with these household products, seal them in an airtight container andthrow it into the garbage. Call [facility]: [phone] to be sure your drugs can be disposed of in this way. Some medicines may require a different approach.4.Never flush your medications down the toilet. IF YOU HAVE BEEN PRESCRIBED AN OPIOIDS FOR PAIN If you have been prescribed an opioid (such as hydrocodone, oxycodone or morphine), it is critical to understand the possible side effects and risks of opioid pain medications. Even when taken as directed, opioids can have several side effects including: Tolerance, meaning you might need to take more of a medication for the same pain relief. Nausea, vomiting and/or constipation. Sleepiness, dizziness, dry mouth, confusion, depression or itching. Physical dependence, meaning you have withdrawal symptoms when a medication is stopped ? this can develop within a few days. KNOW YOUR RESPONSIBILITIES It is important to know exactly how much and how often to take the opioid pain medications you are prescribed. Never take opioids in higher amounts or more often than prescribed. Do not combine opioids with alcohol or other drugs that cause drowsiness, such as benzodiazepines, also known as benzos,including diazepam and alprazolam, muscle relaxants or sleep aids. Never sell or share prescriptionopioids. This is illegal. Store opioids in a secure place and out of reach of others (including children, family, friends and visitors). The last page(s) of this document has been signed and retained as a CHART COPY Signatures Patient Education Materials Crohn's Disease Medication Leaflets My discharge plan and instructions have been reviewed and explained to me and I,WALTER KELLER understand my current condition and have read and understand these discharge instructions. I have received a written copy of the plan/instructions. If I have questions, I am aware that I should contact my doctor. Patient/Staking Technician Signature: Date/Time: Relationship to Patient: Witness Name/Signature: Date/Time: [facility]07-18-2022 Note Discharge Instructions Thank you for allowing [place] to assist you with your healthcare needs. The following is importantdischarge information regarding your hospital visit. 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 Post Acute Orders No qualifying data available. You Need to Schedule the Following Appointments Follow Up with Go to emergency room if symptoms worsen When Within 2-4 days Follow Up with JAMMIE RAINES MD, Surgery When Within 2-4 days Where: [address] [place] [address]- Allergies ciprofloxacin (Nausea) Medications Please ask your primary doctor or pharmacist before taking any other medication not listed, including over the counter drugs, herbal medications, vitamins and or supplements as they may interact withyour home medications. What How Much When Instructions Last Dose New predniSONE (predniSONE 10 mg oral tablet) See instructions 4 tabs for 2 days 3 tabs for 2 days 2 tabs for 2 days 1 tabs for 2 days Printed Prescription Unchanged bifidobacterium-lactobacillus (Probiotic Formula oral capsule) 1 cap by mouth Once a day Unchanged dicyclomine (Bentyl 10 mg oral capsule) 1 cap by mouth Four (4) times a day Duration: 3 Days Unchanged famotidine (famotidine 40 mg oral tablet) 1 tab(s) by mouth Every day Please take this list to your next doctor s visit. Bring all medications you take, including over the counter medications, herbals and other supplements with you to your doctor s visit. Patients and families are reminded to discard old lists and to update any records with all medication providers or retail pharmacies. Education Materials Crohn s Disease Crohn s disease is inflammation of the intestinal tract that comes and goes in flare-ups. This is achronic (long-term) illness. During a flare-up, intense abdominal pain and fever may be felt. Mucus, blood, or pus may appear in the stool. Between flare-ups, inflammation lessens and there usually are no symptoms. Crohn s disease is a form of inflammatory bowel disease (IBD). Symptoms of Crohn's disease may include: Abdominal cramps and pain Diarrhea, sometimes bloody, occasionally alternating with constipation Mucus in stools Rectal bleeding Rectal pain Fever Low energy Decreased appetite and weight loss Bloating or swollen abdomen Nausea or vomiting Joint aches Sores in mouth Red, painful eye problems Rashes in anal area or other anal problems No one knows what exactly causes Crohn's disease, and there is no cure. The goal of treatment is tocontrol and relieve symptoms and prevent complications, so you can lead a full and active life. No single treatment works for everyone, but many things can be done to help. Diet Foods did not cause your Crohn's disease, but they can affect it. Unfortunately, there is no one diet that works for everyone. Keep a food log to figure out what you are sensitive to. Below are some things to try. Eat more slowly and smaller amounts at a time, but more often. Remember, you can always eat more ifyou are still hungry, but you can t eat less once you ve eaten too much. High fiber foods are complicated. While they may help constipation they can make the bloating, cramping, gas, and diarrhea worse. If your Crohn's disease involves the small intestine, avoiding lactose- containing dairy products can help relieve some symptoms. Try cutting out fatty foods and meats. Eat less sugar. Bloating or passing excess gas may be controlled. Stay away from gassy foods, such as beans, cabbage, broccoli, and cauliflower. Stay away from beverages and fruit juices. They can make the bloating and diarrhea worse. Caffeine, alcohol, and stimulants may worsen symptoms. These include coffee, tea, sodas, energy drinks, and chocolate. Lifestyle Although stress does not cause Crohn's, it is often a factor in flare-ups. It can also affect how you feel about and cope with your health problem. Look for things that seem to worsen your symptoms, such as stress and emotions. Counseling can often help relieve stress. So can self-help measures such as exercise, yoga, and meditation. Depression can be a part of this illness and antidepressants may be prescribed. This may actually help with diarrhea, constipation, and cramping, as well as depression. Smoking doesn't cause Crohn's, but can make the symptoms worse. Medicines Your healthcare provider may prescribe medicines. If so, take them as directed. In Crohn's disease,long-term medicine is usually needed. This is because control of the disease is very important to prevent complications down the line. For acute flare-ups, prescription medicines can be prescribed. Call your healthcare provider if you need this. Ask your healthcare provider before taking any antidiarrheal medicines. Don t take anti-inflammatory medicines like ibuprofen or naproxen. Consider nutritional supplements. This is especially true if the diarrhea is prolonged, or you aren't eating or are losing weight. If you need supplements, talk it over with your healthcare provider for the best recommendation. Stay away from herbal supplements as they are not evaluated by the FDA. Because of this, there is no way to be certain of their safety and purity. Follow-up care Follow up with your healthcare provider, or as advised. If a stool sample was taken or cultures were done, you will be told if your treatment needs to change. You may also need blood tests, procedures, or imaging studies. Call as directed for the results. Support Joining a support group for people with Crohn s disease can be a source of useful information on how others are coping with this illness. They are available in person, on the phone, or on the Web. Contact the following resources for more information. Crohn s and Colitis [employer] [place] 603.942.8031 www.ccfa.org National Digestive Diseases Information Clearinghouse (NDDIC) www.digestive.niddk.nih.gov When to get medical advice Call your healthcare provider right away if any of these occur: Fever of 100.4 F (38 C) or higher, or as directed by your healthcare provider Abdominal pain that doesn't get better when you take the usual measures Mucus, pus, or blood in the stool (dark or bright red) Repeated vomiting Abdominal swelling and pain that doesn t go away after a few hours Call 911 Call 911 if any of these occur: Trouble breathing Confusion Extreme sleepiness or trouble waking up Fainting or loss of consciousness Rapid heart rate 0100-3610 The [employer]. [address] [place] [address]. All rights reserved. This information is not intended as a substitute for professional medical care. Always follow yourhealthcare professional's instructions. Additional Information VACCINATE! IT SAVES LIVES! Members of the community who have not yet received the COVID-19 vaccine and would like to receive it can visit one of [facility] vaccine clinics. There are many vaccine clinic locations within the [facility]. For locations and available times, please visit [email or web address]. It is important to note that some COVID mobile vaccine clinics are held outdoors and may be canceled in rainy orstormy conditions. To learn more about pediatric vaccinations (ages 5-11), we invite you to visit the [facility] webpage. [email or web address] learn more about the COVID-19 vaccine, we invite you to visit the [employer] website for a list of frequently asked questions. [email or web address] [facility] Patient Portal Access Instructions: Stay connected with your healthcare team and access your personal medical information anytime with the [facility]am[facility] Patient Portal. If you would like a full copy of your medical records please contact the [facility] Medical Records Department Thursday through Thursday between 8a.m. and 4:30p.m. Please follow the directions below to access the portal: 1.Access the email account you provided upon registration to the [facility].2.Look for an invitation email from [facility].3.Open the email and access the invitation link: Accept Invitation to [facility]4.Fill in the required dolan to create your account. Sign into www.[employer] with your username and password that you created in the above steps to stay up to date. You can then view a summary of results, a summary of your visits, and the ability to download your summaries to your computer or send the information securely to a physician. Remember that your healthcare information is confidential, so carefully consider who you will allow to register on the [facility] Patient Portal for access to your information. You can also access the [facility] Patient Portal on the [employer]. Simply click on Health Records under [employer] and then click on the [facility] logo. HOW TO SAFELY DISPOSE OF PRESCRIPTION MEDICATIONS Please use one of the following methods to safely dispose of your unused medications. 1.Use a drug disposal kit: the drug disposal pouch allows you to safely discard your old and unuseddrugs. Ask your nurse to give you one when you are discharged.2.Visit a local take-back location: Many local pharmacies and police departments have programs that collect old and unwanted prescriptiondrugs. Call your local pharmacy or go to http://bit.[employer]/7P8Uv0t to find one close to you.3.Make use of household items: Use cat litter or old coffee grounds to dispose medications if other options arenot available. Mix your drugs with these household products, seal them in an airtight container andthrow it into the garbage. Call [facility]: [phone] to be sure your drugs can be disposed of in this way. Some medicines may require a different approach.4.Never flush your medications down the toilet. IF YOU HAVE BEEN PRESCRIBED AN OPIOIDS FOR PAIN If you have been prescribed an opioid (such as hydrocodone, oxycodone or morphine), it is critical to understand the possible side effects and risks of opioid pain medications. Even when taken as directed, opioids can have several side effects including: Tolerance, meaning you might need to take more of a medication for the same pain relief. Nausea, vomiting and/or constipation. Sleepiness, dizziness, dry mouth, confusion, depression or itching. Physical dependence, meaning you have withdrawal symptoms when a medication is stopped ? this can develop within a few days. KNOW YOUR RESPONSIBILITIES It is important to know exactly how much and how often to take the opioid pain medications you are prescribed. Never take opioids in higher amounts or more often than prescribed. Do not combine opioids with alcohol or other drugs that cause drowsiness, such as benzodiazepines, also known as benzos,including diazepam and alprazolam, muscle relaxants or sleep aids. Never sell or share prescriptionopioids. This is illegal. Store opioids in a secure place and out of reach of others (including children, family, friends and visitors). The last page(s) of this document has been signed and retained as a CHART COPY Signatures Patient Education Materials Crohn's Disease Medication Leaflets My discharge plan and instructions have been reviewed and explained to me and IKRISHNA ASHLIE L understand my current condition and have read and understand these discharge instructions. I have received a written copy of the plan/instructions. If I have questions, I am aware that I should contact my doctor. Patient/Staking Technician Signature: Date/Time: Relationship to Patient: Witness Name/Signature: Date/Time: [facility]07-18-2022 Note ORIGINAL EXAMINATION: CT OF THE ABDOMEN AND PELVIS WITH CONTRAST01/27/2022 1:31 pm TECHNIQUE: CT of the abdomen and pelvis was performed with the administration of intravenous contrast. Multiplanar reformatted images are provided for review. Automated exposure control, iterative reconstruction, and/or weight based adjustment of the mA/kV was utilized to reduce the radiation dose to as low as reasonably achievable. COMPARISON: CT abdomen/pelvis May 17, 2021 HISTORY: ORDERING SYSTEM PROVIDED HISTORY: Reason for Exam: Nausea and diarrhea for 2 weeks. Rectal and upper abdominal pain with history of Crohn's. FINDINGS: Lower Thorax: The included lung bases are clear. There is no visible pleural or pericardial effusion. The heart is normal in size. GI Tract: The stomach and small bowel are normal. Evidence of prior ileocecal anastomosis. The colon is unremarkable. The appendix is not visualized and likely surgically absent. Solid Organs: The liver, gallbladder, pancreas, spleen, and adrenal glands are normal. Collecting System: The kidneys enhance symmetrically without evidence of obstructive uropathy. Tiny left nonobstructing nephrolithiasis. Pelvis: The solid pelvic organs demonstrate no acute osseous process. There are bilateral dominant ovarian follicles. Vasculature: The abdominal aorta is nonaneurysmal. Lymph Nodes, Mesentery, and Peritoneum: No lymphadenopathy is identified. No free intraperitoneal fluid or gas is identified. Bones: No acute osseous abnormality. Superficial Soft Tissues: Normal abdominal wall. IMPRESSION: No acute process within abdomen/pelvis. Specifically, there is no areas of bowel wall mucosal enhancement suggestive of active Crohn's disease. Left punctate nonobstructing nephrolithiasis. I have personally reviewed the images of this examination and agree with the resident's findings and interpretations. Interpreted by: Bharat Gandhi MD Preliminary Report By: Danisha Tucker Electronically signed By Bharat Gandhi MD Dictated Date: 01/27/2022 1:33:41 PM Prelim Date: 01/27/2022 1:53:37 PM Sign Date: 01/27/2022 2:03:04 PM Ordering Provider: [facility]07-18-2022 Note ORIGINAL EXAMINATION: CT OF THE ABDOMEN AND PELVIS WITH CONTRAST01/27/2022 1:31 pm TECHNIQUE: CT of the abdomen and pelvis was performed with the administration of intravenous contrast. Multiplanar reformatted images are provided for review. Automated exposure control, iterative reconstruction, and/or weight based adjustment of the mA/kV was utilized to reduce the radiation dose to as low as reasonably achievable. COMPARISON: CT abdomen/pelvis May 17, 2021 HISTORY: ORDERING SYSTEM PROVIDED HISTORY: Reason for Exam: Nausea and diarrhea for 2 weeks. Rectal and upper abdominal pain with history of Crohn's. FINDINGS: Lower Thorax: The included lung bases are clear. There is no visible pleural or pericardial effusion. The heart is normal in size. GI Tract: The stomach and small bowel are normal. Evidence of prior ileocecal anastomosis. The colon is unremarkable. The appendix is not visualized and likely surgically absent. Solid Organs: The liver, gallbladder, pancreas, spleen, and adrenal glands are normal. Collecting System: The kidneys enhance symmetrically without evidence of obstructive uropathy. Tiny left nonobstructing nephrolithiasis. Pelvis: The solid pelvic organs demonstrate no acute osseous process. There are bilateral dominant ovarian follicles. Vasculature: The abdominal aorta is nonaneurysmal. Lymph Nodes, Mesentery, and Peritoneum: No lymphadenopathy is identified. No free intraperitoneal fluid or gas is identified. Bones: No acute osseous abnormality. Superficial Soft Tissues: Normal abdominal wall. IMPRESSION: No acute process within abdomen/pelvis. Specifically, there is no areas of bowel wall mucosal enhancement suggestive of active Crohn's disease. Left punctate nonobstructing nephrolithiasis. I have personally reviewed the images of this examination and agree with the resident's findings and interpretations. Interpreted by: Bharat Gandhi MD Preliminary Report By: Danisha Tucker Electronically signed By Bharat Gandhi MD Dictated Date: 01/27/2022 1:33:41 PM Prelim Date: 01/27/2022 1:53:37 PM Sign Date: 01/27/2022 2:03:04 PM Ordering Provider: [facility]06-17-2022 Miscellaneous Notes* Telephone Encounter - Calvin Vora MD - 12/27/2021 12:51 PM EDT MRE ordered to be performed in April or May. documented [facility] Nurse Note* Elena Griffin RN - 12/23/2021 11:35 AM EDT AMBULATORY PATIENT EDUCATION NOTE TOPIC: Renflexis READINESS TO LEARN INSTRUCTION PROVIDED TO: Patient, readness to learn accessed prior to procedure COGNITIVE ABILITY: Alert and oriented PTED MOTIVATION TO LEARN: Eager FAMILY SUPPORT: None - Unavailable/disinterested IPATIENT LEARNS BEST BY: Individual Instruction FACTORS AFFECTING LEARNING: None PHYSICAL LIMITATIONS AFFECTING LEARNING: None LEARNING RESPONSE METHOD OF INSTRUCTION: Individual instruction PATIENT / FAMILY RESPONSE: Verbalizes understanding of: WORSENING CONDITION- Signs and symptoms of aworsening condition that warrant a call to the physician FOLLOW-UP PLAN: Recommend - Recommend continued instruction and follow up as directed * Elena Griffin RN - 12/23/2021 9:50 AM EDT Walter Keller Reason for therapy: IBD Ordering Physician: Dr Zuñiga Supervising/Billing Physician: Dr Thomson PRE MEDICATION ADMINISTERED: No MEDICATIONS ADMINISTERED: Remicade/Renflexis/Infliximab/Inflectra (See MAR) Dose #: 19+ Start: 1011 AM / Stop: 1118 AM Fevers in last 7 days: No Rash: No Infusion tolerated well? Yes IV: See avatar Vital Signs: See Flow sheets Additional Notes if applicable: N/A * Elena Griffin RN - 12/23/2021 9:48 AM EDT AMBULATORY PATIENT EDUCATION NOTE TOPIC: Renflexis READINESS TO LEARN INSTRUCTION PROVIDED TO: Patient, readness to learn accessed prior to procedure COGNITIVE ABILITY: Alert and oriented PTED MOTIVATION TO LEARN: Eager FAMILY SUPPORT: None - Unavailable/disinterested IPATIENT LEARNS BEST BY: Individual Instruction FACTORS AFFECTING LEARNING: None PHYSICAL LIMITATIONS AFFECTING LEARNING: None LEARNING RESPONSE METHOD OF INSTRUCTION: Individual instruction PATIENT / FAMILY RESPONSE: Verbalizes understanding of: WORSENING CONDITION- Signs and symptoms of aworsening condition that warrant a call to the physician FOLLOW-UP PLAN: Recommend - Recommend continued instruction and follow up as directed documented in this encounterSum[facility]06-13-2022 Miscellaneous Notes* Telephone Encounter - Elena Griffin RN - 12/23/2021 10:21 AM EDT GI Pre-Procedure Spoke with patient: Yes Confirmed date scheduled and patient report time: Yes Procedure Planned:Esophagogastroduodenoscopy(EGD) with or without biopies based on clinical findings, removal of polyps or lesions Is the patient on blood thinners?no Procedure Instructions given to patient: Yes, and they verbalized their understanding of instructions given Patient instructed to take prescribed preparation prior to procedure:Yes, and they verbalized theirunderstanding of instructions given Patient instructed to have family/friend present for procedure transport home: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 and They verbalized their understanding and agree to have a responsible adult accompany the patient to their procedure and remain in the endoscopy area. Any barriers to Patient learning: Patient/Patient Staking Technician responded appropriately on phone. Type of instruction given: Verbal by telephone contact. Elena Griffin RN documented in this encounterSum[facility]05-09-2022 Miscellaneous Notes* Telephone Encounter - Haley Stallings - 11/18/2021 4:16 PM EDT ----- Message from Komal Peterson MD sent at 11/15/2021 11:03 AM EDT ----- Mohinder De Leon, Can you please send the patient her lab orders? Thank you! Regards, Komal documented in this encounterSum[facility]05-[facility]-2022 History of Present illness Narrative* Calvin Vora MD - 11/14/2021 9:00 AM EDT NAME: Walter Keller [facility] NO: [id number] REASON FOR VISIT Walter Keller is a 41 year old female who is scheduled for a consult at the request of Zach Wagner. CC: establish care PRESENTING COMPLAINT IBD HISTORY TEMPLATE Diagnosis Crohn's Disease: Date of diagnosis (year): 2017 Phenotype Location affected: ileum colon Behavior: inflammatory penetrating Perianal disease: no Prior Medications/Reason for Switch Surgery: Yes: Small Bowel Resection, Partial Colectomy 5-ASA: Yes, ineffective Thiopurines: No Methotrexate: No Biologics: vedo, ineffective Small molecules: No Current Medications IFX; once every 8 weeks. October 25 > next dose December 20 Prior Complications and Extraintestinal Manifestations Clostridium difficile: no Thrombosis: no Ocular (Uveitis, Episcleritis): no Dermatologic (Pyoderma gangrenosum, Erythema nodosum): yes, after renflexis; acneform lesion Arthropathy/Arthralgia: no Oral ulcers: no Primary Sclerosing Cholangitis: no Other: no Labs TB Status: Negative 10/2020 Hepatitis B Status: equivocal ab 10/2020 TPMT: Normal Current Clinical Symptoms # of bowel movements daily: 2 (since stopping eating sugar); prior to that 3-4 BM/day # of liquid stools daily: 0 Consistency: formed Bloody bowel movements: no Mucous: no Urgency: no Abdominal pain: no Abdominal distention: no Nausea/vomiting: yes, nausea occasionally Weight loss over last 3 months: no General well-being: very well Diagnosis: 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 Phenotype:ileo-colonic. - Terminal ileum, biopsy (B) - Patchy active enteritis with a rare mucosal granuloma. IBD surgeries: Resection on 02-10-[address] Casas for penetrating CD, with ICA. 1. Exploratory laparotomy. 2. 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 3. Incision and drainage of interloop small bowel abscess. 4. Takedown of ileorectal fistula.5. Ileocecectomy.6. Primary debridement and repair of rectal fistula. 7. Creation of end ileostomy. 8 Placement of Seprafilm. 9. Creation of omental pedicle flap. On 05-27-2017:Ex lap, extensive KAREN, ileostomy reversal, right ovarian cystectomy. Closure on 05/[address] Mar. Medical therapy prior to resection on 02-10-2017 included: steroid enema, entocort and Pentasa. Pentasa stopped in 07/2018. Patient stated it worked for a few years. Started EntyvCommuniClique 10/2018 and had a total of [address] Torres 05/12/2019 because on colonoscopy had active disease. No drug level. Started Renflexis every 8 weeks since 12/2019, excellent response to Renflexis without breakthrough symptoms between infusions. Level was 5.13 on 06/11/2020, no Abs, last dose ~ 03/26/2021 PAST SURGICAL HISTORY Procedure Laterality Date PAST SURGICAL HISTORY OF 02/10/2017 Exploratory laparotomy. 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 Incision and drainage of interloop small bowel abscess. Takedown of ileorectal fistula. Ileocecectomy. Primary debridement and repair of rectal fistula. Creation of end ileostomy. Placement of seprafilm. Creation of omental pedicle flap. PAST SURGICAL HISTORY OF 05/27/2017 Ex lap, extensive KAREN, ileostomy reversal, right ovarian cystectomy PAST SURGICAL HISTORY OF colposcopy PICC LINE INSERT/CONSULT 06/03/2017 PAST MEDICAL HISTORY Diagnosis Date Adenomyosis Anxiety Crohn's disease (HCC) Distal ileal to upper rectal fistula 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) 05/14/2017 Endometriosis Fistula History of recurrent UTIs HPV in female retirement current use of immunosuppressive drug 05/02/2020 Vitamin D insufficiency 05/02/2020 Current Outpatient Medications Medication Sig Dispense Refill sertraline (ZOLOFT) 100 mg tablet Take 100 mg by mouth once daily. hydrOXYzine pamoate (VISTARIL) 25 mg capsule Take 25 mg by mouth as needed. Patient not sure of dosage inFLIXimab-abda (RENFLEXIS) 100 mg injection Inject 400 mg intravenously every 8 weeks. NURSE TO INSERT IV FOR ADMINISTRATION 400 mg ergocalciferol 50,000 unit capsule (VITAMIN D2, DRISDOL) TAKE 1 CAPSULE BY MOUTH ONE TIME A WEEK. 12 capsule 0 Cyanocobalamin 1,000 mcg subl Dissolve 1 tablet under the tongue once daily. (Patient not taking: Reported on 05/30/2021 ) 100 tablet 0 multivitamin tablet Take 1 tablet by mouth once daily. ferrous sulfate (IRON ORAL) Take 1 capsule by mouth once daily. acetaminophen (TYLENOL) 325 mg tablet Take 650 mg by mouth every 6 hours as needed. No current facility-administered medications for this visit. Ciprofloxacin, Demerol [Meperidine (Pf)], and Gluten Protein Recent Labs: CBC: WBC (k/uL) Date Value 08/22/2021 6.06 05/03/2021 6.29 Hematocrit (%) Date Value 08/22/2021 39.0 MCV (fL) Date Value 08/22/2021 90.3 Platelet Count (k/uL) Date Value 08/22/2021 230 Lymph% (%) Date Value 08/22/2021 27.6 Hepatic Function Panel: Albumin (g/dL) Date Value 08/22/2021 3.6 (L) Bilirubin, Total (mg/dL) Date Value 08/22/2021 0.3 Bilirubin, Conjug (mg/dL) Date Value 08/22/2021 <0.2 Alkaline Phosphatase (U/L) Date Value 08/22/2021 54 AST (U/L) Date Value 08/22/2021 20 ALT (U/L) Date Value 08/22/2021 14 Protein, Total (g/dL) Date Value 08/22/2021 6.6 Social History Tobacco Use Smoking status: Former Smoker Smokeless tobacco: Never Used Tobacco comment: 1/2 pack for 4 years 10+ yrs ago Vaping Use Vaping Use: Never used Substance Use Topics Alcohol use: No Drug use: No PERSONAL HABITS: Tobacco: No Alcohol: Yes, How Many? Occasionally, 2 drinks/week Drugs: No NSAIDS: No All others negative FAMILY HISTORY Has anyone in your family (grandparents, parents, brothers, sisters, aunts, or uncles) had: Liver problems: No Colitis: Yes, cousin on mothers side Colon cancer:No Other cancers: FAMILY HISTORY Problem Relation Age of Onset other (diverticulitis) Paternal Grandmother PHYSICAL EXAMINATION General Appearance: alert, oriented x 3, pleasant and in no acute distress Eyes: No icterus or conjunctival pallor.. Oropharynx: Lips, tongue, and oral mucosa normal. There is no thrush or oral ulcers. Lungs: breath sounds clear to auscultation bilaterally Heart: regular rate and rhythm, no murmurs or gallops. Abdomen: Not distended. Normal bowel sounds. Soft and non-tender. No masses or organomegaly. Rectal: No external lesions, no masses Extremities: no cyanosis or edema. Skin: no rashes or lesions Lymph: No cervical, axillary, supraclavicular, or adenopathy. Doing much better after she was started on Renflexis in December 2019. IFX level was checked in May 2020 and was 5.13 with no antibiotics. Her only complaint is acneiform rash that is involving the anterior chest/back of neck that started concomitantly with Renflexis. Will treat the skin lesions with topical steroids [hydrocortisone 2.5% cream]. We will also perform a colonoscopy with segmental b iopsies to assess disease severity/extent and confirm endoscopic/histologic healing. She is due forbasic work-up and inflammatory markers [CRP]. Imaging CTE 06/06/2019: IMPRESSION: ACTIVE INFLAMMATORY SMALL BOWEL CROHN'S DISEASE INVOLVING ILEUM. NO LUMINAL NARROWING. PENETRATING DISEASE: ABSENT Colonoscopy 09/13/2021: Impression: - Non-bleeding external hemorrhoids. - Simple Endoscopic Score for Crohn's Disease: 6, mucosal inflammatory changes. Biopsied. - The examination was otherwise normal on direct and retroflexion views. FINAL DIAGNOSIS A. Terminal ileum, biopsy: - Chronic active enteritis with pyloric gland metaplasia and erosion. - Negative for granulomas or dysplasia. B, C, D, E, F, G. Colon, cecum, ascending, transverse, descending, sigmoid, and rectum, biopsies: - Colonic mucosa with no significant diagnostic alteration. - No evidence of colitis, granulomas or dysplasia. H. Rectum at 5 cm, biopsy: - Active colitis with erosion, negative for granulomas or dysplasia. EGD 08/13/2018: Findings: LA Grade A (one or more mucosal breaks less than 5 mm, not extending between tops of 2 mucosal folds) esophagitis with no bleeding was found 40 cm from the incisors. Stomach was normal. Duodenum was normal. Bx taken (with hx of ?? Adenoma) CONVERTED FINAL DIAGNOSIS 1. Duodenum, bulb, biopsy (A) - Focal mild active duodenitis. 2. Terminal ileum, biopsy (B) - Patchy active enteritis with a rare mucosal granuloma. - No pyloric gland metaplasia or epithelial dysplasia. 3. Rectum, biopsy (C) - Rectal mucosa with focal Paneth cell metaplasia, consistent with quiescent proctitis. - No granulomas or epithelial dysplasia. Assessment IMPRESSION 41 year old female with hx of penetrating ileocolonic CD diagnosed in 2017 s/p ICR treated with steroids, 5ASA, vedo (2019) ineffective 5 doses, did not dose escalate, no drug level. Started IFX 12/2019 every 8 weeks. Last colonoscopy 09/2021 with i2b disease and chronic active enteritis on path. Last imaging in 2018 without inactive inflammation. Based on colonoscopy results, we will likely need to decrease IFX interval; however, will check levels first. PLAN CMP, CRP, CRP Micronutrients Remote hep, tb screen IFX level + ab prior to next dose - may need to decrease interval. Pt seen and discussed with Dr. Vora. Komal Peterson MD PGY-7 IBD fellow I reviewed and agree with the assessment as documented above. Patient care delivered with direct supervision in accordance with treatment plan. 41 yo woman history of ileocolonic Crohn's disease initially diagnosed as indeterminate colitis. S/p ICR [place] [address] Casas with diverting loop ileostomy at the time. Treated with Vedo x 5 doses in 2018 when stopped for active disease and switched to Renflexis since 2019 to which she has had excellent response. IFX level in May 2020 was 5. She has had acneiform rash which is treated with topical meds and does not impact overall quality of life. Recent colonoscopy with mild recurrence (Rutgeerts i2b on appearance). Will plan to optimize infliximab and check imaging. Then reassess after dose optimization. Medical Decision Making: Problems: Moderate: 1+ chronic illnesses with change Data: Unique source(s) for external note(s) reviewed: 1 Unique test result(s) reviewed: 3+ Unique test(s) ordered: 3+ Independent interpretation of test from other physician/QHCP Risk: High: Drug therapy requiring intensive monitoring Medical Decision Making Level: 5 - High Calvin Vora MD, MAS (Signed electronically to expedite mailing) Calvin Vora MD November 13, 2021 2:33 PM [facility]* Haley Stallings - 11/14/2021 9:00 AM EDT Attempted to reach patient 11/13/2021 at 3:20 PM to discuss allergies / meds. Left message for return call to office. Haley Stallings November 13, 2021 3:21 PM documented in this [facility] NoteHNO ID: [id number] Author: Hortensia Fermin MD Service: ? Author Type: Physician Type: Progress Notes Filed: 05/30/2021 9:49 AM Note Text: Walter Keller is an 40 year old woman who presents for annual exam. LMP: Patient's last menstrual period was 05/17/2021 (approximate). Periods are regular q 28-30 days, lasting 5 days. Dysmenorrhea:severe Cyclic symptoms include none. Sexually active? 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 Incision and drainage of interloop small bowel abscess. Takedown of ileorectal fistula. Ileocecectomy. Primary debridement and repair of rectal fistula. Creation of end ileostomy. Placement of seprafilm. Creation of omental pedicle flap. - PAST SURGICAL HISTORY OF 05/27/2017 Ex lap, extensive KAREN, ileostomy reversal, right ovarian cystectomy - PAST SURGICAL HISTORY OF colposcopy - PICC LINE INSERT/CONSULT 06/03/2017 FAMILY HISTORY Problem Relation Age of Onset - other (diverticulitis) Paternal Grandmother Social History Tobacco Use - Smoking status: Former Smoker - Smokeless tobacco: Never Used - Tobacco comment: 1/2 pack for 4 years 10+ yrs ago Vaping Use - Vaping Use: Never used Substance Use Topics - Alcohol use: No - Drug use: No MEDICATIONS: sertraline (ZOLOFT) 100 mg tablet Take 100 mg by mouth once daily. hydrOXYzine pamoate (VISTARIL) 25 mg capsule Take 25 mg by mouth as needed. Patient not sure of dosage hydrocortisone 2.5 % cream Apply to affected area twice daily. inFLIXimab-abda (RENFLEXIS) 100 mg injection Inject 400 mg intravenously every 8 weeks. NURSE TO INSERT IV FOR ADMINISTRATION ergocalciferol 50,000 unit capsule (VITAMIN D2, DRISDOL) TAKE 1 CAPSULE BY MOUTH ONE TIME A WEEK. multivitamin tablet Take 1 tablet by mouth once daily. ferrous sulfate (IRON ORAL) Take 1 capsule by mouth once daily. acetaminophen (TYLENOL) 325 mg tablet Take 650 mg by mouth every 6 hours as needed. Cyanocobalamin 1,000 mcg subl Dissolve 1 tablet under the tongue once daily. ALLERGIES:Ciprofloxacin, Demerol [Meperidine (Pf)], and Gluten Protein Hx of abnormal pap? No Regular self-breast exam? Yes History of abnormal mammogram? Not Applicable REVIEW OF SYSTEMS: GENERAL:Denies fever, chills, night sweats, or changes in weight. DERMATOLOGIC: Denies any new skin conditions, rashes or changing moles. EYES: Denies recent visual changes. ENT: Denies hearing loss or tinnitus. RESPIRATORY: Denies any cough, dyspnea, or wheezing. CARDIOVASCULAR:Denies any chest pain with exertion or at rest, palpitations, syncope, shortness of breath or edema. BREASTS: Denies any breast lumps, tenderness, dimpling, skin changes, or nipple discharge. GASTROINTESTINAL: Denies any nausea, vomiting, or abdominal pain. , Denies heartburn., Denies any change in bowel habits. GENITOURINARY:Denies urinary frequency, dysuria, hematuria, nocturia, incontinence. and Reports menstrual problem FLUX MIXER: Denies any abnormal vaginal discharge, irregular bleeding, vaginal dryness, dypareunia, or change in libido MUSCULOSKELETAL: Denies any joint swelling, crepitus, or loss of range of motion., Denies back pain., Denies joint pain. NEURO:Denies any headaches, tremors, dizziness, vertigo, memory loss, confusion., Denies weakness, numbness or tingling. PSYCHIATRIC: Denies any anxiety or depression. HEMATOLOGIC/LYMPHATIC/IMMUNOLOGIC: Denies anemia, bruising, bleeding abnormalities. ENDOCRINE: Denies any heat or cold intolerance, polyuria, polyphasia or polydipsia. OBJECTIVE: GENERAL APPEARANCE: cooperative, in no acute distress, alert. SKIN:Color normal, Vascularity normal, No evidence of bleeding or bruising, No lesions noted, No edema, Temperature normal, Texture normal, Mobility and turgor normal, Nails normal without clubbing NECK: Supple, no adenopathy; thyroid symmetric, normal size, no bruits BREASTS: breasts symmetric, no dominant or suspicious mass, no skin or nipple changes, no axillary adenopathy HEART:Normal PMI, Regular rate and rhythm, Normal heart sounds, S1 and S2 and No murmurs. ABDOMEN: soft, non-tender, no masses, no hepatosplenomegaly and no lymphadenopathy EXTREMITIES: No skin discoloration, No edema and Normal pulses bilaterally. PELVIC EXAM : External genitalia, cervix, and vagina normal., Bimanual exam normal. RECTAL E (more content not included)...[facility]11-06-2021 Note. MICRO - Microbiology PROCEDURE: Urine Culture [*1] SOURCE: Urine, Clean Catch BODY SITE: COLLECTED DATE/TIME: 05/17/2021 16:28 EDT RECEIVED DATE/TIME: 05/17/2021 20:17 EDT START DATE/TIME: 05/17/2021 20:17 EDT FREE TEXT SOURCE: FINAL REPORTS Final Report [] Verified Date/Time/Personnel: 05/18/2021 14:29 EDT <10,000 cfu/ml. No Significant growth. Sensitivity not indicated. Performing Locations *1: This test was performed at: [address], [facility] , [facility] ([place])05-17-2021 Hospital Discharge instructions Patient Education 05/17/2021 16:58:47 Crohn's Disease Crohn s Disease Crohn s disease is inflammation of the intestinal tract that comes and goes in flare-ups. This is achronic (long-term) illness. During a flare-up, intense abdominal pain and fever may be felt. Mucus, blood, or pus may appear in the stool. Between flare-ups, inflammation lessens and there usually are no symptoms. Crohn s disease is a form of inflammatory bowel disease (IBD). Symptoms of Crohn's disease may include: Abdominal cramps and pain Diarrhea, sometimes bloody, occasionally alternating with constipation Mucus in stools Rectal bleeding Rectal pain Fever Low energy Decreased appetite and weight loss Bloating or swollen abdomen Nausea or vomiting Joint aches Sores in mouth Red, painful eye problems Rashes in anal area or other anal problems No one knows what exactly causes Crohn's disease, and there is no cure. The goal of treatment is tocontrol and relieve symptoms and prevent complications, so you can lead a full and active life. No single treatment works for everyone, but many things can be done to help. Diet Foods did not cause your Crohn's disease, but they can affect it. Unfortunately, there is no one diet that works for everyone. Keep a food log to figure out what you are sensitive to. Below are some things to try. Eat more slowly and smaller amounts at a time, but more often. Remember, you can always eat more ifyou are still hungry, but you can t eat less once you ve eaten too much. High fiber foods are complicated. While they may help constipation they can make the bloating, cramping, gas, and diarrhea worse. If your Crohn's disease involves the small intestine, avoiding lactose- containing dairy products can help relieve some symptoms. Try cutting out fatty foods and meats. Eat less sugar. Bloating or passing excess gas may be controlled. Stay away from gassy foods, such as beans, cabbage, broccoli, and cauliflower. Stay away from beverages and fruit juices. They can make the bloating and diarrhea worse. Caffeine, alcohol, and stimulants may worsen symptoms. These include coffee, tea, sodas, energy drinks, and chocolate. Lifestyle Although stress does not cause Crohn's, it is often a factor in flare-ups. It can also affect how you feel about and cope with your health problem. Look for things that seem to worsen your symptoms, such as stress and emotions. Counseling can often help relieve stress. So can self-help measures such as exercise, yoga, and meditation. Depression can be a part of this illness and antidepressants may be prescribed. This may actually help with diarrhea, constipation, and cramping, as well as depression. Smoking doesn't cause Crohn's, but can make the symptoms worse. Medicines Your healthcare provider may prescribe medicines. If so, take them as directed. In Crohn's disease,long-term medicine is usually needed. This is because control of the disease is very important to prevent complications down the line. For acute flare-ups, prescription medicines can be prescribed. Call your healthcare provider if you need this. Ask your healthcare provider before taking any antidiarrheal medicines. Don t take anti-inflammatory medicines like ibuprofen or naproxen. Consider nutritional supplements. This is especially true if the diarrhea is prolonged, or you aren't eating or are losing weight. If you need supplements, talk it over with your healthcare provider for the best recommendation. Stay away from herbal supplements as they are not evaluated by the FDA. Because of this, there is no way to be certain of their safety and purity. Follow-up care Follow up with your healthcare provider, or as advised. If a stool sample was taken or cultures were done, you will be told if your treatment needs to change. You may also need blood tests, procedures, or imaging studies. Call as directed for the results. Support Joining a support group for people with Crohn s disease can be a source of useful information on how others are coping with this illness. They are available in person, on the phone, or on the Web. Contact the following resources for more information. Crohn s and Colitis [employer] [place] 651.926.4136 www.ccfa.org National Digestive Diseases Information Clearinghouse (NDDIC) www.digestive.niddk.nih.gov When to get medical advice Call your healthcare provider right away if any of these occur: Fever of 100.4 F (38 C) or higher, or as directed by your healthcare provider Abdominal pain that doesn't get better when you take the usual measures Mucus, pus, or blood in the stool (dark or bright red) Repeated vomiting Abdominal swelling and pain that doesn t go away after a few hours Call 911 Call 911 if any of these occur: Trouble breathing Confusion Extreme sleepiness or trouble waking up Fainting or loss of consciousness Rapid heart rate [id number] [employer]. [address] [place] [address]. All rights reserved. This information is not intended as a substitute for professional medical care. Always follow yourhealthcare professional's instructions. 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 With:JAMMIE RAINES Address: [address] [place] [phone]- Business (1) When:2-4 days Comments:Schedule appointment for close follow-up.Push fluids, bland diet.Use Tylenol, Advil for pain as needed.Use [place] as prescribed for severe pain as needed.Use steroid (prednisone) as prescribed.Return to the ED if symptoms worsen. 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 INVOLVED DISTAL ILEAL SEGMENT MEASURES UP TO 25 CM AND RESULTS IN UPSTREAM SMALL BOWEL OBSTRUCTION. THERE IS RELATIVE SPARING OF THE TERMINAL ILEUM. PENETRATING DISEASE: PRESENT. COMPLEX SINUS TRACT WITH ASSOCIATED ILL-DEFINED COLLECTION (LIKELY PHLEGMON) WITHIN THE PELVIS MEASURING 3.2 CM Last Assessment & Plan: - IV fluids - Empiric antibiotics - ciprofloxacin and metronidazole (02/04-*) - O&P, C diff and stool cultures - patient did not have bowel since admission - Hold off steroids - in the setting of pelvic collection - Pain control - Follow CORS recs documented as of this encounter (statuses as of 11/15/2021) [facility] of Past illness Narrative* Problem Noted Date Resolved Date Idiopathic colitis 11/11/2016 05/02/2020 Overview: Stool culture, C diff, CMV, cryptosporidium negative in 12/2016 CT ([facility]) showed partial small bowel obstruction MRE (02/05): 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 INVOLVED DISTAL ILEAL SEGMENT MEASURES UP TO 25 CM AND RESULTS IN UPSTREAM SMALL BOWEL OBSTRUCTION. THERE IS RELATIVE SPARING OF THE TERMINAL ILEUM. PENETRATING DISEASE: PRESENT. COMPLEX SINUS TRACT WITH ASSOCIATED ILL-DEFINED COLLECTION (LIKELY PHLEGMON) WITHIN THE PELVIS MEASURING 3.2 CM Last Assessment & Plan: - IV fluids - Empiric antibiotics - ciprofloxacin and metronidazole (02/04-*) - O&P, C diff and stool cultures - patient did not have bowel since admission - Hold off steroids - in the setting of pelvic collection - Pain control - Follow CORS recs documented as of this encounter (statuses as of 11/18/2021) [facility] of Past illness Narrative* Problem Noted Date Resolved Date Idiopathic colitis 11/11/2016 05/02/2020 Overview: Stool culture, C diff, CMV, cryptosporidium negative in 12/2016 CT ([facility]) showed partial small bowel obstruction MRE (02/05): 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 INVOLVED DISTAL ILEAL SEGMENT MEASURES UP TO 25 CM AND RESULTS IN UPSTREAM SMALL BOWEL OBSTRUCTION. THERE IS RELATIVE SPARING OF THE TERMINAL ILEUM. PENETRATING DISEASE: PRESENT. COMPLEX SINUS TRACT WITH ASSOCIATED ILL-DEFINED COLLECTION (LIKELY PHLEGMON) WITHIN THE PELVIS MEASURING 3.2 CM Last Assessment & Plan: - IV fluids - Empiric antibiotics - ciprofloxacin and metronidazole (02/04-*) - O&P, C diff and stool cultures - patient did not have bowel since admission - Hold off steroids - in the setting of pelvic collection - Pain control - Follow CORS recs documented as of this encounter (statuses as of 12/23/2021) [facility] of Past illness Narrative* Problem Noted Date Resolved Date Idiopathic colitis 11/11/2016 05/02/2020 Overview: Stool culture, C diff, CMV, cryptosporidium negative in 12/2016 CT ([facility]) showed partial small bowel obstruction MRE (02/05): 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 INVOLVED DISTAL ILEAL SEGMENT MEASURES UP TO 25 CM AND RESULTS IN UPSTREAM SMALL BOWEL OBSTRUCTION. THERE IS RELATIVE SPARING OF THE TERMINAL ILEUM. PENETRATING DISEASE: PRESENT. COMPLEX SINUS TRACT WITH ASSOCIATED ILL-DEFINED COLLECTION (LIKELY PHLEGMON) WITHIN THE PELVIS MEASURING 3.2 CM Last Assessment & Plan: - IV fluids - Empiric antibiotics - ciprofloxacin and metronidazole (02/04-*) - O&P, C diff and stool cultures - patient did not have bowel since admission - Hold off steroids - in the setting of pelvic collection - Pain control - Follow CORS recs documented as of this encounter (statuses as of 12/24/2021) [facility] of [facility] Narrative* Problem Noted Date Resolved Date Idiopathic colitis 11/11/2016 05/02/2020 Overview: Stool culture, C diff, CMV, cryptosporidium negative in 12/2016 CT ([facility]) showed partial small bowel obstruction MRE (02/05): 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 INVOLVED DISTAL ILEAL SEGMENT MEASURES UP TO 25 CM AND RESULTS IN UPSTREAM SMALL BOWEL OBSTRUCTION. THERE IS RELATIVE SPARING OF THE TERMINAL ILEUM. PENETRATING DISEASE: PRESENT. COMPLEX SINUS TRACT WITH ASSOCIATED ILL-DEFINED COLLECTION (LIKELY PHLEGMON) WITHIN THE PELVIS MEASURING 3.2 CM Last Assessment & Plan: - IV fluids - Empiric antibiotics - ciprofloxacin and metronidazole (02/04-*) - O&P, C diff and stool cultures - patient did not have bowel since admission - Hold off steroids - in the setting of pelvic collection - Pain control - Follow CORS recs documented as of this encounter (statuses as of 12/27/2021) [facility] of [facility] Narrative* Problem Noted Date Resolved Date Idiopathic colitis 11/11/2016 05/02/2020 Overview: Stool culture, C diff, CMV, cryptosporidium negative in 12/2016 CT ([facility]) showed partial small bowel obstruction MRE (02/05): 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 INVOLVED DISTAL ILEAL SEGMENT MEASURES UP TO 25 CM AND RESULTS IN UPSTREAM SMALL BOWEL OBSTRUCTION. THERE IS RELATIVE SPARING OF THE TERMINAL ILEUM. PENETRATING DISEASE: PRESENT. COMPLEX SINUS TRACT WITH ASSOCIATED ILL-DEFINED COLLECTION (LIKELY PHLEGMON) WITHIN THE PELVIS MEASURING 3.2 CM Last Assessment & Plan: - IV fluids - Empiric antibiotics - ciprofloxacin and metronidazole (02/04-*) - O&P, C diff and stool cultures - patient did not have bowel since admission - Hold off steroids - in the setting of pelvic collection - Pain control - Follow CORS recs documented as of this encounter (statuses as of 01/27/2022) [facility] of Past illness Narrative* Problem Noted Date Resolved Date Idiopathic colitis 11/11/2016 05/02/2020 Overview: Stool culture, C diff, CMV, cryptosporidium negative in 12/2016 CT ([facility]) showed partial small bowel obstruction MRE (02/05): 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 INVOLVED DISTAL ILEAL SEGMENT MEASURES UP TO 25 CM AND RESULTS IN UPSTREAM SMALL BOWEL OBSTRUCTION. THERE IS RELATIVE SPARING OF THE TERMINAL ILEUM. PENETRATING DISEASE: PRESENT. COMPLEX SINUS TRACT WITH ASSOCIATED ILL-DEFINED COLLECTION (LIKELY PHLEGMON) WITHIN THE PELVIS MEASURING 3.2 CM Last Assessment & Plan: - IV fluids - Empiric antibiotics - ciprofloxacin and metronidazole (02/04-*) - O&P, C diff and stool cultures - patient did not have bowel since admission - Hold off steroids - in the setting of pelvic collection - Pain control - Follow CORS recs documented as of this encounter (statuses as of 02/19/2022) [facility] of Past illness Narrative* Problem Noted Date Resolved Date Idiopathic colitis 11/11/2016 05/02/2020 Overview: Stool culture, C diff, CMV, cryptosporidium negative in 12/2016 CT ([facility]) showed partial small bowel obstruction MRE (02/05): 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 INVOLVED DISTAL ILEAL SEGMENT MEASURES UP TO 25 CM AND RESULTS IN UPSTREAM SMALL BOWEL OBSTRUCTION. THERE IS RELATIVE SPARING OF THE TERMINAL ILEUM. PENETRATING DISEASE: PRESENT. COMPLEX SINUS TRACT WITH ASSOCIATED ILL-DEFINED COLLECTION (LIKELY PHLEGMON) WITHIN THE PELVIS MEASURING 3.2 CM Last Assessment & Plan: - IV fluids - Empiric antibiotics - ciprofloxacin and metronidazole (02/04-*) - O&P, C diff and stool cultures - patient did not have bowel since admission - Hold off steroids - in the setting of pelvic collection - Pain control - Follow CORS recs documented as of this encounter (statuses as of 02/19/2022) [facility] of [facility] illness Narrative* Problem Noted Date Resolved Date Idiopathic colitis 11/11/2016 05/02/2020 Overview: Stool culture, C diff, CMV, cryptosporidium negative in 12/2016 CT (OSH) showed partial small bowel obstruction MRE (02/05): 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 INVOLVED DISTAL ILEAL SEGMENT MEASURES UP TO 25 CM AND RESULTS IN UPSTREAM SMALL BOWEL OBSTRUCTION. THERE IS RELATIVE SPARING OF THE TERMINAL ILEUM. PENETRATING DISEASE: PRESENT. COMPLEX SINUS TRACT WITH ASSOCIATED ILL-DEFINED COLLECTION (LIKELY PHLEGMON) WITHIN THE PELVIS MEASURING 3.2 CM Last Assessment & Plan: - IV fluids - Empiric antibiotics - ciprofloxacin and metronidazole (02/04-*) - O&P, C diff and stool cultures - patient did not have bowel since admission - Hold off steroids - in the setting of pelvic collection - Pain control - Follow CORS recs documented as of this encounter (statuses as of 03/13/2022) [facility]2017 History of Past illness Narrative* Problem Noted Date Resolved Date Idiopathic colitis 11/11/2016 05/02/2020 Overview: Stool culture, C diff, CMV, cryptosporidium negative in 12/2016 CT (OSH) showed partial small bowel obstruction MRE (02/05): 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 INVOLVED DISTAL ILEAL SEGMENT MEASURES UP TO 25 CM AND RESULTS IN UPSTREAM SMALL BOWEL OBSTRUCTION. THERE IS RELATIVE SPARING OF THE TERMINAL ILEUM. PENETRATING DISEASE: PRESENT. COMPLEX SINUS TRACT WITH ASSOCIATED ILL-DEFINED COLLECTION (LIKELY PHLEGMON) WITHIN THE PELVIS MEASURING 3.2 CM Last Assessment & Plan: - IV fluids - Empiric antibiotics - ciprofloxacin and metronidazole (02/04-*) - O&P, C diff and stool cultures - patient did not have bowel since admission - Hold off steroids - in the setting of pelvic collection - Pain control - Follow CORS recs documented as of this encounter (statuses as of 03/19/2022) [facility]05-[facility]2017 History of Past illness Narrative* Problem Noted Date Resolved Date Idiopathic colitis 11/11/2016 05/02/2020 Overview: Stool culture, C diff, CMV, cryptosporidium negative in 12/2016 CT (OS[facility]) showed partial small bowel obstruction MRE (02/05): 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 INVOLVED DISTAL ILEAL SEGMENT MEASURES UP TO 25 CM AND RESULTS IN UPSTREAM SMALL BOWEL OBSTRUCTION. THERE IS RELATIVE SPARING OF THE TERMINAL ILEUM. PENETRATING DISEASE: PRESENT. COMPLEX SINUS TRACT WITH ASSOCIATED ILL-DEFINED COLLECTION (LIKELY PHLEGMON) WITHIN THE PELVIS MEASURING 3.2 CM Last Assessment & Plan: - IV fluids - Empiric antibiotics - ciprofloxacin and metronidazole (02/04-*) - O&P, C diff and stool cultures - patient did not have bowel since admission - Hold off steroids - in the setting of pelvic collection - Pain control - Follow CORS recs documented as of this encounter (statuses as of 03/20/2022) [facility]2017 History of Past illness Narrative* Problem Noted Date Resolved Date Idiopathic colitis 11/11/2016 05/02/2020 Overview: Stool culture, C diff, CMV, cryptosporidium negative in 12/2016 CT (OS[facility]) showed partial small bowel obstruction MRE (02/05): 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 INVOLVED DISTAL ILEAL SEGMENT MEASURES UP TO 25 CM AND RESULTS IN UPSTREAM SMALL BOWEL OBSTRUCTION. THERE IS RELATIVE SPARING OF THE TERMINAL ILEUM. PENETRATING DISEASE: PRESENT. COMPLEX SINUS TRACT WITH ASSOCIATED ILL-DEFINED COLLECTION (LIKELY PHLEGMON) WITHIN THE PELVIS MEASURING 3.2 CM Last Assessment & Plan: - IV fluids - Empiric antibiotics - ciprofloxacin and metronidazole (02/04-*) - O&P, C diff and stool cultures - patient did not have bowel since admission - Hold off steroids - in the setting of pelvic collection - Pain control - Follow CORS recs documented as of this encounter (statuses as of 03/20/2022) [facility]2017 History of Past illness Narrative* Problem Noted Date Resolved Date Idiopathic colitis 11/11/2016 05/02/2020 Overview: Stool culture, C diff, CMV, cryptosporidium negative in 12/2016 CT (OS[facility]) showed partial small bowel obstruction MRE (02/05): 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 INVOLVED DISTAL ILEAL SEGMENT MEASURES UP TO 25 CM AND RESULTS IN UPSTREAM SMALL BOWEL OBSTRUCTION. THERE IS RELATIVE SPARING OF THE TERMINAL ILEUM. PENETRATING DISEASE: PRESENT. COMPLEX SINUS TRACT WITH ASSOCIATED ILL-DEFINED COLLECTION (LIKELY PHLEGMON) WITHIN THE PELVIS MEASURING 3.2 CM Last Assessment & Plan: - IV fluids - Empiric antibiotics - ciprofloxacin and metronidazole (02/04-*) - O&P, C diff and stool cultures - patient did not have bowel since admission - Hold off steroids - in the setting of pelvic collection - Pain control - Follow CORS recs documented as of this encounter (statuses as of 03/21/2022) [facility]05-[facility]2017 History of Past illness Narrative* Problem Noted Date Resolved Date Idiopathic colitis 11/11/2016 05/02/2020 Overview: Stool culture, C diff, CMV, cryptosporidium negative in 12/2016 CT (OS[facility]) showed partial small bowel obstruction MRE (02/05): 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 INVOLVED DISTAL ILEAL SEGMENT MEASURES UP TO 25 CM AND RESULTS IN UPSTREAM SMALL BOWEL OBSTRUCTION. THERE IS RELATIVE SPARING OF THE TERMINAL ILEUM. PENETRATING DISEASE: PRESENT. COMPLEX SINUS TRACT WITH ASSOCIATED ILL-DEFINED COLLECTION (LIKELY PHLEGMON) WITHIN THE PELVIS MEASURING 3.2 CM Last Assessment & Plan: - IV fluids - Empiric antibiotics - ciprofloxacin and metronidazole (02/04-*) - O&P, C diff and stool cultures - patient did not have bowel since admission - Hold off steroids - in the setting of pelvic collection - Pain control - Follow CORS recs documented as of this encounter (statuses as of 05/22/2022) [facility]2017 History of Past illness Narrative* Problem Noted Date Resolved Date Idiopathic colitis 11/11/2016 05/02/2020 Overview: Stool culture, C diff, CMV, cryptosporidium negative in 12/2016 CT (OS[facility]) showed partial small bowel obstruction MRE (02/05): 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 INVOLVED DISTAL ILEAL SEGMENT MEASURES UP TO 25 CM AND RESULTS IN UPSTREAM SMALL BOWEL OBSTRUCTION. THERE IS RELATIVE SPARING OF THE TERMINAL ILEUM. PENETRATING DISEASE: PRESENT. COMPLEX SINUS TRACT WITH ASSOCIATED ILL-DEFINED COLLECTION (LIKELY PHLEGMON) WITHIN THE PELVIS MEASURING 3.2 CM Last Assessment & Plan: - IV fluids - Empiric antibiotics - ciprofloxacin and metronidazole (02/04-*) - O&P, C diff and stool cultures - patient did not have bowel since admission - Hold off steroids - in the setting of pelvic collection - Pain control - Follow CORS recs documented as of this encounter (statuses as of 05/22/2022) [facility]2017 History of Past illness Narrative* Problem Noted Date Resolved Date Idiopathic colitis 11/11/2016 05/02/2020 Overview: Stool culture, C diff, CMV, cryptosporidium negative in 12/2016 CT ([facility]) showed partial small bowel obstruction MRE (02/05): 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 INVOLVED DISTAL ILEAL SEGMENT MEASURES UP TO 25 CM AND RESULTS IN UPSTREAM SMALL BOWEL OBSTRUCTION. THERE IS RELATIVE SPARING OF THE TERMINAL ILEUM. PENETRATING DISEASE: PRESENT. COMPLEX SINUS TRACT WITH ASSOCIATED ILL-DEFINED COLLECTION (LIKELY PHLEGMON) WITHIN THE PELVIS MEASURING 3.2 CM Last Assessment & Plan: - IV fluids - Empiric antibiotics - ciprofloxacin and metronidazole (02/04-*) - O&P, C diff and stool cultures - patient did not have bowel since admission - Hold off steroids - in the setting of pelvic collection - Pain control - Follow CORS recs documented as of this encounter (statuses as of 05/23/2022) [facility]2017 History of Past illness Narrative* Problem Noted Date Resolved Date Idiopathic colitis 11/11/2016 05/02/2020 Overview: Stool culture, C diff, CMV, cryptosporidium negative in 12/2016 CT (OS[facility]) showed partial small bowel obstruction MRE (02/05): 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 INVOLVED DISTAL ILEAL SEGMENT MEASURES UP TO 25 CM AND RESULTS IN UPSTREAM SMALL BOWEL OBSTRUCTION. THERE IS RELATIVE SPARING OF THE TERMINAL ILEUM. PENETRATING DISEASE: PRESENT. COMPLEX SINUS TRACT WITH ASSOCIATED ILL-DEFINED COLLECTION (LIKELY PHLEGMON) WITHIN THE PELVIS MEASURING 3.2 CM Last Assessment & Plan: - IV fluids - Empiric antibiotics - ciprofloxacin and metronidazole (02/04-*) - O&P, C diff and stool cultures - patient did not have bowel since admission - Hold off steroids - in the setting of pelvic collection - Pain control - Follow CORS recs documented as of this encounter (statuses as of 06/03/2022) [facility]2017 History of Past illness Narrative* Problem Noted Date Resolved Date Idiopathic colitis 11/11/2016 05/02/2020 Overview: Stool culture, C diff, CMV, cryptosporidium negative in 12/2016 CT ([facility]) showed partial small bowel obstruction MRE (02/05): 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 INVOLVED DISTAL ILEAL SEGMENT MEASURES UP TO 25 CM AND RESULTS IN UPSTREAM SMALL BOWEL OBSTRUCTION. THERE IS RELATIVE SPARING OF THE TERMINAL ILEUM. PENETRATING DISEASE: PRESENT. COMPLEX SINUS TRACT WITH ASSOCIATED ILL-DEFINED COLLECTION (LIKELY PHLEGMON) WITHIN THE PELVIS MEASURING 3.2 CM Last Assessment & Plan: - IV fluids - Empiric antibiotics - ciprofloxacin and metronidazole (02/04-*) - O&P, C diff and stool cultures - patient did not have bowel since admission - Hold off steroids - in the setting of pelvic collection - Pain control - Follow CORS recs documented as of this encounter (statuses as of 08/15/2022) [facility]2017 History of Past illness Narrative* Problem Noted Date Resolved Date Idiopathic colitis 11/11/2016 05/02/2020 Overview: Stool culture, C diff, CMV, cryptosporidium negative in 12/2016 CT ([facility]) showed partial small bowel obstruction MRE (02/05): 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 INVOLVED DISTAL ILEAL SEGMENT MEASURES UP TO 25 CM AND RESULTS IN UPSTREAM SMALL BOWEL OBSTRUCTION. THERE IS RELATIVE SPARING OF THE TERMINAL ILEUM. PENETRATING DISEASE: PRESENT. COMPLEX SINUS TRACT WITH ASSOCIATED ILL-DEFINED COLLECTION (LIKELY PHLEGMON) WITHIN THE PELVIS MEASURING 3.2 CM Last Assessment & Plan: - IV fluids - Empiric antibiotics - ciprofloxacin and metronidazole (02/04-*) - O&P, C diff and stool cultures - patient did not have bowel since admission - Hold off steroids - in the setting of pelvic collection - Pain control - Follow CORS recs documented as of this encounter (statuses as of 08/30/2022) [facility]2017 History of Past illness Narrative* Problem Noted Date Resolved Date Idiopathic colitis 11/11/2016 05/02/2020 Overview: Stool culture, C diff, CMV, cryptosporidium negative in 12/2016 CT ([facility]) showed partial small bowel obstruction MRE (02/05): 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 INVOLVED DISTAL ILEAL SEGMENT MEASURES UP TO 25 CM AND RESULTS IN UPSTREAM SMALL BOWEL OBSTRUCTION. THERE IS RELATIVE SPARING OF THE TERMINAL ILEUM. PENETRATING DISEASE: PRESENT. COMPLEX SINUS TRACT WITH ASSOCIATED ILL-DEFINED COLLECTION (LIKELY PHLEGMON) WITHIN THE PELVIS MEASURING 3.2 CM Last Assessment & Plan: - IV fluids - Empiric antibiotics - ciprofloxacin and metronidazole (02/04-*) - O&P, C diff and stool cultures - patient did not have bowel since admission - Hold off steroids - in the setting of pelvic collection - Pain control - Follow CORS recs documented as of this encounter (statuses as of 09/04/2022) [facility]2017 History of Past illness Narrative* Problem Noted Date Resolved Date Idiopathic colitis 11/11/2016 05/02/2020 Overview: Stool culture, C diff, CMV, cryptosporidium negative in 12/2016 CT ([facility]) showed partial small bowel obstruction MRE (02/05): 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 INVOLVED DISTAL ILEAL SEGMENT MEASURES UP TO 25 CM AND RESULTS IN UPSTREAM SMALL BOWEL OBSTRUCTION. THERE IS RELATIVE SPARING OF THE TERMINAL ILEUM. PENETRATING DISEASE: PRESENT. COMPLEX SINUS TRACT WITH ASSOCIATED ILL-DEFINED COLLECTION (LIKELY PHLEGMON) WITHIN THE PELVIS MEASURING 3.2 CM Last Assessment & Plan: - IV fluids - Empiric antibiotics - ciprofloxacin and metronidazole (02/04-*) - O&P, C diff and stool cultures - patient did not have bowel since admission - Hold off steroids - in the setting of pelvic collection - Pain control - Follow CORS recs documented as of this encounter (statuses as of 09/11/2022) [facility]2017 History of Past illness Narrative* Problem Noted Date Resolved Date Idiopathic colitis 11/11/2016 05/02/2020 Overview: Stool culture, C diff, CMV, cryptosporidium negative in 12/2016 CT ([facility]) showed partial small bowel obstruction MRE (02/05): 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 INVOLVED DISTAL ILEAL SEGMENT MEASURES UP TO 25 CM AND RESULTS IN UPSTREAM SMALL BOWEL OBSTRUCTION. THERE IS RELATIVE SPARING OF THE TERMINAL ILEUM. PENETRATING DISEASE: PRESENT. COMPLEX SINUS TRACT WITH ASSOCIATED ILL-DEFINED COLLECTION (LIKELY PHLEGMON) WITHIN THE PELVIS MEASURING 3.2 CM Last Assessment & Plan: - IV fluids - Empiric antibiotics - ciprofloxacin and metronidazole (02/04-*) - O&P, C diff and stool cultures - patient did not have bowel since admission - Hold off steroids - in the setting of pelvic collection - Pain control - Follow CORS recs documented as of this encounter (statuses as of 10/31/2022) [facility]2017 History of Past illness Narrative* Problem Noted Date Resolved Date Idiopathic colitis 11/11/2016 05/02/2020 Overview: Stool culture, C diff, CMV, cryptosporidium negative in 12/2016 CT ([facility]) showed partial small bowel obstruction MRE (02/05): 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 INVOLVED DISTAL ILEAL SEGMENT MEASURES UP TO 25 CM AND RESULTS IN UPSTREAM SMALL BOWEL OBSTRUCTION. THERE IS RELATIVE SPARING OF THE TERMINAL ILEUM. PENETRATING DISEASE: PRESENT. COMPLEX SINUS TRACT WITH ASSOCIATED ILL-DEFINED COLLECTION (LIKELY PHLEGMON) WITHIN THE PELVIS MEASURING 3.2 CM Last Assessment & Plan: - IV fluids - Empiric antibiotics - ciprofloxacin and metronidazole (02/04-*) - O&P, C diff and stool cultures - patient did not have bowel since admission - Hold off steroids - in the setting of pelvic collection - Pain control - Follow CORS recs documented as of this encounter (statuses as of 01/02/2023) [facility]2017 History of Past illness Narrative* Problem Noted Date Diagnosed Date Resolved Date Idiopathic colitis 11/11/2016 Overview: Stool culture, C diff, CMV, cryptosporidium negative in 12/2016 CT ([facility]) showed partial small bowel obstruction MRE (02/05): 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 INVOLVED DISTAL ILEAL SEGMENT MEASURES UP TO 25 CM AND RESULTS IN UPSTREAM SMALL BOWEL OBSTRUCTION. THERE IS RELATIVE SPARING OF THE TERMINAL ILEUM. PENETRATING DISEASE: PRESENT. COMPLEX SINUS TRACT WITH ASSOCIATED ILL-DEFINED COLLECTION (LIKELY PHLEGMON) WITHIN THE PELVIS MEASURING 3.2 CM Last Assessment & Plan: - IV fluids - Empiric antibiotics - ciprofloxacin and metronidazole (02/04-*) - O&P, C diff and stool cultures - patient did not have bowel since admission - Hold off steroids - in the setting of pelvic collection - Pain control - Follow CORS recs documented as of this encounter (statuses as of 02/27/2023) [facility]2017 History of Past illness Narrative* Problem Noted Date Diagnosed Date Resolved Date Idiopathic colitis 11/11/2016 0 Overview: Stool culture, C diff, CMV, cryptosporidium negative in 12/2016 CT ([facility]) showed partial small bowel obstruction MRE (02/05): 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 INVOLVED DISTAL ILEAL SEGMENT MEASURES UP TO 25 CM AND RESULTS IN UPSTREAM SMALL BOWEL OBSTRUCTION. THERE IS RELATIVE SPARING OF THE TERMINAL ILEUM. PENETRATING DISEASE: PRESENT. COMPLEX SINUS TRACT WITH ASSOCIATED ILL-DEFINED COLLECTION (LIKELY PHLEGMON) WITHIN THE PELVIS MEASURING 3.2 CM Last Assessment & Plan: - IV fluids - Empiric antibiotics - ciprofloxacin and metronidazole (02/04-*) - O&P, C diff and stool cultures - patient did not have bowel since admission - Hold off steroids - in the setting of pelvic collection - Pain control - Follow CORS recs documented as of this encounter (statuses as of 04/04/2023) [facility]2017 History of Past illness Narrative* Problem Noted Date Diagnosed Date Resolved Date Idiopathic colitis 11/11/2016 0 Overview: Stool culture, C diff, CMV, cryptosporidium negative in 12/2016 CT (OS[facility]) showed partial small bowel obstruction MRE (02/05): 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 INVOLVED DISTAL ILEAL SEGMENT MEASURES UP TO 25 CM AND RESULTS IN UPSTREAM SMALL BOWEL OBSTRUCTION. THERE IS RELATIVE SPARING OF THE TERMINAL ILEUM. PENETRATING DISEASE: PRESENT. COMPLEX SINUS TRACT WITH ASSOCIATED ILL-DEFINED COLLECTION (LIKELY PHLEGMON) WITHIN THE PELVIS MEASURING 3.2 CM Last Assessment & Plan: - IV fluids - Empiric antibiotics - ciprofloxacin and metronidazole (02/04-*) - O&P, C diff and stool cultures - patient did not have bowel since admission - Hold off steroids - in the setting of pelvic collection - Pain control - Follow CORS recs documented as of this encounter (statuses as of 04/21/2023) [facility]2017 History of Past illness Narrative* Problem Noted Date Diagnosed Date Resolved Date Idiopathic colitis 11/11/2016 0 Overview: Stool culture, C diff, CMV, cryptosporidium negative in 12/2016 CT (OS[facility]) showed partial small bowel obstruction MRE (02/05): 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 INVOLVED DISTAL ILEAL SEGMENT MEASURES UP TO 25 CM AND RESULTS IN UPSTREAM SMALL BOWEL OBSTRUCTION. THERE IS RELATIVE SPARING OF THE TERMINAL ILEUM. PENETRATING DISEASE: PRESENT. COMPLEX SINUS TRACT WITH ASSOCIATED ILL-DEFINED COLLECTION (LIKELY PHLEGMON) WITHIN THE PELVIS MEASURING 3.2 CM Last Assessment & Plan: - IV fluids - Empiric antibiotics - ciprofloxacin and metronidazole (02/04-*) - O&P, C diff and stool cultures - patient did not have bowel since admission - Hold off steroids - in the setting of pelvic collection - Pain control - Follow CORS recs documented as of this encounter (statuses as of 04/26/2023) [facility]2017 History of Past illness Narrative* Problem Noted Date Diagnosed Date Resolved Date Idiopathic colitis 11/11/2016 0 Overview: Stool culture, C diff, CMV, cryptosporidium negative in 12/2016 CT ([facility]) showed partial small bowel obstruction MRE (02/05): 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 INVOLVED DISTAL ILEAL SEGMENT MEASURES UP TO 25 CM AND RESULTS IN UPSTREAM SMALL BOWEL OBSTRUCTION. THERE IS RELATIVE SPARING OF THE TERMINAL ILEUM. PENETRATING DISEASE: PRESENT. COMPLEX SINUS TRACT WITH ASSOCIATED ILL-DEFINED COLLECTION (LIKELY PHLEGMON) WITHIN THE PELVIS MEASURING 3.2 CM Last Assessment & Plan: - IV fluids - Empiric antibiotics - ciprofloxacin and metronidazole (02/04-*) - O&P, C diff and stool cultures - patient did not have bowel since admission - Hold off steroids - in the setting of pelvic collection - Pain control - Follow CORS recs documented as of this encounter (statuses as of 05/08/2023) [facility] History of Past illness Narrative* Problem Noted Date Diagnosed Date Resolved Date Idiopathic colitis 11/11/2016 0 Overview: Stool culture, C diff, CMV, cryptosporidium negative in 12/2016 CT (OS[facility]) showed partial small bowel obstruction MRE (02/05): 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 INVOLVED DISTAL ILEAL SEGMENT MEASURES UP TO 25 CM AND RESULTS IN UPSTREAM SMALL BOWEL OBSTRUCTION. THERE IS RELATIVE SPARING OF THE TERMINAL ILEUM. PENETRATING DISEASE: PRESENT. COMPLEX SINUS TRACT WITH ASSOCIATED ILL-DEFINED COLLECTION (LIKELY PHLEGMON) WITHIN THE PELVIS MEASURING 3.2 CM Last Assessment & Plan: - IV fluids - Empiric antibiotics - ciprofloxacin and metronidazole (02/04-*) - O&P, C diff and stool cultures - patient did not have bowel since admission - Hold off steroids - in the setting of pelvic collection - Pain control - Follow CORS recs documented as of this encounter (statuses as of 09/11/2023) [facility] History of Past illness Narrative* Problem Noted Date Diagnosed Date Resolved Date Idiopathic colitis 11/11/2016 0 Overview: Stool culture, C diff, CMV, cryptosporidium negative in 12/2016 CT ([facility]) showed partial small bowel obstruction MRE (02/05): 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 INVOLVED DISTAL ILEAL SEGMENT MEASURES UP TO 25 CM AND RESULTS IN UPSTREAM SMALL BOWEL OBSTRUCTION. THERE IS RELATIVE SPARING OF THE TERMINAL ILEUM. PENETRATING DISEASE: PRESENT. COMPLEX SINUS TRACT WITH ASSOCIATED ILL-DEFINED COLLECTION (LIKELY PHLEGMON) WITHIN THE PELVIS MEASURING 3.2 CM Last Assessment & Plan: - IV fluids - Empiric antibiotics - ciprofloxacin and metronidazole (02/04-*) - O&P, C diff and stool cultures - patient did not have bowel since admission - Hold off steroids - in the setting of pelvic collection - Pain control - Follow CORS recs documented as of this encounter (statuses as of 09/11/2023) [facility] History of Past illness Narrative* Problem Noted Date Diagnosed Date Resolved Date Idiopathic colitis 11/11/2016 0 Overview: Stool culture, C diff, CMV, cryptosporidium negative in 12/2016 CT ([facility]) showed partial small bowel obstruction MRE (02/05): 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 INVOLVED DISTAL ILEAL SEGMENT MEASURES UP TO 25 CM AND RESULTS IN UPSTREAM SMALL BOWEL OBSTRUCTION. THERE IS RELATIVE SPARING OF THE TERMINAL ILEUM. PENETRATING DISEASE: PRESENT. COMPLEX SINUS TRACT WITH ASSOCIATED ILL-DEFINED COLLECTION (LIKELY PHLEGMON) WITHIN THE PELVIS MEASURING 3.2 CM Last Assessment & Plan: - IV fluids - Empiric antibiotics - ciprofloxacin and metronidazole (02/04-*) - O&P, C diff and stool cultures - patient did not have bowel since admission - Hold off steroids - in the setting of pelvic collection - Pain control - Follow CORS recs documented as of this encounter (statuses as of 09/17/2023) [facility] History of Past illness Narrative* Problem Noted Date Diagnosed Date Resolved Date Idiopathic colitis 11/11/2016 0 Overview: Stool culture, C diff, CMV, cryptosporidium negative in 12/2016 CT (OS[facility]) showed partial small bowel obstruction MRE (02/05): 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 INVOLVED DISTAL ILEAL SEGMENT MEASURES UP TO 25 CM AND RESULTS IN UPSTREAM SMALL BOWEL OBSTRUCTION. THERE IS RELATIVE SPARING OF THE TERMINAL ILEUM. PENETRATING DISEASE: PRESENT. COMPLEX SINUS TRACT WITH ASSOCIATED ILL-DEFINED COLLECTION (LIKELY PHLEGMON) WITHIN THE PELVIS MEASURING 3.2 CM Last Assessment & Plan: - IV fluids - Empiric antibiotics - ciprofloxacin and metronidazole (02/04-*) - O&P, C diff and stool cultures - patient did not have bowel since admission - Hold off steroids - in the setting of pelvic collection - Pain control - Follow CORS recs documented as of this encounter (statuses as of 09/18/2023) [facility] History of Past illness Narrative* Problem Noted Date Diagnosed Date Resolved Date Idiopathic colitis 11/11/2016 0 Overview: Stool culture, C diff, CMV, cryptosporidium negative in 12/2016 CT (OS[facility]) showed partial small bowel obstruction MRE (02/05): 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 INVOLVED DISTAL ILEAL SEGMENT MEASURES UP TO 25 CM AND RESULTS IN UPSTREAM SMALL BOWEL OBSTRUCTION. THERE IS RELATIVE SPARING OF THE TERMINAL ILEUM. PENETRATING DISEASE: PRESENT. COMPLEX SINUS TRACT WITH ASSOCIATED ILL-DEFINED COLLECTION (LIKELY PHLEGMON) WITHIN THE PELVIS MEASURING 3.2 CM Last Assessment & Plan: - IV fluids - Empiric antibiotics - ciprofloxacin and metronidazole (02/04-*) - O&P, C diff and stool cultures - patient did not have bowel since admission - Hold off steroids - in the setting of pelvic collection - Pain control - Follow CORS recs documented as of this encounter (statuses as of 09/24/2023) [facility]05-[facility]2017 History of Past illness Narrative* Problem Noted Date Diagnosed Date Resolved Date Idiopathic colitis 11/11/2016 0 Overview: Stool culture, C diff, CMV, cryptosporidium negative in 12/2016 CT ([facility]) showed partial small bowel obstruction MRE (02/05): 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 INVOLVED DISTAL ILEAL SEGMENT MEASURES UP TO 25 CM AND RESULTS IN UPSTREAM SMALL BOWEL OBSTRUCTION. THERE IS RELATIVE SPARING OF THE TERMINAL ILEUM. PENETRATING DISEASE: PRESENT. COMPLEX SINUS TRACT WITH ASSOCIATED ILL-DEFINED COLLECTION (LIKELY PHLEGMON) WITHIN THE PELVIS MEASURING 3.2 CM Last Assessment & Plan: - IV fluids - Empiric antibiotics - ciprofloxacin and metronidazole (02/04-*) - O&P, C diff and stool cultures - patient did not have bowel since admission - Hold off steroids - in the setting of pelvic collection - Pain control - Follow CORS recs documented as of this encounter (statuses as of 10/02/2023) [facility]05-02-2017 History of Past illness Narrative* Problem Noted Date Diagnosed Date Resolved Date Idiopathic colitis 11/11/2016 0 Overview: Stool culture, C diff, CMV, cryptosporidium negative in 12/2016 CT ([facility]) showed partial small bowel obstruction MRE (02/05): 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 INVOLVED DISTAL ILEAL SEGMENT MEASURES UP TO 25 CM AND RESULTS IN UPSTREAM SMALL BOWEL OBSTRUCTION. THERE IS RELATIVE SPARING OF THE TERMINAL ILEUM. PENETRATING DISEASE: PRESENT. COMPLEX SINUS TRACT WITH ASSOCIATED ILL-DEFINED COLLECTION (LIKELY PHLEGMON) WITHIN THE PELVIS MEASURING 3.2 CM Last Assessment & Plan: - IV fluids - Empiric antibiotics - ciprofloxacin and metronidazole (02/04-*) - O&P, C diff and stool cultures - patient did not have bowel since admission - Hold off steroids - in the setting of pelvic collection - Pain control - Follow CORS recs documented as of this encounter (statuses as of 10/16/2023) [facility]2017 History of Past illness Narrative* Problem Noted Date Diagnosed Date Resolved Date Idiopathic colitis 11/11/2016 0 Overview: Stool culture, C diff, CMV, cryptosporidium negative in 12/2016 CT ([facility]) showed partial small bowel obstruction MRE (02/05): 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 INVOLVED DISTAL ILEAL SEGMENT MEASURES UP TO 25 CM AND RESULTS IN UPSTREAM SMALL BOWEL OBSTRUCTION. THERE IS RELATIVE SPARING OF THE TERMINAL ILEUM. PENETRATING DISEASE: PRESENT. 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)- Primary Regional enteritis of small intestine with large intestine [facility] Diagnosis 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)- Primary Regional enteritis of small intestine with large intestine documented in this encounter [facility] note* Diagnosis Crohn's disease of small intestine with complication (HCC) Regional enteritis of small intestine documented in this encounter [facility] note* Diagnosis Crohn's disease of small intestine with complication (HCC) Regional enteritis of small intestine documented in this encounter [facility] note* Diagnosis Anal fissure- Primary Anal fissure documented in this encounter [facility] note* Diagnosis Fissure in ano- Primary Anal fissure Anal fissure [facility] Diagnosis 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)- Primary Regional enteritis of small intestine with large intestine documented in this encounter [facility] note* Diagnosis 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)- Primary Regional enteritis of small intestine with large intestine documented in this encounter [facility] note* Diagnosis 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)- Primary Regional enteritis of small intestine with large intestine documented in this encounter [facility] note* Diagnosis Acute pharyngitis, unspecified etiology- Primary documented in this encounter [facility] note* Diagnosis Encounter for screening mammogram for malignant neoplasm of breast documented in this encounter [facility] note* Diagnosis 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)- Primary Regional enteritis of small intestine with large intestine documented in this encounter [facility] note* Diagnosis 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)- Primary Regional enteritis of small intestine with large intestine documented in this encounter [facility] note* Diagnosis 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)- Primary Regional enteritis of small intestine with large intestine documented in this encounter [facility] note* Diagnosis 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)- Primary Regional enteritis of small intestine with large intestine [facility] Diagnosis 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)- Primary Regional enteritis of small intestine with large intestine [facility] 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)- Primary Regional enteritis of small intestine with large intestine [facility] 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)- Primary Regional enteritis of small intestine with large intestine [facility] Diagnosis 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)- Primary Regional enteritis of small intestine with large intestine [facility] Diagnosis 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)- Primary Regional enteritis of small intestine with large intestine [facility] Diagnosis Vitamin D insufficiency Unspecified vitamin D deficiency [facility] Diagnosis 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)- Primary Regional enteritis of small intestine with large intestine [facility] 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)- Primary Regional enteritis of small intestine with large intestine [facility] Diagnosis Encounter for screening mammogram for malignant neoplasm of breast [facility] Diagnosis 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)- Primary Regional enteritis of small intestine with large intestine Anal or rectal pain [facility] Diagnosis Anal fissure- Primary [facility] Diagnosis Encounter for screening mammogram for malignant neoplasm of breast- Primary Encounter for screening mammogram for malignant neoplasm of breast documented in this encounter [facility] note* Diagnosis Anal or rectal pain- Primary 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) Regional enteritis of small intestine with large intestine Anal fissure [facility] Diagnosis Idiopathic colitis Other and unspecified noninfectious gastroenteritis and colitis Generalized abdominal pain Abdominal pain, generalized Malnutrition of moderate degree (HCC) Malnutrition of moderate degree Crohn's disease of small intestine with complication (HCC) Regional enteritis of small intestine Feeding difficulties Feeding difficulties and mismanagement On total parenteral nutrition (TPN) Other specified conditions influencing health status Moderate protein-calorie malnutrition (HCC) Malnutrition of moderate degree Hypoalbuminemia Other disorders of plasma protein metabolism Small bowel obstruction (HCC) Unspecified intestinal obstruction Lower abdominal pain Abdominal pain, other specified site Severe protein-calorie malnutrition (HCC) Other severe protein-calorie malnutrition Adenomatous duodenal polyp Other specified disorder of stomach and duodenum Hypokalemia Hypopotassemia Iron deficiency anemia due to chronic blood loss Iron deficiency anemia secondary to blood loss (chronic) On peripheral parenteral nutrition (ppn) Other specified conditions influencing health status Hypomagnesemia Disorders of magnesium metabolism Abdominal pain Abdominal pain, unspecified site Malnutrition of moderate degree (HCC) Malnutrition of moderate degree Low iron Iron deficiency anemia, unspecified Post-operative pain Other acute postoperative pain Gastric reflux Esophageal reflux 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) Regional enteritis of small intestine with large intestine [facility] Diagnosis Idiopathic colitis Other and unspecified noninfectious gastroenteritis and colitis Generalized abdominal pain Abdominal pain, generalized Malnutrition of moderate degree (HCC) Malnutrition of moderate degree Crohn's disease of small intestine with complication (HCC) Regional enteritis of small intestine Feeding difficulties Feeding difficulties and mismanagement On total parenteral nutrition (TPN) Other specified conditions influencing health status Moderate protein-calorie malnutrition (HCC) Malnutrition of moderate degree Hypoalbuminemia Other disorders of plasma protein metabolism Small bowel obstruction (HCC) Unspecified intestinal obstruction Lower abdominal pain Abdominal pain, other specified site Severe protein-calorie malnutrition (HCC) Other severe protein-calorie malnutrition Adenomatous duodenal polyp Other specified disorder of stomach and duodenum Hypokalemia Hypopotassemia Iron deficiency anemia due to chronic blood loss Iron deficiency anemia secondary to blood loss (chronic) On peripheral parenteral nutrition (ppn) Other specified conditions influencing health status Hypomagnesemia Disorders of magnesium metabolism Abdominal pain Abdominal pain, unspecified site Malnutrition of moderate degree (HCC) Malnutrition of moderate degree Low iron Iron deficiency anemia, unspecified Post-operative pain Other acute postoperative pain Gastric reflux Esophageal reflux 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)- Primary Regional enteritis of small intestine with large intestine [facility] Diagnosis Idiopathic colitis Other and unspecified noninfectious gastroenteritis and colitis Generalized abdominal pain Abdominal pain, generalized Malnutrition of moderate degree (HCC) Malnutrition of moderate degree Crohn's disease of small intestine with complication (HCC) Regional enteritis of small intestine Feeding difficulties Feeding difficulties and mismanagement On total parenteral nutrition (TPN) Other specified conditions influencing health status Moderate protein-calorie malnutrition (HCC) Malnutrition of moderate degree Hypoalbuminemia Other disorders of plasma protein metabolism Small bowel obstruction (HCC) Unspecified intestinal obstruction Lower abdominal pain Abdominal pain, other specified site Severe protein-calorie malnutrition (HCC) Other severe protein-calorie malnutrition Adenomatous duodenal polyp Other specified disorder of stomach and duodenum Hypokalemia Hypopotassemia Iron deficiency anemia due to chronic blood loss Iron deficiency anemia secondary to blood loss (chronic) On peripheral parenteral nutrition (ppn) Other specified conditions influencing health status Hypomagnesemia Disorders of magnesium metabolism Abdominal pain Abdominal pain, unspecified site Malnutrition of moderate degree (HCC) Malnutrition of moderate degree Low iron Iron deficiency anemia, unspecified Post-operative pain Other acute postoperative pain Gastric reflux Esophageal reflux Vitamin D insufficiency- Primary Unspecified vitamin D deficiency Vitamin B 12 deficiency Other B-complex deficiencies 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) 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, not elsewhere classified [facility] Diagnosis Idiopathic colitis Other and unspecified noninfectious gastroenteritis and colitis Generalized abdominal pain Abdominal pain, generalized Malnutrition of moderate degree (HCC) Malnutrition of moderate degree Crohn's disease of small intestine with complication (HCC) Regional enteritis of small intestine Feeding difficulties Feeding difficulties and mismanagement On total parenteral nutrition (TPN) Other specified conditions influencing health status Moderate protein-calorie malnutrition (HCC) Malnutrition of moderate degree Hypoalbuminemia Other disorders of plasma protein metabolism Small bowel obstruction (HCC) Unspecified intestinal obstruction Lower abdominal pain Abdominal pain, other specified site Severe protein-calorie malnutrition (HCC) Other severe protein-calorie malnutrition Adenomatous duodenal polyp Other specified disorder of stomach and duodenum Hypokalemia Hypopotassemia Iron deficiency anemia due to chronic blood loss Iron deficiency anemia secondary to blood loss (chronic) On peripheral parenteral nutrition (ppn) Other specified conditions influencing health status Hypomagnesemia Disorders of magnesium metabolism Abdominal pain Abdominal pain, unspecified site Malnutrition of moderate degree (HCC) Malnutrition of moderate degree Low iron Iron deficiency anemia, unspecified Post-operative pain Other acute postoperative pain Gastric reflux Esophageal reflux 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)- Primary Regional enteritis of small intestine with large intestine [facility] Diagnosis Idiopathic colitis Other and unspecified noninfectious gastroenteritis and colitis Generalized abdominal pain Abdominal pain, generalized Malnutrition of moderate degree (HCC) Malnutrition of moderate degree Crohn's disease of small intestine with complication (HCC) Regional enteritis of small intestine Feeding difficulties Feeding difficulties and mismanagement On total parenteral nutrition (TPN) Other specified conditions influencing health status Moderate protein-calorie malnutrition (HCC) Malnutrition of moderate degree Hypoalbuminemia Other disorders of plasma protein metabolism Small bowel obstruction (HCC) Unspecified intestinal obstruction Lower abdominal pain Abdominal pain, other specified site Severe protein-calorie malnutrition (HCC) Other severe protein-calorie malnutrition Adenomatous duodenal polyp Other specified disorder of stomach and duodenum Hypokalemia Hypopotassemia Iron deficiency anemia due to chronic blood loss Iron deficiency anemia secondary to blood loss (chronic) On peripheral parenteral nutrition (ppn) Other specified conditions influencing health status Hypomagnesemia Disorders of magnesium metabolism Abdominal pain Abdominal pain, unspecified site Malnutrition of moderate degree (HCC) Malnutrition of moderate degree Low iron Iron deficiency anemia, unspecified Post-operative pain Other acute postoperative pain Gastric reflux Esophageal reflux 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)- Primary Regional enteritis of small intestine with large intestine [facility] Diagnosis Idiopathic colitis Other and unspecified noninfectious gastroenteritis and colitis Generalized abdominal pain Abdominal pain, generalized Malnutrition of moderate degree (HCC) Malnutrition of moderate degree Crohn's disease of small intestine with complication (HCC) Regional enteritis of small intestine Feeding difficulties Feeding difficulties and mismanagement On total parenteral nutrition (TPN) Other specified conditions influencing health status Moderate protein-calorie malnutrition (HCC) Malnutrition of moderate degree Hypoalbuminemia Other disorders of plasma protein metabolism Small bowel obstruction (HCC) Unspecified intestinal obstruction Lower abdominal pain Abdominal pain, other specified site Severe protein-calorie malnutrition (HCC) Other severe protein-calorie malnutrition Adenomatous duodenal polyp Other specified disorder of stomach and duodenum Hypokalemia Hypopotassemia Iron deficiency anemia due to chronic blood loss Iron deficiency anemia secondary to blood loss (chronic) On peripheral parenteral nutrition (ppn) Other specified conditions influencing health status Hypomagnesemia Disorders of magnesium metabolism Abdominal pain Abdominal pain, unspecified site Malnutrition of moderate degree (HCC) Malnutrition of moderate degree Low iron Iron deficiency anemia, unspecified Post-operative pain Other acute postoperative pain Gastric reflux Esophageal reflux 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)- Primary Regional enteritis of small intestine with large intestine [facility] noteNo assessment information availableWAshtabula [facility] Work Phone: Evaluation note* Diagnosis Idiopathic colitis Other and unspecified noninfectious gastroenteritis and colitis Generalized abdominal pain Abdominal pain, generalized Malnutrition of moderate degree (HCC) Malnutrition of moderate degree Crohn's disease of small intestine with complication (HCC) Regional enteritis of small intestine Feeding difficulties Feeding difficulties and mismanagement On total parenteral nutrition (TPN) Other specified conditions influencing health status Moderate protein-calorie malnutrition (HCC) Malnutrition of moderate degree Hypoalbuminemia Other disorders of plasma protein metabolism Small bowel obstruction (HCC) Unspecified intestinal obstruction Lower abdominal pain Abdominal pain, other specified site Severe protein-calorie malnutrition (HCC) Other severe protein-calorie malnutrition Adenomatous duodenal polyp Other specified disorder of stomach and duodenum Hypokalemia Hypopotassemia Iron deficiency anemia due to chronic blood loss Iron deficiency anemia secondary to blood loss (chronic) On peripheral parenteral nutrition (ppn) Other specified conditions influencing health status Hypomagnesemia Disorders of magnesium metabolism Abdominal pain Abdominal pain, unspecified site Malnutrition of moderate degree (HCC) Malnutrition of moderate degree Low iron Iron deficiency anemia, unspecified Post-operative pain Other acute postoperative pain Gastric reflux Esophageal reflux 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)- Primary Regional enteritis of small intestine with large intestine documented in this encounter [facility] note* Diagnosis Idiopathic colitis Other and unspecified noninfectious gastroenteritis and colitis Generalized abdominal pain Abdominal pain, generalized Malnutrition of moderate degree (HCC) Malnutrition of moderate degree Crohn's disease of small intestine with complication (HCC) Regional enteritis of small intestine Feeding difficulties Feeding difficulties and mismanagement On total parenteral nutrition (TPN) Other specified conditions influencing health status Moderate protein-calorie malnutrition (HCC) Malnutrition of moderate degree Hypoalbuminemia Other disorders of plasma protein metabolism Small bowel obstruction (HCC) Unspecified intestinal obstruction Lower abdominal pain Abdominal pain, other specified site Severe protein-calorie malnutrition (HCC) Other severe protein-calorie malnutrition Adenomatous duodenal polyp Other specified disorder of stomach and duodenum Hypokalemia Hypopotassemia Iron deficiency anemia due to chronic blood loss Iron deficiency anemia secondary to blood loss (chronic) On peripheral parenteral nutrition (ppn) Other specified conditions influencing health status Hypomagnesemia Disorders of magnesium metabolism Abdominal pain Abdominal pain, unspecified site Malnutrition of moderate degree (HCC) Malnutrition of moderate degree Low iron Iron deficiency anemia, unspecified Post-operative pain Other acute postoperative pain Gastric reflux Esophageal reflux Iron deficiency anemia, unspecified iron deficiency anemia type- Primary Crohn's disease, unspecified, with other complication (HCC) Encounter for therapeutic drug level monitoring Encounter for therapeutic drug monitoring documented in this encounter [facility] course Narrative No data available for this section [facility] Discharge instructions Additional Instructions 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 Return with new or worsening symptoms.[facility] Work Phone: Reason for referral (narrative)* Outpatient Procedure (Routine) - Authorized Specialty Diagnoses / Procedures Referred By Luigi daigle Referred To Contact [facility] Diagnoses 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) Procedures COLONOSCOPY DIAGNOSTIC COLONOSCOPY FLX DX W/COLLJ SPEC WHEN Chalino Campbell PA-C [address] [place] [address] [facility] [place] [phone] [place] [phone] Referral ID Status Reason Start Date Expiration Date Visits Requested Visits Authorized [id number] Authorized Auto-Generat ed Referral 04/23/2024 1 1 [facility] for referral (narrative)* Outpatient Procedure (Routine) - Closed Specialty Diagnoses / Procedures Referred By Luigi daigle Ref[facility] To Contact [facility] Diagnoses 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) Procedures COLONOSCOPY DIAGNOSTIC COLONOSCOPY FLX DX W/COLLJ SPEC WHEN Chalino Campbell PA-C [address] [place], [place] [id number] [facility] [place] [address] Referral ID Status Reason Start Date Expiration Date V isits Requested Visits Authorized [id number] Closed Auto-Generate d Referral 04/23/2023 04/23/2024 1 1 [facility] for referral (narrative)* Outpatient Procedure (Routine) - Authorized Specialty Diagnoses / Procedures Referred By Luigi daigle Referred To Contact [facility] Diagnoses 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) Procedures COLONOSCOPY DIAGNOSTIC COLONOSCOPY FLX DX W/COLLJ SPEC WHEN Chalino Campbell PA-C [address] [place], [place] [id number] [facility] [address] [address] Referral ID Status Reason Start Date Expiration Date Visits Requested Visits Authorized [id number] Authorized Auto-Generat ed Referral 05/23/2025 1 1 [facility] for referral (narrative)* Outpatient Procedure (Routine) - Closed Specialty Diagnoses / Procedures Referred By Luigi daigle [facility]erred [facility] Diagnoses 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) Procedures COLONOSCOPY DIAGNOSTIC COLONOSCOPY FLX DX W/COLLJ SPEC WHEN Chalino Campbell PA-C [address] [place], [place] [id number] [facility] Disease [address] [address] Referral ID Status Reason Start Date Expiration Date V isits Requested Visits Authorized [id number] Closed Auto-Generate d Referral 05/23/2024 05/23/2025 1 1 [facility] for referral (narrative)No reason for referral information availableWAs[facility] Work Phone: Reason for visit Narrative* Outpatient Procedure (Routine) - Closed Specialty Diagnoses / Procedures Referred By Luigi daigle Referred To Contact [facility] Diagnoses 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) Procedures COLONOSCOPY DIAGNOSTIC COLONOSCOPY FLX DX W/COLLJ SPEC WHEN Chalino Campbell PA-C [address] [place] [address], [place] [address] [facility] [address] [address] Referral ID Status Reason Start Date Expiration Date V isits Requested Visits Authorized [id number] Closed Auto-Generate d Referral 04/23/2023 04/23/2024 1 [facility] Procedure (Routine) - Closed Specialty Diagnoses / Procedures Referred By Luigi t Referred To Contact [facility] Diagnoses 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) Procedures COLONOSCOPY DIAGNOSTIC COLONOSCOPY FLX DX W/COLLJ SPEC WHEN PFLORETAD Chalino Zuñiga PA-C [address] [facility] [place] [id number] 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 No October 01, 2024 11:35am Medications Administered Section Inactive Administered Medications - up to 3 most recent administrations Medication Order MAR Action Action Date Dose Rate Site inFLIXimab-abda 400 mg in NaCl 0.9% 250 mL (RENFLEXIS) 400 mg, INTRAVENOUS, at 83.33-250 mL/hr, Administer over 1-3 Hours, ONCE, 1 dose, On Thu12/23/21 at 0930, TOTAL VOLUME = 250 mL. EXP: Administer with 0.2 micron filter. New Bag/Syringe/Bottle 12/23/2021 10:11 AM EDT 400 mg 250 mL/hr sodium chloride 0.9 % (flush) 10-20 mL (BD POSIFLUSH) 10-20 mL, INTRAVENOUS, NEEDED, Starting on Thu12/23/21 at 0919, Until Thu12/24/21 at 0408, See Administration Instructions, If no IVAD access, may place IV if needed for labs or possible treatment. Flush 10-20ml on IV start and as needed. D5W or LR may be used in place of NS for medication that are incompatible (i.e. with oxaliplatin). Given 12/23/2021 9:19 AM EDT 10 mL Inactive Administered Medications - up to 3 most recent administrations Medication Order MAR Action Action Date Dose Rate Site inFLIXimab 400 mg in NaCl 0.9% 250 mL (REMICADE) 400 mg, INTRAVENOUS, at 83.33-250 mL/hr, Administer over 1-3 Hours, ONCE, 1 dose, On Thu03/20/22 at 0830, Total volume: 250ml. EXP: Administer with 0.2 micron filter. New Bag/Syringe/Bottle 03/20/2022 8:50 AM EDT 400 mg 250 mL/hr sodium chloride 0.9 % (flush) 10-20 mL (BD POSIFLUSH) 10-20 mL, INTRAVENOUS, NEEDED, Starting on Thu03/20/22 at 0817, Until Thu03/21/22 at 0407, See Administration Instructions, If no IVAD access, may place IV if needed for labs or possible treatment. Flush 10-20ml on IV start and as needed. D5W or LR may be used in place of NS for medication that are incompatible (i.e. with oxaliplatin). Given 03/20/2022 8:32 AM EDT 10 mL Inactive Administered Medications - up to 3 most recent administrations Medication Order MAR Action Action Date Dose Rate Site inFLIXimab 600 mg in NaCl 0.9% 250 mL (REMICADE) 600 mg (10 mg/kg/dose 60 kg Order-specific weight), INTRAVENOUS, at 83.33-250 mL/hr, Administer over 1-3 Hours, ONCE, 1 dose, On Thu06/02/22 at 0730, Total volume: 250ml. EXP: Administer with 0.2 micron filter. New Bag/Syringe/Bottle 06/02/2022 7:45 AM EST 600 mg 250 mL/hr Inactive Administered Medications - up to 3 most recent administrations Medication Order MAR Action Action Date Dose Rate Site inFLIXimab 600 mg in NaCl 0.9% 250 mL (REMICADE) 600 mg (10 mg/kg/dose 60 kg Order-specific weight), INTRAVENOUS, at 83.33-250 mL/hr, Administer over 1-3 Hours, ONCE, 1 dose, On Thu08/14/22 at 0930, Total volume: 250ml. EXP: Administer with 0.2 micron filter. New Bag/Syringe/Bottle 08/14/2022 9:48 AM EST 600 mg 250 mL/hr sodium chloride 0.9 % (flush) 10-20 mL (BD POSIFLUSH) 10-20 mL, INTRAVENOUS, NEEDED, Starting on Thu08/14/22 at 0900, Until Thu08/15/22 at 0408, See Administration Instructions, If no IVAD access, may place IV if needed for labs or possible treatment. Flush 10-20ml on IV start and as needed. D5W or LR may be used in place of NS for medication that are incompatible (i.e. with oxaliplatin). Given 08/14/2022 9:12 AM EST 10 mL Inactive Administered Medications - up to 3 most recent administrations Medication Order MAR Action Action Date Dose Rate Site inFLIXimab 600 mg in NaCl 0.9% 250 mL (REMICADE) 600 mg (10 mg/kg/dose 60 kg Order-specific weight), INTRAVENOUS, at 83.33-250 mL/hr, Administer over 1-3 Hours, ONCE, 1 dose, On Thu10/30/22 at 0900, Total volume: 250ml. EXP: Administer with 0.2 micron filter. New Bag/Syringe/Bottle 10/30/2022 9:15 AM EDT 600 mg 250 mL/hr Inactive Administered Medications - up to 3 most recent administrations Medication Order MAR Action Action Date Dose Rate Site inFLIXimab 600 mg in NaCl 0.9% 250 mL (REMICADE) 600 mg (10 mg/kg/dose 60 kg Order-specific weight), INTRAVENOUS, at 83.33-250 mL/hr, Administer over 1-3 Hours, ONCE, 1 dose, On Thu01/01/23 at 1300, Total volume: 250ml. EXP: Administer with 0.2 micron filter. New Bag/Syringe/Bottle 01/01/2023 1:30 PM EDT 600 mg 250 mL/hr Inactive Administered Medications - up to 3 most recent administrations Medication Order MAR Action Action Date Dose Rate Site inFLIXimab 600 mg in NaCl 0.9% 250 mL (REMICADE) 600 mg (10 mg/kg/dose 60 kg Order-specific weight), INTRAVENOUS, at 83.33-250 mL/hr, Administer over 1-3 Hours, ONCE, 1 dose, On Thu02/26/23 at 1300, Total volume: 250ml. EXP: Administer with 0.2 micron filter. New Bag/Syringe/Bottle 02/26/2023 1:22 PM EDT 600 mg 250 mL/hr sodium chloride 0.9 % (flush) 10-20 mL (BD POSIFLUSH) 10-20 mL, INTRAVENOUS, NEEDED, Starting on Thu02/26/23 at 1247, Until Thu02/27/23 at 0409, See Administration Instructions, If no IVAD access, may place IV if needed for labs or possible treatment. Flush 10-20ml on IV start and as needed. D5W or LR may be used in place of NS for medication that are incompatible (i.e. with oxaliplatin). Given 02/26/2023 12:47 PM EDT 10 mL Inactive Administered Medications - up to 3 most recent administrations Medication Order MAR Action Action Date Dose Rate Site inFLIXimab 600 mg in NaCl 0.9% 250 mL (REMICADE) 600 mg (10 mg/kg/dose 60 kg Order-specific weight), INTRAVENOUS, at 83.33-250 mL/hr, Administer over 1-3 Hours, ONCE, 1 dose, On Deidra 05/07/23 at 1300, Total volume: 250ml. EXP: Administer with 0.2 micron filter. New Bag/Syringe/Bottle 05/07/2023 12:50 PM EDT 600 mg 250 mL/hr Reason for Referral Specialty Diagnoses / Procedures Referred By Luigi daigle Referred To Contact [facility] Diagnoses Crohn's disease of small intestine with complication (HCC) Procedures MRI PEL ENTEROG WO/W IVCON MRI PELVIS W/O & W/CONTRAST MATERIAL Calvin Vora MD [address] [id number] [facility] Referral ID Status Reason Start Date Expiration Date Visits Requested Visits Authorized [id number] Pending Review Auto-Generat ed Referral 12/27/2021 01/26/2023 1 1 Specialty Diagnoses / Procedures Referred By Luigi daigle Referred To Contact [facility] Diagnoses Crohn's disease of small intestine with complication (HCC) Procedures MRI ABD ENTEROG WO/W IVCON MRI ABDOMEN W/O & W/CONTRAST MATERIAL MRI PELVIS W/O & W/CONTRAST MATERIAL Calvin Vora MD [address] [place] [address] [facility] Referral ID Status Reason Start Date Expiration Date Visits Requested Visits Authorized [id number] Pending Review Auto-Generat ed Referral 12/27/2021 01/26/2023 1 1 Summary Purpose Family History No Family History Records Found Relationship Condition Age at Onset Recorded Date/T chinyere mother Alcoholism Unknown Anxiety Unknown Arthritis Unknown Depression Unknown Hypertension Unknown father Anxiety Unknown Psoriasis Unknown grandmother Depression Unknown Malignant neoplasm of breast Unknown Diabetes mellitus Unknown Osteoporosis Unknown grandfather Myocardial infarction Unknown aunt Malignant neoplasm of breast Unknown Parkinson's disease Unknown Chief Complaint and Reason for Visit Chief Complaint Admit Date ABD PAIN October 01, 2024 11: 25am Additional Source Comments Source Comments (unrecognize d section and content) In the event this informatio n is protected by the Federal Confidentiality of Alcohol and Drug Abuse Patient Records regulations: The Federal rules restrict any use of the information to criminally investigate or prosecute any alcohol or drug abuse patient.[facility] the event this information is protected by the Federal Confidentiality of Alcohol and Drug Abuse Patient Records regulations: The Federal rules restrict any use of the information to criminally investigate or prosecute any alcohol or drug abuse patient.[facility]In the event this information is protected by the Federal Confidentiality of Alcohol and Drug Abuse Patient Records regulations: The Federal rules restrict any use of the information to criminally investigate or prosecute any alcohol or drug abuse patient.[facility]In the event this information is protected by the Federal Confidentiality of Alcohol and Drug Abuse Patient Records regulations: The Federal rules restrict any use of the information to criminally investigate or prosecute any alcohol or drug abuse patient.[facility]In the event this information is protected by the Federal Confidentiality of Alcohol and Drug Abuse Patient Records regulations: The Federal rules restrict any use of the information to criminally investigate or prosecute any alcohol or drug abuse patient.[facility]In the event this information is protected by the Federal Confidentiality of Alcohol and Drug Abuse Patient Records regulations: The Federal rules restrict any use of the information to criminally investigate or prosecute any alcohol or drug abuse patient.[facility]In the event this information is protected by the Federal Confidentiality of Alcohol and Drug Abuse Patient Records regulations: The Federal rules restrict any use of the information to criminally investigate or prosecute any alcohol or drug abuse patient.[facility]In the event this information is protected by the Federal Confidentiality of Alcohol and Drug Abuse Patient Records regulations: The Federal rules restrict any use of the information to criminally investigate or prosecute any alcohol or drug abuse patient.[facility]In the event this information is protected by the Federal Confidentiality of Alcohol and Drug Abuse Patient Records regulations: The Federal rules restrict any use of the information to criminally investigate or prosecute any alcohol or drug abuse patient.[facility] CampusIn the event this information is protected by the Federal Confidentiality of Alcohol and Drug Abuse Patient Records regulations: The Federal rules restrict any use of the information to criminally investigate or prosecute any alcohol or drug abuse patient.[facility] CampusIn the event this information is protected by the Federal Confidentiality of Alcohol and Drug Abuse Patient Records regulations: The Federal rules restrict any use of the information to criminally investigate or prosecute any alcohol or drug abuse patient.[facility] CampusIn the event this information is protected by the Federal Confidentiality of Alcohol and Drug Abuse Patient Records regulations: The Federal rules restrict any use of the information to criminally investigate or prosecute any alcohol or drug abuse patient.[facility] CampusIn the event this information is protected by the Federal Confidentiality of Alcohol and Drug Abuse Patient Records regulations: The Federal rules restrict any use of the information to criminally investigate or prosecute any alcohol or drug abuse patient.[facility] CampusIn the event this information is protected by the Federal Confidentiality of Alcohol and Drug Abuse Patient Records regulations: The Federal rules restrict any use of the information to criminally investigate or prosecute any alcohol or drug abuse patient.[facility] CampusIn the event this information is protected by the Federal Confidentiality of Alcohol and Drug Abuse Patient Records regulations: The Federal rules restrict any use of the information to criminally investigate or prosecute any alcohol or drug abuse patient.[facility] CampusIn the event this information is protected by the Federal Confidentiality of Alcohol and Drug Abuse Patient Records regulations: The Federal rules restrict any use of the information to criminally investigate or prosecute any alcohol or drug abuse patient.[facility] CampusIn the event this information is protected by the Federal Confidentiality of Alcohol and Drug Abuse Patient Records regulations: The Federal rules restrict any use of the information to criminally investigate or prosecute any alcohol or drug abuse patient.[facility] CampusIn the event this information is protected by the Federal Confidentiality of Alcohol and Drug Abuse Patient Records regulations: The Federal rules restrict any use of the information to criminally investigate or prosecute any alcohol or drug abuse patient.[facility] CampusIn the event this information is protected by the Federal Confidentiality of Alcohol and Drug Abuse Patient Records regulations: The Federal rules restrict any use of the information to criminally investigate or prosecute any alcohol or drug abuse patient.[facility] CampusIn the event this information is protected by the Federal Confidentiality of Alcohol and Drug Abuse Patient Records regulations: The Federal rules restrict any use of the information to criminally investigate or prosecute any alcohol or drug abuse patient.[facility] CampusIn the event this information is protected by the Federal Confidentiality of Alcohol and Drug Abuse Patient Records regulations: The Federal rules restrict any use of the information to criminally investigate or prosecute any alcohol or drug abuse patient.[facility] CampusIn the event this information is protected by the Federal Confidentiality of Alcohol and Drug Abuse Patient Records regulations: The Federal rules restrict any use of the information to criminally investigate or prosecute any alcohol or drug abuse patient.[facility] CampusIn the event this information is protected by the Federal Confidentiality of Alcohol and Drug Abuse Patient Records regulations: The Federal rules restrict any use of the information to criminally investigate or prosecute any alcohol or drug abuse patient.[facility] CampusIn the event this information is protected by the Federal Confidentiality of Alcohol and Drug Abuse Patient Records regulations: The Federal rules restrict any use of the information to criminally investigate or prosecute any alcohol or drug abuse patient.[facility] CampusIn the event this information is protected by the Federal Confidentiality of Alcohol and Drug Abuse Patient Records regulations: The Federal rules restrict any use of the information to criminally investigate or prosecute any alcohol or drug abuse patient.[facility] CampusIn the event this information is protected by the Federal Confidentiality of Alcohol and Drug Abuse Patient Records regulations: The Federal rules restrict any use of the information to criminally investigate or prosecute any alcohol or drug abuse patient.[facility] CampusIn the event this information is protected by the Federal Confidentiality of Alcohol and Drug Abuse Patient Records regulations: The Federal rules restrict any use of the information to criminally investigate or prosecute any alcohol or drug abuse patient.[facility] CampusIn the event this information is protected by the Federal Confidentiality of Alcohol and Drug Abuse Patient Records regulations: The Federal rules restrict any use of the information to criminally investigate or prosecute any alcohol or drug abuse patient.[facility] CampusIn the event this information is protected by the Federal Confidentiality of Alcohol and Drug Abuse Patient Records regulations: The Federal rules restrict any use of the information to criminally investigate or prosecute any alcohol or drug abuse patient.[facility] CampusIn the event this information is protected by the Federal Confidentiality of Alcohol and Drug Abuse Patient Records regulations: The Federal rules restrict any use of the information to criminally investigate or prosecute any alcohol or drug abuse patient.[facility] CampusIn the event this information is protected by the Federal Confidentiality of Alcohol and Drug Abuse Patient Records regulations: The Federal rules restrict any use of the information to criminally investigate or prosecute any alcohol or drug abuse patient.[facility] CampusIn the event this information is protected by the Federal Confidentiality of Alcohol and Drug Abuse Patient Records regulations: The Federal rules restrict any use of the information to criminally investigate or prosecute any alcohol or drug abuse patient.[facility] CampusIn the event this information is protected by the Federal Confidentiality of Alcohol and Drug Abuse Patient Records regulations: The Federal rules restrict any use of the information to criminally investigate or prosecute any alcohol or drug abuse patient.[facility] CampusIn the event this information is protected by the Federal Confidentiality of Alcohol and Drug Abuse Patient Records regulations: The Federal rules restrict any use of the information to criminally investigate or prosecute any alcohol or drug abuse patient.[facility] CampusIn the event this information is protected by the Federal Confidentiality of Alcohol and Drug Abuse Patient Records regulations: The Federal rules restrict any use of the information to criminally investigate or prosecute any alcohol or drug abuse patient.[facility] CampusIn the event this information is protected by the Federal Confidentiality of Alcohol and Drug Abuse Patient Records regulations: The Federal rules restrict any use of the information to criminally investigate or prosecute any alcohol or drug abuse patient.[facility] the event this information is protected by the Federal Confidentiality of Alcohol and Drug Abuse Patient Records regulations: The Federal rules restrict any use of the information to criminally investigate or prosecute any alcohol or drug abuse patient.[facility] CampusIn the event this information is protected by the Federal Confidentiality of Alcohol and Drug Abuse Patient Records regulations: The Federal rules restrict any use of the information to criminally investigate or prosecute any alcohol or drug abuse patient.[facility] CampusIn the event this information is protected by the Federal Confidentiality of Alcohol and Drug Abuse Patient Records regulations: The Federal rules restrict any use of the information to criminally investigate or prosecute any alcohol or drug abuse patient.[facility]In the event this information is protected by the Federal Confidentiality of Alcohol and Drug Abuse Patient Records regulations: The Federal rules restrict any use of the information to criminally investigate or prosecute any alcohol or drug abuse patient.[facility] CampusIn the event this information is protected by the Federal Confidentiality of Alcohol and Drug Abuse Patient Records regulations: The Federal rules restrict any use of the information to criminally investigate or prosecute any alcohol or drug abuse patient.[facility] CampusIn the event this information is protected by the Federal Confidentiality of Alcohol and Drug Abuse Patient Records regulations: The Federal rules restrict any use of the information to criminally investigate or prosecute any alcohol or drug abuse patient.[facility] CampusIn the event this information is protected by the Federal Confidentiality of Alcohol and Drug Abuse Patient Records regulations: The Federal rules restrict any use of the information to criminally investigate or prosecute any alcohol or drug abuse patient.[facility] CampusIn the event this information is protected by the Federal Confidentiality of Alcohol and Drug Abuse Patient Records regulations: The Federal rules restrict any use of the information to criminally investigate or prosecute any alcohol or drug abuse patient.[facility] CampusIn the event this information is protected by the Federal Confidentiality of Alcohol and Drug Abuse Patient Records regulations: The Federal rules restrict any use of the information to criminally investigate or prosecute any alcohol or drug abuse patient.[facility] CampusIn the event this information is protected by the Federal Confidentiality of Alcohol and Drug Abuse Patient Records regulations: The Federal rules restrict any use of the information to criminally investigate or prosecute any alcohol or drug abuse patient.[facility] CampusIn the event this information is protected by the Federal Confidentiality of Alcohol and Drug Abuse Patient Records regulations: The Federal rules restrict any use of the information to criminally investigate or prosecute any alcohol or drug abuse patient.[facility] CampusIn the event this information is protected by the Federal Confidentiality of Alcohol and Drug Abuse Patient Records regulations: The Federal rules restrict any use of the information to criminally investigate or prosecute any alcohol or drug abuse patient.[facility] CampusIn the event this information is protected by the Federal Confidentiality of Alcohol and Drug Abuse Patient Records regulations: The Federal rules restrict any use of the information to criminally investigate or prosecute any alcohol or drug abuse patient.[facility] CampusIn the event this information is protected by the Federal Confidentiality of Alcohol and Drug Abuse Patient Records regulations: The Federal rules restrict any use of the information to criminally investigate or prosecute any alcohol or drug abuse patient.[facility] CampusIn the event this information is protected by the Federal Confidentiality of Alcohol and Drug Abuse Patient Records regulations: The Federal rules restrict any use of the information to criminally investigate or prosecute any alcohol or drug abuse patient.[facility] CampusIn the event this information is protected by the Federal Confidentiality of Alcohol and Drug Abuse Patient Records regulations: The Federal rules restrict any use of the information to criminally investigate or prosecute any alcohol or drug abuse patient.[facility] CampusIn the event this information is protected by the Federal Confidentiality of Alcohol and Drug Abuse Patient Records regulations: The Federal rules restrict any use of the information to criminally investigate or prosecute any alcohol or drug abuse patient.[facility] CampusIn the event this information is protected by the Federal Confidentiality of Alcohol and Drug Abuse Patient Records regulations: The Federal rules restrict any use of the information to criminally investigate or prosecute any alcohol or drug abuse patient.[facility] CampusIn the event this information is protected by the Federal Confidentiality of Alcohol and Drug Abuse Patient Records regulations: The Federal rules restrict any use of the information to criminally investigate or prosecute any alcohol or drug abuse patient.[facility] CampusIn the event this information is protected by the Federal Confidentiality of Alcohol and Drug Abuse Patient Records regulations: The Federal rules restrict any use of the information to criminally investigate or prosecute any alcohol or drug abuse patient.[facility] CampusIn the event this information is protected by the Federal Confidentiality of Alcohol and Drug Abuse Patient Records regulations: The Federal rules restrict any use of the information to criminally investigate or prosecute any alcohol or drug abuse patient.[facility] CampusIn the event this information is protected by the Federal Confidentiality of Alcohol and Drug Abuse Patient Records regulations: The Federal rules restrict any use of the information to criminally investigate or prosecute any alcohol or drug abuse patient.[facility] CampusIn the event this information is protected by the Federal Confidentiality of Alcohol and Drug Abuse Patient Records regulations: The Federal rules restrict any use of the information to criminally investigate or prosecute any alcohol or drug abuse patient.[facility] Reason for Visit (unrecogniz ed section and content) Reason Comments Crohns Reason Comments Lab Orders Sent via my chart Reason Comments Appointment Specialty Diagnoses / Procedures Referred By Contac t Referred To Contact Diagnoses 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) K50.813 (ICD-10-CM) - 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) Procedures INJECTION, RENFLEXIS Q5104 - INJECTION, RENFLEXIS Zach Wagner MD [address] [place] [address] [facility] [address] [place] [address] Referral ID Status Reason Start Date Expiration Date V isits Requested Visits Authorized [id number] Authorized 02/08/2021 03/02/2022 7 7 Reason Comments Medication Problem backordered medicati on Specialty Diagnoses / Procedures Referred By Contac t Referred To Contact MR IMAGING Diagnoses Crohn's disease of small intestine with complication (HCC) Procedures MRI PEL ENTEROG WO/W IVCON MRI PELVIS W/O & W/CONTRAST MATERIAL Calvin Vora MD [address] [place] [address] Mr Imaging Referral ID Status Reason Start Date Expiration Date V isits Requested Visits Authorized [id number] Closed Auto-Generate d Referral 12/27/2021 03/14/2022 1 1 Reason Comments Consult New Patient Specialty Diagnoses / Procedures Referred By Contac t Referred To Contact Diagnoses 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) K50.813 (ICD-10-CM) - 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) Procedures INJECTION, RENFLEXIS INFLIXIMAB INJECTION Q5104 - INJECTION, RENFLEXIS Zach Wagner MD [address] [place] [address] [facility] [address] [place] [phone] Referral ID Status Reason Start Date Expiration Date V isits Requested Visits Authorized [id number] Authorized 02/08/2021 08/31/2022 11 11 Reason Comments Orders IFX increase 10mg/kg (600 mg) New Therapy plan Reason Comments Medication Assistance Program Referral ID Status Reason Start Date Expiration Date Visits Re quested Visits Authorized Closed 02/08/2021 08/31/2022 11 11 Specialty Diagnoses / Procedures [facility] Referred To Contact Diagnoses 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) Procedures INFLIXIMAB INJECTION Calvin Vora MD [address] [place] [address] [facility] Main [facility] Endoscopy [address] [place] [phone] Referral ID Status Reason Start Date Expiration Date V isits Requested Visits Authorized [id number] Authorized 05/22/2022 08/31/2022 2 2 Reason Comments Sore throat, cough, body aches Reason Comments Appointment Confirmation Reason Comments Results Referral ID Status Reason Start Date Expiration Date V isits Requested Visits Authorized [id number] Authorized 05/22/2022 03/01/2023 6 6 Specialty Diagnoses / Procedures Referred By Contac t Referred To Contact Diagnoses 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) Procedures INFLIXIMAB INJECTION Calvin Vora MD [address] [place] [address] [facility] Main [facility] Endoscopy [address] [place] [phone] Reason Comments Crohns Specialty Diagnoses / Procedures [facility] Referred To Contact Diagnoses 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) Procedures INFLIXIMAB INJECTION 10 mg/kg every 8 weeks is max allowed dosing by payer Calvin Vora MD [address] [place] [address] [facility] Main [facility] Endoscopy [address] [facility] [place] [address] Referral ID Status Reason Start Date Expiration Date V isits Requested Visits Authorized [id number] Authorized 05/22/2022 07/12/2023 99 99 Specialty Diagnoses / Procedures Referred By [facility] hospital Referred To Contact Diagnoses 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) Procedures INFLIXIMAB INJECTION INJECTION, INFLECTRA 10 mg/kg every 8 weeks is max allowed dosing by Calvin Zuñiga MD [address] [place] [address] [facility] Main [facility] Endoscopy [address] [place] [address] Referral ID Status Reason Start Date Expiration Date V isits Requested Visits Authorized [id number] Authorized 05/22/2022 02/07/2024 10 10 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 Date Comments Refill Request 10/16/2023 Reason Comments Follow Up Reason Comments Care Coordination Reason Comments Return Provider Call Reason Comments Established Patient Follow up anal fissu res Reason Comments Patient Question Specialty Diagnoses / Procedures [facility] Referred To Contact ADMITTING Diagnoses Anal fissure Procedures ANRCT XM SURG REQ ANES GENERAL SPI/EDRL DX EXAM UNDER ANESTHESIA RECTAL [facility] [address] [place] [address] Referral ID Status Reason Start Date Expiration Date Visits Re quested Visits Authorized [id number] 1 1 Reason Comments Research NICOLAS EIM Reason Comments Established Patient Reason Comments Medication Authorization Reason Comments Established Patient Crohn's disease Reason Comments Established Patient Crohn's disease of b oth small and large intestine with fistula (HCC) [K50.813] Reason Comments Established Patient Follow up Care Teams (unrecognized sec tion and content) Claim Review Medical Director Relationship Specialty Start Date End Date Jammie Raines [address] [place] [address] PCP - General Family Practice 09/18/16 [address] [place] [address] [facility] 09/18/16 Omar Casas Referring Colon and Rectal Surgery 02/12/17 Claim Review Medical Director Relationship Specialty Start Date End Date Yanna Jammie Navarro [address] [place] [address] PCP - General [facility] 09/18/16 Jammie Raines [address] [place] [address] [facility] 09/18/16 Omar Casas Referring Colon and Rectal Surgery 02/12/17 Claim Review Medical Director Relationship Specialty Start Date End Date Jammie Raines [address] [place] [address] PCP - General [facility] 09/18/16 Jammie Raines [address] [place] [address] [facility] 09/18/16 Omar Casas Referring Colon and Rectal Surgery 02/12/17 Claim Review Medical Director Relationship Specialty Start Date End Date Jammie Raines [address] [place] [address] PCP - General [facility] 09/18/16 Jammie Raines [address] [place] [address] [facility] 09/18/16 Omar Casas Referring Colon and Rectal Surgery 02/12/17 Claim Review Medical Director Relationship Specialty Start Date End Date Jammie Raines [address] [place] [address] PCP - General Family Practice 09/18/16 Jamm[address] Raines [address] [facility] [place] [address] [facility] 09/18/16 Omar Casas Referring Colon and Rectal Surgery 02/12/17 Claim Review Medical Director Relationship Specialty Start Date End Date Jammie Raines [address] [place], [place] [address] [place] [address] PCP - General Family Practice 09/18/16 Jammie Raines [address] [place] [address] [address] Family Practice 09/18/16 Omar Casas Referring Colon and Rectal Surgery 02/12/17 Claim Review Medical Director Relationship Specialty Start Date End Date Jammie Raines [address] [place], [place] [address] [address] PCP - General Family Practice 09/18/16 Jammie Raines [address] [place] [place] [address] [address] Family Practice 09/18/16 Omar Casas Referring Colon and Rectal Surgery 02/12/17 Claim Review Medical Director Relationship Specialty Start Date End Date Jammie Raines [address] [place] [place] [address] [address] PCP - General Family Practice 09/18/16 Jammie Raines [address] [place] [address] [address] Family Practice 09/18/16 Omar Casas Referring Colon and Rectal Surgery 02/12/17 Claim Review Medical Director Relationship Specialty Start Date End Date Jammie Raines [address] [place] [address] [address] PCP - General Family Practice 09/18/16 Jammie Raines [address] [place], [place] [address] [facility] [place] [address] Family Practice 09/18/16 Omar Casas Referring Colon and Rectal Surgery 02/12/17 Claim Review Medical Director Relationship Specialty Start Date End Date Jammie Raines [address] [place], [place] [address] [facility] [place] [address] PCP - General Family Practice 09/18/16 Jammie Raines [address] [place] [address] [address] Family Practice 09/18/16 Omar Casas Referring Colon and Rectal Surgery 02/12/17 Claim Review Medical Director Relationship Specialty Start Date End Date Jammie Raines [address] [place] [place] [address] [address] PCP - General Family Practice 09/18/16 Jammie Raines [address] [place], [place] [address] [facility] [place] [address] Family Practice 09/18/16 Omar Casas Referring Colon and Rectal Surgery 02/12/17 Claim Review Medical Director Relationship Specialty Start Date End Date Jammie Raines [address] [place] [place] [address] [address] PCP - General Family Practice 09/18/16 Jammie Raines [address] [place] [address] [address] Family Practice 09/18/16 Omar Casas Referring Colon and Rectal Surgery 02/12/17 Claim Review Medical Director Relationship Specialty Start Date End Date Jammie Raines [address] [place] [address] PCP - General Family Medicine 09/18/16 Jammie Raines [address] [place] [address] Family Medicine 09/18/16 Omar Casas Referring Colon and Rectal Surgery 02/12/17 Claim Review Medical Director Relationship Specialty Start Date End Date Jammie Raines [address] [place] [address] PCP - General Family Medicine 09/18/16 Jammie Raines [address] [place] [address] Family Medicine 09/18/16 Omar Casas Referring Colon and Rectal Surgery 02/12/17 Claim Review Medical Director Relationship Specialty Start Date End Date Jammie Raines [address] [place] [address] PCP - General Family Medicine 09/18/16 Jammie Raines [address] [place] [address] Family Medicine 09/18/16 Omar Casas Referring Colon and Rectal Surgery 02/12/17 Claim Review Medical Director Relationship Specialty Start Date End Date Jammie Raines [address] [place] [address] PCP - General Family Medicine 09/18/16 Jammie Raines [address] [place] [address] Family Medicine 09/18/[address] [place] [address] Referring Colon and Rectal Surgery 02/12/17 Claim Review Medical Director Relationship Specialty Start Date End Date Jammie Raines [address] [place] [address] PCP - General Family Medicine 09/18/16 Jamm[address] Raines [address] [place] [address] Family Medicine 09/18/16 Yessenia, [address] [place] [address] Referring Colon and Rectal Surgery 02/12/17 Claim Review Medical Director Relationship Specialty Start Date End Date Jammie Raines [address] [place] [address] PCP - General Family Medicine 09/18/16 Jammie Raines [address] [place] [address] Family Medicine 09/18/16 Yessenia Omar [address] [place] [address] Referring Colon and Rectal Surgery 02/12/17 Claim Review Medical Director Relationship Specialty Start Date End Date Michelle Garcia [address] [place] [address] PCP - General Family Medicine 09/18/22 Claim Review Medical Director Relationship Specialty Start Date End Date Jammie Raines [address] [place] [address] PCP - General Family Medicine 09/18/[address] [place] [address] Family Medicine 09/18/16 Omar Casas [address] [place] [address] Referring Colon and Rectal Surgery 02/12/17 Claim Review Medical Director Relationship Specialty Start Date End Date Jammie Raines [address] [place] [address] PCP - General Family Medicine 09/18/16 Jammie Raines [address] [place] [address] Family Medicine 09/18/16 Omar Casas [address] [place] [address] Referring Colon and Rectal Surgery 02/12/17 Claim Review Medical Director Relationship Specialty Start Date End Date Jammie Raines MD [address] [place] [address] PCP - General Family Medicine 09/18/16 Jammie Raines MD [address] [place] [address] Family Medicine 09/18/16 Omar Casas [address] [place] [address] Referring Colon and Rectal Surgery 02/12/17 Claim Review Medical Director Relationship Specialty Start Date End Date Jammie Raines MD [address] [place] [address] PCP - General Family Medicine 09/18/16 Jammie Raines MD [address] [place] [address] Family Medicine 09/18/16 Omar Casas [address] [place] [address] Referring Colon and Rectal Surgery 02/12/17 Claim Review Medical Director Relationship Specialty Start Date End Date Michelle Garcia MD [address] [place] [address] PCP - General Family Medicine 04/20/23 Jammie Raines MD [address] [place] [address] Family Medicine 09/18/16 Omar Casas [address] [place] [address] Referring Colon and Rectal Surgery 02/12/17 Claim Review Medical Director Relationship Specialty Start Date End Date Michelle Garcia MD [address] [place] [address] PCP - General Family Medicine 04/20/23 Jammie Raines MD [address] [place] [address] Family Medicine 09/18/16 Omar Casas [address] [place] [address] Referring Colon and Rectal Surgery 02/12/17 Claim Review Medical Director Relationship Specialty Start Date End Date Michelle Garcia MD [address] [place] [address] PCP - General Family Medicine 04/20/23 Jammie Raines MD [address] [place] [address] Family Medicine 09/18/16 Omar Casas [address] [place] [address] Referring Colon and Rectal Surgery 02/12/17 Claim Review Medical Director Relationship Specialty Start Date End Date Michelle Garcia MD [address] [place] [address] PCP - General Family Medicine 04/20/23 Jammie Raines MD [address] [place] [address] Family Medicine 09/18/16 Omar Casas [address] [place] [address] Referring Colon and Rectal Surgery 02/12/17 Claim Review Medical Director Relationship Specialty Start Date End Date Michelle Garcia MD [address] [place] [address] PCP - General Family Medicine 04/20/23 Jammie Raines MD [address] [place] [address] Family Medicine 09/18/16 Omar Casas [address] [place] [address] Referring Colon and Rectal Surgery 02/12/17 Claim Review Medical Director Relationship Specialty Start Date End Date Michelle Garcia MD [address] [place] [address] PCP - General Family Medicine 04/20/23 Jammie Raines MD [address] [place] [address] Family Medicine 09/18/16 Omar Casas [address] [place] [address] Referring Colon and Rectal Surgery 02/12/17 Claim Review Medical Director Relationship Specialty Start Date End Date Michelle Garcia MD [address] [place] [address] PCP - General Family Medicine 04/20/23 Jammie Raines MD [address] [place] [address] Family Medicine 09/18/16 Omar Casas [address] [place] [address] Referring Colon and Rectal Surgery 02/12/17 Claim Review Medical Director Relationship Specialty Start Date End Date Michelle Garcia MD [address] [place] [address] PCP - General Family Medicine 04/20/23 Jammie Raines MD [address] [place] [address] Family Medicine 09/18/16 Omar Casas [address] [place] [address] Referring Colon and Rectal Surgery 02/12/17 Claim Review Medical Director Relationship Specialty Start Date End Date Michelle Garcia MD [address] [place] [address] PCP - General Family Medicine 04/20/23 Jammie Raines MD [address] [place] [address] Family Medicine 09/18/16 Omar Casas [address] [place] [address] Referring Colon and Rectal Surgery 02/12/17 Claim Review Medical Director Relationship Specialty Start Date End Date Michelle Garcia DO [address] [place] [address] PCP - General Family Medicine 09/18/22 Claim Review Medical Director Relationship Specialty Start Date End Date Michelle Garcia MD [address] [place] [address] PCP - General Family Medicine 04/20/23 Jammie Raines MD [address] [place] [address] Family Medicine 09/18/16 Omar Casas [address] [place] [address] Referring Colon and Rectal Surgery 02/12/17 Claim Review Medical Director Relationship Specialty Start Date End Date Michelle Garcia MD [address] [place] [address] PCP - General Family Medicine 04/20/23 Jammie Raines MD [address] [place] [address] Family Medicine 09/18/16 Omar Casas [address] [place] [address] Referring Colon and Rectal Surgery 02/12/17 Claim Review Medical Director Relationship Specialty Start Date End Date Michelle Garcia MD [address] [place] [address] PCP - General Family Medicine 04/20/23 Jammie Raines MD [address] [place] [address] Family Medicine 09/18/16 Omar Casas [address] [place] [address] Referring Colon and Rectal Surgery 02/12/17 Claim Review Medical Director Relationship Specialty Start Date End Date Michelle Garcia MD [address] [place] [address] PCP - General Family Medicine 04/20/23 Jammie Raines MD [address] [place] [address] Family Medicine 09/18/16 Omar Casas [address] [place] [address] Referring Colon and Rectal Surgery 02/12/17 Claim Review Medical Director Relationship Specialty Start Date End Date Michelle Garcia DO [address] [place] [address] PCP - General Family Medicine 09/18/22 Claim Review Medical Director Relationship Specialty Start Date End Date Michelle Garcia MD [address] [place] [address] PCP - General Family Medicine 04/20/23 Jammie Raines MD [address] [place] [address] Family Medicine 09/18/16 Omar Casas [address] [place] [address] Referring Colon and Rectal Surgery 02/12/17 Claim Review Medical Director Relationship Specialty Start Date End Date Michelle Garcia MD [address] [place] [address] PCP - General Family Medicine 04/20/23 Jammie Raines MD [address] [place] [address] Family Medicine 09/18/16 Omar Casas [address] [place] [address] Referring Colon and Rectal Surgery 02/12/17 Claim Review Medical Director Relationship Specialty Start Date End Date Michelle Garcia MD [address] [place] [address] PCP - General Family Medicine 04/20/23 Jammie Raines MD [address] [place] [address] Family Medicine 09/18/16 Omar Casas [address] [place] [address] Referring Colon and Rectal Surgery 02/12/17 Claim Review Medical Director Relationship Specialty Start Date End Date Michelle Garcia DO [address] [place] [address] PCP - General Family Medicine 04/20/23 Jammie Raines MD [address] [place] [address] Family Medicine 09/18/16 Omar Casas [address] [place] [address] Referring Colon and Rectal Surgery 02/12/17 Claim Review Medical Director Relationship Specialty Start Date End Date Michelle Garcia DO [address] [place] [address] PCP - General Family Medicine 04/20/23 Jammie Raines MD [address] [place] [address] Family Medicine 09/18/16 Omar Casas [address] [place] [address] Referring Colon and Rectal Surgery 02/12/17 Claim Review Medical Director Relationship Specialty Start Date End Date Michelle Garcia DO [address] [place] [address] PCP - General Family Medicine 04/20/23 Jammie Raines MD [address] [place] [address] Family Medicine 09/18/16 Omar Casas [address] [place] [address] Referring Colon and Rectal Surgery 02/12/17 Claim Review Medical Director Relationship Specialty Start Date End Date Michelle Garcia DO [address] [place] [address] PCP - General Family Medicine 04/20/23 Jammie Raines MD [address] [place] [address] Family Medicine 09/18/16 Omar Casas [address] [place] [address] Referring Colon and Rectal Surgery 02/12/17 Claim Review Medical Director Relationship Specialty Start Date End Date Michelle Garcia DO [address] [place] [address] PCP - General Family Medicine 04/20/23 Jammie Raines MD [address] [place] [address] Family Medicine 09/18/16 Omar Casas [address] [place] [address] Referring Colon and Rectal Surgery 02/12/17 Claim Review Medical Director Relationship Specialty Start Date End Date Michelle Garcia DO [address] [place] [address] PCP - General Family Medicine 04/20/23 Jammie Raines MD [address] [place] [phone] Family Medicine 09/18/16 Omar Casas [address] [place] [address] Referring Colon and Rectal Surgery 02/12/17 Claim Review Medical Director Relationship Specialty Start Date End Date Michelle Garcia DO [address] [place] [address] PCP - General Family Medicine 04/20/23 Jammie Raines MD [address] [place] [phone] Family Medicine 09/18/16 Omar Casas [address] [place] [address] Referring Colon and Rectal Surgery 02/12/17 Team Status: Active Member Role Status Dates No Primary Care Physician Primary Care Provider Active Team Status: Inactive Member Role Status Dates Anthony West MD Emergency Provider Active Star t: October 01, 2024 End: October 01, 2024 No Primary Care Physician Primary Care Provider Active Start: October 01, 2024 End: October 01, 2024 Claim Review Medical Director Relationship Specialty Start Date End Date Michelle Garcia DO [address] [place] [address] PCP - General Family Medicine 04/20/23 Jammie Raines MD [address] [place] [address] Family Medicine 09/18/16 Omar Casas [address] [place] [address] Referring Colon and Rectal Surgery 02/12/17 Claim Review Medical Director Relationship Specialty Start Date End Date Michelle Garcia DO [address] [place] [address] PCP - General Family Medicine 04/20/23 Jammie Raines MD [address] [place] [phone] Family Medicine 09/18/16 Omar Casas [address] [place] [address] Referring Colon and Rectal Surgery 02/12/17 Care Team (unrecognized sect ion and content) Care Team Personnel Name: JAMMIE RAINES MD Med Service: Surgery Member Role: Primary Care Physician Address: Address: [address] [place] [address]- Care Team Related Persons Name: SAMMY KELLER Name: SAMMY KELLER Name: SAMMY KELLER INFORMATION SOURCE (unrecogn ized section and content) DATE CREATED AUTHOR 02/21/2022 [facility] DATE CREATED AUTHOR AUTHOR'S ORGANIZ ATION 03/07/2022 [facility] ([place]) DATE CREATED AUTHOR AUTHOR'S ORGANIZ ATION 08/30/2022 [facility] DATE CREATED AUTHOR AUTHOR'S ORGANIZ ATION 01/07/2023 [facility] DATE CREATED AUTHOR AUTHOR'S ORGANIZ ATION 11/28/2023 [facility] DATE CREATED AUTHOR AUTHOR'S ORGANIZ ATION 10/24/2024 [facility] DATE CREATED AUTHOR AUTHOR'S ORGANIZ ATION 12/09/2024 [facility] Inactive Administered Medications - up to 3 most recent administrations Administered Medications (un recognized section and content) Medication Order MAR Action Action Date Dose Rate Site inFLIXimab-dyyb 600 mg in NaCl 0.9% 250 mL (INFLECTRA) 600 mg, INTRAVENOUS, at 83.33-250 mL/hr, Administer over 1-3 Hours, ONCE, 1 dose, On Thu09/10/23 at 1330, Total Volume: = 250 mL EXP: Administer with 0.2 micron filter. New Bag/Syringe/Bottle 09/10/2023 1:37 PM EST 600 mg 250 mL/hr Inactive Administered Medications - up to 3 most recent administrations Medication Order MAR Action Action Date Dose Rate Site NaCl 0.9% iv infusion 30 mL/hr, INTRAVENOUS, CONTINUOUS, Starting on Thu09/17/23 at 1300, Until Thu09/18/23 at 0413, Preprocedure New Bag/Syringe/Bottle 09/17/2023 1:08 PM EST 30 mL/hr 30 mL/hr Scheduled Active and Recently Administ ered Medications (unrecognized section and content) Medication Order 03/02/2024 03/03/2024 03/04/2024 acetaminophen 500-1,000 mg tab(s) (TYLENOL) (COMPLETED) 500-1,000 mg, ORAL, ONCE, 1 dose, On Thu03/04/24 at 1430, If ordered PRN for pain, patient/guardian may elect to receive this medication for higher pain levels INSTEAD of the opioid, if preferred: Yes, Recovery or Phase I (only) 1430 (Given - Provid er: Perez Houston RN) Continuous Medication Order 03/02/2024 03/03/2024 03/04/2024 lactated ringers iv infusion 5-30 mL/hr, INTRAVENOUS, CONTINUOUS, Starting on Thu03/04/24 at 0900, Until 03/05/24 at 0302, Preprocedure 0900 (New Bag/Syring e/Bottle - Provider: Sierra Arias RN) lactated ringers iv infusion 100 mL/hr, INTRAVENOUS, CONTINUOUS, Starting on Thu03/04/24 at 1330, Until 03/05/24 at 0302, Recovery or Phase I (only) 1316 (New Bag/Syring e/Bottle - Provider: Marbin Lau RN) PRN Medication Order 03/02/2024 03/03/2024 03/04/2024 bupivacaine (PF) 0.25 % (2.5 mg/mL) 30 mL, BUPivacaine liposome (PF) 20 mL (CANCELED) X (OR/PROCEDURE) PRN, Starting on Thu03/04/24 at 1247, Until Thu03/04/24 at 1313, Intraprocedure 1247 (Given - Provid er: Flor Mar MD) fentaNYL 50 mcg/mL 25-50 mcg injection (SUBLIMAZE) 25-50 mcg, INTRAVENOUS, EVERY 10 MINUTES NEEDED, Starting on Thu03/04/24 at 1323, Until 03/05/24 at 0302, Mild Pain (1-3) - Parenteral, Moderate Pain (4-6) - Parenteral, Severe Pain (>/=7) - Parenteral, May repeat every 10 minutes (MAX: 250 mcg) If pain score remains greater than 4 after maximal dose achieved, contact PACU residential director/LIP/staff for reassessment. Give 25 mcg for mild pain (1-3) Give 50 mcg for moderate pain (4-6) and severe pain (>/=7), Recovery or Phase I (only) lidocaine (PF) 10 mg/mL (1 %) 1-2 mg injection (XYLOCAINE)(Linked Group 1) 1-2 mg (0.1-0.2 mL), INTRADERMAL, NEEDED, 1 dose, Starting on Thu03/04/24 at 0842, Until 03/05/24 at 0302, See admin instructions, May use prior to starting IV, Preprocedure lidocaine 1% 0.25 mL subcutaneous j-tip syringe (XYLOCAINE)(Linked Group 1) 0.25 mL, SUBCUTANEOUS, NEEDED, 1 dose, Starting on Thu03/04/24 at 0842, Until 03/05/24 at 0302, May use prior to IV start, J tip syringe should be used only for patients with high anxiety surrounding IV start or known history of difficult IV stick. Patient weight 5 kg or greater is recommended for use of J-tip. Allow 2-3 minutes for onset. DO NOT USE for port access or in patients receiving chemotherapy., Preprocedure NaCl 0.9% iv flush bag 20 mL, INTRAVENOUS, NEEDED, Starting on Thu03/04/24 at 0842, Until 03/05/24 at 0302, See admin instructions, If no compatible primary is already running, infuse NaCl 0.9% as primary to flush tubing after non-chemotherapy, non-immunotherapy intermittent infusions. Administer at the same rate as intermittent infusion. Select the Flush Bag file on smart pump., Preprocedure triamcinolone acetonide injection (KeNALog 40) (CANCELED) X (OR/PROCEDURE) PRN, Starting on Thu03/04/24 at 1249, Until Thu03/04/24 at 1313, Intraprocedure 1249 (Given - Provid er: Flor Mar MD) Linked Groups Order Group 1: lidocaine (PF) 10 mg/mL (1 %) 1-2 mg injection (XYLOCAINE)Jump to med 1-2 mg (0.1-0.2 mL), INTRADERMAL, NEEDED, 1 dose, Starting on Thu03/04/24 at 0842, Until 03/05/24 at 0302, See admin instructions, May use prior to starting IV, Preprocedure Or lidocaine 1% 0.25 mL subcutaneous j-tip syringe (XYLOCAINE)Jump to med 0.25 mL, SUBCUTANEOUS, NEEDED, 1 dose, Starting on 03/04/24 at 0842, Until 03/05/24 at 0302, May use prior to IV start, J tip syringe should be used only for patients with high anxiety surrounding IV start or known history of difficult IV stick. Patient weight 5 kg or greater is recommended for use of J-tip. Allow 2-3 minutes for onset. DO NOT USE for port access or in patients receiving chemotherapy., Preprocedure Goals (unrecognized section and content) Goals may be documented in a n alternate section FOR RECORDS PERTAINING TO PATIENTS WHO ARE OR HAVE BEEN ENROLLED IN A CHEMICAL DEPENDENCY/SUBSTANCEABUSE PROGRAM, SOME INFORMATION MAY BE OMITTED. This clinical summary was aggregated from multiple sources. Caution should be exercised in using it in the provision of clinical care. This summary normalizes information from multiple sources, and as a consequence, information in this document may materially change the coding, format and clinical context of patient data. In addition, data may be omitted in some cases. CLINICAL DECISIONS SHOULD BE BASED ON THE PRIMARY CLINICAL RECORDS. [employer] provides no warranty or guarantee of the accuracy or completeness of information in this document.
== END | disposition home or self-care (01) ==
LOC: CT 06:20
PROVIDERS: PCP Nurse Practitioner Family; Referring Provider Otolaryngology; Visit Provider Otolaryngology
DX: J32.8 Other chronic sinusitis (principal)
CPT/HCPCS: 70486

== ENCOUNTER → 2024-12-28 | Outpatient (CLI) | payer OTHER, SELFPAY ==
[2025-01-05 04:59] LABS: Clam <0.10 kU/L (Class 0); Codfish <0.10 kU/L (Class 0); Corn <0.10 kU/L (Class 0); Egg, White <0.10 kU/L (Class 0); Egg, Whole <0.10 kU/L (Class 0); Egg, Yolk <0.10 kU/L (Class 0); Gluten <0.10 kU/L (Class 0); Milk (Cow) <0.10 kU/L (Class 0); Peanut <0.10 kU/L (Class 0); SCALLOP <0.10 kU/L (Class 0); SESAME SEED <0.10 kU/L (Class 0); Shrimp <0.10 kU/L (Class 0); Soybean <0.10 kU/L (Class 0); Walnut, (Food) <0.10 kU/L (Class 0); Wheat <0.10 kU/L (Class 0)
== END | disposition home or self-care (01) ==
LOC: LAB 12:50
PROVIDERS: PCP Nurse Practitioner Family; Referring Provider Otolaryngology; Visit Provider Otolaryngology
DX: T78.40XA Allergy, unspecified, initial encounter (principal)
CPT/HCPCS: 36415; 86003

== ENCOUNTER → 2025-04-03 | Outpatient (CLI) | payer OTHER, SELFPAY ==
[2025-04-07 11:08] LABS: HPV APTIMA, High Risk Negative (Negative)
== END | disposition home or self-care (01) ==
PROVIDERS: PCP Nurse Practitioner Family; Referring Provider Obstetrics & Gynecology; Visit Provider Obstetrics & Gynecology
DX: Z12.4 Encounter for screening for malignant neoplasm of cervix (principal); K50.90 Crohn's disease, unspecified, without complications
CPT/HCPCS: 36415; 84439; 84443; 87624; 88175; G0145

== ENCOUNTER → 2025-04-13 | Outpatient (CLI) | payer OTHER, SELFPAY ==
--- NOTE | 2025-04-13 16:49 | BI_ITS ---
EXAM: SCRN MAMM (CAD)W/PAULINO BILAT DATE: 04/13/2025 CLINICAL HISTORY: F, Age 44 y/o , SCREEN TECHNIQUE: Procedure Code: [id number] Modality: MG Procedure: SCRN MAMM (CAD)W/PAULINO BILAT COMPARISON: Prior exam(s) dated 11/26/2023, 09/18/2022. FINDINGS: TISSUE DENSITY: There are scattered areas of fibroglandular density. Bilateral Breast Mammographic Findings: No significant masses, calcifications or other abnormalities are identified. BI/SCRN MAMM (CAD)W/PAULINO BILAT IMPRESSION: There is no mammographic evidence of malignancy. OVERALL FINAL ASSESSMENT BI-RADS 1: NEGATIVE. RECOMMENDATION: Routine annual follow-up in 1 Year Additional Recommendation none A letter with findings and recommendations will be mailed to the patient. Reading Location: [id number]
== END | disposition home or self-care (01) ==
LOC: OPBI 04-14 08:46
PROVIDERS: PCP Nurse Practitioner Family; Referring Provider Obstetrics & Gynecology; Visit Provider Obstetrics & Gynecology
DX: Z12.31 Encounter for screening mammogram for malignant neoplasm of breast (principal)
CPT/HCPCS: 77063; 77067